=== PATIENT | female | born 1940 | race Caucasian/White ===

== ENCOUNTER 2019-12-08 08:00 | Outpatient (RCR) | payer MEDICARE, SELFPAY ==
--- NOTE | 2019-11-16 11:27 | PTOPEVAL ---
PHYSICAL THERAPY EVALUATION AND PLAN OF CARE 11-16-2019 The PT evaluation was completed for the diagnosis of L UE lymphedema. Her plan of treatment is scheduled for 3x/week for 4 weeks. Thank you for referring Meenakshi to [facility]. Please review, sign, date and return this plan of care HARDEEP. I agree with and certify that the following plan of care is medically necessary. Referring Physician Date Attending Provider: Renata Melo PA-C *PT Outpatient Evaluation Start: 11/16/19 10:19 Document 11/16/19 10:19 CHERYLE (Rec: 11/16/19 11:27 CHERYLE [id number]) Outpatient Past Medical History Past Medical History Source of Past Medical History Patient Neurological History Hx Other Neurological Disorders Yes: alvaro holes with sub dural hematomas due fall Cardiovascular History Hx Hypercholesterolemia Yes: meds Hx Hypertension Yes: meds Respiratory History Hx Asthma Yes: inhaler/nebulizer; taking predisone for past 3 days taken Gastrointestinal History Hx Gastrointestinal Disorders No Significant History Genitourinary History Hx Genitourinary Disorders No Significant History Musculoskeletal History Hx Back Pain Yes: chronic Hx Other Musculoskeletal Disorders Yes: R shoulder and wrist fracture due fall-immobilized Reproductive History Hx Post Menopausal Yes Other History Hx Cancer Yes: breast L mastectomy Hx Other Surgeries Yes: skin cancer removed L forearm Evaluation Information Problem Diagnosis L UE lymphedema Onset Aug 2019 Prior Level of Function Activity Level (Last 3 Months) 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, 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 Hand Dominance Right Activity of Daily Living Ability Independent Indoor/Home Mobility Independent Community Mobility Independent Stairs Ability Independent Functional Cognition (Planning, Shopping Independent , Taking Medications) Cooking Yes Cleaning Yes Laundry Yes Shopping Yes Driving Yes Home Setting Home Type House Living Situation With Adult Child Mobility Assistive Devices (Used Last 3 None,Cane Months) Comments Additional Prior Level of Function no falls since May 2018; Comments adult daughter assist with home tasks, but pt is able to do all needed tasks at home Pain Assessment Timing of
--- NOTE | 2019-12-08 09:00 | PTOPEVAL ---
PHYSICAL THERAPY DISCHARGE 12-08-2019 Mrs. Chavez has received 9 PT sessions, from October 26 to today, for the diagnosis of L UE lymphedema. Her treatment included: manual lymph drainage, multi layer compression wraps, education for lymphedema care/management: skin care, compression sleeve and self lymph drainage. The circumferential measurement of her L arm is .3 cm larger than the initial evaluation, but her forearm tissue is no longer firm. And her skin color is normal, without any redness. She has a compression sleeve: lymphediva brand: small, 20-30 mmHg compression, short length. She is tolerating wearing it without any complaints; her daughter assisting her to apply it. She is to monitor her hand and fingers for edema, and if they begin to swell, she has the measurements for a gauntlet to order. Thank you for referring Meenakshi Chavez to [facility]. Please review, sign, date and return this discharge HARDEEP. I agree with and certify that the following plan of care is medically necessary. Referring Physician Date Attending Provider: Renata Melo PA-C Document 12/08/19 08:05 CHERYLE (Rec: 12/08/19 08:48 CHERYLE [id number]) Subjective Information Meenakshi and her daughter Andria Query Text:As Reported By Patient/ report: sleeve is comfortable Family , without any problems; Andria is assisting her with putting it on and with doing her lymph massage; she is using her arm with home tasks and agrees to discharge from therapy. Pain Assessment Timing of Pain Assessment Timing of Pain Assessment Assessment Self Report Self Report Pain Level 0 Pain Score Pain Score 0: Self Report Lymphedema Evaluation Skin Inspection Location Left Upper Extremity Lymphedema Stage I Skin Inspection Comment no firmness of tissue over L UE, forearm; good/normal skin color; compression sleeve fits appropriately; performed MLD to L UE with verbal reminders for how to do self massage; Andria and pt report good understanding and do not have any questions; they understand skin precautions, how to check arm size with measuring wrist, mid forearm and mid arm; UE Circumferential Measurement Left UE Lymphedema Side Left Mid-Proximal Third Finger (cm) 5.8 Palm (cm) 17.5 Wrist Crease (cm) 17 4 cm From Wrist (cm) 17 8 cm From Wrist (cm) 18.4 12 cm Fro
== END 2019-12-08 12:33 | disposition home or self-care (01) ==
LOC: ANHPT 08:00
PROVIDERS: PCP Family Medicine; Visit Provider Physician Assistant
DX: I97.2 Postmastectomy lymphedema syndrome (principal); Z90.12 Acquired absence of left breast and nipple; Z85.3 Personal history of malignant neoplasm of breast
CPT/HCPCS: 97140; 97161

== ENCOUNTER 2020-01-04 14:41 | Outpatient (CLI) | payer MEDICARE, SELFPAY ==
--- NOTE | ~2020-01-04 | CT_ITS ---
EXAMINATION: CT brain wo con DATE: 01/04/2020 15:30 INDICATION: Dizziness and giddiness. TECHNIQUE: Computed tomography (CT) of the head was performed without intravenous contrast. The dose- length product was 605.33 mGy-cm. The mA was adjusted according to patient size. Iterative reconstruc tion technique was employed. COMPARISON: CT dated 11/05/2018 FINDINGS: Generalized atrophy. There are scattered mild periventricular and subcortical white matter changes, most likely related to small vessel ischemic disease (microangiopathy). Basilar cisterns are patent. There is intracranial atherosclerosis. No midline shift. No ventriculomegaly. IMPRESSION: 1. No acute intracranial abnormality. 2: Chronic age-related findings. Reviewed, dictated and finalized at location A.
== END 2020-01-04 14:42 | disposition home or self-care (01) ==
LOC: ANHIMG 14:49
PROVIDERS: PCP Family Medicine; Visit Provider Physician Assistant
DX: R42 Dizziness and giddiness (principal); Z86.79 Personal history of other diseases of the circulatory system
CPT/HCPCS: 70450

== ENCOUNTER 2020-02-11 12:30 | Outpatient (RCR) | payer MEDICARE, SELFPAY ==
--- NOTE | 2020-01-19 09:20 | PTOPEVAL ---
PHYSICAL THERAPY EVALUATION AND PLAN OF CARE 01-19-2020 The PT evaluation was completed for the diagnosis of L UE lymphedema. Her plan of treatment is scheduled for 2-3x/week for 4 weeks. Thank you for referring Meenakshi Chavez to [facility]. Please review, sign, date and return this plan of care HARDEEP. I agree with and certify that the following plan of care is medically necessary. Referring Physician Date Attending Provider: Renata Melo PA-C *PT Outpatient Evaluation Start: 01/19/20 08:07 Document 01/19/20 08:00 CHERYLE (Rec: 01/19/20 09:20 CHERYLE [id number]) Outpatient Past Medical History Past Medical History Source of Past Medical History Patient,Family/Significant Other Neurological History Hx Other Neurological Disorders Yes: alvaro holes with sub dural hematomas due fall Cardiovascular History Hx Hypercholesterolemia Yes: meds Hx Hypertension Yes: meds Respiratory History Hx Asthma Yes: inhaler/nebulizer; taking predisone for past 3 days taken Hx Other Respiratory Disorders Yes: issues with sinus and allergies Gastrointestinal History Hx Gastrointestinal Disorders No Significant History Genitourinary History Hx Genitourinary Disorders No Significant History Musculoskeletal History Hx Back Pain Yes: chronic Hx Other Musculoskeletal Disorders Yes: R shoulder and wrist fracture due fall-immobilzed Endocrine History Hx Endocrine Disorders No Significant History HEENT History Hx Sinus Problems Yes Hx Other HEENT Disorders Yes: dizziness-going to another facility for vestibular tx Reproductive History Hx Reproductive Disorders No Significant History Other History Hx Cancer Yes: breast L mastectomy Hx Other Medical Conditions Yes: recent CT head due dizziness- negative Hx Other Surgeries Yes: skin cancer removed L forearm Evaluation Information Problem Diagnosis L UE lymphedema Onset August 2019 Prior Level of Function Activity Level (Last 3 Months) 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
--- NOTE | 2020-02-11 13:21 | PTOPEVAL ---
PHYSICAL THERAPY DISCHARGE 02-11-2020 Meenakshi has received a total of 6 PT sessions, from January 18 to today, for the diagnosis of L UE lymphedema. She has improved with the skin integrity of her L UE--no longer has any firmness or fibrosis of the forearm tissue and does not have any edema over the dorsum of her hand. The circumferential measurement of her arm has decreased by 4.7 cm, compared with the initial eval. Meenakshi now has a 30-40 mmHg compression gauntlet over her hand, which has managed the edema. And she continues to use a 20-30 mmHg compression sleeve. Her daughter is assisting her with the compression garments and doing her daily lymph massage. The goals were achieved, except the circumferential total of her arm. She will be discharged at this time. Thank you for referring Meenakshi Chavez to [facility]. Please review, sign, date and return this plan of care HARDEEP. I agree with and certify that the following plan of care is medically necessary. Referring Physician Date Attending Provider: Renata Melo PA-C Document 02/11/20 12:36 CHERYLE (Rec: 02/11/20 13:13 CHERYLE [id number]) Pain Assessment Timing of Pain Assessment Timing of Pain Assessment Assessment Self Report Self Report Pain Level 0 Pain Score Pain Score 0: Self Report Lymphedema Evaluation Skin Inspection Location Left Upper Extremity Tissue Texture Normal Lymphedema Stage I Skin Inspection Comment good skin color, without any fibrosis of tissue, no tenderness; no edema over dorsum of hand UE Circumferential Measurement Left UE Lymphedema Side Left Mid-Proximal Third Finger (cm) 6 Palm (cm) 17.6 Wrist Crease (cm) 17 4 cm From Wrist (cm) 16.8 8 cm From Wrist (cm) 19 12 cm From Wrist (cm) 22.5 16 cm From Wrist (cm) 24 20 cm From Wrist (cm) 24 24 cm From Wrist (cm) 25 28 cm From Wrist (cm) 27 32 cm From Wrist (cm) 29.6 36 cm From Wrist (cm) 33.2 40 cm From Wrist (cm) 31.5 44 cm From Wrist (cm) 32 Total Upper Extremity Circumferential Left UE: 325.2 cm Measurement (cm) Additional Upper Extremity Measurements decreased from initial eval by Comments 4.7 cm; with previous PT, ended measurement of 327.5 cm Edema Teaching Topic Management Topic Components Active Range of Motion,Anatomy and Physiology,Compression, Edema Massage,Exercise,Signs and Symptoms As Pertains to Lymphedema Recipient(s) Patient,Family,Primary
== END 2020-02-15 13:12 | disposition home or self-care (01) ==
LOC: ANHPT 12:30
PROVIDERS: PCP Family Medicine; Visit Provider Physician Assistant
DX: I89.0 Lymphedema, not elsewhere classified (principal)
CPT/HCPCS: 97140; 97161

== ENCOUNTER 2020-02-28 17:15 | Outpatient (CLI) | payer MEDICARE, SELFPAY ==
--- NOTE | ~2020-02-28 | XR_ITS ---
EXAMINATION: XR chest 2V 02/28/2020 17:46 INDICATION: Shortness of breath. History of asthma. PROCEDURE: 2 view chest COMPARISON: Comparison to multiple prior studies sequentially, with oldest reviewed study dated 05/04. FINDINGS: The lungs are clear. The cardiomediastinal silhouette is within normal limits. There are no pleural effusions. There is no pneumothorax suspected. There is dextroscoliosis of the lower tho racic spine. IMPRESSION: 1: NO ACUTE CARDIOPULMONARY DISEASE. Reviewed, dictated and finalized at location A.
== END 2020-02-28 17:16 | disposition home or self-care (01) ==
PROVIDERS: PCP Family Medicine; Visit Provider Physician Assistant
DX: R06.02 Shortness of breath (principal)
CPT/HCPCS: 71046

== ENCOUNTER → 2020-06-19 13:36 | Outpatient (CLI) | payer MEDICARE, SELFPAY ==
--- NOTE | ~2020-06-19 | MM_ITS ---
EXAMINATION: MM screening josei RT w aquilino HISTORY: Screening right mammogram, history of left mastectomy TECHNIQUE: Craniocaudal and mediolateral oblique 3-D tomosynthesis images were obtained and synthetic 2-D images were generated. CAD analysis was submitted and interpreted. COMPARISON: 04/07/2019, 05/05/2017, 04/02/2016, 01/18/2015 BREAST PARENCHYMAL COMPOSITION: The breasts are heterogeneously dense, which may obscure small masses . FINDINGS: Scattered benign-appearing calcifications are present. There is no evidence of suspicious m ass, calcification, or architectural distortion to suggest malignancy. There has been no suspicious i nterval change. IMPRESSION: 1. No mammographic evidence of malignancy. 2. Recommend routine screening mammography while the patient remains in good health. BI-RADS Category 2: Benign finding(s). Reviewed, dictated and finalized at location A. 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 No mammographic evidence of malignancy. 2. Recommend routine screening mammography while the patient remains in good he alth. BI-RADS Category 2: Benign finding(s).
== END ==
PROVIDERS: PCP Family Medicine; Visit Provider Family Medicine
DX: Z12.31 Encounter for screening mammogram for malignant neoplasm of breast (principal)
CPT/HCPCS: 77063; 77067

== ENCOUNTER 2020-06-20 13:21 | Emergency (ER) | payer MEDICARE, SELFPAY ==
--- NOTE | ~2020-06-20 | XR_ITS ---
EXAMINATION: XR shoulder LT min 2V DATE: 06/20/2020 15:02 INDICATION: Left shoulder pain. Fall. TECHNIQUE: 3 views of left shoulder were obtained. COMPARISON: None. FINDINGS: There is a comminuted fracture of proximal left humerus. At the surgical neck, the distal f racture fragment demonstrates impaction, 5 mm medial displacement, and 10 mm anterior displacement. G lenohumeral joint is normal. There is mild acromioclavicular joint osteoarthritis. IMPRESSION: 1. Comminuted two-part fracture of proximal left humerus. Reviewed, dictated and finalized at location A. 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
--- NOTE | ~2020-06-20 | CT_ITS ---
EXAMINATION: CT brain wo con DATE: 06/20/2020 14:57 INDICATION: Head injury. TECHNIQUE: Computed tomography (CT) of the head was performed without intravenous contrast. The mA wa s adjusted according to patient size. Iterative reconstruction technique was employed. The dose-lengt h product was 529.67 mGy-cm. COMPARISON: Head CT 01/04/2020 FINDINGS: There are scattered areas of low attenuation in the cerebral white matter. The ventricles a re normal in size. There is mild mucosal thickening in the paranasal sinuses. The mastoid air cells a re normal. IMPRESSION: 1. Stable moderate nonspecific cerebral white matter disease, which likely represents chronic small v essel ischemic disease. Reviewed, dictated and finalized at location A. CAGER IMPRESSION: 1. Stable moderate nonspecific cerebral white matter disease, which likely repr esents chronic small vessel ischemic disease.
[2020-06-20 13:31] VITALS: BP 149/103; PULSE 85; RESP 20; TEMP 37; O2SAT 96
--- NOTE | 2020-06-20 14:47 | PC.NURSE ---
pt states she got her feet caught up and fell against a wall. unsure if she hit her head. pt c/o left shoulder and upper arm pain. limited rom noted. pt denies loc. has had past history of multiple subdural hematomas with interventions. denies usage of blood thinners.
[2020-06-20] MEDS: HYDROcodone/acetaminophen (*CRX) 5-325 MG TABLET 1 TAB PO (16:14)
--- NOTE | 2020-06-20 16:51 | ED.GENADULT ---
HPI - General Adult General Chief complaint: Extremity Injury, Upper Stated complaint: fall, L arm pain Time Seen by Provider: 06/20/20 14:51 Source: patient Mode of arrival: ambulatory Limitations: no limitations History of Present Illness HPI narrative: Patient presents with chief complaint of pain to the left shoulder after losing her bleeding and falling against the wall sliding downward. Patient states she has been having issues with her balance for a long time which her primary care is aware of and has worked up and has started physical therapy for. Patient states she will try to do some cleaning today with her daughter and that is when she lost her footing and fell. She denies no loss of consciousness. She denies headache, changes in vision or hearing, nausea, vomiting, abdominal pain or any other complaints. Patient reports he still has sensation distal to the injury but she is unable to move her left shoulder due to pain. Related Data Home Medications Medication Instructions Recorded Confirmed hydrocodone 7.5 mg-acetaminophen 1 tablet PO Q6H PRN 07/14/19 04/06/20 325 mg tablet ipratropium 0.5 mg-albuterol 3 mg 3 ml INHALATION Q4H PRN 07/14/19 04/06/20 (2.5 mg base)/3 mL nebulization soln Allergies Allergy/AdvReac Type Severity Reaction Status Date / Time aspirin Allergy Unknown Difficulty Verified 06/20/20 14:42 Breathing ibuprofen Allergy Unknown Difficulty Verified 06/20/20 14:42 Breathing naproxen Allergy Unknown Difficulty Verified 06/20/20 14:42 Breathing NSAIDS (Non-Steroidal Allergy Unknown difficulty Verified 06/20/20 14:42 Anti-Inflamma br penicillin G Allergy Unknown rash and Verified 06/20/20 14:42 difficulty breathing Penicillins Allergy Unknown rash and Verified 04/06/20 14:31 difficulty breathing Review of Systems Review of Systems: Narrative: CONSTITUTIONAL: Denies fever, chills, or sweats. EYES: Denies visual changes, redness, or discharge. ENT: Denies rhinorrhea, congestion, sore throat, or otalgia. CARDIOVASCULAR: Denies chest pain, palpitations, or edema. RESPIRATORY: Denies cough or dyspnea. GASTROINTESTINAL: Denies abdominal pain, nausea, vomiting, or diarrhea. GENITOURINARY: Denies dysuria or hematuria. SKIN: Denies rash or itching. MUSCULOSKELETAL: Reports left shoulder pain denies back pain, joint pain, or myalgia. NEUROLOGIC: Denies headache, numbness, dizziness, or weakness. PSYCHIATRIC: Denies anxiety or depression. 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 Bilateral lower extremity edema Diarrhea Dizziness Essential hypertension Gait instability H/O subdural hemorrhage Indigestion Left arm swelling Leukocytosis Lymphedema Otalgia, left ear Sensation of fullness in left ear Skin lesion Skin lesion of face Wheezing Family History Family History Sibling Family history of malignant neoplasm of breast in first degree relative Patient's sister is Other Asthma Family history of cataracts Family history of malignant neoplasm of breast Family history of malignant neoplasm of male breast Hypertension Social History Social History Smoking status: Never smoker Alcohol intake: never Substance use: never Substance use type: does not use Gender identity (if verbalized by the patient): Female Exam Narrative: Exam Narrative: GENERAL: Well-appearing, well-nourished, and in no acute distress. HEAD: Normocephalic, atraumatic. EYES: PERRLA and EOMI. ENT: Nares clear, no rhinorrhea or epistaxis. Mucous membranes moist. Oropharynx without tonsillar hypertrophy exudate or other lesions. Bilateral TMs pearly moss nonbulging CHEST: Clear to auscultation. No respiratory distress. No wheezes rales or rhonchi
[2020-06-20 17:29] VITALS: BP 163/101; PULSE 103; RESP 16
== END 2020-06-20 17:30 | disposition home or self-care (01) ==
PROVIDERS: Emergency Provider Emergency Medicine; PCP Family Medicine
DX: S42.222A 2-part displaced fracture of surgical neck of left humerus, initial encounter for closed fracture (principal); I10 Essential (primary) hypertension; R26.89 Other abnormalities of gait and mobility; Z85.828 Personal history of other malignant neoplasm of skin; R90.82 White matter disease, unspecified
CPT/HCPCS: 70450; 73030; 99284; A4565; A9270

== ENCOUNTER 2020-07-05 10:27 | Outpatient (CLI) | payer MEDICARE, SELFPAY ==
[2020-07-05 23:27] LABS: SARS-CoV-2 RNA PCR Negative
== END 2020-07-05 10:28 | disposition home or self-care (01) ==
LOC: ANHCOVIDDT 10:27
PROVIDERS: PCP Family Medicine; Visit Provider Orthopaedic Surgery
DX: Z01.818 Encounter for other preprocedural examination (principal); Z20.828 Contact with and (suspected) exposure to other viral communicable diseases
CPT/HCPCS: 87635; C9803; U0003

== ENCOUNTER 2020-07-05 13:33 | Outpatient (CLI) | payer MEDICARE, SELFPAY ==
--- NOTE | 2020-07-05 13:36 | ECG_ITS ---
Measurements Intervals [place] Rate: 98 P: 58 CA: 135 QRS: -46 QRSD: 117 T: 89 QT: 326 QTc: 418 Interpretive Statements SINUS RHYTHM INCOMPLETE RIGHT BUNDLE BRANCH BLOCK LEFT ANTERIOR FASCICULAR BLOCK LEFT VENTRICULAR HYPERTROPHY AND ST-T CHANGE HIGH LATERAL INFARCT, AGE INDETERMINATE BASELINE ARTIFACT- I, II, III, AVR, AVL, AVF, V2, V4 ABNORMAL ECG Electronically Signed On 07-05-2020 13:56:14 FIELD REVIEWER by Pollo Monet D.O.
[2020-07-05 14:43] LABS: Anion Gap 5 mmol/L (8-16); Blood Urea Nitrogen 16 mg/dL (7-17); Carbon Dioxide 27 mmol/L (22-30); Chloride 101 mmol/L (98-107); Estimated Glomerular Filt Rate > 60; Glucose 103 mg/dL (65-105); Sodium 133 mmol/L (137-145)
== END 2020-07-05 13:34 | disposition home or self-care (01) ==
LOC: ANHSURGERY 13:36
PROVIDERS: Anesthesiology; PCP Family Medicine; Visit Provider Orthopaedic Surgery
DX: Z01.818 Encounter for other preprocedural examination (principal); I10 Essential (primary) hypertension; I45.10 Unspecified right bundle-branch block; I44.4 Left anterior fascicular block
CPT/HCPCS: 36415; 80048; 87635; 93005; C9803; U0003

== ENCOUNTER 2020-07-07 01:28 | Day surgery (SDC) | payer MEDICARE, SELFPAY ==
[2020-07-05 12:29] VITALS: BMI 26.4
[2020-07-07] VITALS (9 sets, daily range): BP systolic 120–159; BP diastolic 59–83; PULSE 91–101; RESP 12–20; TEMP 36.6–37; O2SAT 94–100
--- NOTE | ~2020-07-07 | XR_ITS ---
XR shoulder LT min 2V, XR surgery orthopedic 07/07/2020 14:23 (accession [id number]), 07/07/2020 13:58 (accession [id number]) Indication: Intraoperative fixation of left humeral neck fracture Procedure: 262 seconds of fluoroscopy time. 2 postoperative views of the left shoulder performed port ably. Comparison: 07/05/2020 Findings: Status post intraoperative fixation of proximal left humeral fracture with intramedullary r od as well as 2 proximal and one distal interlocking screw. Fracture fragments in near-anatomic align ment post reduction. Impression: 1: Near-anatomic alignment of proximal left humeral fracture status post intraoperative fixation with intramedullary stephon and interlocking screws. Reviewed, dictated and finalized at location B. ET [employer] Impression: 1: Near-anatomic alignment of proximal left humeral fracture status post intrao perative fixation with intramedullary stephon and interlocking screws. Impression: 1: Near-anatomic alignment of proximal left humeral fracture status post intrao perative fixation with intramedullary stephon and interlocking screws.
--- NOTE | 2020-07-07 08:56 | WPDANESEPPF ---
Anes - Initial Pre Proc Eval Procedure: Operation Date: 07/07/20 10:30 Proposed Procedures p Open Reduction Internal Fixation Left Proximal Humerus Fracture with Intramedullary Nail - Chaim Laurne MD Date/Time: 07/07/20 08:56 Surgeon: Chaim Lauren MD Pre Op Diagnosis: left proximal humerus fx Patient Data Age: 79 Gender: F Height: 5 ft Weight: 66.7 kg Last Vital Signs Temp 37.0 C 07/07/20 08:34 Pulse 91 07/07/20 08:34 Resp 20 07/07/20 08:34 BP 142/59 H 07/07/20 08:34 Pulse Ox 100 07/07/20 08:34 Allergies Allergy/AdvReac Type Severity Reaction Status Date / Time aspirin Allergy Unknown Difficulty Verified 07/05/20 12:07 Breathing NSAIDS (Non-Steroidal Allergy Unknown difficulty Verified 07/05/20 12:07 Anti-Inflamma br Penicillins Allergy Unknown rash and Verified 07/05/20 12:07 difficulty breathing Home Medications Medication Instructions Recorded Confirmed Type lisinopril 10 mg tablet 10 mg PO DAILY #90 tablet 10/04/19 07/05/20 Rx rosuvastatin 10 mg tablet 5 mg PO DAILY #45 tablet 01/04/20 07/05/20 Rx montelukast 10 mg tablet 10 mg PO DAILY #90 tablet 02/28/20 07/05/20 Rx levetiracetam 500 mg tablet 500 mg PO Q12H #180 tablet 04/17/20 07/05/20 Rx hydrochlorothiazide 12.5 mg tablet 12.5 mg PO DAILY #90 tablet 05/24/20 07/05/20 Rx lorazepam 0.5 mg tablet 0.5 mg PO BID PRN #60 tablet 06/21/20 07/05/20 Rx albuterol sulfate [ProAir HFA] 2 puff INHALATION Q4H PRN 07/05/20 07/05/20 History ascorbate calcium (vitamin C) 1,000 mg PO DAILY 07/05/20 07/05/20 History cholecalciferol (vitamin D3) 2,000 unit PO DAILY 07/05/20 07/05/20 History [Vitamin D3] multivitamin,[id number] 1 tablet PO DAILY 07/05/20 07/05/20 History [Complete Multivitamin] turmeric 400 mg PO DAILY 07/05/20 07/05/20 History hydrocodone 5 mg-acetaminophen 325 1 tablet PO Q4H PRN #30 tablet 07/06/20 Rx mg tablet Patient hx anesthesia problems: none Family hx anesthesia problems: none PMFSH Past Medical History Medical History 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 Bilateral lower extremity edema Diarrhea Dizziness Essential hypertension Fracture of proximal end of left humerus Gait instability H/O subdural hemorrhage Indigestion Left arm swelling Leukocytosis Lymphedema Otalgia, left ear Sensation of fullness in left ear Skin lesion Skin lesion of face Wheezing Family History Family History Sibling Family history of malignant neoplasm of breast in first degree relative Patient's sister is Other Asthma Family history of cataracts Family history of malignant neoplasm of breast Family history of malignant neoplasm of male breast Hypertension Social History Social History Smoking status: Never smoker Alcohol intake: never Substance use: never Substance use type: does not use Living arrangements: with family Gender identity (if verbalized by the patient): Female Spiritual care concerns: No Anes - Eval Final PreProcedure Day of Procedure 07/07/20 08:56 Patient weight: overweight Heart: regular rate and rhythm Lungs: decreased breath sounds Airway: Mallampati scale class II Neurological: other (alert) Last oral intake: >/= 8 hours ASA classification: III Emergent: no Anesthetic plan: proceed Anesthesia type and monitoring: general ETT and standard monitoring Informed Consent: The patient's anesthetic plan and its attendant risks and benefits were discussed with the patient/family/POA. Questions were solicited and answers provided to the satisfaction of the patient/family/POA.
[2020-07-07] MEDS: ACETAMINOPHEN 500 MG TABLET 1000 MG PO (09:18)
[2020-07-07] MEDS: LACTATED RINGERS 1,000 ML 30 ML IV CONT ×2 (09:18→14:13)
--- NOTE | 2020-07-07 11:34 | WPDHPUPDATE1 ---
History and Physical Update Update Date/Time: 07/07/20 11:34 History and Physical has been reviewed, including an updated exam of the patient. There are NO changes in the patient's condition. Risks, benefits, and alternatives have been discussed and questions answered. Patient agrees to proceed with procedure.
[2020-07-07] MEDS: CLINDAMYCIN 900 MG/D5W 50 ML 900 MG/50 ML PIGGYBACK 50 MG IVPB (11:40)
[2020-07-07] MEDS: fentaNYL CITRATE INJ (*CRX) 100 MCG/2 ML VIAL 25 MCG IV PUSH ×4 (14:29→14:38)
--- NOTE | 2020-07-07 15:02 | PM.PROC ---
Procedure Note - Detailed Date of procedure: 07/07/20 Pre-op diagnosis: left proximal humerus fx Post-op diagnosis: other (1. Displaced surgical neck proximal humerus fracture. 2. Rotator cuff tear) Procedure performed: 1. Open reduction and internal fixation of left proximal humerus fracture with intramedullary nail 2. Open rotator cuff repair with acromioplasty Description of procedure: The fracture was initially nondisplaced. She went on to displace with severe posterior translation of the humeral head. There was a vertical split through the tuberosity is posteriorly . This was repaired with 3 [id number] sutures. The rotator cuff itself had a small lateral tear at the posterior supraspinatus. This was repaired with 2 sutures woven through bone. There was subacromial impingement with a small size acromial spur. This was treated with a gentle acromioplasty. The fracture was very unstable and translated. Closed reduction was difficult. A large K-wire was used to joystick the proximal fragment. The nail itself was used to assist with the range reduction. There was a rotational displacement that was corrected after locking proximally, using the 20 degree alignment guide. Implants: Tornier/ Lopes Aequalis proximal humeral nail. 130 mm. Two locking screws proximally and 1 distal. Anesthesia: GLMA Surgeon: Chaim Lauren MD Estimated blood loss (mL): 150 Drains: No Complications: No immediate complications Condition: stable Disposition: PACU Findings: A general anesthetic was administered. Preoperative antibiotics were given. The patient was carefully placed in the beach chair position. Biplanar fluoroscopy was assessed and found to obtain appropriate orthogonal views. The shoulder was prepped and draped in usual sterile fashion. Head was carefully position on the Batista head automatic sawyer. A longitudinal incision was created over the anterolateral acromion. The deltoid was split in line with its fibers and extended along the anterior acromion. Manipulative closed reduction was attempted. It was necessary to manipulate the fracture site with a Crowley elevator and manually. A joystick was used also in the proximal fragment. The starting point was identified at the top of the humeral head. The awl was placed followed by the cannulated wire through the awl. The stephon was placed. It assisted with the reduction. The proximal locking screws were placed posteriorly. At this point rotation was accomplished using the alignment stephon as a guide for the 20 degree external rotation. The fracture alignment appeared more anatomic after rotation adjustment. Gentle internal and external rotation felt appropriate. The distal lock was placed. It was placed in the dynamic position to allow for additional compression at the fracture site. The rotator cuff had a significant 1 cm tear laterally. No significant retraction however. This was treated with several Ethibond suture. An acromioplasty was performed, as the subacromial space was quite tight with a significant downsloping of the anterolateral acromion. The split in the rotator cuff muscle for the nail was repaired similarly with Ethibond suture. This was a very minimal disruption of the longitudinal muscle fibers. The deltoid was carefully repaired with heavy 2. Ethibond suture as well as 1. Vicryl suture. The repair was quite luke. The subcutaneous tissues were closed with interrupted 1. Vicryl followed by 2 O Vicryl, 3 0 Monocryl, and running 4 Monocryl. Steri-Strips were placed on the skin. Sterile dressing was applied. The patient was extubated and brought to recovery room. Estimated blood loss 150 mL. Meticulous hemostasis maintained. Shoulder immobilizer applied.
[2020-07-07] MEDS: oxyCODONE HCL (*CRX) 5 MG TAB IR PO (15:25)
== END 2020-07-07 16:35 | disposition home or self-care (01) ==
PROVIDERS: PCP Family Medicine; Visit Provider Orthopaedic Surgery
PROC: (CPT 23420; principal; 2020-07-07 10:30)
DX: S42.292A Other displaced fracture of upper end of left humerus, initial encounter for closed fracture (principal); M75.102 Unspecified rotator cuff tear or rupture of left shoulder, not specified as traumatic; X58.XXXA Exposure to other specified factors, initial encounter; I10 Essential (primary) hypertension
CPT/HCPCS: 23420; 24516; 73030; A9270; C1713; J0330; J1100; J2704; J3010; J7120

== ENCOUNTER 2020-08-06 11:50 | Emergency (ER) | payer MEDICARE, SELFPAY ==
[2020-08-06 11:55] VITALS: BP 164/89; PULSE 115; RESP 16; TEMP 38.1; O2SAT 100
--- NOTE | 2020-08-06 12:03 | ED.GENADULT ---
HPI - General Adult General Chief complaint: Fever Stated complaint: body aches/fever Time Seen by Provider: 08/06/20 12:15 Source: patient and RN notes reviewed Mode of arrival: ambulatory Limitations: no limitations History of Present Illness HPI narrative: 79-year-old female presents with concern for low-grade fever, general body aches, poor appetite, nausea, occasional cough. She denies rhinorrhea, sore throat, nasal congestion, vomiting, diarrhea. Reports she has been taking Tylenol with codeine for her recent shoulder surgery. Reports she has been sleeping in a recliner because of her shoulder surgery, causing mild backaches. Reports urine frequency at baseline, denies other changes in urine pattern such as urgency, dysuria, hematuria. Denies flank pain or abdominal pain. MD complaint: Fever Related Data Home Medications Medication Instructions Recorded Confirmed hydrochlorothiazide 12.5 mg PO DAILY 08/06/20 08/06/20 hydrocodone-acetaminophen [[place]] 1 tablet PO Q4H 08/06/20 08/06/20 levetiracetam [Keppra] 500 mg PO BID 08/06/20 08/06/20 lisinopril [Zestril] 10 mg PO DAILY 08/06/20 08/06/20 montelukast [Singulair] 10 mg PO DAILY 08/06/20 08/06/20 rosuvastatin [Crestor] 5 mg PO DAILY 08/06/20 08/06/20 Allergies Allergy/AdvReac Type Severity Reaction Status Date / Time aspirin Allergy Severe Difficulty Verified 08/06/20 12:11 Breathing NSAIDS (Non-Steroidal Allergy Severe difficulty Verified 08/06/20 12:11 Anti-Inflamma br Penicillins Allergy Severe rash and Verified 08/06/20 12:11 difficulty breathing Review of Systems Review of Systems: Narrative: CONSTITUTIONAL: Denies malaise, chills, sweats. Reports low-grade fever. EYES: Denies visual changes, redness, or discharge. ENT: Denies rhinorrhea, congestion, sinus pain, otalgia or sore throat. CARDIOVASCULAR: Denies chest pain, palpitations, or edema. RESPIRATORY: Reports occasional cough, denies dyspnea. GASTROINTESTINAL: Denies abdominal pain, vomiting, diarrhea. Reports nausea, poor appetite GENITOURINARY: Reports urine frequency. Denies dysuria or hematuria. SKIN: Denies rash or itching. MUSCULOSKELETAL: Reports chronic back aches, denies joint pain. Reports myalgia. NEUROLOGIC: Denies numbness, weakness, or headache. All systems reviewed & are unremarkable except as noted in HPI and below PMFSH Past Medical History Medical History 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 Bilateral lower extremity edema Diarrhea Dizziness Essential hypertension Fracture of proximal end of left humerus Gait instability H/O subdural hemorrhage Indigestion Left arm swelling Leukocytosis Lymphedema Otalgia, left ear Sensation of fullness in left ear Skin lesion Skin lesion of face Wheezing Family History Family History Sibling Family history of malignant neoplasm of breast in first degree relative Patient's sister is Other Asthma Family history of cataracts Family history of malignant neoplasm of breast Family history of malignant neoplasm of male breast Hypertension Social History Social History Smoking status: Never smoker Alcohol intake: never Substance use: never Substance use type: does not use Gender identity (if verbalized by the patient): Female Spiritual care concerns: No Comments At time of signature, agree with nursing past medical, surgical, social and family history. There is no relevant family history pertinent to the presenting complaint Exam Narrative: Exam Narrative: GENERAL: Well-appearing, well-nourished, and in no acute distress. HEAD: Normocephalic, atraumatic. EYES: PERRLA, conjunctivae clear ENT: Nares clear, turbinates pink, no rhinorrhea or epistaxis. Mucous membranes moist. TM pearly moss with sharp light reflex bilatera
== END 2020-08-06 12:40 | disposition home or self-care (01) ==
PROVIDERS: Emergency Provider Nurse Practitioner; PCP Family Medicine
DX: R50.9 Fever, unspecified (principal); Z20.822 Contact with and (suspected) exposure to COVID-19; I10 Essential (primary) hypertension; Z85.828 Personal history of other malignant neoplasm of skin
CPT/HCPCS: 81003; 87081; 87804; 87880; 99213; G0463

== ENCOUNTER 2020-08-07 08:19 | Outpatient (NON) | payer MEDICARE, SELFPAY ==
[2020-08-07 18:51] LABS: SARS-CoV-2 RNA PCR Positive
== END 2020-08-07 08:20 ==
LOC: ANHCOVIDDT 08:20
PROVIDERS: PCP Family Medicine; Visit Provider Nurse Practitioner
DX: U07.1 COVID-19 (principal)
CPT/HCPCS: C9803; U0003

== ENCOUNTER → 2020-11-06 14:37 | Outpatient (CLI) | payer MEDICARE, SELFPAY ==
--- NOTE | ~2020-11-06 | XR_ITS ---
EXAMINATION: XR lumbar spine 2-3V EXAM DATE: 11/06/2020 14:57 INDICATION: M54.5 - Low back pain, no known recent injury. TECHNIQUE: Lumber spine frontal, lateral, lateral L5-S1 projections for interpretation. Comparison is made to prior examination from 02/25/2017. FINDINGS: There is moderate lumbar levoscoliosis. There is grade 2 anterolisthesis L5 on S1 with jerez spicion of bilateral chronic spondylolysis. There is severe disc disease L5 on S1 and L3 on L4, moder ate at the other lumbar levels. There is moderate to severe lumbar facet arthropathy. No acute fractu re line is identified, but is likely mild loss of the L1 and L2 vertebral body heights which is chron ic. There is moderate aortic arterial sclerosis. Sacrum, sacroiliac joints, sacral arcuate lines are intact. Compared to 2017, scoliosis appears to have progressed slightly. Otherwise difficult apprecia te any significant interval change. IMPRESSION: 1. Moderate lumbar levoscoliosis. 2. Probable mild compressions at L1 and L2. 3. Grade 2 anterolisthesis L5 on S1 with chronic bilateral L5 pars defects. 4. Moderate to severe lumbar facet arthropathy. Reviewed, dictated and finalized at location A.
== END ==
PROVIDERS: PCP Family Medicine; Visit Provider Family Medicine
DX: M54.5 Low back pain (principal); M41.86 Other forms of scoliosis, lumbar region; M43.17 Spondylolisthesis, lumbosacral region; M43.8X6 Other specified deforming dorsopathies, lumbar region
CPT/HCPCS: 72100

== ENCOUNTER → 2021-02-19 12:01 | Outpatient (CLI) | payer MEDICARE, SELFPAY ==
--- NOTE | ~2021-02-19 | XR_ITS ---
EXAMINATION: XR knee LT 3V DATE: 02/19/2021 12:54 INDICATION: Left knee pain and effusion TECHNIQUE: Three views of the left knee were obtained. COMPARISON: 07/19/2015 FINDINGS: No fracture is identified. There is severe osteoarthritis of the lateral compartment, worse edwin since the prior examination. The calcified lateral meniscus appears to be laterally extruded. The re is moderate osteoarthritis of the medial and patellofemoral compartments. A small joint effusion i s present. Calcified atherosclerosis is noted. IMPRESSION: 1. 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 Reviewed, dictated and finalized at location B.
== END ==
PROVIDERS: PCP Physician Assistant; Visit Provider Physician Assistant
DX: M17.12 Unilateral primary osteoarthritis, left knee (principal)
CPT/HCPCS: 73562

== ENCOUNTER 2021-02-23 16:07 | Emergency (ER) | payer MEDICARE, SELFPAY ==
[2021-02-23 16:20] VITALS: BP 129/71; PULSE 75; RESP 15; TEMP 37.1; O2SAT 97
--- NOTE | 2021-02-23 16:52 | ED.EXTPRO ---
HPI - Extremity Problem General Chief complaint: Extremity Problem,Nontraumatic Stated complaint: Lt foot pain Source: patient, family and RN notes reviewed Mode of arrival: ambulatory History of Present Illness HPI Narrative: This is a 80-year-old female that presented to urgent care with complaints of left foot pain. Patient notes that her pain increases when she bears weight to the affected foot. Apparently patient went to her solar systems designer who took x-ray of her foot and did not find any fracture or dislocation. She also has recently been treated for gout with colchicine and was instructed to use the allopurinol once her condition improved. According to her daughter her condition never improved so they never started using allopurinol. Today she has pain to the lateral side of her left foot. She also noted that she received a cortisone shot approximately 2 days ago and still no relief. The patient denies SOB, CP, palpitation, extremity numbness, lightheadedness, dizziness, constipation, diarrhea, chills, or fever. Pulses sensations present normal range of motion with toes and foot Related Data Home Medications Medication Instructions Recorded Confirmed hydrochlorothiazide 12.5 mg PO DAILY 08/06/20 02/23/21 lisinopril [Zestril] 10 mg PO DAILY 08/06/20 02/23/21 montelukast [Singulair] 10 mg PO DAILY 08/06/20 02/23/21 rosuvastatin [Crestor] 5 mg PO DAILY 08/06/20 02/23/21 Allergies Allergy/AdvReac Type Severity Reaction Status Date / Time aspirin Allergy Severe Difficulty Verified 02/23/21 16:33 Breathing NSAIDS (Non-Steroidal Allergy Severe difficulty Verified 02/23/21 16:33 Anti-Inflamma br Penicillins Allergy Severe rash and Verified 02/23/21 16:33 difficulty breathing Review of Systems Review of Systems: Narrative: A 14 organ system Review of Systems was performed and pertinent positives included in the HPI, otherwise remaining ROS is negative. All systems reviewed & are unremarkable except as noted in HPI and below PMFSH Past Medical History Medical History 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 Bilateral lower extremity edema Diarrhea Dizziness Essential hypertension Fracture of proximal end of left humerus Gait instability H/O subdural hemorrhage Indigestion Left arm swelling Leukocytosis Lymphedema Otalgia, left ear Sensation of fullness in left ear Skin lesion Skin lesion of face Wheezing Family History Family History Sibling Family history of malignant neoplasm of breast in first degree relative Patient's sister is Other Asthma Family history of cataracts Family history of malignant neoplasm of breast Family history of malignant neoplasm of male breast Hypertension Social History Social History Smoking status: Never smoker Second hand tobacco smoke exposure: No Alcohol intake: never Substance use: never Substance use type: does not use Gender identity (if verbalized by the patient): Female Spiritual care concerns: No Exam Narrative: Exam Narrative: GENERAL: This is a well-nourished, well-developed patient, in no apparent distress. HEAD: normocephalic, atraumatic. EYES: PERRL. Sclera clear/white. Vision is grossly intact. EARS: External ears normal, auditory canals clear and without drainage, TMs normal without perforation. Hearing grossly intact. NOSE: External nose normal with no obvious nasal discharge, nares without redness, no rhinorrhea. THROAT: Mucous membranes moist, posterior pharynx clear. NECK: Neck supple, non-tender without lymphadenopathy, masses or thyromegaly. CARDIOVASCULAR: Regular rate and rhythm without murmurs, gallops, or rubs. RESPIRATORY: Clear to auscultation. Breath sounds equal bilaterally. No wheezes, rales, or rhonchi. GASTROINTESTINAL: Abdomen soft, non-
== END 2021-02-23 17:05 | disposition home or self-care (01) ==
PROVIDERS: Emergency Provider Nurse Practitioner; PCP Family Medicine
DX: S93.602A Unspecified sprain of left foot, initial encounter (principal); S96.912A Strain of unspecified muscle and tendon at ankle and foot level, left foot, initial encounter; X58.XXXA Exposure to other specified factors, initial encounter; M10.9 Gout, unspecified; Z85.828 Personal history of other malignant neoplasm of skin; I10 Essential (primary) hypertension
CPT/HCPCS: 99213; G0463

== ENCOUNTER 2021-03-20 19:32 | Emergency (ER) | payer MEDICARE, SELFPAY ==
[2021-03-20 19:44] VITALS: BP 138/55; PULSE 83; RESP 16; TEMP 36.9; O2SAT 98
--- NOTE | 2021-03-20 20:05 | ED.GENADULT ---
HPI - General Adult General Chief complaint: Eye Problems Stated complaint: eye problems Source: patient and family Mode of arrival: ambulatory Limitations: no limitations History of Present Illness HPI narrative: Patient is an 80-year-old female who presents to the [facility] via POV for evaluation of a left eye problem that began at 7 PM this evening. She is accompanied by her adult daughter. She reports she feels as if she has a film over her left eye. She states the feeling is constant. No relief with rubbing her eye. Nothing improves or worsen symptoms. History significant for subdural hematomas x2. She is currently on Keppra for seizure prevention.. Related Data Home Medications Medication Instructions Recorded Confirmed hydrochlorothiazide 6.25 mg PO DAILY 08/06/20 03/20/21 lisinopril [Zestril] 10 mg PO DAILY 08/06/20 03/20/21 montelukast [Singulair] 10 mg PO DAILY 08/06/20 03/20/21 rosuvastatin [Crestor] 5 mg PO DAILY 08/06/20 03/20/21 Allergies Allergy/AdvReac Type Severity Reaction Status Date / Time aspirin Allergy Severe Difficulty Verified 03/20/21 19:51 Breathing NSAIDS (Non-Steroidal Allergy Severe difficulty Verified 03/20/21 19:51 Anti-Inflamma br Penicillins Allergy Severe rash and Verified 03/20/21 19:51 difficulty breathing Review of Systems Review of Systems: Denies fever, chills, sweats, change in appetite, poor p.o. intake, headache, dizziness, lymphadenopathy, swelling, erythema, weakness, syncope, vertigo, LOC, seizure activity, memory loss, difficulty with coordination/gait/equilibrium, paresthesias, difficulty with speech, confusion, abdominal pain, nausea, vomiting, diarrhea, constipation, shortness of breath, cough, chest pain, and heart palpitations/murmurs. [facility] Past Medical History Medical History 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 Bilateral lower extremity edema Diarrhea Dizziness Essential hypertension Fracture of proximal end of left humerus Gait instability H/O subdural hemorrhage Indigestion Left arm swelling Leukocytosis Lymphedema Otalgia, left ear Sensation of fullness in left ear Skin lesion Skin lesion of face Wheezing Family History Family History Sibling Family history of malignant neoplasm of breast in first degree relative Patient's sister is Other Asthma Family history of cataracts Family history of malignant neoplasm of breast Family history of malignant neoplasm of male breast Hypertension Social History Social History Smoking status: Never smoker Second hand tobacco smoke exposure: No Alcohol intake: never Substance use: never Substance use type: does not use Gender identity (if verbalized by the patient): Female Spiritual care concerns: No Comments I have reviewed and agree with the patient's past medical, surgical, social, and family hx as documented by the RN. There is no relevant family history pertinent to the presenting complaint. Exam Const: General: cooperative, comfortable, well developed, alert, awake and Physically active Orientation/consciousness: oriented to person, oriented to place and oriented to time Limitations: no limitations HENMT: Head: normal to inspection Ears: hearing grossly normal bilaterally and external ears normal General nose exam: Normal external nose present and Normal nares present Face and sinus: normal facial exam Mouth: Yes Normal oral and palatal mucosa present, Yes lip normal and Yes tongue normal Eyes: General: appearance normal, both eyes and all related structures Visual Cortes: normal visual cortes by confrontation Alignment and Position: alignment normal Periorbital: periorbital findings normal Eyelids: eyelids normal Conjunctivae: conjunctivae normal S
== END 2021-03-20 20:11 | disposition short-term general hospital (02) ==
PROVIDERS: Emergency Provider Nurse Practitioner Family; PCP Family Medicine
DX: H53.9 Unspecified visual disturbance (principal); I10 Essential (primary) hypertension; Z85.828 Personal history of other malignant neoplasm of skin
CPT/HCPCS: 99215; G0463

== ENCOUNTER 2021-03-20 20:25 | Emergency (ER) | payer MEDICARE, SELFPAY ==
[2021-03-20 20:38] VITALS: BP 145/73; PULSE 101; RESP 16; TEMP 37.4; O2SAT 100
--- NOTE | 2021-03-20 20:43 | ECG_ITS ---
Measurements Intervals [place] Rate: 94 P: 71 RI: 130 QRS: -40 QRSD: 118 T: 80 QT: 354 QTc: 443 Interpretive Statements SINUS RHYTHM VENTRICULAR TRIGEMINY LEFT AXIS DEVIATION INCOMPLETE RIGHT BUNDLE BRANCH BLOCK LEFT VENTRICULAR HYPERTROPHY AND ST-T CHANGE BORDERLINE R WAVE PROGRESSION, ANTERIOR LEADS HIGH LATERAL INFARCT, AGE INDETERMINATE BASELINE ARTIFACT- I, V2 ABNORMAL ECG Electronically Signed On 03-21-2021 6:28:37 CDT by Pollo Monet D.O.
[2021-03-20 21:19] LABS: Basophils Absolute Auto 0.1 K/mm3 (0.0-0.1); Basophils Percent Auto 0.6 % (0.2-1.2); Eosinophils Absolute Auto 0.4 K/mm3 (0-0.3); Eosinophils Percent Auto 4.4 % (0-4.4); Hematocrit 40.5 % (37.0-47.0); Hemoglobin 13.1 g/dL (12.0-15.0); Immature Granulocyte Absolute 0.04 K/mm3 (0.00-0.031); Immature Granulocyte Percent A 0.4 % (0-0.5); Lymphocytes Absolute Auto 4.17 K/mm3 (0.9-3.2); Lymphocytes Percent Auto 44.4 % (18.3-44.2); Mean Corpuscular HGB Conc 32.3 g/dl (32-36); Mean Corpuscular Hemoglobin 31.7 pg (26-34); Mean Corpuscular Volume 98.1 fl (80-100); Mean Platelet Volume 8.9 fl (7.4-10.4); Monocytes Absolute Auto 0.7 K/mm3 (0.1-0.6); Monocytes Percent Auto 7.8 % (2.6-8.5); Neutrophils Percent Auto 42.4 % (45.5-73.1); Platelet Count Result 310 k/mm3 (150-375); Red Blood Count 4.13 M/mm3 (4.2-5.4); Red Cell Distribution Width 12.4 % (11.5-14.5); White Blood Count 9.4 K/mm3 (4.5-10.0)
[2021-03-20 21:28] LABS: Alanine Aminotransferase 17 U/L (4-35); Albumin Level 4.2 g/dL (3.5-5.1); Alkaline Phosphatase 92 U/L (38-126); Anion Gap 7 mmol/L (8-16); Aspartate Amino Transferase 23 U/L (14-36); Bilirubin,Total 0.5 mg/dL (0.2-1.3); Blood Urea Nitrogen 17 mg/dL (7-17); Calcium 11.7 mg/dL (8.4-10.2); Carbon Dioxide 26 mmol/L (22-30); Chloride 105 mmol/L (98-107); Estimated CRCL calculation 36 ml/min; Estimated Glomerular Filt Rate 60; Glucose 105 mg/dL (65-110); Potassium 4.5 mmol/L (3.4-5.0); Sodium 138 mmol/L (137-145)
[2021-03-20 22:13] VITALS: BP 144/71; PULSE 95; RESP 20; O2SAT 100
[2021-03-20 22:44] LABS: Add Urine Microscopic? YES; Appearance Urine Clear (Clear); Bilirubin Urine Negative (Negative); Blood Urine Negative (Negative); Color Urine Yellow (Yellow); Glucose Urine UA Negative (Negative); Ketones Urine Negative (Negative); Leukocyte Esterase Ur 1+ LEU/UL (Negative); Mucus Urine Rare /lpf; Nitrate Urine Negative (Negative); Protein Urine Negative (Negative); RBC Urine 0-2 /hpf (0-2); Squamous Epithelial Cell Urine Rare /hpf (Few); Urobilinogen Urine Negative mg/dL (<2.0)
--- NOTE | 2021-03-20 23:07 | ED.GENADULT ---
HPI - General Adult General Chief complaint: Weakness Stated complaint: left eye film over eye rt side weakness Time Seen by Provider: 03/20/21 21:50 History of Present Illness HPI narrative: Patient is an 80-year-old female who presents ER with sensation of having a film over her left eye. Lasted for about 20 to 30 minutes. She went to an urgent care who recommended she come here. They are concerned she is having a stroke. She reports she had no actual change in her vision just that she felt like there was something on her eye. She is unsure if she had an eyelash in there. She has no flashers or floaters. No blurred vision or diplopia. She had no slurred speech or facial droop. No extremity weakness. Related Data Home Medications Medication Instructions Recorded Confirmed hydrochlorothiazide 6.25 mg PO DAILY 08/06/20 03/20/21 lisinopril [Zestril] 10 mg PO DAILY 08/06/20 03/20/21 montelukast [Singulair] 10 mg PO DAILY 08/06/20 03/20/21 rosuvastatin [Crestor] 5 mg PO DAILY 08/06/20 03/20/21 Allergies Allergy/AdvReac Type Severity Reaction Status Date / Time aspirin Allergy Severe Difficulty Verified 03/20/21 19:51 Breathing NSAIDS (Non-Steroidal Allergy Severe difficulty Verified 03/20/21 19:51 Anti-Inflamma br Penicillins Allergy Severe rash and Verified 03/20/21 19:51 difficulty breathing Review of Systems Review of Systems: All systems reviewed & are unremarkable except as noted in HPI and below Constitutional: Constitutional: Denies chills, Denies fever(s) and Denies weakness Eyes: Eyes: Denies change in vision and Denies photophobia Comments: Discomfort left eye Gastrointestinal: Gastrointestinal: Denies nausea and Denies vomiting Neurologic: Denies headache(s), Denies focal weakness and Denies numbness [facility] Past Medical History Medical History 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 Bilateral lower extremity edema Diarrhea Dizziness Essential hypertension Fracture of proximal end of left humerus Gait instability H/O subdural hemorrhage Indigestion Left arm swelling Leukocytosis Lymphedema Otalgia, left ear Sensation of fullness in left ear Skin lesion Skin lesion of face Wheezing Family History Family History Sibling Family history of malignant neoplasm of breast in first degree relative Patient's sister is Other Asthma Family history of cataracts Family history of malignant neoplasm of breast Family history of malignant neoplasm of male breast Hypertension Social History Social History Smoking status: Never smoker Second hand tobacco smoke exposure: No Alcohol intake: never Substance use: never Substance use type: does not use Gender identity (if verbalized by the patient): Female Spiritual care concerns: No Exam Narrative: GENERAL: Well-appearing, well-nourished, and in no acute distress. HEAD: Normocephalic, atraumatic. EYES: PERRLA and EOMI. eye pressure of 16 bilaterally. ENT: Mucous membranes moist. CHEST: Clear to auscultation. No respiratory distress. HEART: Regular rate and rhythm. Normal peripheral pulses. EXTREMITIES: Normal range of motion. No edema. NEURO: Alert and oriented x3. PSYCH: Normal mood and affect. Course Course Emergency Course: Patient informed of results. Unremarkable exam. Discharge home. Vital Signs Vital signs: Vital Signs Temperature 99.3 F 03/20/21 20:38 Pulse Rate 101 H 03/20/21 20:38 Respiratory Rate 16 03/20/21 20:38 Blood Pressure 145/73 H 03/20/21 20:38 Pulse Oximetry 100 03/20/21 20:38 Temperature 99.3 F 03/20/21 20:38 Pulse Rate 95 03/20/21 22:13 Respiratory Rate 20 03/20/21 22:13 Blood Pressure 144/71 H 03/20/21 22:13 Pulse Oximetry 100 03/20/21 22:13 Medica
[2021-03-20 23:15] VITALS: BP 150/84; PULSE 92; RESP 18; O2SAT 98
== END 2021-03-20 23:36 | disposition home or self-care (01) ==
PROVIDERS: Emergency Provider Emergency Medicine; PCP Family Medicine
DX: H57.12 Ocular pain, left eye (principal); I10 Essential (primary) hypertension
CPT/HCPCS: 36415; 80053; 81001; 85025; 87086; 93005; 99283

== ENCOUNTER 2021-04-06 15:20 | Emergency (ER) | payer MEDICARE, SELFPAY ==
[2021-04-06 15:33] VITALS: BP 154/72; PULSE 123; RESP 20; TEMP 38.2; O2SAT 98
--- NOTE | 2021-04-06 16:02 | ED.NECK ---
HPI - Neck Pain/Injury General Chief Complaint: Neck Pain/Injury Stated Complaint: shoulder pain Source: patient and RN notes reviewed Mode of arrival: ambulatory History of Present Illness HPI Narrative: This is a 80-year-old female that presented to urgent care with complaints left shoulder neck pain. According to patient she woke up this morning with pain to her left shoulder/ neck. Patient denies any injury or trauma to the area. She recently had left shoulder surgery in June. According to her daughter she placed heating pad to site with no relief. Patient did have full range of motion with that extremity. Her trapezius muscle did seem to tighten. Patient temperature on arrival 100.7 discussed this finding with her daughter. According to daughter her temperature has been fluctuating her last temperature was 99.0 a do take their temperature daily. Her rate was also increased to 123 which could be secondary to pain. Her daughter also noted that she seemed a little off and lethargic the last couple of days suggest that we take a UA sample. The patient denies SOB, CP, palpitation, extremity numbness, lightheadedness, dizziness, constipation, or diarrhea, MD complaint: neck pain Related Data Home Medications Medication Instructions Recorded Confirmed hydrochlorothiazide 6.25 mg PO DAILY 08/06/20 04/06/21 lisinopril [Zestril] 10 mg PO DAILY 08/06/20 04/06/21 rosuvastatin [Crestor] 5 mg PO DAILY 08/06/20 04/06/21 Allergies Allergy/AdvReac Type Severity Reaction Status Date / Time aspirin Allergy Severe Difficulty Verified 04/06/21 15:47 Breathing NSAIDS (Non-Steroidal Allergy Severe difficulty Verified 04/06/21 15:47 Anti-Inflamma br Penicillins Allergy Severe rash and Verified 04/06/21 15:47 difficulty breathing Review of Systems Review of Systems: A 14 organ system Review of Systems was performed and pertinent positives included in the HPI, otherwise remaining ROS is negative. [facility] Past Medical History Medical History 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 Bilateral lower extremity edema Diarrhea Dizziness Essential hypertension Fracture of proximal end of left humerus Gait instability H/O subdural hemorrhage Indigestion Left arm swelling Leukocytosis Lymphedema Otalgia, left ear Sensation of fullness in left ear Skin lesion Skin lesion of face Wheezing Family History Family History Sibling Family history of malignant neoplasm of breast in first degree relative Patient's sister is Other Asthma Family history of cataracts Family history of malignant neoplasm of breast Family history of malignant neoplasm of male breast Hypertension Social History Social History Smoking status: Never smoker Second hand tobacco smoke exposure: No Alcohol intake: never Substance use: never Substance use type: does not use Gender identity (if verbalized by the patient): Female Sexual Orientation (if Verbalized by the Patient): Straight or Heterosexual Spiritual care concerns: No Exam Narrative: GENERAL: This is a well-nourished, well-developed patient, in no apparent distress. HEAD: normocephalic, atraumatic. EYES: PERRL. Sclera clear/white. Vision is grossly intact. EARS: External ears normal, auditory canals clear and without drainage, TMs normal without perforation. Hearing grossly intact. NOSE: External nose normal with no obvious nasal discharge, nares without redness, no rhinorrhea. THROAT: Mucous membranes moist, posterior pharynx clear. NECK: Neck supple, non-tender without lymphadenopathy, masses or thyromegaly. CARDIOVASCULAR: Regular rate and rhythm without murmurs, gallops, or rubs. RESPIRATORY: Clear to auscultation. Breath sounds equal bilaterally. No wheezes, rales, or rhonch
== END 2021-04-06 16:20 | disposition home or self-care (01) ==
PROVIDERS: Emergency Provider Nurse Practitioner; PCP Family Medicine
DX: S16.1XXA Strain of muscle, fascia and tendon at neck level, initial encounter (principal); N30.00 Acute cystitis without hematuria; I10 Essential (primary) hypertension; X58.XXXA Exposure to other specified factors, initial encounter; Z98.890 Other specified postprocedural states
CPT/HCPCS: 81003; 87086; 99213; G0463

== ENCOUNTER → 2021-06-21 14:46 | Outpatient (CLI) | payer MEDICARE, SELFPAY ==
--- NOTE | ~2021-06-21 | MM_ITS ---
EXAMINATION: MM screening josie RT w aquilino HISTORY: Screening right mammogram, history of left mastectomy TECHNIQUE: Craniocaudal and mediolateral oblique 3-D tomosynthesis images were obtained and synthetic 2-D images were generated. CAD analysis was submitted and interpreted. COMPARISON: 06/19/2020, 04/07/2019, 05/05/2017 BREAST PARENCHYMAL COMPOSITION: The breasts are heterogeneously dense, which may obscure small masses . FINDINGS: Scattered benign-appearing calcifications are present. There is no evidence of suspicious m ass, calcification, or architectural distortion to suggest malignancy. There has been no suspicious i nterval change. IMPRESSION: 1. No mammographic evidence of malignancy. 2. Recommend routine screening mammography while the patient remains in good health. BI-RADS Category 2: Benign finding(s). Reviewed, dictated and finalized at location A. N CLEANER IMPRESSION: 1. No mammographic evidence of malignancy. 2. Recommend routine screening mammography while the patient remains in good he alth. BI-RADS Category 2: Benign finding(s).
== END ==
PROVIDERS: PCP Family Medicine
DX: Z12.31 Encounter for screening mammogram for malignant neoplasm of breast (principal)
CPT/HCPCS: 77063; 77067

== ENCOUNTER → 2021-07-02 12:15 | Outpatient (CLI) | payer MEDICARE, SELFPAY ==
--- NOTE | ~2021-07-02 | DEXA_ITS ---
Bone Density Report Name: ROBERT LOVE Age: 80 Sex: Female Ethnicity: White Date of : 1940 Indication: postmenopausal osteoporosis; height loss; prior fracture; Referring Provider: NAVDEEP OLVERA Study: Bone densitometry was performed. Exam Date: July 02, 2021 Accession number: [id number] Bone Density: Region BMD T-score Z-score Classification AP Spine (L1-L4) 0.803 -2.2 0.6 Osteopenia Femoral Neck (Left) 0.573 -2.5 -0.1 Osteoporosis Total Hip (Left) 0.587 -2.9 -0.7 Osteoporosis Femoral Neck (Right) 0.796 -0.5 1.9 Normal Total Hip (Right) 0.672 -2.2 0.0 Osteopenia Total Hip Mean 0.630 -2.6 -0.4 Osteoporosis World Health Organization criteria for BMD impression classify patients as: Normal (T-score at or above -1.0), Osteopenia (T-score between -1.0 and -2.5), or Osteoporosis (T-score at or below -2.5). 10-year Fracture Risk: FRAX not reported because: Some T-score for Spine Total or Hip Total or Femoral Neck at or below -2.5 Previous Exams: Region Exam Age BMD T-score BMD Change BMD Change Date g/cm2 vs Baseline vs Previous AP Spine(L1-L4) 07/02/2021 80 0.803 -2.2 -0.103* -0.014 06/05/2015 74 0.817 -2.1 -0.088* -0.088* 11/17/2012 72 0.905 -1.3 Total Hip(Left) 07/02/2021 80 0.587 -2.9 -0.076* -0.033* 06/05/2015 74 0.620 -2.6 -0.043* -0.043* 11/17/2012 72 0.663 -2.3 Total Hip(Right) 07/02/2021 80 0.672 -2.2 -0.011 0.001 06/05/2015 74 0.671 -2.2 -0.012 -0.012 11/17/2012 72 0.683 -2.1 *Denotes significance at 95% confidence level, LSC for AP Spine = 0.022 g/cm2, LSC for Total Hip = 0.027 g/cm2 Clinical Information Provided by Patient: Has had a low trauma fracture Has used the following medications: Vitamin D Patient maximum height was 64 Menopause Age: 55 Onset of menses at age 11 Number of children 1 Impression: The patient has established osteoporosis, based on the Left Total Hip T-score and the existence of a prior fracture. The patient has risk factors, including: previous fracture. The BMD for the Total Hip(Left) decreased, changing by -0.033 since the last DXA exam. Discussion: HIGH RISK OF FRACTURE. BONE DENSITY IS UNDESIRABLY LOW AT ONE OR MORE SKELETAL SITES, CONSISTENT WITH POSTMENOPAUSAL OSTEOPOROSIS. This patient's lowest T-score, in a patient who has previously fractured, meets t
== END ==
PROVIDERS: PCP Family Medicine; Visit Provider Physician Assistant
DX: Z78.0 Asymptomatic menopausal state (principal); E21.3 Hyperparathyroidism, unspecified; M81.0 Age-related osteoporosis without current pathological fracture; M85.88 Other specified disorders of bone density and structure, other site; M85.851 Other specified disorders of bone density and structure, right thigh
CPT/HCPCS: 77080

== ENCOUNTER 2021-08-29 14:01 | Outpatient (CLI) | payer MEDICARE, SELFPAY ==
--- NOTE | ~2021-08-29 | US_ITS ---
EXAMINATION: US carotid duplex BI DATE: 08/29/2021 14:50 INDICATION: Dizziness. TECHNIQUE: Grayscale, color Doppler, and pulsed Doppler images of the cervical carotid arteries were obtained. The degree of vessel stenosis is placed in one of the following categories: normal, <50%, 5 0-69%, >=70% but less than near-occlusion, near-occlusion, or total occlusion. Note that percent sten osis relative to normal distal artery lumen diameter is indirectly measured from velocity measurement s as described by Germán, et al. Radiology 2003; 229:340-346. Notes: Normal: Peak systolic velocity <125 centimeters/sec and no plaque <50%. Peak systolic velocity <125 ( EDV <40; ICA/CCA PSV ratio <2.0; used these factors only a tandem lesions or low cardiac output or co ntralateral disease) 50-69 %: PSV 125-230 (EDV 40-100; ratio 2-4) >= 70% but less than near occlusion: PSV greater than 230 (EDV > 100; ratio> 4.0) Near Occlusion: PSV that is variable; markedly narrowed lumen Occlusion: Absent flow on color/spectral Doppler and no lumen on moss scale. COMPARISON: None. FINDINGS: RIGHT: The right common carotid artery (CCA) peak systolic velocity (PSV) is 131 cm/s. The right internal ca rotid artery (ICA) PSV is 94 cm/s. The right ICA end-diastolic velocity (EDV) is 24 cm/s. The right I CA/CCA PSV ratio is 0.7. The external carotid artery (ECA) PSV is 81 cm/s. There is antegrade flow in the right vertebral artery. LEFT: The left CCA PSV is 115 cm/s. The left ICA PSV is 103 cm/s. The left ICA EDV is 32 cm/s. The left ICA /CCA PSV ratio is 0.9. The ECA PSV is 120 cm/s. There is antegrade flow in the left vertebral artery . IMPRESSION: 1. Less than 50% stenosis in the right internal carotid artery by sonographic criteria. 2. Less than 50% stenosis in the left internal carotid artery by sonographic criteria. Reviewed, dictated and finalized at location B. TIONS EX[employer]UTIVE [employer]URITY IMPRESSION: 1. Less than 50% stenosis in the right internal carotid artery by sonographic mohinder baugh. 2. Less than 50% stenosis in the left internal carotid artery by sonographic gokul alvarado.
== END 2021-08-29 14:02 | disposition home or self-care (01) ==
LOC: ANHIMG 14:01
PROVIDERS: PCP Family Medicine; Visit Provider Nurse Practitioner Family
DX: R42 Dizziness and giddiness (principal); I65.23 Occlusion and stenosis of bilateral carotid arteries
CPT/HCPCS: 93880

== ENCOUNTER 2021-12-24 11:56 | Emergency (ER) | payer MEDICARE, SELFPAY ==
--- NOTE | ~2021-12-24 | XR_ITS ---
EXAMINATION: XR chest 2V DATE: 12/24/2021 12:36 INDICATION: Chest pain. TECHNIQUE: Frontal and lateral views of the chest were obtained. COMPARISON: Chest 2 views 02/28/2020 FINDINGS: There is mild scarring at the lung apices. No pleural effusion or pneumothorax. The heart s ize is normal. There is internal fixation of left humerus. There are surgical clips in left axilla. T here are changes of left mastectomy. IMPRESSION: 1. Stable mild scarring at the lung apices. Reviewed, dictated and finalized at location A.
--- NOTE | 2021-12-24 12:07 | ED.URI ---
HPI - URI/Sore Throat General Chief Complaint: Upper Respiratory Infection Stated Complaint: Congestion Time Seen by Provider: 12/24/21 12:08 Source: patient, family (daughter), RN notes reviewed and old records reviewed Mode of arrival: ambulatory Limitations: no limitations History of Present Illness HPI Narrative: 81-year-old female presents to the [facility] with complaints of cough and chest congestion for the last 2 to 3 months. Presented to the [facility] with daughter daughter reports that she has been wheezing every morning. Does have an inhaler that she uses. Patient denies any chest pain or shortness of breath. States she has had similar episodes in the past and is prescribed a Medrol Dosepak. Denies any nausea vomiting or diarrhea. Daughter is concerned for pneumonia. Patient states that she is fine, the only reason she is here is as she is pointing to her daughter she made me. MD elicited complaint: cough Related Data Home Medications Medication Instructions Recorded Confirmed hydrochlorothiazide 6.25 mg PO DAILY 08/06/20 12/24/21 Allergies Allergy/AdvReac Type Severity Reaction Status Date / Time aspirin Allergy Severe Difficulty Verified 12/24/21 11:58 Breathing NSAIDS (Non-Steroidal Allergy Severe difficulty Verified 12/24/21 11:58 Anti-Inflamma br Penicillins Allergy Severe rash and Verified 12/24/21 11:58 difficulty breathing Review of Systems Review of Systems: All systems reviewed & are unremarkable except as noted in HPI and below Constitutional: Constitutional: Reports no additional constitutional complaints, Denies chills, Denies fever(s) and Denies headache(s) Eyes: Eyes: Reports no additional eye complaints ENT: Reports as per HPI, Denies vertigo, Denies dizziness, Denies headache(s), Denies nasal congestion and Denies sore throat Cardiovascular: Cardiovascular: Reports no additional cardiovascular complaints, Denies chest pain, Denies syncope, Denies rapid heart rate and Denies dyspnea Respiratory: Respiratory: Reports as per HPI, Reports chest congestion, Reports cough, Denies dyspnea and Reports wheezing Gastrointestinal: Gastrointestinal: Reports no additional gastrointestinal complaints, Denies abdominal pain, Denies diarrhea, Denies nausea and Denies vomiting Musculoskeletal: Musculoskeletal: Reports no additional musculoskeletal complaints and Denies numbness Integumentary/Breasts: Skin/Breast: Reports system reviewed and no additional complaints, except as docu Neurologic: Reports system reviewed and no additional complaints, except as documented, Denies vertigo, Denies dizziness, Denies syncope, Denies headache(s), Denies focal weakness and Denies numbness Psychiatric: Psychiatric: Reports no additional psychiatric complaints Allergic/Immunologic: Allergic/Immunologic: Reports no additional allergic/immunologic complaints and Denies wheezing PMFSH Past Medical History Medical History 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 Bilateral lower extremity edema Diarrhea Dizziness Essential hypertension Fracture of proximal end of left humerus Gait instability H/O subdural hemorrhage Indigestion Left arm swelling Leukocytosis Lymphedema Otalgia, left ear Sensation of fullness in left ear Skin lesion Skin lesion of face Wheezing Family History Family History Sibling Family history of malignant neoplasm of breast in first degree relative Patient's sister is Other Asthma Family history of cataracts Family history of malignant neoplasm of breast Family history of malignant neoplasm of male breast Hypertension Social History Social History Second hand tobacco smoke exposure: No Alcohol intake: never Substance use: never Substance use type: does not use Gender identit
[2021-12-24 12:09] VITALS: BP 160/69; PULSE 94; RESP 18; TEMP 37.1; O2SAT 98
--- NOTE | 2021-12-24 12:17 | ECG_ITS ---
Measurements Intervals [place] Rate: 98 P: 81 MS: 135 QRS: -46 QRSD: 118 T: 95 QT: 349 QTc: 446 Interpretive Statements SINUS RHYTHM VENTRICULAR PREMATURE COMPLEX INCOMPLETE RIGHT BUNDLE BRANCH BLOCK LEFT ANTERIOR FASCICULAR BLOCK LEFT VENTRICULAR HYPERTROPHY AND ST-T CHANGE HIGH LATERAL INFARCT, AGE INDETERMINATE BORDERLINE T WAVE ABNORMALITY- ANTERIOR LEADS ABNORMAL ECG Electronically Signed On 12-24-2021 12:42:19 CDT by Pollo Monet D.O.
== END 2021-12-24 13:08 | disposition home or self-care (01) ==
PROVIDERS: Emergency Provider Nurse Practitioner; PCP Nurse Practitioner Family
DX: J06.9 Acute upper respiratory infection, unspecified (principal); I10 Essential (primary) hypertension; Z85.828 Personal history of other malignant neoplasm of skin
CPT/HCPCS: 71046; 93005; 99213; G0463

== ENCOUNTER 2022-04-11 16:25 | Outpatient (CLI) | payer MEDICARE, SELFPAY ==
--- NOTE | ~2022-04-11 | CT_ITS ---
EXAMINATION: CT brain wo con DATE: 04/11/2022 16:41 INDICATION: Head injury TECHNIQUE: Computed tomography (CT) of the head was performed without intravenous contrast. Sagittal and coronal reconstructions were performed. The mA was adjusted according to patient size. Iterative reconstruction technique was employed. The dose-length product was 605.33 mGy-cm. COMPARISON: head CT dated 06/20/2020 FINDINGS: No fracture. No acute intracranial hemorrhage, acute infarction or abnormal extra axial fluid collect ion.. There is moderate scattered white matter hypoattenuation consistent with chronic small vessel i schemic disease. Symmetric prominence of the sulci, ventricles and subarachnoid spaces overlying the convexities consistent with severe age-appropriate diffuse cerebral volume loss. No mass/mass effect. Mucosal thickening in the paranasal sinuses. Changes of bilateral intraocular lens replacement. Midd le ear cavities and bilateral mastoid air cells are clear. Intracranial calcified cerebral atheroscle rosis is noted. IMPRESSION: 1. No fracture or acute intracranial process. 2. Age-related changes including severe volume loss and moderate scattered white matter hypoattenuati on consistent with chronic small vessel ischemic disease. Reviewed, dictated and finalized at location A. IMPRESSION: 1. No fracture or acute intracranial process. 2. Age-related changes including severe volume loss and moderate scattered whit e matter hypoattenuation consistent with chronic small vessel ischemic disease.
== END 2022-04-11 16:26 | disposition home or self-care (01) ==
PROVIDERS: PCP Family Medicine; Visit Provider Physician Assistant
DX: S09.90XA Unspecified injury of head, initial encounter (principal); X58.XXXA Exposure to other specified factors, initial encounter; R93.0 Abnormal findings on diagnostic imaging of skull and head, not elsewhere classified
CPT/HCPCS: 70450

== ENCOUNTER → 2022-05-01 15:31 | Outpatient (CLI) | payer MEDICARE, SELFPAY ==
--- NOTE | ~2022-05-01 | XR_ITS ---
XR knee LT 3V 05/01/2022 15:58 Indication: Left knee pain Procedure: 3 views left knee Comparison: 02/19/2021 Findings: There is moderate-severe tricompartment osteoarthritis, most advanced in the lateral joint space. There is chondrocalcinosis. No acute fracture or traumatic malalignment. Small joint effusion. Osteopenia. 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 Reviewed, dictated and finalized at location B. 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
== END ==
PROVIDERS: PCP Family Medicine; Visit Provider Physician Assistant
DX: M17.12 Unilateral primary osteoarthritis, left knee (principal)
CPT/HCPCS: 73562

== ENCOUNTER 2022-06-06 12:33 | Outpatient (CLI) | payer MEDICARE, SELFPAY ==
--- NOTE | 2022-06-10 11:36 | WPDNEUROLOGY ---
Neurology EEG Report General Information Date of Study: 06/06/22 TEST Routine EEG DIAGNOSIS Unsteadiness CONDITION OF RECORDING Awake, drowsy, asleep EEG NUMBER [id number] CLINICAL HISTORY Patient reports she has been having trouble with walking and feeling wobbly for about the last 6-8 months. EEG DESCRIPTION During the awake state consists of 6-7 Hz posterior dominant rhythm. The recording is continuous. There is a well developed anterior-posterior gradient. No significant asymmetries of background activities are noted. With drowsiness there is more diffuse theta range activity. As the patient enters stage II sleep, symmetrical spindles are present. Arousal is unremarkable. There are no epileptiform discharges or seizures during this recording. Photic stimulation did not elicit any abnormal photoparoxysmal response. IMPRESSION This is an abnormal routine EEG recorded in awake, drowsy, and asleep state due to the presence of mild slowing of posterior dominant rhythm. This finding can be seen in the setting of mild encephalopathy. There are no electrographic seizures identified, nor are there any epileptiform discharges. Clinical correlation is recommended.
== END 2022-06-06 12:34 | disposition home or self-care (01) ==
LOC: ANHNEURO 12:35
PROVIDERS: PCP Nurse Practitioner Family; Visit Provider Psychiatry & Neurology Neurology
DX: R26.9 Unspecified abnormalities of gait and mobility (principal); R94.01 Abnormal electroencephalogram [EEG]
CPT/HCPCS: 95816

== ENCOUNTER 2022-06-17 09:46 | Outpatient (CLI) | payer MEDICARE, SELFPAY ==
--- NOTE | 2022-06-17 11:00 | NEURO_ITS ---
Impression: # Complains of legs not working. 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 # Needle/EMG abnormal with decreased motor unit potentials but no fibs or myotonia. # Clinical correlation recommended. Motor Nerve Conduction Lower Extremities Peroneal Nerve Conduction Velocity (m/sec) Terminal Latency (msec) Response Voltage(mV) Popliteal space-Ankle Ankle Extensor Dig Brevis Popliteal space Ankle Right 48 4.3 4 5 Left 43 4.1 1 1 Tibial Nerve Conduction Velocity (m/sec) Terminal Latency (msec) Response Voltage(mV) Popliteal space-Ankle Ankle-Extensor Dig Brevis Popliteal space Ankle Right 44 4.5 4 5 Left 37 4.5 1 2 F-waves Peroneal Nerve (ms) Tibial Nerve (ms) Right 47.9 47.8 Left 47.4 47.1 Sensory Nerve Conduction Lower Extremities Sural Nerve Stimulation Terminal Latency (msec) Ankle Response Voltage (uV) Ankle Response Velocity (m/sec) Right NR NR NR Left 4.9 10 33 Superficial Peroneal Nerve Stimulation Terminal Latency (msec) Ankle Response Voltage (uV) Ankle Response Velocity (m/sec) Right NR NR NR Left NR NR NR Left Right Muscles Examined Fibrillation Fasciculation Scarcity Voltage Duration Left Right Left Right Left Right Left Right Left Right X X Ant Tibialis Reduced Reduced X X Gastroc Reduced Reduced X X Fibularis Long Reduced Reduced X X Flex Dig Long Reduced Reduced X X Ext Dig Brev Reduced Reduced Abd Hallucis X X Quadriceps Reduced Reduced Paraspinals MTDD
== END 2022-06-17 09:47 | disposition home or self-care (01) ==
LOC: ANHNEURO 09:48
PROVIDERS: PCP Nurse Practitioner Family; Visit Provider Psychiatry & Neurology Neurology
DX: G62.9 Polyneuropathy, unspecified (principal)
CPT/HCPCS: 95886; 95910

== ENCOUNTER 2022-06-25 14:08 | Outpatient (CLI) | payer MEDICARE, SELFPAY ==
[2022-06-25 14:28] LABS: Basophils Absolute Auto 0.1 K/mm3 (0.0-0.1); Basophils Percent Auto 0.6 % (0.2-1.2); Eosinophils Absolute Auto 0.5 K/mm3 (0-0.3); Eosinophils Percent Auto 3.8 % (0-4.4); Hematocrit 37.8 % (37.0-47.0); Hemoglobin 12.8 g/dL (12.0-15.0); Immature Granulocyte Absolute 0.05 K/mm3 (0.00-0.031); Immature Granulocyte Percent A 0.4 % (0-0.5); Lymphocytes Absolute Auto 4.37 K/mm3 (0.9-3.2); Lymphocytes Percent Auto 36.3 % (18.3-44.2); Mean Corpuscular HGB Conc 33.9 g/dl (32-36); Mean Corpuscular Hemoglobin 31.8 pg (26-34); Mean Platelet Volume 8.8 fl (7.4-10.4); Monocytes Absolute Auto 0.9 K/mm3 (0.1-0.6); Monocytes Percent Auto 7.6 % (2.6-8.5); Neutrophils Absolute Auto 6.2 K/mm3 (1.3-6.7); Neutrophils Percent Auto 51.3 % (45.5-73.1); Platelet Count Result 336 k/mm3 (150-375); Red Blood Count 4.02 M/mm3 (4.2-5.4); Red Cell Distribution Width 12.8 % (11.5-14.5); White Blood Count 12.1 K/mm3 (4.5-10.0)
[2022-06-25 14:55] LABS: Free T4 Free Thyroxine 1.19 ng/mL (0.78-2.19)
[2022-06-25 16:01] LABS: Folic Acid 6.5 ng/mL (2.76->20)
== END 2022-06-25 14:09 | disposition home or self-care (01) ==
PROVIDERS: PCP Nurse Practitioner Family; Visit Provider Psychiatry & Neurology Neurology
DX: E55.9 Vitamin D deficiency, unspecified (principal); G47.00 Insomnia, unspecified; R26.81 Unsteadiness on feet
CPT/HCPCS: 36415; 82607; 82746; 84439; 85025

== ENCOUNTER 2022-08-10 12:55 | Emergency (ER) | payer MEDICARE, SELFPAY ==
--- NOTE | 2022-08-10 12:59 | ED.DIZZY ---
HPI - Dizziness General Chief Complaint: Upper Respiratory Infection Stated Complaint: DIZZY Time Seen by Provider: 08/10/22 13:50 Mode of arrival: ambulatory Limitations: no limitations History of Present Illness HPI Narrative: 81-year-old female presents with concern for ongoing dizziness. She reports dizziness has been going on for ?quite some time?. Reports she had a head injury last year and has been having dizziness since then. She has seen Neurology and primary care regarding this dizziness. She was told she has neuropathy and has been seeing physical therapy and has been doing exercises for her dizziness and neuropathy. She reports the dizziness seemed to worsen today. She denies any headache, weakness in any extremity, difficulty speaking, difficulty swallowing. She denies chest pain or shortness of breath. MD elicited complaint: dizziness Related Data Home Medications Medication Instructions Recorded Confirmed hydrochlorothiazide 12.5 mg tablet 6.25 mg PO DAILY 08/06/20 08/10/22 Allergies Allergy/AdvReac Type Severity Reaction Status Date / Time aspirin Allergy Severe Difficulty Verified 08/10/22 13:22 Breathing NSAIDS (Non-Steroidal Allergy Severe difficulty Verified 08/10/22 13:22 Anti-Inflamma br Penicillins Allergy Severe rash and Verified 08/10/22 13:22 difficulty breathing Review of Systems Review of Systems: CONSTITUTIONAL: Denies malaise, chills, sweats, or fever. EYES: Denies visual changes ENT: Denies rhinorrhea, congestion, sinus pain, otalgia or sore throat. CARDIOVASCULAR: Denies chest pain, palpitations, or edema. RESPIRATORY: Denies cough or dyspnea. GASTROINTESTINAL: Denies nausea, vomiting MUSCULOSKELETAL: Denies back pain, joint pain, or myalgia. NEUROLOGIC: Denies numbness, weakness, or headache. Reports dizziness All systems reviewed & are unremarkable except as noted in HPI and below PMFSH Past Medical History Medical History 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 Bilateral lower extremity edema Diarrhea Dizziness Essential hypertension Fracture of proximal end of left humerus Gait instability H/O subdural hemorrhage Indigestion Left arm swelling Leukocytosis Lymphedema Otalgia, left ear Sensation of fullness in left ear Skin lesion Skin lesion of face Wheezing Family History Family History Sibling Family history of malignant neoplasm of breast in first degree relative Patient's sister is Other Asthma Family history of cataracts Family history of malignant neoplasm of breast Family history of malignant neoplasm of male breast Hypertension Social History Social History Smoking status: Never smoker Second hand tobacco smoke exposure: No Alcohol intake: never Substance use: never Substance use type: does not use Lack of Transportation: No Lack of Food: Never True Current Housing: I Have Housing Concerned About Future Housing: No Difficulty Paying Gas/Electric Bills: No Difficulty Paying for Meds: No Currently Unemployed: No Education: High School Diploma/GED Difficulty w/ Childcare or Family Care: No Gender identity (if verbalized by the patient): Female Sexual Orientation (if Verbalized by the Patient): Straight or Heterosexual Spiritual care concerns: No Comments At time of signature, agree with nursing past medical, surgical, social and family history. There is no relevant family history pertinent to the presenting complaint Exam Narrative: GENERAL: Well-appearing, well-nourished, and in no acute distress. HEAD: Normocephalic, atraumatic. EYES: PERRLA, sclera clear, and EOMI. No nystagmus. ENT: Nares clear, turbinates pink, no rhinorrhea or epistaxis. Mucous membranes moist. TM pearly moss with sharp light reflex bilaterally; n
--- NOTE | 2022-08-10 13:45 | ECG_ITS ---
Measurements Intervals [place] Rate: 87 P: 63 [place]: 137 QRS: -38 QRSD: 113 T: 73 QT: 360 QTc: 435 Interpretive Statements SINUS RHYTHM LEFT AXIS DEVIATION INCOMPLETE RIGHT BUNDLE BRANCH BLOCK DELAYED PRECORDIAL R/S TRANSITION LEFT VENTRICULAR HYPERTROPHY AND ST-T CHANGE HIGH LATERAL INFARCT, AGE INDETERMINATE ABNORMAL ECG COMPARED TO ECG 12/24/2021 12:18:15 NO SIGNIFICANT CHANGES Electronically Signed On 08-11-2022 7:56:40 TELECOM ENGINEER by Pollo Monet D.O.
[2022-08-10 14:00] VITALS: BP 126/73; PULSE 85
[2022-08-10 14:07] VITALS: BP 130/67; BP 132/76; PULSE 87; PULSE 97
== END 2022-08-10 14:36 | disposition home or self-care (01) ==
PROVIDERS: Emergency Provider Nurse Practitioner; PCP Family Medicine
DX: R42 Dizziness and giddiness (principal); I10 Essential (primary) hypertension; Z85.828 Personal history of other malignant neoplasm of skin
CPT/HCPCS: 93005; 99213; G0463

== ENCOUNTER 2022-08-21 09:47 | Emergency (ER) | payer MEDICARE, SELFPAY ==
[2022-08-21] VITALS (17 sets, daily range): BP systolic 122–162; BP diastolic 64–87; PULSE 72–85; RESP 16–18; TEMP 37.1; O2SAT 98–100
--- NOTE | ~2022-08-21 | CT_ITS ---
EXAMINATION: CT brain wo con DATE: 08/21/2022 15:33 INDICATION: Dizziness. TECHNIQUE: Computed tomography (CT) of the head was performed without intravenous contrast. The mA wa s adjusted according to patient size. Iterative reconstruction technique was employed. The dose-lengt h product was 605.33 mGy-cm. COMPARISON: Head CT 04/11/2022 FINDINGS: There are scattered areas of low attenuation in the cerebral white matter. There is no intr acranial hemorrhage, acute infarction, or abnormal intracranial mass lesion. The ventricles are criss l in size. There are likely changes of ocular lens replacement surgeries. There is mucosal thickening in the paranasal sinuses. The mastoid air cells are normal. IMPRESSION: 1. Stable moderate nonspecific cerebral white matter disease, which likely represents chronic small v essel ischemic disease. Reviewed, dictated and finalized at location A. 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 Stable moderate nonspecific cerebral white matter disease, which likely repr esents chronic small vessel ischemic disease.
--- NOTE | 2022-08-21 09:48 | ECG_ITS ---
Measurements Intervals [place] Rate: 86 P: 84 [place]: 131 QRS: -40 QRSD: 115 T: 92 QT: 361 QTc: 433 Interpretive Statements SINUS RHYTHM LEFT AXIS DEVIATION INCOMPLETE RIGHT BUNDLE BRANCH BLOCK LEFT VENTRICULAR HYPERTROPHY AND ST-T CHANGE HIGH LATERAL INFARCT, AGE INDETERMINATE BORDERLINE T WAVE ABNORMALITY- ANTERIOR LEADS BASELINE ARTIFACT- I, AVR, AVL, V6 ABNORMAL ECG COMPARED TO ECG 08/10/2022 14:05:15 NO SIGNIFICANT CHANGES Electronically Signed On 08-21-2022 10:24:23 RUBBER ENGRAVER by Pollo Monet D.O.
[2022-08-21 10:13] LABS: Basophils Absolute Auto 0.1 K/mm3 (0.0-0.1); Eosinophils Absolute Auto 0.5 K/mm3 (0-0.3); Eosinophils Percent Auto 5.3 % (0-4.4); Hematocrit 43.9 % (37.0-47.0); Hemoglobin 14.6 g/dL (12.0-15.0); Immature Granulocyte Absolute 0.04 K/mm3 (0.00-0.031); Immature Granulocyte Percent A 0.4 % (0-0.5); Lymphocytes Absolute Auto 4.15 K/mm3 (0.9-3.2); Mean Corpuscular HGB Conc 33.3 g/dl (32-36); Mean Corpuscular Hemoglobin 32.1 pg (26-34); Mean Corpuscular Volume 96.5 fl (80-100); Mean Platelet Volume 9.2 fl (7.4-10.4); Monocytes Absolute Auto 0.8 K/mm3 (0.1-0.6); Monocytes Percent Auto 7.4 % (2.6-8.5); Neutrophils Absolute Auto 4.5 K/mm3 (1.3-6.7); Neutrophils Percent Auto 44.9 % (45.5-73.1); Platelet Count Result 375 k/mm3 (150-375); Red Blood Count 4.55 M/mm3 (4.2-5.4); Red Cell Distribution Width 12.6 % (11.5-14.5); White Blood Count 10.1 K/mm3 (4.5-10.0)
[2022-08-21 11:07] LABS: Alanine Aminotransferase 25 U/L (6-35); Albumin Level 4.3 g/dL (3.5-5.1); Alkaline Phosphatase 76 U/L (38-126); Anion Gap 6 mmol/L (8-16); Aspartate Amino Transferase 35 U/L (14-36); Bilirubin,Total 0.6 mg/dL (0.2-1.3); Blood Urea Nitrogen 15 mg/dL (7-17); Calcium 11.1 mg/dL (8.4-10.2); Carbon Dioxide 26 mmol/L (22-30); Chloride 104 mmol/L (98-107); Estimated Glomerular Filt Rate > 60; Glucose 102 mg/dL (65-110); Sodium 136 mmol/L (137-145)
--- NOTE | 2022-08-21 12:28 | ED.DIZZY ---
HPI - Dizziness General Chief Complaint: Dizziness Stated Complaint: dizziness Time Seen by Provider: 08/21/22 12:26 Source: patient and family Limitations: no limitations History of Present Illness HPI Narrative: Patient is 81 years old white female came to the emergency room with her daughter complaining of dizziness for over 1 week. Worse with standing and moving, better laying down or sitting down. She denies any fever, chills, nausea, vomiting, diarrhea, constipation, chest pain, shortness of breath, headache, focal neurodeficit. Patient was seen by a neurologist July 2022 and her Keppra reduced from twice daily to once a day. Patient also on meclizine and lorazepam. Patient was seen by urgent care and by her family physician over the last 7 days without a specific diagnosis. Patient reports when she gets to work she feels like drunk. Related Data Home Medications Medication Instructions Recorded Confirmed hydrochlorothiazide 12.5 mg tablet 6.25 mg PO DAILY 08/06/20 08/15/22 Allergies Allergy/AdvReac Type Severity Reaction Status Date / Time aspirin Allergy Severe Difficulty Verified 08/21/22 12:40 Breathing NSAIDS (Non-Steroidal Allergy Severe difficulty Verified 08/21/22 12:40 Anti-Inflamma br Penicillins Allergy Severe rash and Verified 08/21/22 12:40 difficulty breathing Review of Systems Review of Systems: All systems reviewed & are unremarkable except as noted in HPI and below PMFSH Past Medical History Medical History 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 Bilateral lower extremity edema Diarrhea Dizziness Essential hypertension Fracture of proximal end of left humerus Gait instability H/O subdural hemorrhage Indigestion Left arm swelling Leukocytosis Lymphedema Otalgia, left ear Sensation of fullness in left ear Skin lesion Skin lesion of face Wheezing Family History Family History Sibling Family history of malignant neoplasm of breast in first degree relative Patient's sister is Other Asthma Family history of cataracts Family history of malignant neoplasm of breast Family history of malignant neoplasm of male breast Hypertension Social History Social History Smoking status: Never smoker Second hand tobacco smoke exposure: No Alcohol intake: never Substance use: never Substance use type: does not use Lack of Transportation: No Lack of Food: Never True Current Housing: I Have Housing Concerned About Future Housing: No Difficulty Paying Gas/Electric Bills: No Difficulty Paying for Meds: No Currently Unemployed: No Education: High School Diploma/GED Difficulty w/ Childcare or Family Care: No Gender identity (if verbalized by the patient): Female Sexual Orientation (if Verbalized by the Patient): Straight or Heterosexual Spiritual care concerns: No Exam Narrative: General appearance: Well-developed, well-nourished Skin: Normal color Head: Normocephalic, nontraumatic Eyes: Clear conjunctiva ENT: Oropharynx normal, ears normal, nose normal Neck: Supple, nontender Chest and respiratory: Airway patent, no respiratory distress, no accessory muscle use Heart: Regular rate/rhythm Abdomen: Soft, nontender, no organomegaly, quiet bowel sounds Vascular: Normal peripheral pulses, normal capillary refill. Musculoskeletal: Normal range of motion, nontender back Neurologic: Alert and oriented ?3, [employer] OFFICER is normal as tested, no gross motor deficit Course Vital Signs Vital signs:
[2022-08-21 14:40] LABS: Appearance Urine Slightly Cloudy (Clear); Bilirubin Urine Negative (Negative); Blood Urine Negative (Negative); Color Urine Yellow (Yellow); Glucose Urine UA Negative (Negative); Ketones Urine Negative (Negative); Leukocyte Esterase Ur 2+ LEU/UL (Negative); Nitrate Urine Negative (Negative); Protein Urine Negative (Negative); Specific Grav Ur 1.015 (1.001-1.035); Urobilinogen Urine 0.2 mg/dL (<2.0)
[2022-08-21 14:46] LABS: Bacteria Urine Trace /hpf; Mucus Urine Rare /lpf; Squamous Epithelial Cell Urine Rare /hpf (Few)
[2022-08-21 14:48] LABS: Add Urine Microscopic? YES
--- NOTE | 2022-08-21 15:31 | PC.NURSE ---
Patient off unit to CT.
[2022-08-21] MEDS: NITROFURANTOIN MONOHYD MACROCR 100 MG CAP PO (15:49)
== END 2022-08-21 16:20 | disposition home or self-care (01) ==
PROVIDERS: Family Medicine; Emergency Provider Emergency Medicine; PCP Family Medicine
DX: R42 Dizziness and giddiness (principal); N39.0 Urinary tract infection, site not specified; I10 Essential (primary) hypertension; Z85.828 Personal history of other malignant neoplasm of skin
CPT/HCPCS: 36415; 70450; 80053; 81001; 85025; 87086; 93005; 99284; A9270

== ENCOUNTER 2022-09-17 11:04 | Outpatient (CLI) | payer MEDICARE, SELFPAY ==
[2022-09-17 11:55] LABS: Basophils Absolute Auto 0.1 K/mm3 (0.0-0.1); Basophils Percent Auto 0.9 % (0.2-1.2); Eosinophils Absolute Auto 0.6 K/mm3 (0-0.3); Eosinophils Percent Auto 4.8 % (0-4.4); Hematocrit 43.2 % (37.0-47.0); Hemoglobin 14.2 g/dL (12.0-15.0); Immature Granulocyte Absolute 0.05 K/mm3 (0.00-0.031); Immature Granulocyte Percent A 0.4 % (0-0.5); Lymphocytes Absolute Auto 3.69 K/mm3 (0.9-3.2); Lymphocytes Percent Auto 29.6 % (18.3-44.2); Mean Corpuscular HGB Conc 32.9 g/dl (32-36); Mean Corpuscular Hemoglobin 31.8 pg (26-34); Mean Corpuscular Volume 96.9 fl (80-100); Monocytes Percent Auto 7.7 % (2.6-8.5); Neutrophils Absolute Auto 7.1 K/mm3 (1.3-6.7); Neutrophils Percent Auto 56.6 % (45.5-73.1); Platelet Count Result 348 k/mm3 (150-375); Red Blood Count 4.46 M/mm3 (4.2-5.4); Red Cell Distribution Width 12.8 % (11.5-14.5); White Blood Count 12.5 K/mm3 (4.5-10.0)
[2022-09-17 12:28] LABS: Vitamin D 25 Hydroxy 27.1 ng/mL
[2022-09-17 13:23] LABS: Anion Gap 8 mmol/L (8-16); Blood Urea Nitrogen 13 mg/dL (7-17); Calcium 11.4 mg/dL (8.4-10.2); Carbon Dioxide 26 mmol/L (22-30); Chloride 102 mmol/L (98-107); Estimated Glomerular Filt Rate > 60; Glucose 114 mg/dL (65-110); Potassium 4.1 mmol/L (3.4-5.0); Sodium 136 mmol/L (137-145)
[2022-09-24 21:38] LABS: Parathyroid Hormone Related Pr 8 pg/mL (11-20)
== END 2022-09-17 11:05 | disposition home or self-care (01) ==
LOC: ANHLAB 11:06
PROVIDERS: PCP Family Medicine; Visit Provider Physician Assistant
DX: D72.829 Elevated white blood cell count, unspecified (principal); I10 Essential (primary) hypertension; E21.3 Hyperparathyroidism, unspecified; E55.9 Vitamin D deficiency, unspecified
CPT/HCPCS: 36415; 80048; 82306; 83519; 85025

== ENCOUNTER 2022-09-21 03:07 | Emergency (ER) | payer MEDICARE, SELFPAY ==
--- NOTE | ~2022-09-21 | XR_ITS ---
EXAMINATION: XR chest 1V portable 09/21/2022 05:24 INDICATION: Epigastric pain PROCEDURE: AP portable chest COMPARISON: Comparison to multiple prior studies sequentially, with oldest reviewed study dated 03/29. FINDINGS: The lungs are clear. The cardiomediastinal silhouette is within normal limits. There are no pleural effusions. There is no pneumothorax suspected. There is scoliosis. There is an intramedu llary stephon screws in the left humerus proximally. There is atherosclerosis. IMPRESSION: 1: NO ACUTE CARDIOPULMONARY DISEASE. Reviewed, dictated and finalized at location A. SURE SUPERVISOR
[2022-09-21 03:13] VITALS: BP 175/81; PULSE 97; RESP 18; TEMP 36.6; O2SAT 98
--- NOTE | 2022-09-21 03:34 | ECG_ITS ---
Measurements Intervals [place] Rate: 83 P: 83 IN: 139 QRS: -38 QRSD: 121 T: 85 QT: 377 QTc: 444 Interpretive Statements SINUS RHYTHM LEFT AXIS DEVIATION RIGHT BUNDLE-BRANCH BLOCK LEFT VENTRICULAR HYPERTROPHY AND ST-T CHANGE LATERAL MYOCARDIAL INFARCTION, OF INDETERMINATE AGE ABNORMAL ECG COMPARED TO ECG 08/21/2022 09:59:48 NO SIGNIFICANT CHANGES Electronically Signed On 09-21-2022 16:42:11 [facility] by Severo Zuñiga M.D.
--- NOTE | 2022-09-21 04:13 | ED.GENADULT ---
HPI - General Adult General Chief complaint: Chest Pain Stated complaint: indigestion, chest tightness/pressure Time Seen by Provider: 09/21/22 03:20 History of Present Illness HPI narrative: this is an 81-year-old female presenting ED with a chief complaint of epigastric discomfort. Patient describes it as indigestion. It started at 4:30 p.m. after she had a salad for dinner. It was a 2/10, nonradiating pain that was on and off for several hours. She took some baking soda which improved her symptoms. Usually she takes Pepcid and that resolved but she is out of that medication. She has experienced pain like this many times in the past. It is not associated with diaphoresis vomiting radiation or exertion. The patient's daughter had her come into the hospital because she was alerted to the possibility of ACS presenting as heartburn. Related Data Allergies Allergy/AdvReac Type Severity Reaction Status Date / Time aspirin Allergy Severe Difficulty Verified 08/21/22 12:40 Breathing NSAIDS (Non-Steroidal Allergy Severe difficulty Verified 08/21/22 12:40 Anti-Inflamma br Penicillins Allergy Severe rash and Verified 08/21/22 12:40 difficulty breathing PMFSH Past Medical History Medical History 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 Bilateral lower extremity edema Diarrhea Dizziness Essential hypertension Fracture of proximal end of left humerus Gait instability H/O subdural hemorrhage Indigestion Left arm swelling Leukocytosis Lymphedema Otalgia, left ear Sensation of fullness in left ear Skin lesion Skin lesion of face Wheezing Family History Family History Sibling Family history of malignant neoplasm of breast in first degree relative Patient's sister is Other Asthma Family history of cataracts Family history of malignant neoplasm of breast Family history of malignant neoplasm of male breast Hypertension Social History Social History Smoking status: Never smoker Second hand tobacco smoke exposure: No Alcohol intake: never Substance use: never Substance use type: does not use Lack of Transportation: No Lack of Food: Never True Current Housing: I Have Housing Concerned About Future Housing: No Difficulty Paying Gas/Electric Bills: No Difficulty Paying for Meds: No Currently Unemployed: No Education: High School Diploma/GED Difficulty w/ Childcare or Family Care: No Living arrangements: with family Occupation/Education: retired Gender identity (if verbalized by the patient): Female Sexual Orientation (if Verbalized by the Patient): Straight or Heterosexual Spiritual care concerns: No Exam Narrative: APPEARANCE: No apparent distress. Head: atraumatic. EYES: EOMI, NOSE: Atraumatic NECK: Trachea midline RESPIRATORY: No increased rate of breathing , clear to auscultation bilaterally CARDIOVASCULAR: RRR, no peripheral edema ABDOMINAL: Non-distended, soft nontender no guarding or rebound MUSCULOSKELETAl: No obvious deformities NEURO: Alert. Moving 4/4 extremities SKIN:: Warm, dry. Normal color PSYCHIATRIC: Normal affect Course Vital Signs Vital signs: Vital Signs Temperature 97.8 F 09/21/22 03:13 Pulse Rate 97 09/21/22 03:13 Respiratory Rate 18 09/21/22 03:13 Blood Pressure 175/81 H 09/21/22 03:13 Pulse Oximetry 98 09/21/22 03:13 Oxygen Delivery Room Air 09/21/22 03:13 Temperature 97.8 F 09/21/22 03:13 Pulse Rate 97 09/21/22 03:13 Respiratory Rate 18 09/21/22 03:13 Blood Pressure 175/81 H 09/21/22 03:13 Pulse Oximetry 98 09/21/22 03:13 Oxygen Delivery Room Air 09/21/22 03:13 Procedures EJ/Peripheral Line Arm R: EJ/Peripheral Line Date: 09/21/22 Time Out Performed: Yes Skin Cleansed in Sterile
[2022-09-21 04:19] VITALS: BP 150/73; PULSE 80; RESP 16; O2SAT 99
[2022-09-21 04:20] LABS: Basophils Absolute Auto 0.1 K/mm3 (0.0-0.1); Basophils Percent Auto 0.9 % (0.2-1.2); Eosinophils Absolute Auto 0.7 K/mm3 (0-0.3); Eosinophils Percent Auto 6.3 % (0-4.4); Hematocrit 44.6 % (37.0-47.0); Hemoglobin 14.6 g/dL (12.0-15.0); Immature Granulocyte Absolute 0.04 K/mm3 (0.00-0.031); Immature Granulocyte Percent A 0.3 % (0-0.5); Lymphocytes Absolute Auto 4.55 K/mm3 (0.9-3.2); Lymphocytes Percent Auto 38.8 % (18.3-44.2); Mean Corpuscular HGB Conc 32.7 g/dl (32-36); Mean Corpuscular Hemoglobin 31.7 pg (26-34); Mean Platelet Volume 9.2 fl (7.4-10.4); Monocytes Percent Auto 8.7 % (2.6-8.5); Neutrophils Absolute Auto 5.3 K/mm3 (1.3-6.7); Platelet Count Result 378 k/mm3 (150-375); Red Cell Distribution Width 12.6 % (11.5-14.5); White Blood Count 11.7 K/mm3 (4.5-10.0)
[2022-09-21] MEDS: FAMOTIDINE 20 MG/2 ML VIAL IV PUSH (04:23)
[2022-09-21 04:44] LABS: Alanine Aminotransferase 25 U/L (6-35); Albumin Level 4.8 g/dL (3.5-5.1); Alkaline Phosphatase 94 U/L (38-126); Anion Gap 6 mmol/L (8-16); Aspartate Amino Transferase 37 U/L (14-36); Bilirubin,Total 0.7 mg/dL (0.2-1.3); Blood Urea Nitrogen 20 mg/dL (7-17); Calcium 11.6 mg/dL (8.4-10.2); Carbon Dioxide 31 mmol/L (22-30); Chloride 101 mmol/L (98-107); Estimated Glomerular Filt Rate > 60; Glucose 110 mg/dL (65-110); Lipase 121 U/L (23-300); Magnesium 1.8 mg/dL (1.6-2.3); Potassium 3.9 mmol/L (3.4-5.0); Sodium 138 mmol/L (137-145)
[2022-09-21 04:55] LABS: Troponin I < 0.012 ng/mL (0.000-0.034)
[2022-09-21 05:26] VITALS: BP 146/72; PULSE 72; RESP 16; O2SAT 100
== END 2022-09-21 05:27 | disposition home or self-care (01) ==
PROVIDERS: Emergency Provider Emergency Medicine; PCP Family Medicine
DX: K30 Functional dyspepsia (principal); I10 Essential (primary) hypertension; Z85.828 Personal history of other malignant neoplasm of skin; I45.10 Unspecified right bundle-branch block; I51.7 Cardiomegaly; R94.31 Abnormal electrocardiogram [ECG] [EKG]
CPT/HCPCS: 36415; 71045; 80053; 83690; 83735; 84484; 85025; 93005; 96374; 99284

== ENCOUNTER → 2022-10-21 15:10 | Outpatient (CLI) | payer MEDICARE, SELFPAY ==
--- NOTE | ~2022-10-21 | MR_ITS ---
EXAMINATION: MR brain/brain stem wo con DATE: 10/21/2022 15:53 INDICATION: Gait disorder TECHNIQUE: Magnetic resonance imaging (MRI) of the brain and brainstem was performed without intraven ous contrast. Sequences included sagittal and axial T1-weighted SE, axial diffusion-weighted FS SE, a xial T2*-weighted GRE, axial 3D SWAN, axial T2-weighted FLAIR, and axial T2-weighted FSE. Apparent di ffusion coefficient (ADC) maps were created. COMPARISON: Head CT dated 08/21/2022 FINDINGS: There are no areas of restricted diffusion to suggest acute infarction. No intracranial hemorrhage or abnormal intracranial mass lesion. There are scattered areas of nonspecific increased T2-weighted si gnal intensity in the cerebral white matter, predominantly involving the deep and periventricular whi te matter. There are no intraparenchymal signal abnormalities seen on the other pulse sequences. Symm etric prominence of the sulci and ventricles consistent with moderate age-appropriate diffuse cerebra l volume loss. There are no abnormal extra-axial fluid collections. Flow voids are seen in the cerebr al arteries on the T2-weighted sequences consistent with their expected patency. Left vertebral arter y is dominant. Changes of bilateral intraocular lens replacement. Mucosal thickening in the ethmoid sinuses with small amount of dependently layering fluid/mucus in the bilateral maxillary sinuses. Sev ere upper cervical spondylosis with 1-2 mm anterolisthesis of C3 on C4 and 2-3 mm anterolisthesis C4 on C5. IMPRESSION: 1. No acute intracranial process. 2. Age-related changes including moderate diffuse volume loss and moderate scattered periventricular predominant nonspecific white matter T2 hyperintensity consistent with chronic small vessel ischemic disease. 3. Dependently layering fluid in the bilateral maxillary sinuses which can be seen with acute sinusit is. Reviewed, dictated and finalized at location A. IMPRESSION: 1. No acute intracranial process. 2. Age-related changes including moderate diffuse volume loss and moderate scat tered periventricular predominant nonspecific white matter T2 hyperintensity co nsistent with chronic small vessel ischemic disease. 3. Dependently layering fluid in the bilateral maxillary sinuses which can be s een with acute sinusitis.
== END ==
PROVIDERS: PCP Physician Assistant
DX: R26.9 Unspecified abnormalities of gait and mobility (principal); R93.0 Abnormal findings on diagnostic imaging of skull and head, not elsewhere classified
CPT/HCPCS: 70551

== ENCOUNTER 2023-01-30 08:37 | Outpatient (CLI) | payer MEDICARE, SELFPAY ==
--- NOTE | ~2023-01-30 | NM_ITS ---
EXAMINATION: NM parathyroid w imaging DATE: 01/30/2023 12:48 INDICATION: Hypercalcemia TECHNIQUE: 21.1 mCi Tc99m sestamibi (Cardiolite) was administered by intravenous route. Anterior imag es of the neck were obtained at 10 minutes and 3 hours. Delayed SPECT imaging was. Also obtained with reconstructed images in the axial, coronal and sagittal planes. COMPARISON: None. FINDINGS/IMPRESSION: There is no focus of persistent activity in the area of the thyroid or mediastinum to suggest parathy roid adenoma. Reviewed, dictated and finalized at location A.
== END 2023-01-30 08:38 | disposition home or self-care (01) ==
PROVIDERS: PCP Family Medicine; Visit Provider Physician Assistant
DX: E83.52 Hypercalcemia (principal)
CPT/HCPCS: 78070; A9500

== ENCOUNTER → 2023-01-31 12:35 | Outpatient (CLI) | payer MEDICARE, SELFPAY ==
--- NOTE | ~2023-01-31 | MM_ITS ---
EXAMINATION: MM screening josie RT w aquilino HISTORY: Screening; status post left mastectomy for breast cancer TECHNIQUE: Craniocaudal and mediolateral oblique 3-D tomosynthesis images were obtained and synthetic 2-D images were generated. CAD analysis was submitted and interpreted. COMPARISON: 06/21/2021, 06/19/2020, 04/07/2019 right screening mammogram examinations BREAST PARENCHYMAL COMPOSITION: The breasts are heterogeneously dense, which may obscure small masses . FINDINGS: Right breast biopsy marker is again present; history of prior benign right breast biopsy. There are numerous benign-appearing calcifications scattered in the right breast. There is no evidence of suspicious mass, calcification, or architectural distortion to suggest malig denia in either breast. There has been no suspicious interval change. IMPRESSION: 1. Status post left mastectomy for breast cancer. No mammographic evidence of malignancy. 2. Recommend routine screening mammography in one year. BI-RADS Category 2: Benign finding(s). Reviewed, dictated and finalized at location A. IMPRESSION: 1. Status post left mastectomy for breast cancer. No mammographic evidence of m alignancy. 2. Recommend routine screening mammography in one year. BI-RADS Category 2: Benign finding(s).
== END ==
PROVIDERS: PCP Family Medicine; Visit Provider Physician Assistant
DX: Z12.31 Encounter for screening mammogram for malignant neoplasm of breast (principal); Z85.3 Personal history of malignant neoplasm of breast; Z90.13 Acquired absence of bilateral breasts and nipples
CPT/HCPCS: 77063; 77067

== ENCOUNTER 2023-02-17 13:39 | Outpatient (CLI) | payer MEDICARE, SELFPAY ==
--- NOTE | 2023-02-18 07:29 | P.PCNPFT_ITS ---
PFT Procedure Performed PFT Procedure Performed Spirometry with Pre/Post Bronchodilator Plethysmography (Lung Vol) Diffusing Cap (DLCO) Flow Vol Loop PFT Interpretation This is a pulmonary function test with pre and post-bronchodilator spirometry, plethysmography and diffusing capacity. The test was performed and results interpreted in accordance with the 2019 and 2005 ATS/ERS Task Force guidelines respectively using the Global Lung Function Initiative-2012 reference equations. Patient demonstrated good effort and cooperation. Reproducibility criteria were met. The quality of the pre bronchodilator spirometry maneuver was Grade A and post bronchodilator spirometry maneuver was Grade A. Despite good coaching the patient has struggled with the requirements of the testing. Findings: Spirometry: The contour the expiratory flow tracing is variable with only 2 normal pre bronchodilator maneuvers. The contour of the inspiratory flow trace is ranges from non-existent, truncated and normal. The pre bronchodilator FVC is 1.42 L, 73% predicted. The pre bronchodilator FEV1 is 0.99 L, 67% predicted. The pre bronchodilator FEV1: FVC ratio 70%. The post bronchodilator FVC is 1.78 L, representing a 25% increase. The post bronchodilator FEV1 is 1.24 L, representing a 25% increase. The post br onchodilator FEV1: FVC ratio 70%. Plethysmography: The total lung capacity is 4.48 L, 108% predicted. The functional residual capacity is 3.03 L, 128% predicted. The residual volume is 2.91 L, 135% predicted. Diffusing capacity: The diffusing capacity unadjusted for hemoglobin and carboxyhemoglobin is 23.0, 140% predicted. The diffusing capacity adjusted for alveolar volume is 6.07, 140% predicted. Impression: The interpretation is limited by the variable contour of the inspiratory and expiratory flow limbs. Using the best available data, there is a mild obstructive abnormality with significant improvement after inhaling a single dose of albuterol. The increase in residual volume is consistent with air trapping from an obstructive abnormality. The diffusing capacity unadjusted for hemoglobin and carboxyhemoglobin is normal and is increased when adjusted for alveolar volume. There are no prior studies for comparison
== END 2023-02-17 13:40 | disposition home or self-care (01) ==
LOC: ANHPFT 13:41
PROVIDERS: PCP Family Medicine; Visit Provider Physician Assistant
DX: J45.909 Unspecified asthma, uncomplicated (principal); R94.2 Abnormal results of pulmonary function studies
CPT/HCPCS: 94060; 94726; 94729

== ENCOUNTER 2023-04-16 18:26 | Emergency (ER) | payer MEDICARE, SELFPAY ==
--- NOTE | ~2023-04-16 | XR_ITS ---
EXAMINATION: XR foot LT min 3V DATE: 04/16/2023 19:14 INDICATION: Left foot pain TECHNIQUE: Dorsoplantar, lateral, and 2 oblique views of the left foot were obtained. COMPARISON: None. FINDINGS: No fracture is identified. There is moderate to severe polyarticular osteoarthritis through out the foot. The soft tissues are unremarkable. IMPRESSION: 1. Polyarticular osteoarthritis without acute osseous abnormality. Reviewed, dictated and finalized at location F.
--- NOTE | ~2023-04-16 | XR_ITS ---
EXAMINATION: XR tibia fibula LT 2V INDICATION: Left leg pain TECHNIQUE: Two views of the left tibia and fibula are obtained. COMPARISON: None available FINDINGS: Bone alignment is normal. There is no fracture. There is moderate osteoarthritis of the kne e. The soft tissues are unremarkable. IMPRESSION: 1. No acute osseous abnormality. Reviewed, dictated and finalized at location F.
[2023-04-16 18:44] VITALS: BP 150/73; PULSE 80; RESP 16; TEMP 37.4; O2SAT 99
[2023-04-16 18:45] VITALS: BP 150/73; PULSE 80; RESP 16; TEMP 37.4; O2SAT 99
--- NOTE | 2023-04-16 18:54 | ED.FALL ---
HPI - Fall General Chief Complaint: Fall Stated Complaint: Fall Time Seen by Provider: 04/16/23 18:55 Source: patient Mode of arrival: ambulatory Limitations: no limitations History of Present Illness HPI Narrative: 82-year-old female presents with pain to left knee radiating down to left foot. Patient reports that 5 days ago she fell while cleaning at a dentist's office. States she fell forward on to both legs. Ambulatory with steady gait. 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 Gets steroid injections. Last steroid injection to left knee was 1 week ago. All systems reviewed and negative except as noted above. Related Data Home Medications Medication Instructions Recorded Confirmed cetirizine 10 mg capsule (Zyrtec) 10 mg PO DAILY 01/17/23 04/16/23 Allergies Allergy/AdvReac Type Severity Reaction Status Date / Time aspirin Allergy Severe Difficulty Verified 04/16/23 18:44 Breathing NSAIDS (Non-Steroidal Allergy Severe difficulty Verified 04/16/23 18:44 Anti-Inflamma br Penicillins Allergy Severe rash and Verified 04/16/23 18:44 difficulty breathing Review of Systems Review of Systems: CONSTITUTIONAL: Denies fever, chills, or sweats. EYES: Denies visual changes, redness, or discharge. ENT: Denies rhinorrhea, congestion, sore throat, or otalgia. CARDIOVASCULAR: Denies chest pain, palpitations, or edema. RESPIRATORY: Denies cough or dyspnea. GASTROINTESTINAL: Denies abdominal pain, nausea, vomiting, or diarrhea. GENITOURINARY: Denies dysuria or hematuria. SKIN: Denies rash or itching. MUSCULOSKELETAL: Reports pain to left lower extremity from knee down to left foot. NEUROLOGIC: Denies headache, numbness, or weakness. PSYCHIATRIC: Denies anxiety or depression. All other systems reviewed are negative, except as documented in HPI. [facility] Past Medical History Medical History 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 Bilateral lower extremity edema Diarrhea Dizziness Essential hypertension Fracture of proximal end of left humerus Gait instability H/O subdural hemorrhage Indigestion Left arm swelling Leukocytosis Lymphedema Otalgia, left ear Sensation of fullness in left ear Skin lesion Skin lesion of face Wheezing Family History Family History Sibling Family history of malignant neoplasm of breast in first degree relative Patient's sister is Other Asthma Family history of cataracts Family history of malignant neoplasm of breast Family history of malignant neoplasm of male breast Hypertension Social History Social History (Updated 03/21/23 @ 13:03 by ANGELA Arredondo) Smoking status: Never smoker Second hand tobacco smoke exposure: No Alcohol intake: never Substance use: never Substance use type: does not use Lack of Transportation: No Lack of Food: Never True Current Housing: I Have Housing Concerned About Future Housing: No Difficulty Paying Gas/Electric Bills: No Difficulty Paying for Meds: No Currently Unemployed: No Education: High School Diploma/GED Difficulty w/ Childcare or Family Care: No Living arrangements: with family Additional living arrangements comments: with daughter Occupation/Education: retired Gender identity (if verbalized by the patient): Female Sexual Orientation (if Verbalized by the Patient): Straight or Heterosexual Spiritual care concerns: No Comments At time of signature, agree with nursing past medical, surgical, social and family history. There is no relevant family history pertinent to the presenting complaint. Exam Narrative: GENERAL: This is a well-nourished, well-developed patient, in no apparent distress. HEAD: normocephalic, atraumatic. EYES: PERRL. Sclera clear/white. Vision is grossly intact. EARS: External ears normal, NOSE: External
== END 2023-04-16 19:40 | disposition home or self-care (01) ==
PROVIDERS: Emergency Provider Nurse Practitioner Family; PCP Family Medicine
DX: S83.92XA Sprain of unspecified site of left knee, initial encounter (principal); W19.XXXA Unspecified fall, initial encounter; I10 Essential (primary) hypertension; Z85.828 Personal history of other malignant neoplasm of skin
CPT/HCPCS: 73590; 73630; 99214; G0463

== ENCOUNTER 2023-07-24 16:48 | Outpatient (CLI) | payer MEDICARE, SELFPAY ==
--- NOTE | ~2023-07-24 | XR_ITS ---
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 Comparison: 07/21/2023, 12/24/2021. RESULT: Lines, tubes, and devices: Incompletely visualized left humeral hardware. Left axillary clips. Lungs and pleura: Senescent change. No focal consolidation, pleural effusion, or pneumothorax. Cardiomediastinal silhouette: Stable. Other: No acute osseous or upper abdominal finding. IMPRESSION: No acute cardiopulmonary process. Reviewed, dictated and finalized at location K. 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
[2023-07-24 17:47] LABS: Appearance Urine Cloudy (Clear); Bacteria Urine Rare /hpf; Bilirubin Urine Negative (Negative); Blood Urine Negative (Negative); Color Urine Yellow (Yellow); Glucose Urine UA Negative (Negative); Ketones Urine Negative (Negative); Leukocyte Esterase Ur 3+ LEU/UL (Negative); Nitrate Urine Negative (Negative); Protein Urine Negative (Negative); RBC Urine 0-2 /hpf (0-2); Specific Grav Ur 1.011 (1.001-1.035); Squamous Epithelial Cell Urine Few /hpf (Few); Urobilinogen Urine 0.2 mg/dL (<2.0); WBC Urine 51-100 /hpf
[2023-07-24 17:54] LABS: Add Urine Microscopic? YES
== END 2023-07-24 16:49 | disposition home or self-care (01) ==
PROVIDERS: PCP Family Medicine; Visit Provider Physician Assistant Medical
DX: R35.0 Frequency of micturition (principal); Z87.440 Personal history of urinary (tract) infections; R05.9 Cough, unspecified; R09.89 Other specified symptoms and signs involving the circulatory and respiratory systems
CPT/HCPCS: 71046; 81001; 87077; 87086; 87186

== ENCOUNTER 2023-08-05 12:39 | Outpatient (CLI) | payer MEDICARE, SELFPAY ==
[2023-08-05 13:48] LABS: Influenza A QL RT-PCR Negative (Negative); Influenza B QL RT-PCR Negative (Negative); RSV RNA, RT-PCR Negative (Negative); SARS-CoV-2 RNA PCR Negative (Negative)
== END 2023-08-05 12:40 | disposition home or self-care (01) ==
LOC: ANHLAB 12:41
PROVIDERS: PCP Family Medicine; Visit Provider Physician Assistant
DX: R05.9 Cough, unspecified (principal); Z20.822 Contact with and (suspected) exposure to COVID-19
CPT/HCPCS: 87637

== ENCOUNTER 2023-09-13 10:13 | Emergency (ER) | payer MEDICARE, SELFPAY ==
--- NOTE | 2023-09-13 10:17 | ED.URI ---
HPI - URI/Sore Throat General Chief Complaint: Dizziness Stated Complaint: dizzy,off balance,head congestion Time Seen by Provider: 09/13/23 10:15 Source: patient Mode of arrival: ambulatory Limitations: no limitations History of Present Illness HPI Narrative: Meenakshi is an 82-year-old female patient presenting to the clinic today with complaints feeling dizzy and having head congestion. She reports she has had head congestion for a couple weeks. Reports that she has clear nasal drainage. Nasal drainage is worse at nighttime. Denies any headache, shortness of breath, or chest pain. Does feel stopped up and feels lightheaded. Is having a dry nonproductive cough as well. Related Data Allergies Allergy/AdvReac Type Severity Reaction Status Date / Time aspirin Allergy Severe Difficulty Verified 09/13/23 10:21 Breathing NSAIDS (Non-Steroidal Allergy Severe difficulty Verified 09/13/23 10:21 Anti-Inflamma br Penicillins Allergy Severe rash and Verified 09/13/23 10:21 difficulty breathing Review of Systems Review of Systems: Pertinent positives per HPI. Patient denies any fever, chills, rash, headache, visual changes, cough, runny nose, sore throat, shortness of breath, chest pain, palpitations, nausea, vomiting, diarrhea, constipation, abdominal pain, or any urinary issues. [facility] Past Medical History Medical History 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 Bilateral lower extremity edema Diarrhea Dizziness Essential hypertension Fracture of proximal end of left humerus Gait instability H/O subdural hemorrhage Indigestion Left arm swelling Leukocytosis Lymphedema Otalgia, left ear Sensation of fullness in left ear Skin lesion Skin lesion of face Wheezing Family History Family History Sibling Family history of malignant neoplasm of breast in first degree relative Patient's sister is Other Asthma Family history of cataracts Family history of malignant neoplasm of breast Family history of malignant neoplasm of male breast Hypertension Social History Social History Smoking status: Never smoker Second hand tobacco smoke exposure: No Alcohol intake: never Substance use: never Substance use type: does not use Lack of Transportation: No Lack of Food: Never True Current Housing: I Have Housing Concerned About Future Housing: No Difficulty Paying Gas/Electric Bills: No Difficulty Paying for Meds: No Currently Unemployed: No Education: High School Diploma/GED Difficulty w/ Childcare or Family Care: No Living arrangements: with family Additional living arrangements comments: with daughter Occupation/Education: retired Gender identity (if verbalized by the patient): Female Sexual Orientation (if Verbalized by the Patient): Straight or Heterosexual Spiritual care concerns: No Comments At the time of my signature, I reviewed and agree with the nursing past medical, surgical, social, and family history. There is no relevant family history pertinent to the patient complaint. Exam Narrative: General: Well-developed, well nourished, in no apparent distress Head: Normocephalic, atraumatic Eyes: Pupils equally round and reactive to light bilaterally, EOM intact, sclera and conjunctive clear, no discharge, lids normal Ears: TMs intact, congested, mild bulging with fluid noted behind the TM, ear canals clear, no drainage, grossly hearing normal. Nose: Nares patent, clear nasal discharge,moderate inflammation, maxillary sinus tenderness. Mouth: Oropharynx without lesions or masses, good dentition, MMM. Neck: Supple, trachea midline, no enlargement of anterior or posterior cervical nodes, no thyroid masses or goiter palpable. Cardio: Regular rate and rhythm, s1 and s2 normal,
[2023-09-13 10:27] VITALS: BP 154/65; PULSE 70; RESP 16; TEMP 37.2; O2SAT 98
== END 2023-09-13 10:58 | disposition home or self-care (01) ==
PROVIDERS: Emergency Provider Nurse Practitioner Family; PCP Family Medicine
DX: J30.2 Other seasonal allergic rhinitis (principal); H65.03 Acute serous otitis media, bilateral; R82.90 Unspecified abnormal findings in urine; I10 Essential (primary) hypertension; Z85.828 Personal history of other malignant neoplasm of skin
CPT/HCPCS: 81003; 87086; 99213; G0463

== ENCOUNTER 2023-10-10 16:23 | Inpatient (IN) | payer MEDICARE, SELFPAY ==
[2023-10-10] VITALS (8 sets, daily range): BP systolic 113–143; BP diastolic 52–73; PULSE 95–111; RESP 16–25; TEMP 37–37.3; O2SAT 94–98
--- NOTE | ~2023-10-10 | XR_ITS ---
EXAMINATION: XR foot RT min 3V DATE: 10/10/2023 21:46 INDICATION: Right foot pain. Fall. TECHNIQUE: 3 views of right foot were obtained. COMPARISON: None. FINDINGS: Bone alignment is normal. No fracture. There is severe osteoarthritis of second and third t arsometatarsal joints. There is mild to moderate osteoarthritis of many of the midfoot and forefoot j oints. There are enthesophytes at the posterior and plantar aspects of calcaneal tuberosity. IMPRESSION: 1. No acute fracture. 2. Polyarticular osteoarthritis. Reviewed, dictated and finalized at location E. TENDER
--- NOTE | ~2023-10-10 | CT_ITS ---
EXAMINATION: CT abdomen pelvis wo con DATE: 10/13/2023 12:33 INDICATION: Nausea. TECHNIQUE: Computed tomography (CT) of the abdomen and pelvis was performed without intravenous contr ast. Automated exposure control and iterative reconstruction technique were employed. The dose-length product was 331.16 mGy-cm. COMPARISON: CT abdomen and pelvis 05/11/2014 FINDINGS: The visualized portions of the lung bases demonstrate mild atelectasis. There is a trace le ft pleural effusion. The heart size is normal. There are coronary artery calcifications. No pericardi al effusion. The liver, gallbladder, spleen, pancreas, and adrenal glands are normal. There are cleo s in the kidneys measuring soft tissue attenuation measuring up to 1.7 cm on the left. There is a 3.1 cm cyst in left kidney. There is no urolithiasis. There is calcified atherosclerosis of the aorta an d many of the other arteries. There is a left inguinal hernia containing fat. There is diverticulosis of the colon without evidence of diverticulitis. There are no dilated loops of bowel. The appendix i s normal. There are no pathologically enlarged lymph nodes. There is no free intraperitoneal fluid. T here is severe osteoarthritis of the hips. There is lumbar levoscoliosis and severe spondylosis. Ther e is severe thoracic spondylosis. There are chronic bilateral L5 pars defects with 7 mm anterolisthes is of L5 on S1. IMPRESSION: 1. Kidney masses measuring up to 1.7 cm on the left, probably hemorrhagic cysts. Neoplasm cannot be e xcluded. Consider abdomen CT or MRI without and with contrast. 2. Left inguinal hernia containing fat. Reviewed, dictated and finalized at location A. IMPRESSION: 1. Kidney masses measuring up to 1.7 cm on the left, probably hemorrhagic cysts . Neoplasm cannot be excluded. Consider abdomen CT or MRI without and with cont rast. 2. Left inguinal hernia containing fat.
--- NOTE | ~2023-10-10 | XR_ITS ---
EXAMINATION: XR chest 2V DATE: 10/10/2023 17:53 INDICATION: Weakness. TECHNIQUE: Frontal and lateral views of the chest were obtained. COMPARISON: Chest 2 views 07/24/2023 FINDINGS: There is mild atelectasis at left lung base. No pleural effusion or pneumothorax. The heart size is normal. There is an old healed fracture of proximal left humerus with internal fixation. The re is an old healed fracture of proximal right humerus. IMPRESSION: 1. Mild atelectasis at left lung base. Reviewed, dictated and finalized at location E. ER OPERATOR
--- NOTE | ~2023-10-10 | CT_ITS ---
EXAMINATION: CT brain wo con DATE: 10/10/2023 17:35 INDICATION: Weakness. Dizziness. TECHNIQUE: Computed tomography (CT) of the head was performed without intravenous contrast. The mA wa s adjusted according to patient size. Iterative reconstruction technique was employed. The dose-lengt h product was 605.33 mGy-cm. COMPARISON: Head CT 08/21/2022 FINDINGS: There are scattered areas of low attenuation in the cerebral white matter. There is no intr acranial hemorrhage, acute infarction, or abnormal intracranial mass lesion. The ventricles are criss l in size. There are likely changes of ocular lens replacement surgeries. There is mucosal thickening in the paranasal sinuses. The mastoid air cells are normal. IMPRESSION: 1. Stable moderate nonspecific cerebral white matter disease, which likely represents chronic small v essel ischemic disease. Reviewed, dictated and finalized at location E. COVERER IMPRESSION: 1. Stable moderate nonspecific cerebral white matter disease, which likely repr esents chronic small vessel ischemic disease.
--- NOTE | ~2023-10-10 | XR_ITS ---
EXAMINATION: XR pelvis 1-2V DATE: 10/10/2023 17:53 INDICATION: Fall. TECHNIQUE: An anteroposterior view of the pelvis was obtained. COMPARISON: Pelvis radiograph 05/16/2018 FINDINGS: There is lumbar levoscoliosis and severe spondylosis. No fracture. There is severe right hi p osteoarthritis and moderate left hip osteoarthritis. Osteitis pubis is noted. IMPRESSION: 1. Severe right hip osteoarthritis and moderate left hip osteoarthritis. Reviewed, dictated and finalized at location E. INE FARMWORKER
--- NOTE | ~2023-10-10 | MR_ITS ---
EXAMINATION: MR abdomen wo/w con DATE: 10/14/2023 09:47 INDICATION: Left kidney mass TECHNIQUE: Magnetic resonance imaging (MRI) of the abdomen was performed without intravenous contrast . Sequences included coronal T2-weighted SS-FSE, coronal and axial FS 2D-FIESTA, axial STIR FSE, axi al T2-weighted SS-FSE, axial T2-weighted FS SS-FSE, axial diffusion-weighted SE, axial dual-echo T1-w eighted FSPGR, and axial and coronal T1-weighted LAVA. Postcontrast axial T1-weighted LAVA images wer e obtained in a time course. Postcontrast coronal T1-weighted LAVA images were obtained. COMPARISON: CT dated 10/13/2023 FINDINGS: Increased signal in the dependent aspect of the lower lobes, left greater than right which appears to correspond to atelectasis on the prior CT. Persistent trace left pleural effusion. Heart size is nor mal. No pericardial effusion. Liver, gallbladder, pancreas, spleen and bilateral adrenal glands are n ormal. There are several bilateral nonenhancing renal cysts the largest a 2.9 cm exophytic cyst arisi ng from the upper pole of the left kidney. This includes a couple T1 hyperintense, T2 hypointense pro teinaceous/hemorrhagic cysts measuring 1.9 cm at the mid left kidney and 9 mm the lower pole of the r ight kidney. Bowels are unremarkable with no obstruction. No pathologically enlarged abdominal or upp er pelvic lymphadenopathy. S-shaped thoracolumbar scoliosis with moderate to severe spondylosis. Ther e are few scattered nerve root sheath cysts in the visualized lower thoracic spine. IMPRESSION: 1. Multiple bilateral renal cysts which includes a 1.9 cm nonenhancing proteinaceous/hemorrhagic left renal cyst which corresponds to the lesion of concern from prior CT. Reviewed, dictated and finalized at location L. IMPRESSION: 1. Multiple bilateral renal cysts which includes a 1.9 cm nonenhancing proteina ceous/hemorrhagic left renal cyst which corresponds to the lesion of concern fr om prior CT.
--- NOTE | ~2023-10-10 | US_ITS ---
EXAMINATION: US venous doppler UE LT DATE: 10/10/2023 19:40 INDICATION: Left upper limb TECHNIQUE: Grayscale ultrasound images without and with compression and Doppler ultrasound images of the left upper extremity veins were obtained. COMPARISON: Ultrasound 08/29/2019 FINDINGS: The visualized portions of the left internal jugular vein, subclavian vein, axillary vein, brachial v eins, basilic vein, and cephalic vein are patent. The radial and ulnar veins are not evaluated. IMPRESSION: 1. No deep venous thrombosis. Reviewed, dictated and finalized at location E. RETE GRINDER OPERATOR
[2023-10-10 17:00] LABS: Appearance Urine Clear (Clear); Bilirubin Urine Negative (Negative); Blood Urine Negative (Negative); Color Urine Yellow (Yellow); Glucose Urine UA Negative (Negative); Ketones Urine Negative (Negative); Leukocyte Esterase Ur Negative LEU/UL (Negative); Nitrate Urine Negative (Negative); Protein Urine Negative (Negative); Specific Grav Ur 1.015 (1.001-1.035); Urobilinogen Urine 0.2 mg/dL (<2.0)
[2023-10-10 17:06] LABS: Add Urine Microscopic? NO
--- NOTE | 2023-10-10 17:07 | ECG_ITS ---
Measurements Intervals [place] Rate: 106 P: 82 AR: 148 QRS: -49 QRSD: 120 T: 95 QT: 353 QTc: 470 Interpretive Statements SINUS TACHYCARDIA ATRIAL PREMATURE COMPLEXES RIGHT BUNDLE BRANCH BLOCK LEFT ANTERIOR FASCICULAR BLOCK HIGH LATERAL INFARCT, AGE INDETERMINATE ABNORMAL ECG COMPARED TO ECG 09/21/2022 03:34:12 SINUS TACHYCARDIA NOW PRESENT LEFT ANTERIOR FASCICULAR BLOCK NOW PRESENT Electronically Signed On 10-10-2023 18:30:21 CAR EXAMINER by Pollo Monet D.O.
[2023-10-10 17:23] LABS: Basophils Absolute Auto 0.1 K/mm3 (0.0-0.1); Basophils Percent Auto 0.5 % (0.2-1.2); Eosinophils Percent Auto 0.1 % (0-4.4); Hematocrit 41.4 % (37.0-47.0); Hemoglobin 13.2 g/dL (12.0-15.0); Immature Granulocyte Absolute 0.14 K/mm3 (0.00-0.031); Immature Granulocyte Percent A 0.8 % (0-0.5); Lymphocytes Absolute Auto 1.11 K/mm3 (0.9-3.2); Lymphocytes Percent Auto 6.2 % (18.3-44.2); Mean Corpuscular HGB Conc 31.9 g/dl (32-36); Mean Corpuscular Hemoglobin 30.5 pg (26-34); Mean Corpuscular Volume 95.6 fl (80-100); Mean Platelet Volume 9.9 fl (7.4-10.4); Monocytes Percent Auto 5.3 % (2.6-8.5); Neutrophils Absolute Auto 15.7 K/mm3 (1.3-6.7); Neutrophils Percent Auto 87.1 % (45.5-73.1); Platelet Count Result 379 k/mm3 (150-375); Red Blood Count 4.33 M/mm3 (4.2-5.4); Red Cell Distribution Width 13.4 % (11.5-14.5)
--- NOTE | 2023-10-10 17:24 | ED.WEAKNESS ---
HPI - Weakness General Chief complaint: Urogenital-Female Stated complaint: uti Time Seen by Provider: 10/10/23 17:07 Source: patient and family Mode of arrival: EMS Limitations: no limitations History of Present Illness HPI Narrative: This is a 82-year-old female that presents to the emergency department for generalized weakness. Reports today she had just use the restroom. She was unable to get up off of the toilet. She slid onto the floor. She does not believe she hit her head. She did not lose consciousness. Does report she has had a cough and fever. Denies chest pain, shortness of breath, palpitations, abdominal pain, vomiting or dysuria. Related Data Allergies Allergy/AdvReac Type Severity Reaction Status Date / Time aspirin Allergy Severe Difficulty Verified 10/10/23 16:35 Breathing NSAIDS (Non-Steroidal Allergy Severe difficulty Verified 10/10/23 16:35 Anti-Inflamma br Penicillins Allergy Severe rash and Verified 10/10/23 16:35 difficulty breathing Review of Systems Review of Systems: CONSTITUTIONAL: Reports fever ENT: Denies rhinorrhea, congestion, sore throat CARDIOVASCULAR: Denies chest pain, palpitations RESPIRATORY: Reports cough. Denies dyspnea. GASTROINTESTINAL: Denies abdominal pain, nausea, vomiting GENITOURINARY: Denies dysuria or hematuria. NEUROLOGIC: Reports generalized weakness. All systems reviewed & are unremarkable except as noted in HPI and below PMFSH Past Medical History Medical History 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 Bilateral lower extremity edema Diarrhea Dizziness Essential hypertension Fracture of proximal end of left humerus Gait instability H/O subdural hemorrhage Indigestion Left arm swelling Leukocytosis Lymphedema Otalgia, left ear Sensation of fullness in left ear Skin lesion Skin lesion of face Wheezing Family History Family History Sibling Family history of malignant neoplasm of breast in first degree relative Patient's sister is Other Asthma Family history of cataracts Family history of malignant neoplasm of breast Family history of malignant neoplasm of male breast Hypertension Social History Social History Smoking status: Never smoker Second hand tobacco smoke exposure: No Alcohol intake: never Substance use: never Substance use type: does not use Lack of Transportation: No Lack of Food: Never True Current Housing: I Have Housing Concerned About Future Housing: No Difficulty Paying Gas/Electric Bills: No Difficulty Paying for Meds: No Currently Unemployed: No Education: High School Diploma/GED Difficulty w/ Childcare or Family Care: No Living arrangements: with family Additional living arrangements comments: with daughter Occupation/Education: retired Gender identity (if verbalized by the patient): Female Sexual Orientation (if Verbalized by the Patient): Straight or Heterosexual Spiritual care concerns: No Exam Narrative: GENERAL: Elderly, well-nourished, and in no acute distress. HEAD: Normocephalic, atraumatic. EYES: PERRLA and EOMI. ENT: Nares clear, no rhinorrhea or epistaxis. Mucous membranes moist. Oropharynx without tonsillar hypertrophy exudate or other lesions. Bilateral TMs pearly moss non-bulging NECK: Supple. No adenopathy or masses. CHEST: No respiratory distress. Rales in the bilateral lower lobes. No wheezes or rhonchi HEART: Regular rate and rhythm. No murmur heard. Normal peripheral pulses. ABDOMEN: Soft, nontender, nondistended, normal active bowel sounds. EXTREMITIES: Normal range of motion. No edema in the lower extremities. Lymphedema to the left lower arm with overlying redness and warmth SKIN: Warm, dry, no rash. NEURO: No focal deficits. Alert and oriented x3. PS
[2023-10-10 17:35] LABS: Alanine Aminotransferase 22 U/L (6-35); Albumin Level 4.7 g/dL (3.5-5.1); Alkaline Phosphatase 77 U/L (38-126); Anion Gap 11 mmol/L (8-16); Aspartate Amino Transferase 37 U/L (14-36); Bilirubin,Total 1.1 mg/dL (0.2-1.3); Blood Urea Nitrogen 22 mg/dL (7-17); Calcium 11.8 mg/dL (8.4-10.2); Carbon Dioxide 21 mmol/L (22-30); Chloride 102 mmol/L (98-107); Estimated Glomerular Filt Rate > 60; Glucose 150 mg/dL (65-110); Potassium 4.1 mmol/L (3.4-5.0); Sodium 134 mmol/L (137-145)
[2023-10-10 17:45] LABS: Troponin I 0.058 ng/mL (0.000-0.034)
[2023-10-10 17:49] LABS: CRP 0.6 mg/dL (<1.0)
[2023-10-10] MEDS: ACETAMINOPHEN 500 MG TABLET 1000 MG PO (17:49)
[2023-10-10] MEDS: SODIUM CHLORIDE 0.9% IV 500 ML 999 ML IV CONT (17:49)
[2023-10-10 17:52] LABS: NT Pro B Type Natriuretic Pept 500 pg/mL (19.9-100)
--- NOTE | 2023-10-10 18:14 | ECG_ITS ---
Measurements Intervals [place] Rate: 106 P: 78 NE: 157 QRS: -48 QRSD: 121 T: 90 QT: 351 QTc: 468 Interpretive Statements SINUS TACHYCARDIA RIGHT BUNDLE BRANCH BLOCK LEFT ANTERIOR FASCICULAR BLOCK LEFT VENTRICULAR HYPERTROPHY AND ST-T CHANGE HIGH LATERAL INFARCT, AGE INDETERMINATE ABNORMAL ECG COMPARED TO ECG 10/10/2023 18:08:55 NO SIGNIFICANT CHANGES Electronically Signed On 10-11-2023 7:24:32 ERECTOR OPERATOR by Pollo Monet D.O.
[2023-10-10 18:42] LABS: CRP 0.7 mg/dL (<1.0)
[2023-10-10 19:00] LABS: NT Pro B Type Natriuretic Pept 688 pg/mL (19.9-100)
[2023-10-10 19:02] LABS: Influenza A QL RT-PCR Negative (Negative); Influenza B QL RT-PCR Negative (Negative); RSV RNA, RT-PCR Negative (Negative); SARS-CoV-2 RNA PCR Negative (Negative)
[2023-10-10 19:34] LABS: Erythrocyte Sedimentation Rate 8 mm/hr (0-20)
--- NOTE | 2023-10-10 19:43 | PM.IMHP ---
H&P: HPI History of Present Illness Date/Time: 10/10/23 20:00 Chief Complaint: Weakness. Narrative: This is a very pleasant 82-year-old female with history of subdural hematoma, hypertension, hyperlipidemia, hyperparathyroidism, asthma, sleep apnea, breast cancer, left upper extremity lymphedema, and gastroesophageal reflux disease who presented to the emergency department for evaluation of weakness. The patient provides the following history. As a rule she tends to have poor balance but last night she felt a bit more ?wobbly? than usual. Upon waking this morning she was feeling weak, fatigued, and generally unwell. She noticed increasing difficulties getting up from a seated position due to overall weakness at about 15:00 fall trying to get up from the toilet she lost her balance and fell down onto her bottom. She caught her right foot up a little bit in the fall and complains of discomfort on the dorsum of the right foot. She denies head trauma and loss of consciousness and sustained no other injuries. Daughter came home shortly thereafter and called 911 to bring her in for evaluation. It is my understanding that the patient had a temperature of 101? on arrival however that has not been documented in her EMR. The patient denies chills, sweats, sinus congestion, sore throat, headache, neck ache, chest pain, pleuritic pain, palpitations, cough, abdominal pain, nausea, vomiting, diarrhea, dysuria. In the ER she was found to have increased swelling and redness of the left forearm consistent with cellulitis and she is being admitted in this setting. Of note, an initial troponin came back slightly elevated though she has not had any chest pain whatsoever. Review of Systems Review of Systems: Twelve systems were reviewed and are negative except for as per HPI. [facility] Past Medical History Medical History (Updated 10/10/23 @ 21:34 by Elena Carnes PA-C) Asthma 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 Essential hypertension Fracture of proximal end of left humerus Gait instability Gastroesophageal reflux disease Lymphedema of left arm Obstructive sleep apnea Osteoporosis Subdural hematoma (2019) Surgical History Surgical History (Updated 10/10/23 @ 21:17 by Elena Carnes PA-C) History of alvaro hole surgery History of section History of total mastectomy of left breast Family History Family History Sibling Family history of malignant neoplasm of breast in first degree relative Patient's sister is Other Asthma Family history of cataracts Family history of malignant neoplasm of breast Family history of malignant neoplasm of male breast Hypertension Social History Social History (Updated 10/10/23 @ 21:18 by Elena Carnes PA-C) Social History: Surrogate medical decision maker: Andria Chavez, daughter. Code status: Full code. Smoking status: Never smoker Second hand tobacco smoke exposure: No Alcohol intake: never Substance use: never Substance use type: does not use Lack of Transportation: No Lack of Food: Never True Current Housing: I Have Housing Concerned About Future Housing: No Difficulty Paying Gas/Electric Bills: No Difficulty Paying for Meds: No Currently Unemployed: No Education: High School Diploma/GED Difficulty w/ Childcare or Family Care: No Living arrangements: with family Additional living arrangements comments: Lives with daughter in:. Occupation/Education: retired Spiritual care concerns: No Meds Home Medications and Allergies Home Medications Medication Instructions Recorded Confirmed Type montelukast 10 mg tablet See Rx Instructions .Route 07/12/22 09/26/23 Rx .COMPLEX #90 tabs famotidine 20 mg tablet (Pepcid) 20 mg PO BID #30 tabs 09/21/22 09/26/23 Rx mecobalamin (vitamin B12) 1,000 1,
[2023-10-10] MEDS: ceFAZolin 1 GM/NS 50 ML 1 GM/50 ML BAG IVPB (19:47)
[2023-10-10] MEDS: SODIUM CHLORIDE 0.9% IV 1,000 ML 999 ML IV CONT (20:11)
--- NOTE | 2023-10-10 22:17 | ADMGEN ---
This patient, Meenakshi Chavez, was admitted to IMU Room 203-01 at 2144. Patient/family oriented to hospital policies and general routines including ID bracelet, bed and alarms, visiting hours, pain management, procedures, bathroom and other care routines, personal items, smoking policy, room service/diet, and visiting hours. Information on how to activate the Rapid Response Team has been discussed. Patient/Family are encouraged to report perceived risks to care and to ask questions if they do not understand what they are told or what they should do.
[2023-10-10] MEDS: ROSUVASTATIN 10 MG TABLET PO (23:58)
[2023-10-11] VITALS (13 sets, daily range): BP systolic 123–151; BP diastolic 52–79; PULSE 77–91; RESP 18–22; TEMP 36.3–36.7; O2SAT 95–99
[2023-10-11 04:32] LABS: Hematocrit 37.9 % (37.0-47.0); Mean Corpuscular HGB Conc 31.7 g/dl (32-36); Mean Corpuscular Hemoglobin 30.8 pg (26-34); Mean Corpuscular Volume 97.2 fl (80-100); Mean Platelet Volume 9.4 fl (7.4-10.4); Platelet Count Result 316 k/mm3 (150-375); Red Cell Distribution Width 13.4 % (11.5-14.5); White Blood Count 16.6 K/mm3 (4.5-10.0)
[2023-10-11 04:45] LABS: Anion Gap 6 mmol/L (8-16); Blood Urea Nitrogen 19 mg/dL (7-17); Calcium 10.9 mg/dL (8.4-10.2); Carbon Dioxide 24 mmol/L (22-30); Chloride 106 mmol/L (98-107); Estimated Glomerular Filt Rate > 60; Glucose 120 mg/dL (65-110); Potassium 3.3 mmol/L (3.4-5.0); Sodium 136 mmol/L (137-145)
[2023-10-11] MEDS: SERTRALINE HCL 25 MG TABLET PO (08:48)
[2023-10-11] MEDS: CYANOCOBALAMIN 1,000 MCG TABLET 1000 MCG PO (08:48)
[2023-10-11] MEDS: lisinopriL 10 MG TABLET PO (08:48)
[2023-10-11] MEDS: ceFAZolin 1 GM/NS 50 ML 1 GM/50 ML BAG IVPB ×2 (08:49→20:51)
[2023-10-11] MEDS: hydroCHLOROthiazide 6.25 MG TABLET PO (08:49)
[2023-10-11] MEDS: FLUTICASONE/SALMETEROL 115-21 MCG INHALER 1 PUFF 2 PUFF INHALATION ×2 (09:46→19:42)
--- NOTE | 2023-10-11 12:22 | PC.NURSE ---
This patient, Meenakshi Chavez, was transferred to [facility] on 10/11/23 at 1219. Personal belongings sent with patient. Report given to JUAQUIN Alfredo. Appropriate documentation sent with patient.
--- NOTE | 2023-10-11 12:30 | PC.NURSE ---
Meenakshi Chavez arrived to room 347 at approximately 1225 with daughter at bedside. Belongings brought with pt and stored in pt cabinet. pt oriented to room and safety procedures.
--- NOTE | 2023-10-11 13:11 | PM.IMPN ---
Progress Note: A&P Assessment and Plan (1) Left arm cellulitis: Code(s): L03.114 - Cellulitis of left upper limb Status: Acute (2) Elevated troponin: Code(s): R79.89 - Other specified abnormal findings of blood chemistry Status: Acute (3) Hyperparathyroidism: Code(s): E21.3 - Hyperparathyroidism, unspecified Status: Acute (4) Essential hypertension: Code(s): I10 - Essential (primary) hypertension Status: Acute (5) Asthma: Qualifiers: Asthma severity: unspecified severity Asthma persistence: unspecified Asthma complication type: unspecified Qualified Code(s): J45.909 - Unspecified asthma, uncomplicated Code(s): J45.909 - Unspecified asthma, uncomplicated Status: Acute Plan This is an 82-year-old history of subdural hematoma, hypertension hyperlipidemia hyperparathyroidism asthma sleep apnea breast cancer left upper extremity lymphedema and gastroesophageal reflux disease present to the ER for evaluation of weakness. She is normally has poor balance the last night she felt a bit more wobbly than usual. Upon waking this morning she was feeling weak fatigued and generally unwell. She noticed increased difficulties getting up from a seated position due to overall weakness at about 3:00 p.m. and fell trying to get up from the toilet see lost balance and fell down on her bottom. She got her right foot up a little bit in the fall and complains of discomfort on the right dorsum of the right foot. She denies any head trauma and loss of consciousness since then stented no other injuries. Daughter came home shortly thereafter and called 911 to bring her in for further evaluation. In the ED see had a temperature of 101? on arrival as reported but has not been documented in the EMR. She was noted to have increased swelling and redness of the left arm consistent with cellulitis. Initial troponin came back slightly elevated. No chest pain reported. Laboratory evaluation revealed elevated WBC count of 18.0 and she was noted to have cellulitis of the left upper extremity. She has chronic lymphedema and typically wears a sleeve on that arm and she has not noticed any redness before today. She has been started on cefazolin per antibiotic stewardship recommendations. Regarding the elevated troponin, this was drawn due to her reports of weakness and she has no complaints of chest pain. She has an aspirin allergy. Echocardiogram ordered. She has hyperparathyroidism and her calcium level is stable. Blood pressures were reviewed and they have been stable. No acute issues with regards to her asthma. Her home medications will be reviewed and resumed as appropriate. Will order PT OT. WBC count improving mild hypokalemia Subjective Date/time seen: 10/11/23 13:11 Interval history: Feels better wants to go home. Denies any new complaints. Review of Systems Review of Systems: All systems reviewed & are unremarkable except as noted in HPI and below Exam Narrative: General: Mildly ill-appearing female in the semi-Elias position in bed in no distress. HEENT: PERRL, EOMI. Sclera anicteric. Oral mucosa moist. Neck: Supple. No lymphadenopathy. Respiratory: Lungs are clear to auscultation bilaterally. Cardiovascular: Regular rate and rhythm with S1-S2. Gastrointestinal: Abdomen is soft, nontender, and nondistended with positive bowel sounds. Skin: Warm and dry. Left forearm is erythematous, edematous, and warm to touch. Musculoskeletal: Mild tenderness to palpation over the dorsum of the right foot. No deformity or bruising noted. Extremities: No cyanosis, clubbing, or edema aside from chronic. No gross focal deficits to casual conversation. Psychiatric: Pleasant and cooperative with normal mood and affect. Judgment and insight intact. Objective Data Vital Signs Vital Signs: Vital Signs - 24 hr 10/10/23 16:25 10/10/23 16:38 10/10/23 16:42 Temperature 99.1 F Puls
[2023-10-11] MEDS: POTASSIUM CHLORIDE 20 MEQ ER TABLET 40 MEQ PO (15:17)
[2023-10-11] MEDS: MONTELUKAST SODIUM 10 MG TABLET PO (17:29)
[2023-10-11] MEDS: ROSUVASTATIN 10 MG TABLET PO (17:29)
--- NOTE | 2023-10-11 21:49 | ECHO_ITS ---
Patient Info Name: Meenakshi Chavez Age: 82 years : 1940 Gender: Female Ht: 58 in Wt: 136 lbs BSA: 1.61 m2 HR: 78 bpm BP: 123 / 58 mmHg Heart Rhythm: Right Bundle Branch Block Technical Quality: Fair Exam Date: 10/11/2023 2:20 PM Exam Location: Echo Lab Exam Room: 347 Patient Status: Inpatient Admit Date: 10/11/2023 Staff Ordering Physician: Elena Carnes PA-C Assayer: Simran Koo RCS Attending Provider: Javy Lomeli MD Referring Physician: Trice KIRK; Exam Type: CA echo doppler color flow Study Info Indications - ELEVATED TROPONINS ABN EKG Complete two-dimensional, color flow and Doppler transthoracic echocardiogram is performed. Summary 1. Complete two-dimensional, color flow and Doppler transthoracic echocardiogram is performed. 2. Left ventricular chamber dimension is normal. 3. Left ventricular systolic function is normal, estimated at 60-65%. 4. There is mildly increased left ventricular wall thickness. 5. The left ventricular diastolic function is grade I diastolic dysfunction. 6. Right ventricular systolic function is normal. 7. There is mild mitral valve regurgitation. Left Ventricle Left ventricular chamber dimension is normal. Left ventricular systolic function is normal, estimated at 60-65%. There is mildly increased left ventricular wall thickness. Left ventricular septal wall motion is abnormal with septal motion related to bundle branch block. The left ventricular diastolic function is grade I diastolic dysfunction. Right Ventricle Right ventricular chamber dimension is normal. Right ventricular systolic function is normal. Left Atria Left atrial chamber dimension is normal. Right Atria Right atrial chamber dimension is normal. Atrial Septum Intact interatrial septum visualized by color flow imaging. Aortic Valve The aortic valve is probable trileaflet. There is no aortic valve stenosis. There is trace aortic valve regurgitation. There is mild aortic valve calcification. Pulmonic Valve The pulmonic valve is not well visualized. There is trace pulmonic regurgitation. Mitral Valve There is mild mitral valve regurgitation. The mitral valve annulus is mildly calcified. Tricuspid Valve There is trace tricuspid valve regurgitation. Pericardium/Pleural There is no pericardial effusion. Inferior Vena Cava Normal inferior vena cava with >50% collapse upon inspiration consistent with normal right atrial pressure, 3 mmHg. Aorta The aortic root size at the sinus of Valsalva is normal. Left Ventricular Outflow Tract Name Value Normal LVOT 2D LVOT Diameter 2.0 cm LVOT Doppler LVOT Peak Gradient 6 mmHg LVOT Mean Gradient 4 mmHg LVOT VTI 21 cm LVOT VTI/AV VTI Ratio 0.8 LVOT Stroke Volume 64 ml LVOT CO 16.3 l/min LVOT CI 10.1 l/min/m2 Pulmonic Valve Name Value Normal
[2023-10-12] VITALS (11 sets, daily range): BP systolic 105–156; BP diastolic 45–98; PULSE 83–108; RESP 16–18; TEMP 36.6–36.9; O2SAT 93–98
--- NOTE | 2023-10-12 03:26 | PC.NURSE ---
Daylight Savings Time For Daylight Savings Time Ending in the Fall - Clocks are moved back. For Daylight Savings Time Beginning in the Spring - Clocks are moved ahead. For [facility], the time of change occurs at 0200 hrs. Time is taken from the electrical prospecting observer. This entry on the patient's chart recognizes the change in time reflected during documentation. Example: 2 entries for vital signs may be charted for 0200 hrs.
[2023-10-12 05:38] LABS: Basophils Absolute Auto 0.1 K/mm3 (0.0-0.1); Basophils Percent Auto 0.5 % (0.2-1.2); Eosinophils Absolute Auto 0.4 K/mm3 (0-0.3); Eosinophils Percent Auto 2.8 % (0-4.4); Hematocrit 36.6 % (37.0-47.0); Immature Granulocyte Absolute 0.07 K/mm3 (0.00-0.031); Immature Granulocyte Percent A 0.5 % (0-0.5); Lymphocytes Absolute Auto 2.82 K/mm3 (0.9-3.2); Lymphocytes Percent Auto 18.9 % (18.3-44.2); Mean Corpuscular HGB Conc 32.8 g/dl (32-36); Mean Corpuscular Hemoglobin 30.8 pg (26-34); Mean Corpuscular Volume 93.8 fl (80-100); Mean Platelet Volume 9.4 fl (7.4-10.4); Monocytes Absolute Auto 1.5 K/mm3 (0.1-0.6); Neutrophils Percent Auto 67.3 % (45.5-73.1); Platelet Count Result 339 k/mm3 (150-375); Red Cell Distribution Width 13.2 % (11.5-14.5); White Blood Count 14.9 K/mm3 (4.5-10.0)
[2023-10-12 05:51] LABS: Alanine Aminotransferase 17 U/L (6-35); Albumin Level 3.7 g/dL (3.5-5.1); Alkaline Phosphatase 69 U/L (38-126); Anion Gap 6 mmol/L (8-16); Aspartate Amino Transferase 37 U/L (14-36); Bilirubin,Total 0.7 mg/dL (0.2-1.3); Blood Urea Nitrogen 16 mg/dL (7-17); Calcium 10.8 mg/dL (8.4-10.2); Carbon Dioxide 22 mmol/L (22-30); Chloride 107 mmol/L (98-107); Estimated Glomerular Filt Rate > 60; Glucose 142 mg/dL (65-110); Magnesium 1.6 mg/dL (1.6-2.3); Potassium 4.1 mmol/L (3.4-5.0); Sodium 135 mmol/L (137-145)
[2023-10-12] MEDS: FLUTICASONE/SALMETEROL 115-21 MCG INHALER 1 PUFF 2 PUFF INHALATION ×2 (07:59→20:46)
[2023-10-12] MEDS: ceFAZolin 1 GM/NS 50 ML 1 GM/50 ML BAG IVPB ×2 (08:01→20:53)
[2023-10-12] MEDS: lisinopriL 10 MG TABLET PO (08:01)
[2023-10-12] MEDS: SERTRALINE HCL 25 MG TABLET PO (08:01)
[2023-10-12] MEDS: CYANOCOBALAMIN 1,000 MCG TABLET 1000 MCG PO (08:01)
[2023-10-12] MEDS: hydroCHLOROthiazide 6.25 MG TABLET PO (08:01)
--- NOTE | 2023-10-12 12:19 | PM.IMPN ---
Progress Note: A&P Assessment and Plan (1) Left arm cellulitis: Code(s): L03.114 - Cellulitis of left upper limb Status: Acute (2) Elevated troponin: Code(s): R79.89 - Other specified abnormal findings of blood chemistry Status: Acute (3) Hyperparathyroidism: Code(s): E21.3 - Hyperparathyroidism, unspecified Status: Acute (4) Essential hypertension: Code(s): I10 - Essential (primary) hypertension Status: Acute (5) Asthma: Qualifiers: Asthma severity: unspecified severity Asthma persistence: unspecified Asthma complication type: unspecified Qualified Code(s): J45.909 - Unspecified asthma, uncomplicated Code(s): J45.909 - Unspecified asthma, uncomplicated Status: Acute Plan This is an 82-year-old history of subdural hematoma, hypertension hyperlipidemia hyperparathyroidism asthma sleep apnea breast cancer left upper extremity lymphedema and gastroesophageal reflux disease present to the ER for evaluation of weakness. She is normally has poor balance the last night she felt a bit more wobbly than usual. Upon waking this morning she was feeling weak fatigued and generally unwell. She noticed increased difficulties getting up from a seated position due to overall weakness at about 3:00 p.m. and fell trying to get up from the toilet see lost balance and fell down on her bottom. She got her right foot up a little bit in the fall and complains of discomfort on the right dorsum of the right foot. She denies any head trauma and loss of consciousness since then stented no other injuries. Daughter came home shortly thereafter and called 911 to bring her in for further evaluation. In the ED see had a temperature of 101? on arrival as reported but has not been documented in the EMR. She was noted to have increased swelling and redness of the left arm consistent with cellulitis. Initial troponin came back slightly elevated. No chest pain reported. Laboratory evaluation revealed elevated WBC count of 18.0 and she was noted to have cellulitis of the left upper extremity. She has chronic lymphedema and typically wears a sleeve on that arm and she has not noticed any redness before today. She has been started on cefazolin per antibiotic stewardship recommendations. Regarding the elevated troponin, this was drawn due to her reports of weakness and she has no complaints of chest pain. She has an aspirin allergy. Echocardiogram with EF 60-65% mildly increased left ventricular wall thickness grade 1 diastolic dysfunction.. She has hyperparathyroidism and her calcium level is stable. Blood pressures were reviewed and they have been stable. No acute issues with regards to her asthma. Her home medications will be reviewed and resumed as appropriate. Continue PT OT. WBC count improving mild hypokalemia. Leukocytosis slowly improving cellulitis clinically improving on current antibiotics will continue same Subjective Date/time seen: 10/12/23 12:19 Interval history: No overnight event. Left arm feels better. Working with therapy Review of Systems Review of Systems: All systems reviewed & are unremarkable except as noted in HPI and below Exam Narrative: General: Mildly ill-appearing female in the semi-Elias position in bed in no distress. HEENT: PERRL, EOMI. Sclera anicteric. Oral mucosa moist. Neck: Supple. No lymphadenopathy. Respiratory: Lungs are clear to auscultation bilaterally. Cardiovascular: Regular rate and rhythm with S1-S2. Gastrointestinal: Abdomen is soft, nontender, and nondistended with positive bowel sounds. Skin: Warm and dry. Left forearm is less erythematous swollen and tender Musculoskeletal: Mild tenderness to palpation over the dorsum of the right foot. No deformity or bruising noted. Extremities: No cyanosis, clubbing, or edema aside from chronic. No gross focal deficits to casual conversation. Psychiatric: Pleasant and cooperative with normal moo
[2023-10-12] MEDS: ONDANSETRON HCL ODT 4 MG TABLET PO (13:25)
[2023-10-12] MEDS: ROSUVASTATIN 10 MG TABLET PO (17:49)
[2023-10-12] MEDS: MONTELUKAST SODIUM 10 MG TABLET PO (17:49)
[2023-10-12] MEDS: LIDOCAINE 5% PATCH 1 PATCH TRANSDERM (20:51)
[2023-10-13] VITALS (7 sets, daily range): BP systolic 122–165; BP diastolic 47–78; PULSE 81–96; RESP 16–18; TEMP 36.9; O2SAT 93–96
[2023-10-13 05:31] LABS: Basophils Absolute Auto 0.1 K/mm3 (0.0-0.1); Basophils Percent Auto 0.6 % (0.2-1.2); Eosinophils Absolute Auto 0.4 K/mm3 (0-0.3); Eosinophils Percent Auto 2.4 % (0-4.4); Hematocrit 37.7 % (37.0-47.0); Hemoglobin 11.9 g/dL (12.0-15.0); Immature Granulocyte Absolute 0.13 K/mm3 (0.00-0.031); Immature Granulocyte Percent A 0.9 % (0-0.5); Lymphocytes Absolute Auto 3.09 K/mm3 (0.9-3.2); Lymphocytes Percent Auto 21.4 % (18.3-44.2); Mean Corpuscular HGB Conc 31.6 g/dl (32-36); Mean Corpuscular Hemoglobin 30.6 pg (26-34); Mean Corpuscular Volume 96.9 fl (80-100); Mean Platelet Volume 9.5 fl (7.4-10.4); Monocytes Absolute Auto 1.7 K/mm3 (0.1-0.6); Monocytes Percent Auto 11.9 % (2.6-8.5); Neutrophils Absolute Auto 9.1 K/mm3 (1.3-6.7); Neutrophils Percent Auto 62.8 % (45.5-73.1); Platelet Count Result 341 k/mm3 (150-375); Red Blood Count 3.89 M/mm3 (4.2-5.4); Red Cell Distribution Width 13.5 % (11.5-14.5); White Blood Count 14.4 K/mm3 (4.5-10.0)
[2023-10-13 05:59] LABS: Alanine Aminotransferase 16 U/L (6-35); Albumin Level 3.6 g/dL (3.5-5.1); Alkaline Phosphatase 70 U/L (38-126); Anion Gap 4 mmol/L (8-16); Aspartate Amino Transferase 28 U/L (14-36); Bilirubin,Total 0.8 mg/dL (0.2-1.3); Blood Urea Nitrogen 14 mg/dL (7-17); Calcium 10.9 mg/dL (8.4-10.2); Carbon Dioxide 25 mmol/L (22-30); Chloride 104 mmol/L (98-107); Estimated Glomerular Filt Rate > 60; Glucose 151 mg/dL (65-110); Magnesium 1.6 mg/dL (1.6-2.3); Sodium 133 mmol/L (137-145)
[2023-10-13] MEDS: FLUTICASONE/SALMETEROL 115-21 MCG INHALER 1 PUFF 2 PUFF INHALATION ×2 (08:05→21:13)
[2023-10-13] MEDS: ONDANSETRON HCL ODT 4 MG TABLET PO (08:18)
[2023-10-13] MEDS: ceFAZolin 1 GM/NS 50 ML 1 GM/50 ML BAG IVPB (09:27)
[2023-10-13] MEDS: METOCLOPRAMIDE HCL 5 MG TABLET PO (12:53)
--- NOTE | 2023-10-13 12:53 | PC.NURSE ---
pt returned from CT, reglan administered, will continue to monitor nausea
--- NOTE | 2023-10-13 14:54 | PM.IMPN ---
Progress Note: A&P Assessment and Plan (1) Left arm cellulitis: Code(s): L03.114 - Cellulitis of left upper limb Status: Acute (2) Elevated troponin: Code(s): R79.89 - Other specified abnormal findings of blood chemistry Status: Acute (3) Hyperparathyroidism: Code(s): E21.3 - Hyperparathyroidism, unspecified Status: Acute (4) Essential hypertension: Code(s): I10 - Essential (primary) hypertension Status: Acute (5) Asthma: Qualifiers: Asthma severity: unspecified severity Asthma persistence: unspecified Asthma complication type: unspecified Qualified Code(s): J45.909 - Unspecified asthma, uncomplicated Code(s): J45.909 - Unspecified asthma, uncomplicated Status: Acute Plan This is an 82-year-old history of subdural hematoma, hypertension hyperlipidemia hyperparathyroidism asthma sleep apnea breast cancer left upper extremity lymphedema and gastroesophageal reflux disease present to the ER for evaluation of weakness. She is normally has poor balance the last night she felt a bit more wobbly than usual. Upon waking this morning she was feeling weak fatigued and generally unwell. She noticed increased difficulties getting up from a seated position due to overall weakness at about 3:00 p.m. and fell trying to get up from the toilet see lost balance and fell down on her bottom. She got her right foot up a little bit in the fall and complains of discomfort on the right dorsum of the right foot. She denies any head trauma and loss of consciousness since then stented no other injuries. Daughter came home shortly thereafter and called 911 to bring her in for further evaluation. In the ED see had a temperature of 101? on arrival as reported but has not been documented in the EMR. She was noted to have increased swelling and redness of the left arm consistent with cellulitis. Initial troponin came back slightly elevated. No chest pain reported. Laboratory evaluation revealed elevated WBC count of 18.0 and she was noted to have cellulitis of the left upper extremity. She has chronic lymphedema and typically wears a sleeve on that arm and she has not noticed any redness before today. She has been started on cefazolin per antibiotic stewardship recommendations. Regarding the elevated troponin, this was drawn due to her reports of weakness and she has no complaints of chest pain. She has an aspirin allergy. Echocardiogram with EF 60-65% mildly increased left ventricular wall thickness grade 1 diastolic dysfunction.. She has hyperparathyroidism and her calcium level is stable. Blood pressures were reviewed and they have been stable. No acute issues with regards to her asthma. Her home medications will be reviewed and resumed as appropriate. Continue PT OT. WBC count improving mild hypokalemia. Leukocytosis slowly improving cellulitis clinically improving on current antibiotics reports some nausea and vomiting. CT Abdomen ordered could be related to IV antibiotics was switched to oral Bactrim. Subjective Date/time seen: 10/13/23 14:54 Interval history: Continues to report some nausea add an episode of vomiting this a.m.. Left arm swelling and redness is resolving Review of Systems Review of Systems: All systems reviewed & are unremarkable except as noted in HPI and below Exam Narrative: General: Mildly ill-appearing female in the semi-Elias position in bed in mild distress with nausea HEENT: PERRL, EOMI. Sclera anicteric. Oral mucosa moist. Neck: Supple. No lymphadenopathy. Respiratory: Lungs are clear to auscultation bilaterally. Cardiovascular: Regular rate and rhythm with S1-S2. Gastrointestinal: Abdomen is soft, nontender, and nondistended with positive bowel sounds. Skin: Warm and dry. Left forearm is less erythematous swollen and tender Musculoskeletal: Mild tenderness to palpation over the dorsum of the right foot. No deformity or bruising noted. Extremi
[2023-10-14] VITALS (10 sets, daily range): BP systolic 123–171; BP diastolic 49–89; PULSE 77–99; RESP 16–18; TEMP 36.3–37.2; O2SAT 90–98
[2023-10-14] MEDS: SULFAMETHOXAZOLE/TRIMETHOPRIM 800/160 MG DS TABLET 1 TAB PO ×2 (05:43→17:16)
[2023-10-14 05:54] LABS: Basophils Absolute Auto 0.1 K/mm3 (0.0-0.1); Basophils Percent Auto 0.6 % (0.2-1.2); Eosinophils Absolute Auto 0.2 K/mm3 (0-0.3); Eosinophils Percent Auto 1.8 % (0-4.4); Hematocrit 37.4 % (37.0-47.0); Hemoglobin 11.8 g/dL (12.0-15.0); Immature Granulocyte Absolute 0.13 K/mm3 (0.00-0.031); Lymphocytes Absolute Auto 3.94 K/mm3 (0.9-3.2); Mean Corpuscular HGB Conc 31.6 g/dl (32-36); Mean Corpuscular Hemoglobin 30.5 pg (26-34); Mean Corpuscular Volume 96.6 fl (80-100); Mean Platelet Volume 9.5 fl (7.4-10.4); Monocytes Absolute Auto 1.7 K/mm3 (0.1-0.6); Monocytes Percent Auto 12.5 % (2.6-8.5); Neutrophils Absolute Auto 7.5 K/mm3 (1.3-6.7); Neutrophils Percent Auto 55.1 % (45.5-73.1); Platelet Count Result 363 k/mm3 (150-375); Red Blood Count 3.87 M/mm3 (4.2-5.4); Red Cell Distribution Width 13.4 % (11.5-14.5); White Blood Count 13.6 K/mm3 (4.5-10.0)
[2023-10-14 06:03] LABS: Alanine Aminotransferase 13 U/L (6-35); Albumin Level 3.6 g/dL (3.5-5.1); Alkaline Phosphatase 66 U/L (38-126); Anion Gap 4 mmol/L (8-16); Aspartate Amino Transferase 23 U/L (14-36); Blood Urea Nitrogen 18 mg/dL (7-17); Carbon Dioxide 26 mmol/L (22-30); Chloride 103 mmol/L (98-107); Estimated Glomerular Filt Rate 60; Glucose 127 mg/dL (65-110); Magnesium 1.9 mg/dL (1.6-2.3); Potassium 3.8 mmol/L (3.4-5.0); Sodium 133 mmol/L (137-145)
[2023-10-14] MEDS: lisinopriL 10 MG TABLET PO (08:29)
[2023-10-14] MEDS: SERTRALINE HCL 25 MG TABLET PO (08:29)
[2023-10-14] MEDS: hydroCHLOROthiazide 6.25 MG TABLET PO (08:29)
[2023-10-14] MEDS: CYANOCOBALAMIN 1,000 MCG TABLET 1000 MCG PO (08:29)
[2023-10-14] MEDS: ceFAZolin 1 GM/NS 50 ML 1 GM/50 ML BAG IVPB (08:31)
[2023-10-14] MEDS: FLUTICASONE/SALMETEROL 115-21 MCG INHALER 1 PUFF 2 PUFF INHALATION ×2 (09:00→20:09)
[2023-10-14] MEDS: ONDANSETRON HCL ODT 4 MG TABLET PO (12:45)
--- NOTE | 2023-10-14 13:31 | PM.IMPN ---
Progress Note: A&P Assessment and Plan (1) Left arm cellulitis: Code(s): L03.114 - Cellulitis of left upper limb Status: Acute (2) Elevated troponin: Code(s): R79.89 - Other specified abnormal findings of blood chemistry Status: Acute (3) Hyperparathyroidism: Code(s): E21.3 - Hyperparathyroidism, unspecified Status: Acute (4) Essential hypertension: Code(s): I10 - Essential (primary) hypertension Status: Acute (5) Asthma: Qualifiers: Asthma severity: unspecified severity Asthma persistence: unspecified Asthma complication type: unspecified Qualified Code(s): J45.909 - Unspecified asthma, uncomplicated Code(s): J45.909 - Unspecified asthma, uncomplicated Status: Acute Plan This is an 82-year-old history of subdural hematoma, hypertension hyperlipidemia hyperparathyroidism asthma sleep apnea breast cancer left upper extremity lymphedema and gastroesophageal reflux disease present to the ER for evaluation of weakness. She is normally has poor balance the last night she felt a bit more wobbly than usual. Upon waking this morning she was feeling weak fatigued and generally unwell. She noticed increased difficulties getting up from a seated position due to overall weakness at about 3:00 p.m. and fell trying to get up from the toilet see lost balance and fell down on her bottom. She got her right foot up a little bit in the fall and complains of discomfort on the right dorsum of the right foot. She denies any head trauma and loss of consciousness since then stented no other injuries. Daughter came home shortly thereafter and called 911 to bring her in for further evaluation. In the ED see had a temperature of 101? on arrival as reported but has not been documented in the EMR. She was noted to have increased swelling and redness of the left arm consistent with cellulitis. Initial troponin came back slightly elevated. No chest pain reported. Laboratory evaluation revealed elevated WBC count of 18.0 and she was noted to have cellulitis of the left upper extremity. She has chronic lymphedema and typically wears a sleeve on that arm and she has not noticed any redness before today. She has been started on cefazolin per antibiotic stewardship recommendations. Regarding the elevated troponin, this was drawn due to her reports of weakness and she has no complaints of chest pain. She has an aspirin allergy. Echocardiogram with EF 60-65% mildly increased left ventricular wall thickness grade 1 diastolic dysfunction.. She has hyperparathyroidism and her calcium level is stable. Blood pressures were reviewed and they have been stable. No acute issues with regards to her asthma. Her home medications will be reviewed and resumed as appropriate. Continue PT OT. WBC count improving mild hypokalemia. Leukocytosis slowly improving cellulitis clinically improving on current antibiotics reports some nausea and vomiting. CT Abdomen ordered could be related to IV antibiotics was switched to oral Bactrim. CT abdomen with kidney masses measuring up to 1.7 cm on the left probably hemorrhagic cyst. Neoplasm could not be excluded. Left inguinal hernia containing fat. Follow-up MRI suggest multiple bilateral renal cysts which is inclusive 1.9 cm nonenhancing proteinaceous/hemorrhagic left renal cyst. Nausea still persists. Will start gentle IV fluid today recheck UA supportive treatment with anti nausea medication Subjective Date/time seen: 10/14/23 13:31 Interval history: Patient continues to feel some nausea. No vomiting. Left arm swelling and redness is improving. Remains afebrile CT findings reviewed with the patient. Review of Systems Review of Systems: All systems reviewed & are unremarkable except as noted in HPI and below Exam Narrative: General: Mildly ill-appearing female in the semi-Elias position in bed in mild distress with nausea HEENT: PERRL, EOMI. Sclera anicteric.
[2023-10-14 16:46] LABS: Appearance Urine Clear (Clear); Bacteria Urine None Seen /hpf; Bilirubin Urine Negative (Negative); Blood Urine Trace (Negative); Color Urine Yellow (Yellow); Glucose Urine UA Negative (Negative); Ketones Urine Negative (Negative); Leukocyte Esterase Ur Negative LEU/UL (Negative); Nitrate Urine Negative (Negative); Non Pathogenic Casts 0-2; Protein Urine Trace mg/dL (Negative); Specific Grav Ur 1.018 (1.001-1.035); Squamous Epithelial Cell Urine None Seen /hpf (Few); Urobilinogen Urine 0.2 mg/dL (<2.0); WBC Urine 0-5 /hpf (0-3); pH Urine 5.5 (5.0-9.0)
[2023-10-14 16:47] LABS: Add Urine Microscopic? YES
[2023-10-14] MEDS: MONTELUKAST SODIUM 10 MG TABLET PO (17:16)
[2023-10-14] MEDS: ROSUVASTATIN 10 MG TABLET PO (17:16)
[2023-10-14] MEDS: SODIUM CHLORIDE 0.9% IV 1,000 ML 75 ML IV CONT (17:17)
[2023-10-14] MEDS: LIDOCAINE 5% PATCH 1 PATCH TRANSDERM (20:33)
[2023-10-15] VITALS (8 sets, daily range): BP systolic 122–154; BP diastolic 50–67; PULSE 88–101; RESP 16–18; TEMP 36.9–37.3; O2SAT 92–95
[2023-10-15] MEDS: SULFAMETHOXAZOLE/TRIMETHOPRIM 800/160 MG DS TABLET 1 TAB PO ×2 (05:37→17:42)
[2023-10-15 06:05] LABS: Basophils Absolute Auto 0.1 K/mm3 (0.0-0.1); Basophils Percent Auto 0.6 % (0.2-1.2); Eosinophils Percent Auto 0.2 % (0-4.4); Hematocrit 37.1 % (37.0-47.0); Hemoglobin 12.2 g/dL (12.0-15.0); Immature Granulocyte Absolute 0.16 K/mm3 (0.00-0.031); Lymphocytes Absolute Auto 3.13 K/mm3 (0.9-3.2); Lymphocytes Percent Auto 18.6 % (18.3-44.2); Mean Corpuscular HGB Conc 32.9 g/dl (32-36); Mean Corpuscular Hemoglobin 30.7 pg (26-34); Mean Corpuscular Volume 93.2 fl (80-100); Mean Platelet Volume 9.4 fl (7.4-10.4); Monocytes Absolute Auto 2.1 K/mm3 (0.1-0.6); Monocytes Percent Auto 12.3 % (2.6-8.5); Neutrophils Absolute Auto 11.3 K/mm3 (1.3-6.7); Neutrophils Percent Auto 67.3 % (45.5-73.1); Platelet Count Result 427 k/mm3 (150-375); Red Blood Count 3.98 M/mm3 (4.2-5.4); Red Cell Distribution Width 13.1 % (11.5-14.5); White Blood Count 16.8 K/mm3 (4.5-10.0)
[2023-10-15 06:14] LABS: Alanine Aminotransferase 13 U/L (6-35); Albumin Level 3.6 g/dL (3.5-5.1); Alkaline Phosphatase 71 U/L (38-126); Anion Gap 5 mmol/L (8-16); Aspartate Amino Transferase 24 U/L (14-36); Bilirubin,Total 0.7 mg/dL (0.2-1.3); Blood Urea Nitrogen 18 mg/dL (7-17); Carbon Dioxide 26 mmol/L (22-30); Chloride 100 mmol/L (98-107); Estimated Glomerular Filt Rate 60; Glucose 147 mg/dL (65-110); Magnesium 1.8 mg/dL (1.6-2.3); Potassium 3.7 mmol/L (3.4-5.0); Sodium 131 mmol/L (137-145)
[2023-10-15] MEDS: FLUTICASONE/SALMETEROL 115-21 MCG INHALER 1 PUFF 2 PUFF INHALATION ×2 (08:40→20:09)
[2023-10-15] MEDS: lisinopriL 10 MG TABLET PO (08:56)
[2023-10-15] MEDS: hydroCHLOROthiazide 6.25 MG TABLET PO (08:56)
[2023-10-15] MEDS: CYANOCOBALAMIN 1,000 MCG TABLET 1000 MCG PO (08:56)
--- NOTE | 2023-10-15 15:17 | PM.IMPN ---
Progress Note: A&P Assessment and Plan (1) Left arm cellulitis: Code(s): L03.114 - Cellulitis of left upper limb Status: Acute Assessment and Plan: Patient was feeling weak, fatigued and generally unwell. She did fall prior to admission but no head trauma or loss of consciousness and no other injuries. Patient with fever on arrival to ED and noted to have increased swelling and redness of the left arm consistent with cellulitis. WBC was 18. She has chronic lymphedema and typically wears a sleeve on that arm Cefazolin started (10/09) per antibiotic stewardship recommendations She has since been switched to bactrim No erythema noted at this time. Treat through tomorrow (7 days) (2) Weakness: Code(s): R53.1 - Weakness Status: Acute Assessment and Plan: Patient with weakness and fall. CT brain showing stable moderate nonspecific cerebral white matter disease but no acute findings. Chest x-ray showed mild atelectasis at the left lung base otherwise clear. Pelvic x-ray shows severe right hip osteoarthritis and moderate left hip osteoarthritis but no fracture. Right foot xray showing no fracture PT/OT started SNF being planned (3) Elevated troponin: Code(s): R79.89 - Other specified abnormal findings of blood chemistry Status: Acute Assessment and Plan: Troponin was drawn due to her reports of weakness but no complaints of chest pain. Initial troponin came back slightly elevated at 0.058. She has an aspirin allergy. EKG showing sinus tachycardia (106), PAC, Rt BBB, LAFB and high lateral lead infarct. 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 Troponin not repeated but suspect not clinically significant. (4) Hyperparathyroidism: Code(s): E21.3 - Hyperparathyroidism, unspecified Status: Acute Assessment and Plan: Patient has hyperparathyroidism and her calcium level is mildly elevated but stable. Follow (5) Essential hypertension: Code(s): I10 - Essential (primary) hypertension Status: Acute Assessment and Plan: Patient's blood pressure was reviewed on 10/14 Blood pressure remains reasonably well controlled. Will continue to monitor. (6) Asthma: Qualifiers: Asthma severity: unspecified severity Asthma persistence: unspecified Asthma complication type: unspecified Qualified Code(s): J45.909 - Unspecified asthma, uncomplicated Code(s): J45.909 - Unspecified asthma, uncomplicated Status: Acute Assessment and Plan: Stable. No wheezing Continue Advair (7) Nausea: Code(s): R11.0 - Nausea Status: Acute Assessment and Plan: She reported some nausea and vomiting. CT Abd/Pelvis ordered showing kidney masses measuring up to 1.7 cm on the left probably hemorrhagic cyst. Neoplasm could not be excluded. Left inguinal hernia containing fat. Follow-up MRI showing multiple bilateral renal cysts which is inclusive 1.9 cm nonenhancing proteinaceous/hemorrhagic left renal cyst. Still with nausea and not eating much. Nausea still persists. Repeat UA negative. Follow Plan DVT prophylaxis - SCDs Code status - full Subjective Date/time seen: 10/15/23 15:17 Interval history: 82yo female with history of subdural hematoma, HTN, HLD, hyperparathyroidism, asthma, MARIS, breast cancer, left upper extremity lymphedema, and gastroesophageal reflux disease who presented to the emergency department for evaluation of weakness.? Assuming care. Chart reviewed. Patient feeling well. Walking to the bathroom. No arm pain. No CP or SOB. No fevers. No dysuria or hematuria. Slight cough mostly at night. Exam Narrative: AF 99.0 154/59 100 18 92% ra Gen - NARD Chest - CTA bilaterally, nml RR CV - RRR S1/S2 Abd - Soft, NT/ND, Positive BS Ext - No pedal edema.
[2023-10-15] MEDS: MONTELUKAST SODIUM 10 MG TABLET PO (17:37)
[2023-10-15] MEDS: ROSUVASTATIN 10 MG TABLET PO (17:38)
[2023-10-16 06:28] LABS: Basophils Absolute Auto 0.1 K/mm3 (0.0-0.1); Basophils Percent Auto 0.6 % (0.2-1.2); Eosinophils Absolute Auto 0.1 K/mm3 (0-0.3); Eosinophils Percent Auto 0.4 % (0-4.4); Hematocrit 35.3 % (37.0-47.0); Hemoglobin 11.6 g/dL (12.0-15.0); Immature Granulocyte Percent A 1.2 % (0-0.5); Lymphocytes Absolute Auto 3.08 K/mm3 (0.9-3.2); Lymphocytes Percent Auto 19.2 % (18.3-44.2); Mean Corpuscular HGB Conc 32.9 g/dl (32-36); Mean Corpuscular Hemoglobin 30.6 pg (26-34); Mean Corpuscular Volume 93.1 fl (80-100); Mean Platelet Volume 9.5 fl (7.4-10.4); Monocytes Absolute Auto 1.8 K/mm3 (0.1-0.6); Monocytes Percent Auto 11.1 % (2.6-8.5); Neutrophils Absolute Auto 10.9 K/mm3 (1.3-6.7); Neutrophils Percent Auto 67.5 % (45.5-73.1); Platelet Count Result 441 k/mm3 (150-375); Red Blood Count 3.79 M/mm3 (4.2-5.4); Red Cell Distribution Width 13.2 % (11.5-14.5); White Blood Count 16.1 K/mm3 (4.5-10.0)
[2023-10-16 06:35] LABS: Albumin Level 3.4 g/dL (3.5-5.1); Anion Gap 6 mmol/L (8-16); Blood Urea Nitrogen 24 mg/dL (7-17); Calcium 10.8 mg/dL (8.4-10.2); Carbon Dioxide 26 mmol/L (22-30); Chloride 99 mmol/L (98-107); Estimated Glomerular Filt Rate 53; Glucose 139 mg/dL (65-110); Magnesium 1.8 mg/dL (1.6-2.3); Phosphorus 2.6 mg/dL (2.5-4.5); Potassium 3.7 mmol/L (3.4-5.0); Sodium 131 mmol/L (137-145)
[2023-10-16] MEDS: SULFAMETHOXAZOLE/TRIMETHOPRIM 800/160 MG DS TABLET 1 TAB PO (06:40)
[2023-10-16 07:13] LABS: Thyroid Stimulating Hormone Reflex 0.911 uIU/mL (0.465-4.68)
[2023-10-16] MEDS: FLUTICASONE/SALMETEROL 115-21 MCG INHALER 1 PUFF 2 PUFF INHALATION (07:17)
[2023-10-16 07:19] VITALS: O2SAT 93
[2023-10-16 07:46] LABS: Folic Acid 7.6 ng/mL (2.76->20); Vitamin B12 > 1000.0 pg/mL (239-931)
[2023-10-16] MEDS: lisinopriL 10 MG TABLET PO (08:36)
[2023-10-16] MEDS: CYANOCOBALAMIN 1,000 MCG TABLET 1000 MCG PO (08:36)
[2023-10-16] MEDS: ONDANSETRON HCL ODT 4 MG TABLET PO (08:38)
--- NOTE | 2023-10-16 11:58 | PM.DS ---
DS: Admitting Diagnosis Discharge Date 10/16/23 Admitting Diagnosis Weakness DS: Discharge Diagnosis Discharge Diagnosis (1) Left arm cellulitis: Code(s): L03.114 - Cellulitis of left upper limb Status: Acute (2) Weakness: Code(s): R53.1 - Weakness Status: Acute (3) Elevated troponin: Code(s): R79.89 - Other specified abnormal findings of blood chemistry Status: Acute (4) Hyperparathyroidism: Code(s): E21.3 - Hyperparathyroidism, unspecified Status: Acute (5) Essential hypertension: Code(s): I10 - Essential (primary) hypertension Status: Acute (6) Asthma: Qualifiers: Asthma complication type: unspecified Asthma persistence: unspecified Asthma severity: unspecified severity Qualified Code(s): J45.909 - Unspecified asthma, uncomplicated Code(s): J45.909 - Unspecified asthma, uncomplicated Status: Acute (7) Nausea: Code(s): R11.0 - Nausea Status: Acute DS: Summary Hospital Course Reason for hospitalization: 82yo female with history of subdural hematoma, HTN, HLD, hyperparathyroidism, asthma, MARIS, breast cancer, left upper extremity lymphedema, and gastroesophageal reflux disease who presented to the emergency department for evaluation of weakness.?Please see H&P for details. Hospital Course: Patient was feeling weak, fatigued and generally unwell. She did fall prior to admission but no head trauma or loss of consciousness and no other injuries. Patient with fever on arrival to ED and noted to have increased swelling and redness of the left arm consistent with cellulitis. WBC was 18. She has chronic lymphedema and typically wears a sleeve on that arm. Cefazolin started (10/09) per antibiotic stewardship recommendations. She has since been switched to Bactrim. No erythema noted at this time. CT brain showing stable moderate nonspecific cerebral white matter disease but no acute findings.? Chest x-ray showed mild atelectasis at the left lung base otherwise clear. Pelvic x-ray shows severe right hip osteoarthritis and moderate left hip osteoarthritis but no fracture. Right foot xray showing no fracture. PT/OT started abd Home Health recommended and arranged. Troponin was drawn due to her reports of weakness but no complaints of chest pain.?Initial troponin came back slightly elevated at 0.058. She has an aspirin allergy. EKG showing sinus tachycardia (106), PAC, Rt BBB, LAFB and high lateral lead infarct. 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 Repeat EKG showing no change. Echo with EF 60-65%, mildly increased LV wall thickness and grade 1 diastolic dysfunction. Repeat Troponin normal and felt elevated Troponin not clinically significant. Patient has hyperparathyroidism and her calcium level is mildly elevated but stable. We stopped her HCTZ. She reported some nausea and vomiting.? CT Abd/Pelvis ordered showing kidney masses measuring up to 1.7 cm on the left probably hemorrhagic cyst.? Neoplasm could not be excluded.? Left inguinal hernia containing fat.?Follow-up MRI showing multiple bilateral renal cysts which is inclusive 1.9 cm nonenhancing proteinaceous/hemorrhagic left renal cyst.? Still with nausea and not eating much but better. Repeat UA negative. She overall did well and was able to be discharged on 10/16/23. Status at Discharge Cognitive/behavioral status at discharge: stable Time Spent with Patient Time attestation: Total time spent providing and/or coordinating discharge services: 35 minutes Time spent: Greater than 30 minutes Exam Narrative: AF 99.1 122/67 101 18 93% ra Gen - NARD Chest - CTA bilaterally, nml RR CV - RRR S1/S2 Abd - Soft, NT/ND, Positive BS Ext - No pedal edema. No redness or edema to the LUE. Psych - Nml mood and affect Skin - Warm and dry DS: Data Data Completed and Pending Labs on day of discharge: Labs from last 24 hours 10/16/23 05:59 WBC 16.1 H RBC
== END 2023-10-16 17:33 | disposition home health service (06) | DRG 603 ==
LOC: ANHED 20:35 → ANHIMU 21:38 → ANH3MED 10-13 09:49 → ANHIMU 10-17 15:29
PROVIDERS: Internal Medicine; Physician Assistant; Student in an Organized Health Care Education/Training Program; Admitting Provider Internal Medicine; Emergency Provider Physician Assistant; PCP Family Medicine; Visit Provider Internal Medicine
DX: L03.114 Cellulitis of left upper limb (principal); I89.0 Lymphedema, not elsewhere classified; I10 Essential (primary) hypertension; I44.4 Left anterior fascicular block; J45.909 Unspecified asthma, uncomplicated; E78.5 Hyperlipidemia, unspecified; E21.3 Hyperparathyroidism, unspecified; K21.9 Gastro-esophageal reflux disease without esophagitis; M16.0 Bilateral primary osteoarthritis of hip; R26.89 Other abnormalities of gait and mobility; R79.89 Other specified abnormal findings of blood chemistry; Z20.822 Contact with and (suspected) exposure to COVID-19; E87.6 Hypokalemia; R11.2 Nausea with vomiting, unspecified; N28.1 Cyst of kidney, acquired
CPT/HCPCS: 36415; 70450; 71046; 72170; 73630; 74176; 74183; 80048; 80053; 80069; 81003; 82607; 82746; 83605; 83735; 83880; 84443; 84484; 85025; 85027; 85652; 86140; 87040; 87637; 93005; 93306; 93971; 94640; 96361; 96365; 97110; 97161; 97165; 97530; 99285; A9270; A9577; G0378; J0690; J7030; J7040

== ENCOUNTER 2023-10-16 22:12 | Inpatient (IN) | payer MEDICARE, SELFPAY ==
--- NOTE | ~2023-10-16 | XR_ITS ---
EXAMINATION: XR humerus LT DATE: 10/17/2023 00:32 INDICATION: Left upper arm injury. Fall. TECHNIQUE: 2 views of left humerus were obtained. COMPARISON: None. FINDINGS: There is an old healed fracture of proximal left humerus with internal fixation with antegr diamond intramedullary stephon and multiple screws. No acute fracture. There is mild osteoarthritis of acromi oclavicular joint and glenohumeral joint. No elbow joint effusion. There is mild calcific tendinitis of the rotator cuff. IMPRESSION: 1. Mild polyarticular osteoarthritis. 2. Mild calcific tendinitis of the rotator cuff. Reviewed, dictated and finalized at location A.
--- NOTE | ~2023-10-16 | XR_ITS ---
EXAMINATION: XR forearm LT 2V DATE: 10/17/2023 00:31 INDICATION: Left forearm pain. Fall. TECHNIQUE: 2 views of left forearm were obtained. COMPARISON: None. FINDINGS: Scapholunate dissociation is noted. No fracture. There is severe osteoarthritis of radiosca phoid joint and lunate-capitate joint and mild osteoarthritis of first carpometacarpal joint. There i s severe osteoarthritis of triscaphe joint. There are dystrophic calcifications in the wrist. No elbo w joint effusion. IMPRESSION: 1. 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 Reviewed, dictated and finalized at location A.
--- NOTE | ~2023-10-16 | CT_ITS ---
CT Scan of the Chest without Contrast: Clinical Indication: Left lower rib pain Technique: Contiguous sections were acquired throughout the chest without intravenous contrast. Dose reduction technique was used on this scan by utilizing automated exposure control and iterative recon struction technique. The dose-length product (DLP) was 240.66 mGy-cm. Findings: There is no evidence of any significant mediastinal, hilar or axillary lymphadenopathy. The mediastin al soft tissues appear normal. There is no evidence of pleural or pericardial effusion. The lungs are clear, aside from bandlike left lower lobe atelectasis or scarring. Images through the upper abdomen reveal left upper pole renal cyst. No acute fracture seen. Impression: No significant abnormalities seen. Reviewed, dictated and finalized at location . Impression: No significant abnormalities seen.
[2023-10-16 22:16] VITALS: BP 133/56; PULSE 79; RESP 15; TEMP 36.7; O2SAT 98
[2023-10-17] VITALS (10 sets, daily range): BP systolic 106–142; BP diastolic 49–58; PULSE 73–102; RESP 15–20; TEMP 36.2–36.9; O2SAT 96–100; BMI 28.8
--- NOTE | 2023-10-17 00:10 | ED.FALL ---
HPI - Fall General Chief Complaint: Fall <MIKY Lombardo Last Filed: 10/17/23 00:53> Stated Complaint: left arm pain after fall <MIKY Lombardo Last Filed: 10/17/23 00:53> Time Seen by Provider: 10/16/23 23:43 <MIKY Lombardo Last Filed: 10/17/23 00:53> Source: patient <MIKY Lombardo Last Filed: 10/17/23 00:53> Mode of arrival: ambulatory <MIKY Lombardo Last Filed: 10/17/23 00:53> Limitations: no limitations <MIKY Lombardo Last Filed: 10/17/23 00:53> History of Present Illness HPI Narrative: This is a an 82-year-old female who presents to the ED with chief complaint of a fall this evening. Patient reports that she was standing up from the couch and trying to get up to her walker. Reports that she was almost to full standing position she started to lose her balance and fell backwards. Reports that she went down to the couch and fell on the floor as well. Reports hitting the left arm and left side ribs on the floor. She has pain in these areas. Denies head injury or LOC. denies any focal weakness. Patient was admitted to the hospital recently for cellulitis and discharged this evening. She reports that she feels too weak from being in the hospital and does not feel comfortable going back home. <MIKY Lombardo Last Filed: 10/17/23 00:53> Related Data Home Medications: Home Medications Medication Instructions Recorded Confirmed famotidine 20 mg tablet (Pepcid) 20 mg PO BID PRN Abdominal 10/10/23 10/10/23 Discomfort montelukast 10 mg tablet 10 mg PO QPM 10/10/23 10/10/23 rosuvastatin 10 mg tablet (Crestor) 10 mg PO QPM 10/10/23 10/10/23 <MIKY Lombardo Last Filed: 10/17/23 00:53> Allergies/Adverse Reactions: Allergies Allergy/AdvReac Type Severity Reaction Status Date / Time aspirin Allergy Unknown Not Verified 10/15/23 17:39 Entered,Difficulty Breathing NSAIDS (Non-Steroidal Allergy Unknown Not Verified 10/15/23 17:39 Anti-Inflamma Entered,difficulty [NSAIDS (Non-Steroidal br Anti-Inflammatory Drug)] Penicillins Allergy Unknown Not Verified 10/15/23 17:39 Entered,rash and difficulty breathing <Heber Stroud PA-C - Last Filed: 10/17/23 00:53> Review of Systems Review of Systems: All systems as dictated in HPI <Heber Stroud PA-C - Last Filed: 10/17/23 00:53> [facility] Past Medical History Medical History: Medical History (Updated 10/17/23 @ 05:46 by Lisandro Calle MD) Asthma 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 Essential hypertension Fracture of proximal end of left humerus Gait instability Gastroesophageal reflux disease Lymphedema of left arm Obstructive sleep apnea Osteoporosis Subdural hematoma (2019) <Heber Stroud PA-C - Last Filed: 10/17/23 00:53> Surgical History Surgical History: Surgical History (Updated 10/10/23 @ 21:17 by Elena Carnes PA-C) History of alvaro hole surgery History of section History of total mastectomy of left breast <Heber Stroud PA-C - Last Filed: 10/17/23 00:53> Family History Family History: Family History Sibling Family history of malignant neoplasm of breast in first degree relative Patient's sister is Other Asthma Family history of cataracts Family history of malignant neoplasm of breast Family history of malignant neoplasm of male breast Hypertension <Heber Stroud PA-C - Last Filed: 10/17/23 00:53> Social History Social History: Social History (Updated 10/10/23 @ 21:18 by Elena Carnes PA-C) Social History: Surrogate medical decision maker: Andria Chavez, daughter. Code status: Full code. Smoking status: Never smoker Second hand tobacco smoke exposure: No Alcohol intake: never Subst
--- NOTE | 2023-10-17 03:54 | PC.NURSE ---
see downtime charting.
[2023-10-17 04:26] LABS: Alanine Aminotransferase 29 U/L (6-35); Albumin Level 3.4 g/dL (3.5-5.1); Anion Gap 4 mmol/L (8-16); Aspartate Amino Transferase 46 U/L (14-36); Bilirubin,Total 0.6 mg/dL (0.2-1.3); Blood Urea Nitrogen 36 mg/dL (7-17); Calcium 11.2 mg/dL (8.4-10.2); Carbon Dioxide 25 mmol/L (22-30); Chloride 98 mmol/L (98-107); Estimated Glomerular Filt Rate 47; Glucose 138 mg/dL (65-110); Potassium 4.1 mmol/L (3.4-5.0); Sodium 127 mmol/L (137-145); Total Protein 6.7 g/dL (6.3-8.2)
[2023-10-17 04:27] LABS: Alkaline Phosphatase 73 U/L (38-126)
[2023-10-17 04:32] LABS: Basophils Absolute Auto 0.1 K/mm3 (0.0-0.1); Basophils Percent Auto 0.5 % (0.2-1.2); Eosinophils Absolute Auto 0.1 K/mm3 (0-0.3); Eosinophils Percent Auto 0.7 % (0-4.4); Hemoglobin 11.4 g/dL (12.0-15.0); Immature Granulocyte Absolute 0.38 K/mm3 (0.00-0.031); Immature Granulocyte Percent A 2.1 % (0-0.5); Lymphocytes Absolute Auto 3.77 K/mm3 (0.9-3.2); Lymphocytes Percent Auto 20.6 % (18.3-44.2); Mean Corpuscular HGB Conc 33.5 g/dl (32-36); Mean Corpuscular Hemoglobin 31.3 pg (26-34); Mean Corpuscular Volume 93.4 fl (80-100); Mean Platelet Volume 9.2 fl (7.4-10.4); Monocytes Percent Auto 10.8 % (2.6-8.5); Neutrophils Percent Auto 65.3 % (45.5-73.1); Platelet Count Result 454 k/mm3 (150-375); Red Blood Count 3.64 M/mm3 (4.2-5.4); Red Cell Distribution Width 13.2 % (11.5-14.5); White Blood Count 18.3 K/mm3 (4.5-10.0)
[2023-10-17 04:34] LABS: Appearance Urine Clear (Clear); Color Urine Yellow (Yellow)
[2023-10-17 04:35] LABS: Bilirubin Urine Negative (Negative); Blood Urine Trace-Lysed (Negative); Glucose Urine UA Negative (Negative); Ketones Urine Negative (Negative); Leukocyte Esterase Ur 1+ LEU/UL (Negative); Nitrate Urine Negative (Negative); Protein Urine Negative (Negative); Urobilinogen Urine 0.2 mg/dL (<2.0); WBC Urine 21-50 /hpf (0-3)
[2023-10-17 04:36] LABS: Bacteria Urine None seen /hpf; Squamous Epithelial Cell Urine Moderate /hpf (Few)
[2023-10-17 04:37] LABS: Budding Yeast Urine Present /hpf; Uric Acid Crystals Urine Present /hpf
[2023-10-17 04:44] LABS: Add Urine Microscopic? YES
[2023-10-17] MEDS: SODIUM CHLORIDE 0.9% IV 2,000 ML 999 ML IV CONT (05:05)
[2023-10-17 05:12] LABS: Lactic Acid Reflex 1.1 mmol/L (0.7-2.0)
[2023-10-17 05:16] LABS: CRP 6.1 mg/dL (<1.0)
[2023-10-17 05:24] LABS: INR 1.1; Partial Thromboplastin Time 23.4 Seconds (22.3-36.8); Prothrombin Time 14.5 Seconds (11.1-14.7)
[2023-10-17 05:25] LABS: Troponin I 0.025 ng/mL (0.000-0.034)
--- NOTE | 2023-10-17 06:43 | ADMGEN ---
This patient, Meenakshi Chavez, was admitted to Medical Room 243-01. Patient/family oriented to hospital policies and general routines including ID bracelet, bed and alarms, visiting hours, pain management, procedures, bathroom and other care routines, personal items, smoking policy, room service/diet, and visiting hours. Information on how to activate the Rapid Response Team has been discussed. Patient/Family are encouraged to report perceived risks to care and to ask questions if they do not understand what they are told or what they should do.
[2023-10-17] MEDS: LACTATED RINGERS 1,000 ML 125 ML IV CONT ×3 (06:50→23:01)
--- NOTE | 2023-10-17 07:48 | PM.IMHP ---
H&P: HPI History of Present Illness Date/Time: 10/17/23 07:48 Chief Complaint: Fall; Left arm and leg pain Dizziness Narrative: 82yo female with history of subdural hematoma, HTN, HLD, hyperparathyroidism, asthma, MARIS, breast cancer, left upper extremity lymphedema, and gastroesophageal reflux disease who presented to the emergency department for evaluation of weakness and fall. She was discharged home after being managed for cellulitis and fatigue (10/10-); on returning home, she developed a dizzy spell while trying to stand from a sitting position and sustained a fall. She denies LOC, bleeding, chest pain or seizure activity. Work-up findings: UA: +Le; WBC 21-50; no bacteria Na 127; K 4 BUN 36 Cr 1.1 GFR 47 WBC 18 Hb [address]: No significant abnormalities seen. XR left humerus: 1. Mild polyarticular osteoarthritis. 2. Mild calcific tendinitis of the rotator cuff. XR Left forearm: 1. 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 ECHO: 10/11/23 Summary ? 1. Complete two-dimensional, color flow and Doppler transthoracic echocardiogram is performed. ? 2. Left ventricular chamber dimension is normal. ? 3. Left ventricular systolic function is normal, estimated at 60-65%. ? 4. There is mildly increased left ventricular wall thickness. ? 5. The left ventricular diastolic function is grade I diastolic dysfunction. ? 6. Right ventricular systolic function is normal. ? 7. There is mild mitral valve regurgitation. she does not smoke/chew tobacco, drink alcohol or consume recreational drugs; her family Hx is not contributory to the PC At the bedside, she is alert and oriented; not in painful/respiratory distress. Review of Systems Constitutional: Constitutional: Reports fatigue and Reports lethargy Eyes: Eyes: Reports no additional eye complaints ENT: Reports Normal hearing present, Denies dysphagia and Denies epistaxis Cardiovascular: Cardiovascular: Reports no additional cardiovascular complaints, Denies pedal edema and Denies leg edema Respiratory: Respiratory: Reports no additional respiratory complaints Gastrointestinal: Gastrointestinal: Reports no additional gastrointestinal complaints and Denies vomiting Musculoskeletal: Musculoskeletal: Reports no additional musculoskeletal complaints Integumentary/Breasts: Skin/Breast: Reports system reviewed and no additional complaints, except as docu Neurologic: Denies Abnormal speech present, Denies abnormal gait and Denies confusion Psychiatric: Psychiatric: Reports no additional psychiatric complaints PMFSH Past Medical History Medical History (Updated 10/17/23 @ 16:32 by Michael Dahl MD) Asthma 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 Essential hypertension Fracture of proximal end of left humerus Gait instability Gastroesophageal reflux disease Lymphedema of left arm Obstructive sleep apnea Osteoporosis Subdural hematoma (2019) Surgical History Surgical History (Updated 10/10/23 @ 21:17 by Elena Carnes PA-C) History of alvaro hole surgery History of section History of total mastectomy of left breast Family History Family History Sibling Family history of malignant neoplasm of breast in first degree relative Patient's sister is Other Asthma Family history of cataracts Family history of malignant neoplasm of breast Family history of malignant neoplasm of male breast Hypertension Social History Social History (Updated 10/10/23 @ 21:18 by Elena Carnes PA-C) Social History: Surrogate medical decision maker: Andria Chavez, daughter. Code status: Full code. Smoking status: Never smoker Second hand tobacco smoke exposure: No Alcohol intake: never Substance use: never Substance use type: does not use Do You Feel Safe in your Home
[2023-10-17] MEDS: CYANOCOBALAMIN 1,000 MCG TABLET 1000 MCG PO (08:32)
[2023-10-17] MEDS: lisinopriL 10 MG TABLET PO (08:32)
[2023-10-17] MEDS: ENOXAPARIN 40 MG/0.4 ML SYRINGE SUB-Q (10:26)
--- NOTE | 2023-10-17 14:25 | PC.NURSE ---
On 10/17/23, the student, [Dee Blanca], provided care and completed [facility] documentation on this patient. I have reviewed the student's documentation and agree with the findings.
[2023-10-17] MEDS: ROSUVASTATIN 10 MG TABLET PO (17:07)
[2023-10-17] MEDS: MONTELUKAST SODIUM 10 MG TABLET PO (20:15)
[2023-10-17] MEDS: FLUTICASONE/SALMETEROL 115-21 MCG INHALER 1 PUFF 2 PUFF INHALATION (20:52)
[2023-10-18] VITALS (11 sets, daily range): BP systolic 118–145; BP diastolic 46–66; PULSE 76–95; RESP 18–20; TEMP 36.8–36.9; O2SAT 93–98
[2023-10-18 05:45] LABS: Basophils Absolute Auto 0.1 K/mm3 (0.0-0.1); Basophils Percent Auto 0.8 % (0.2-1.2); Eosinophils Absolute Auto 0.4 K/mm3 (0-0.3); Hematocrit 29.6 % (37.0-47.0); Hemoglobin 9.5 g/dL (12.0-15.0); Immature Granulocyte Absolute 0.22 K/mm3 (0.00-0.031); Immature Granulocyte Percent A 1.8 % (0-0.5); Lymphocytes Absolute Auto 3.63 K/mm3 (0.9-3.2); Mean Corpuscular HGB Conc 32.1 g/dl (32-36); Mean Corpuscular Hemoglobin 30.6 pg (26-34); Mean Corpuscular Volume 95.5 fl (80-100); Mean Platelet Volume 9.4 fl (7.4-10.4); Monocytes Absolute Auto 1.1 K/mm3 (0.1-0.6); Monocytes Percent Auto 9.3 % (2.6-8.5); Neutrophils Absolute Auto 6.7 K/mm3 (1.3-6.7); Neutrophils Percent Auto 55.1 % (45.5-73.1); Platelet Count Result 411 k/mm3 (150-375); Red Cell Distribution Width 13.5 % (11.5-14.5); White Blood Count 12.1 K/mm3 (4.5-10.0)
[2023-10-18 05:59] LABS: Alanine Aminotransferase 23 U/L (6-35); Albumin Level 2.7 g/dL (3.5-5.1); Alkaline Phosphatase 61 U/L (38-126); Anion Gap 1 mmol/L (8-16); Aspartate Amino Transferase 31 U/L (14-36); Bilirubin,Total 0.5 mg/dL (0.2-1.3); Blood Urea Nitrogen 21 mg/dL (7-17); Calcium 10.6 mg/dL (8.4-10.2); Carbon Dioxide 24 mmol/L (22-30); Chloride 107 mmol/L (98-107); Estimated Glomerular Filt Rate 60; Glucose 107 mg/dL (65-110); Potassium 4.1 mmol/L (3.4-5.0); Sodium 132 mmol/L (137-145)
[2023-10-18] MEDS: FLUTICASONE/SALMETEROL 115-21 MCG INHALER 1 PUFF 2 PUFF INHALATION ×2 (07:52→19:48)
[2023-10-18] MEDS: lisinopriL 10 MG TABLET PO (08:37)
[2023-10-18] MEDS: CYANOCOBALAMIN 1,000 MCG TABLET 1000 MCG PO (08:37)
[2023-10-18] MEDS: ENOXAPARIN 40 MG/0.4 ML SYRINGE SUB-Q (08:38)
[2023-10-18] MEDS: LACTATED RINGERS 1,000 ML 125 ML IV CONT ×2 (08:39→16:44)
--- NOTE | 2023-10-18 13:17 | PM.IMPN ---
Progress Note: A&P Assessment and Plan (1) Acute UTI: Code(s): N39.0 - Urinary tract infection, site not specified Status: Acute Assessment and Plan: Acute, Moderate. on Ceftriaxone; awaiting urine and blood cultures (2) Debility: Code(s): R53.81 - Other malaise Status: Acute Assessment and Plan: Acute, Severe May benefit from SNF (3) Gastroesophageal reflux disease: Code(s): K21.9 - Gastro-esophageal reflux disease without esophagitis Status: Acute Assessment and Plan: Chronic, stable On Pepcid (4) MARIS (obstructive sleep apnea): Code(s): G47.33 - Obstructive sleep apnea (adult) (pediatric) Status: Acute Assessment and Plan: Chronic, stable. Refused to wear nightly CPAP (5) Unspecified asthma, uncomplicated: Code(s): J45.909 - Unspecified asthma, uncomplicated Status: Acute Assessment and Plan: Chronic, stable On Montelukast, (6) Fall at home: Code(s): W19.XXXA - Unspecified fall, initial encounter; Y92.009 - Unspecified place in unspecified non-institutional (private) residence as the place of occurrence of the external cause Status: Acute Assessment and Plan: PT/OT eval and Rx Fall and safety precautions. (7) Essential hypertension: Code(s): I10 - Essential (primary) hypertension Status: Acute Assessment and Plan: Chronic, stable On Lisinopril Plan VTE prophylaxis. Lovenox Nutrition: Regular Time Spent With Patient Time with patient: 25 - 35 minutes Subjective Date/time seen: 10/18/23 13:17 Interval history: Seen and examined; I'm not ready to go home, I feel better She is not in painful or respiratory distress. She is being managed for UTI and physical deconditioning, post-fall Review of Systems Constitutional: Constitutional: Reports fatigue and Reports lethargy Eyes: Eyes: Reports no additional eye complaints ENT: Reports Normal hearing present, Denies dysphagia and Denies epistaxis Cardiovascular: Cardiovascular: Reports no additional cardiovascular complaints, Denies pedal edema and Denies leg edema Respiratory: Respiratory: Reports no additional respiratory complaints Gastrointestinal: Gastrointestinal: Reports no additional gastrointestinal complaints, Denies dysphagia and Denies vomiting Musculoskeletal: Musculoskeletal: Reports no additional musculoskeletal complaints and Denies abnormal gait Integumentary/Breasts: Skin/Breast: Reports system reviewed and no additional complaints, except as docu Neurologic: Reports Normal hearing present, Denies Abnormal speech present, Denies abnormal gait and Denies confusion Psychiatric: Psychiatric: Reports no additional psychiatric complaints and Denies confusion Endocrine: Endocrine: Reports fatigue Exam Const: General: no acute distress; No confusion Orientation/consciousness: No confusion HENMT: Mouth: Yes moist mucous membranes Eyes: General: appearance normal, both eyes and all related structures Pupils: Equal, round and reactive pupils present Neck: Neck: supple Resp: Effort & Inspection: normal respiratory effort Auscultation: clear to auscultation bilaterally Cardio: Rate: regular rate Rhythm: regular rhythm Skin: General skin exam: normal color Neuro: General: gait normal and No confusion Cranial nerves: Yes Equal, round and reactive pupils present and Yes Normal hearing present Speech: No Abnormal speech present Motor exam (neuro): 5/5 motor strength present throughout Psych: Mental Status: mental status grossly normal Objective Data Vital Signs Vital Signs: Vital Signs - 24 hr 10/17/23 13:55 10/17/23 14:55 10/17/23 16:00 Temperature 98.1 F Pulse Rate 76 Respiratory Rate 20 Blood Pressure 130/49 L Pulse Oximetry 97 Oxygen Delivery Room Air Room Air Fraction of Inspired Oxygen 10/17/23 16:00 10/17/23 20:00 10/17/23 20:00 Temperature 98.5 F P
[2023-10-18] MEDS: ROSUVASTATIN 10 MG TABLET PO (17:09)
[2023-10-18] MEDS: MONTELUKAST SODIUM 10 MG TABLET PO (20:31)
[2023-10-19] VITALS: BP 157/65; PULSE 81; PULSE 88; RESP 18; TEMP 36.8; O2SAT 96
[2023-10-19] MEDS: LACTATED RINGERS 1,000 ML 125 ML IV CONT (00:45)
[2023-10-19 04:00] VITALS: BP 137/52; PULSE 84; PULSE 98; RESP 18; TEMP 36.8; O2SAT 93
[2023-10-19 05:44] LABS: Basophils Absolute Auto 0.1 K/mm3 (0.0-0.1); Basophils Percent Auto 0.6 % (0.2-1.2); Eosinophils Absolute Auto 0.5 K/mm3 (0-0.3); Eosinophils Percent Auto 3.7 % (0-4.4); Hematocrit 29.8 % (37.0-47.0); Hemoglobin 9.5 g/dL (12.0-15.0); Immature Granulocyte Absolute 0.17 K/mm3 (0.00-0.031); Immature Granulocyte Percent A 1.3 % (0-0.5); Lymphocytes Absolute Auto 3.62 K/mm3 (0.9-3.2); Lymphocytes Percent Auto 28.3 % (18.3-44.2); Mean Corpuscular HGB Conc 31.9 g/dl (32-36); Mean Corpuscular Hemoglobin 30.4 pg (26-34); Mean Corpuscular Volume 95.2 fl (80-100); Monocytes Absolute Auto 1.2 K/mm3 (0.1-0.6); Monocytes Percent Auto 9.1 % (2.6-8.5); Neutrophils Absolute Auto 7.3 K/mm3 (1.3-6.7); Platelet Count Result 441 k/mm3 (150-375); Red Blood Count 3.13 M/mm3 (4.2-5.4); Red Cell Distribution Width 13.2 % (11.5-14.5); White Blood Count 12.8 K/mm3 (4.5-10.0)
[2023-10-19 06:04] LABS: Alanine Aminotransferase 19 U/L (6-35); Albumin Level 2.7 g/dL (3.5-5.1); Alkaline Phosphatase 64 U/L (38-126); Anion Gap 3 mmol/L (8-16); Aspartate Amino Transferase 25 U/L (14-36); Bilirubin,Total 0.6 mg/dL (0.2-1.3); Blood Urea Nitrogen 12 mg/dL (7-17); Calcium 10.6 mg/dL (8.4-10.2); Carbon Dioxide 25 mmol/L (22-30); Chloride 106 mmol/L (98-107); Estimated Glomerular Filt Rate > 60; Glucose 106 mg/dL (65-110); Potassium 3.9 mmol/L (3.4-5.0); Sodium 134 mmol/L (137-145)
[2023-10-19 08:00] VITALS: PULSE 87
[2023-10-19] MEDS: CYANOCOBALAMIN 1,000 MCG TABLET 1000 MCG PO (08:16)
[2023-10-19] MEDS: lisinopriL 10 MG TABLET PO (08:17)
[2023-10-19] MEDS: ENOXAPARIN 40 MG/0.4 ML SYRINGE SUB-Q (08:17)
[2023-10-19] MEDS: FLUTICASONE/SALMETEROL 115-21 MCG INHALER 1 PUFF 2 PUFF INHALATION (08:59)
--- NOTE | 2023-10-19 11:48 | PM.DS ---
DS: Admitting Diagnosis Discharge Date 10/19/23 Admitting Diagnosis 1. UTI 2. Physical deconditioning 3. Fall DS: Discharge Diagnosis Discharge Diagnosis (1) Acute UTI: Code(s): N39.0 - Urinary tract infection, site not specified Status: Acute Assessment and Plan: Acute, Moderate. on Ceftriaxone; awaiting urine and blood cultures (2) Debility: Code(s): R53.81 - Other malaise Status: Acute Assessment and Plan: Acute, Severe May benefit from SNF (3) Gastroesophageal reflux disease: Code(s): K21.9 - Gastro-esophageal reflux disease without esophagitis Status: Acute Assessment and Plan: Chronic, stable On Pepcid (4) MARIS (obstructive sleep apnea): Code(s): G47.33 - Obstructive sleep apnea (adult) (pediatric) Status: Acute Assessment and Plan: Chronic, stable. Refused to wear nightly CPAP (5) Unspecified asthma, uncomplicated: Code(s): J45.909 - Unspecified asthma, uncomplicated Status: Acute Assessment and Plan: Chronic, stable On Montelukast, (6) Fall at home: Code(s): W19.XXXA - Unspecified fall, initial encounter; Y92.009 - Unspecified place in unspecified non-institutional (private) residence as the place of occurrence of the external cause Status: Acute Assessment and Plan: PT/OT eval and Rx Fall and safety precautions. (7) Essential hypertension: Code(s): I10 - Essential (primary) hypertension Status: Acute Assessment and Plan: Chronic, stable On Lisinopril Plan VTE prophylaxis. Lovenox Nutrition: Regular DS: Summary Hospital Course Reason for hospitalization: Fall; Left arm and leg pain Dizziness Hospital Course: Narrative: 82yo female with history of subdural hematoma, HTN, HLD, hyperparathyroidism, asthma, MARIS, breast cancer, left upper extremity lymphedema, and gastroesophageal reflux disease who presented to the emergency department for evaluation of weakness and fall. She was discharged home after being managed for cellulitis and fatigue (10/10-); on returning home, she developed a dizzy spell while trying to stand from a sitting position and sustained a fall. She denies LOC, bleeding, chest pain or seizure activity. Work-up findings: UA: +Le; WBC 21-50; no bacteria Na 127; K 4 BUN 36 Cr 1.1 GFR 47 WBC 18? Hb [address]: No significant abnormalities seen. XR left humerus:?1. Mild polyarticular osteoarthritis. 2. Mild calcific tendinitis of the rotator cuff. XR Left forearm:?1. 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 ECHO: 10/11/23 Summary ? 1. Complete two-dimensional, color flow and Doppler transthoracic echocardiogram is performed. ? 2. Left ventricular chamber dimension is normal. ? 3. Left ventricular systolic function is normal, estimated at 60-65%. ? 4. There is mildly increased left ventricular wall thickness. ? 5. The left ventricular diastolic function is grade I diastolic dysfunction. ? 6. Right ventricular systolic function is normal. ? 7. There is mild mitral valve regurgitation. she does not smoke/chew tobacco, drink alcohol or consume recreational drugs; her family Hx is not contributory to the PC At the bedside, she is alert and oriented; not in painful/respiratory distress. Significant Findings UA: +Le; WBC 21-50; no bacteria Na 127; K 4 BUN 36 Cr 1.1 GFR 47 WBC 18? Hb [address]: No significant abnormalities seen. XR left humerus:?1. Mild polyarticular osteoarthritis. 2. Mild calcific tendinitis of the rotator cuff. XR Left forearm:?1. 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 Procedures Performed: None Treatment Rendered: Antibiotics Time spent discussing smoking cessation with patient: more than 10 minutes Status at Discharge Functional status at discharge: uses cane/walker Time Spent with Patient Time attestation: Total time spent provi
[2023-10-19 13:05] LABS: SARS-CoV-2 RNA PCR Negative (Negative)
== END 2023-10-19 13:38 | DRG 690 ==
LOC: ANHED 10-17 05:46 → ANH2MED 10-17 06:40
PROVIDERS: Admitting Provider Internal Medicine Infectious Disease; Emergency Provider Physician Assistant; PCP Family Medicine; Visit Provider Internal Medicine
DX: N39.0 Urinary tract infection, site not specified (principal); R53.81 Other malaise; K21.9 Gastro-esophageal reflux disease without esophagitis; G47.33 Obstructive sleep apnea (adult) (pediatric); J45.909 Unspecified asthma, uncomplicated; W19.XXXA Unspecified fall, initial encounter; I10 Essential (primary) hypertension; E78.5 Hyperlipidemia, unspecified; I89.0 Lymphedema, not elsewhere classified; F41.9 Anxiety disorder, unspecified; E21.3 Hyperparathyroidism, unspecified; M81.0 Age-related osteoporosis without current pathological fracture; Z11.52 Encounter for screening for COVID-19; Z85.3 Personal history of malignant neoplasm of breast; Z85.828 Personal history of other malignant neoplasm of skin
CPT/HCPCS: 36415; 71250; 73060; 73090; 80053; 83605; 84484; 85025; 85610; 85730; 86140; 87040; 87086; 87088; 87635; 94640; 96365; 97110; 97116; 97161; 97166; 99285; A9270; J0696; J1650; J7030; J7120

== ENCOUNTER 2024-01-02 08:19 | Emergency (ER) | payer MEDICARE, SELFPAY ==
--- NOTE | 2024-01-02 08:21 | ED.UPPEXIN ---
HPI - Extremity Injury (Upper) General Chief Complaint: Extremity Problem,Nontraumatic Stated Complaint: right shoulder pain Time Seen by Provider: 01/02/24 08:20 Source: patient Mode of arrival: ambulatory Limitations: no limitations History of Present Illness HPI narrative: Patient is a 83-year-old female who presents with right shoulder pain fill last 3 weeks. Patient has PCP appointment next . Patient has taken Tylenol with no relief. Denies any fall or obvious injury. Denies any numbness, tingling or weakness to distal parts of the arm. States it hurts to move arm around but does not have any pain at rest. Related Data Home Medications Medication Instructions Recorded Confirmed famotidine 20 mg tablet (Pepcid) 20 mg PO BID PRN Abdominal 10/10/23 11/07/23 Discomfort rosuvastatin 10 mg tablet (Crestor) 10 mg PO QPM 10/10/23 11/07/23 Allergies Allergy/AdvReac Type Severity Reaction Status Date / Time aspirin Allergy Unknown Not Verified 10/15/23 17:39 Entered,Difficulty Breathing Rakel Aspirin Allergy Unknown Unverified 11/10/23 06:48 NSAIDS (Non-Steroidal Allergy Unknown Unverified 11/10/23 06:48 Anti-Inflamma [NSAIDS (Non-Steroidal Anti-Inflammatory Drug)] Penicillins Allergy Unknown Unverified 11/10/23 06:48 Review of Systems Review of Systems: All systems reviewed & are unremarkable except as noted in HPI and below Constitutional: Constitutional: Denies body ache(s), Denies chills, Denies fatigue, Denies fever(s), Denies headache(s), Denies malaise and Denies weakness Eyes: Eyes: Denies blurry vision, Denies irritation and Denies loss of vision ENT: Denies otalgia, Denies headache(s), Denies nasal discharge, Denies sinus pain and Denies sore throat Cardiovascular: Cardiovascular: Denies chest pain, Denies irregular heart rhythm and Denies dyspnea Respiratory: Respiratory: Denies dyspnea Gastrointestinal: Gastrointestinal: Denies abdominal pain, Denies melena, Denies hematochezia, Denies diarrhea, Denies nausea and Denies vomiting Musculoskeletal: Musculoskeletal: Denies back pain, Denies myalgias, Reports arthralgias and Reports muscle cramps Integumentary/Breasts: Skin/Breast: Denies pruritus and Denies rash Neurologic: Denies headache(s), Denies loss of vision and Denies weakness Psychiatric: Psychiatric: Reports no additional psychiatric complaints Endocrine: Endocrine: Denies fatigue PMFSH Past Medical History Medical History Asthma 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 Essential hypertension Fracture of proximal end of left humerus Gait instability Gastroesophageal reflux disease Lymphedema of left arm Obstructive sleep apnea Osteoporosis Subdural hematoma (2019) Surgical History Surgical History History of alvaro hole surgery History of section History of total mastectomy of left breast Family History Family History Sibling Family history of malignant neoplasm of breast in first degree relative Patient's sister is Other Asthma Family history of cataracts Family history of malignant neoplasm of breast Family history of malignant neoplasm of male breast Hypertension Social History Social History Social History: Surrogate medical decision maker: Andria Chavez, daughter. Code status: Full code. Smoking status: Never smoker Second hand tobacco smoke exposure: No Alcohol intake: never Substance use: never Substance use type: does not use Do You Feel Safe in your Home?: Yes Lack of Transportation: No Lack of Food: Never True Current Housing: I Have Housing Concerned About Future Housing: No Difficulty
[2024-01-02 08:30] VITALS: BP 164/59; PULSE 88; RESP 16; O2SAT 98
[2024-01-02 08:40] VITALS: TEMP 36.9
== END 2024-01-02 09:07 | disposition home or self-care (01) ==
PROVIDERS: Emergency Provider Nurse Practitioner Family; PCP Family Medicine
DX: S46.911A Strain of unspecified muscle, fascia and tendon at shoulder and upper arm level, right arm, initial encounter (principal); X58.XXXA Exposure to other specified factors, initial encounter; J45.909 Unspecified asthma, uncomplicated; I10 Essential (primary) hypertension; K21.9 Gastro-esophageal reflux disease without esophagitis; M81.0 Age-related osteoporosis without current pathological fracture; Z85.3 Personal history of malignant neoplasm of breast; Z85.828 Personal history of other malignant neoplasm of skin; Z90.12 Acquired absence of left breast and nipple
CPT/HCPCS: 99213; A4565; G0463

== ENCOUNTER 2024-03-20 06:35 | Observation (INO) | payer MEDICARE, SELFPAY ==
[2024-03-20] VITALS (18 sets, daily range): BP systolic 143–181; BP diastolic 53–93; PULSE 53–91; RESP 14–20; TEMP 36.7–36.9; O2SAT 94–100
--- NOTE | ~2024-03-20 | CT_ITS ---
EXAMINATION: CT brain wo con DATE: 03/20/2024 09:08 INDICATION: Dizziness TECHNIQUE: Computed tomography (CT) of the head was performed without intravenous contrast. Sagittal and coronal reconstructions were performed. The mA was adjusted according to patient size. Iterative reconstruction technique was employed. The dose-length product was 605.33 mGy-cm. COMPARISON: head CT dated 10/10/2023 FINDINGS: No acute intracranial hemorrhage, acute infarction or abnormal extra axial fluid collection. There is mild to moderate scattered white matter hypoattenuation consistent with chronic small vessel ischemi c disease. Symmetric prominence of the sulci, ventricles and subarachnoid spaces overlying the convex ities consistent with moderate age-appropriate diffuse cerebral volume loss. No mass/mass effect. The re is an empty sella . Changes of bilateral intraocular lens replacement. The orbits and mastoid ai r cells are normal. Moderate mucosal thickening in the bilateral ethmoid and right maxillary sinuses. Intracranial calcified cerebral atherosclerosis is noted. IMPRESSION: 1. No acute intracranial process. 2. Age-related changes including moderate diffuse volume loss and mild to moderate scattered white ma tter hypoattenuation consistent with chronic small vessel ischemic disease. Reviewed, dictated and finalized at location A. IMPRESSION: 1. No acute intracranial process. 2. Age-related changes including moderate diffuse volume loss and mild to moder ate scattered white matter hypoattenuation consistent with chronic small vessel ischemic disease.
--- NOTE | ~2024-03-20 | MR_ITS ---
EXAMINATION: MR brain/brain stem wo/w con DATE: 03/22/2024 12:42 INDICATION: Vertigo. Gait instability. TECHNIQUE: Magnetic resonance imaging (MRI) of the brain and brainstem was performed without and with 12 mL MultiHance intravenous contrast. COMPARISON: Brain MRI 10/21/2022, head CT 03/20/2024 FINDINGS: There is no intracranial hemorrhage, acute infarction, or abnormal intracranial mass lesion . There are scattered areas of nonspecific increased T2-weighted signal intensity in the cerebral whi te matter. The ventricles are normal in size. There is mucosal thickening in the paranasal sinuses. T here is dependent fluid in the maxillary sinuses. There are likely changes of ocular lens replacement surgeries. The mastoid air cells are normal. IMPRESSION: 1. Moderate nonspecific cerebral white matter disease, which likely represents chronic small vessel i schemic disease, stable from 10/21/2022. Reviewed, dictated and finalized at location A. IMPRESSION: 1. Moderate nonspecific cerebral white matter disease, which likely represents chronic small vessel ischemic disease, stable from 10/21/2022.
--- NOTE | 2024-03-20 08:03 | ED.DIZZY ---
HPI - Dizziness General Chief Complaint: Dizziness Stated Complaint: dizziness, doesnt feel right Time Seen by Provider: 03/20/24 07:50 History of Present Illness HPI Narrative: 83-year-old female presenting to the emergency department for evaluation of recurrent dizziness. Patient states symptoms do happen intermittently and patient states she has possibly been on meclizine previously. Patient states symptoms worsened over the last few days. Patient denies any falls or injuries. Patient states when she is sitting and resting she does not have much dizziness but when she gets up and moves she feels unstable with her gait. Patient denies any other associated numbness or weakness. Related Data Home Medications Medication Instructions Recorded Confirmed rosuvastatin 10 mg tablet (Crestor) 10 mg PO QPM 10/10/23 03/20/24 Allergies Allergy/AdvReac Type Severity Reaction Status Date / Time aspirin Allergy Severe Difficulty Verified 03/20/24 12:50 Breathing NSAIDS (Non-Steroidal Allergy Severe Difficulty Verified 03/20/24 12:50 Anti-Inflamma Breathing [NSAIDS (Non-Steroidal Anti-Inflammatory Drug)] Penicillins Allergy Intermediate Hives Verified 03/20/24 12:50 Review of Systems Review of Systems: All systems reviewed & are unremarkable except as noted in HPI and below PMFSH Past Medical History Medical History Asthma 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 Essential hypertension Fracture of proximal end of left humerus Gait instability Gastroesophageal reflux disease Gout Hyperparathyroidism Lymphedema of left arm Obstructive sleep apnea Osteoporosis Prediabetes Subdural hematoma (2019) Vitamin B 12 deficiency Vitamin D deficiency, unspecified Surgical History Surgical History History of alvaro hole surgery History of section History of total mastectomy of left breast Family History Family History Sibling Family history of malignant neoplasm of breast in first degree relative Patient's sister is Other Asthma Family history of cataracts Family history of malignant neoplasm of breast Family history of malignant neoplasm of male breast Hypertension Social History Social History Social History: Surrogate medical decision maker: Andria Chavez, daughter. Code status: Full code. Smoking status: Never smoker Second hand tobacco smoke exposure: No Alcohol intake: never Substance use: never Substance use type: does not use Do You Feel Safe in your Home?: Yes Lack of Transportation: No Lack of Food: Never True Current Housing: I Have Housing Concerned About Future Housing: No Difficulty Paying Gas/Electric Bills: No Difficulty Paying for Meds: No Currently Unemployed: No Education: High School Diploma/GED Difficulty w/ Childcare or Family Care: No Living arrangements: with family Additional living arrangements comments: Lives with daughter in:. Occupation/Education: retired Spiritual care concerns: No Exam Narrative: APPEARANCE: Well appearing, no pain, no distress, well-nourished. HEAD: normocephalic, atraumatic. EYES: PERRLA/EOMI, conjunctivae clear. NOSE: Normal no drainage EARS:TMS clear with good light reflex. THROAT: Pharynx clear, no exudate. NECK: Supple. No adenopathy, no masses. RESPIRATORY: Airway patent, respirations nonlabored. Clear to auscultation bilaterally, no rales, rhonchi, wheezing. CARDIOVASCULAR: Regular rate and rhythm without murmurs rubs or gallops. ABDOMINAL: Soft, nontender, nondistended, normal bowel sounds MUSCULOSKELETAL: Moves all extremities. Strength/ROM intact, No edema, No calf tenderness. NEURO
[2024-03-20] MEDS: MECLIZINE HCL 25 MG TABLET PO (08:10)
[2024-03-20 08:51] LABS: Basophils Absolute Auto 0.1 K/mm3 (0.0-0.1); Basophils Percent Auto 0.9 % (0.2-1.2); Eosinophils Absolute Auto 0.7 K/mm3 (0-0.3); Eosinophils Percent Auto 5.7 % (0-4.4); Hematocrit 40.1 % (37.0-47.0); Hemoglobin 13.3 g/dL (12.0-15.0); Immature Granulocyte Absolute 0.03 K/mm3 (0.00-0.031); Immature Granulocyte Percent A 0.3 % (0-0.5); Lymphocytes Absolute Auto 4.34 K/mm3 (0.9-3.2); Lymphocytes Percent Auto 37.8 % (18.3-44.2); Mean Corpuscular HGB Conc 33.2 g/dl (32-36); Mean Corpuscular Hemoglobin 31.6 pg (26-34); Mean Corpuscular Volume 95.2 fl (80-100); Mean Platelet Volume 9.2 fl (7.4-10.4); Monocytes Absolute Auto 0.8 K/mm3 (0.1-0.6); Monocytes Percent Auto 7.1 % (2.6-8.5); Neutrophils Absolute Auto 5.5 K/mm3 (1.3-6.7); Neutrophils Percent Auto 48.2 % (45.5-73.1); Platelet Count Result 350 k/mm3 (150-375); Red Blood Count 4.21 M/mm3 (4.2-5.4); Red Cell Distribution Width 13.2 % (11.5-14.5); White Blood Count 11.5 K/mm3 (4.5-10.0)
[2024-03-20 09:01] LABS: Alanine Aminotransferase 17 U/L (6-35); Albumin Level 4.4 g/dL (3.5-5.1); Alkaline Phosphatase 93 U/L (38-126); Anion Gap 9 mmol/L (4-12); Aspartate Amino Transferase 25 U/L (14-36); Bilirubin,Total 0.6 mg/dL (0.2-1.3); Blood Urea Nitrogen 22 mg/dL (7-17); Calcium 11.2 mg/dL (8.4-10.2); Carbon Dioxide 28 mmol/L (22-30); Chloride 102 mmol/L (98-107); Estimated Glomerular Filt Rate > 60; Glucose 120 mg/dL (65-110); Sodium 139 mmol/L (137-145)
[2024-03-20 10:35] LABS: Add Urine Microscopic? YES; Appearance Urine Clear (Clear); Bacteria Urine None Seen /hpf; Bilirubin Urine Negative (Negative); Blood Urine Negative (Negative); Color Urine Yellow (Yellow); Glucose Urine UA Negative (Negative); Ketones Urine Negative (Negative); Leukocyte Esterase Ur Trace LEU/UL (Negative); Nitrate Urine Negative (Negative); Non Pathogenic Casts 0-2; Protein Urine Negative (Negative); RBC Urine 0-2 /hpf (0-2); Specific Grav Ur 1.014 (1.001-1.035); Squamous Epithelial Cell Urine None Seen /hpf (Few); Urobilinogen Urine 0.2 mg/dL (<2.0); WBC Urine 0-5 /hpf (0-3)
[2024-03-20] MEDS: diazePAM INJ (*CRX) 10 MG/2 ML SYRINGE 2 MG IV PUSH (10:48)
--- NOTE | 2024-03-20 12:39 | PM.IMHP ---
H&P: HPI History of Present Illness Date/Time: 03/20/24 12:39 Chief Complaint: Dizziness Narrative: 83 y/o F presents here with dizziness with PMH of asthma, BCC of the left forearm (s/p excision), L breast cancer (s/p mastectomy and chemoradiation), hypertension, GERD, MARIS, and subdural hematoma x2 in Aug and November 2018 due to falls. The patient presents here from home for further evaluation of dizziness. She reports onset 3-4 days ago. She describes the dizziness as the floor is tilting and not that she feels like she is spinning, almost like standing on a boat. Currently denies accompanying nausea, vomiting, diarrhea, headache, focal weakness, focal numbness, dysarthria, vision changes, rhinorrhea, ear pain/fullness. Endorses intermittent congestion. She denies previous episodes of this degree before. Denies associated hearing loss. She reports previous episodes of instability/being off balance before and has been trialed on Meclizine without much effect. Daughter states she may have undergone an Gege Maneuver before, but unsure what she had done prior. Initial VS at presentation: 98.1? F, HR 53, RR 20, 174/93, and 98% on RA. ED workup showed: WBC 11.5, hemoglobin 13.3, creatinine 0.8 and no GFR, UA showed trace leuks. CT of the head showed no acute intracranial process and age-related changes including moderate diffuse volume loss and mild to moderate scattered white matter hypoattenuation. 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 Essential hypertension Fracture of proximal end of left humerus Gait instability Gastroesophageal reflux disease Gout Hyperparathyroidism Lymphedema of left arm Obstructive sleep apnea Osteoporosis Prediabetes Subdural hematoma (2019) Vitamin B 12 deficiency Vitamin D deficiency, unspecified Surgical History Surgical History History of alvaro hole surgery History of section History of total mastectomy of left breast Family History Family History Sibling Family history of malignant neoplasm of breast in first degree relative Patient's sister is Other Asthma Family history of cataracts Family history of malignant neoplasm of breast Family history of malignant neoplasm of male breast Hypertension Social History Social History Social History: Surrogate medical decision maker: Andria Chavez, daughter. Code status: Full code. Smoking status: Never smoker Second hand tobacco smoke exposure: No Alcohol intake: never Substance use: never Substance use type: does not use Do You Feel Safe in your Home?: Yes Lack of Transportation: No Lack of Food: Never True Current Housing: I Have Housing Concerned About Future Housing: No Difficulty Paying Gas/Electric Bills: No Difficulty Paying for Meds: No Currently Unemployed: No Education: High School Diploma/GED Difficulty w/ Childcare or Family Care: No Living arrangements: with family Additional living arrangements comments: Lives with daughter in:. Occupation/Education: retired Spiritual care concerns: No Meds Home Medications and Allergies Home Medications Medication Instructions Recorded Confirmed Type lisinopril 10 mg tablet (Zestril) 10 mg PO DAILY #90 tabs 07/04/23 03/20/24 Rx rosuvastatin 10 mg tablet (Crestor) 10 mg PO QPM 10/10/23 03/20/24 History montelukast 10 mg tablet 10 mg PO QPM #90 tabs 11/04/23 03/20/24 Rx hydrochlorothiazide 12.5 mg tablet 6.25 mg PO DAILY #45 tabs 02/09/24 03/20/24 Rx Allergi
--- NOTE | 2024-03-20 12:49 | ADMGEN ---
This patient, Meenakshi Chavez, was admitted to Medical Room 342-01. Patient/family oriented to hospital policies and general routines including ID bracelet, bed and alarms, visiting hours, pain management, procedures, bathroom and other care routines, personal items, smoking policy, room service/diet, and visiting hours. Information on how to activate the Rapid Response Team has been discussed. Patient/Family are encouraged to report perceived risks to care and to ask questions if they do not understand what they are told or what they should do.
[2024-03-20] MEDS: SODIUM CHLORIDE 0.9% IV 1,000 ML 100 ML IV CONT (14:41)
--- NOTE | 2024-03-20 15:15 | PCRCNOTE ---
RECEIVED A NOTIFICATION OF HOME CPAP/BIPAP; PT. STATES SHE REALLY DOESN'T WEAR IT AT HOME AND DOES NOT WANT TO BORROW ONE OF OUR UNITS. ASKED PT. TO LET US KNOW IF SHE CHANGES HER MIND; R.N. AT BEDSIDE AND AWARE.
[2024-03-20] MEDS: MONTELUKAST SODIUM 10 MG TABLET PO (21:17)
[2024-03-20] MEDS: ROSUVASTATIN 10 MG TABLET PO (21:18)
[2024-03-21] VITALS (7 sets, daily range): BP systolic 130–162; BP diastolic 53–81; PULSE 67–86; RESP 16–18; TEMP 36.8–36.9; O2SAT 96–99
[2024-03-21 05:51] LABS: Basophils Absolute Auto 0.1 K/mm3 (0.0-0.1); Basophils Percent Auto 0.9 % (0.2-1.2); Eosinophils Absolute Auto 0.8 K/mm3 (0-0.3); Eosinophils Percent Auto 7.7 % (0-4.4); Hemoglobin 12.5 g/dL (12.0-15.0); Immature Granulocyte Absolute 0.03 K/mm3 (0.00-0.031); Immature Granulocyte Percent A 0.3 % (0-0.5); Lymphocytes Absolute Auto 4.28 K/mm3 (0.9-3.2); Lymphocytes Percent Auto 42.9 % (18.3-44.2); Mean Corpuscular HGB Conc 32.9 g/dl (32-36); Mean Corpuscular Hemoglobin 31.3 pg (26-34); Mean Platelet Volume 9.3 fl (7.4-10.4); Monocytes Absolute Auto 0.9 K/mm3 (0.1-0.6); Monocytes Percent Auto 9.1 % (2.6-8.5); Neutrophils Absolute Auto 3.9 K/mm3 (1.3-6.7); Neutrophils Percent Auto 39.1 % (45.5-73.1); Platelet Count Result 306 k/mm3 (150-375); Red Cell Distribution Width 13.3 % (11.5-14.5)
[2024-03-21 06:04] LABS: Anion Gap 7 mmol/L (4-12); Blood Urea Nitrogen 17 mg/dL (7-17); Calcium 10.8 mg/dL (8.4-10.2); Carbon Dioxide 25 mmol/L (22-30); Chloride 107 mmol/L (98-107); Estimated Glomerular Filt Rate > 60; Glucose 112 mg/dL (65-110); Potassium 3.8 mmol/L (3.4-5.0); Sodium 139 mmol/L (137-145)
[2024-03-21] MEDS: hydroCHLOROthiazide 6.25 MG TABLET PO (08:47)
[2024-03-21] MEDS: lisinopriL 20 MG TABLET PO (08:47)
[2024-03-21] MEDS: SCOPOLAMINE 1 MG PATCH 1 PATCH TRANSDERM (12:08)
--- NOTE | 2024-03-21 18:18 | PM.IMPN ---
Progress Note: A&P Assessment and Plan (1) Dizziness: Code(s): R42 - Dizziness and giddiness Status: Acute Assessment and Plan: - Head CT 1. No acute intracranial process. 2. Age-related changes including moderate diffuse volume loss and mild to moderate scattered white matter hypoattenuation consistent with chronic small vessel ischemic disease. - will trial Gege maneuver/PT eval and treat - tentatively scheduled for brain MRI with/without contrast on Friday - neurological checks q.4 - orthostatic vital signs Q shift, start IV fluids - monitor BP - Ddx: With BPV, pain ears disease, stroke, orthostatic hypertension 03/21/2024 MRI friday Vestibular therapy trial scopalomine patch orthostatic negative patient is hypertensive Chronic has scheduled vestibular therapy scheduled O/P TSH pending (2) Essential hypertension: Code(s): I10 - Essential (primary) hypertension Status: Acute Assessment and Plan: - chronic, currently 143/62 - continue home medications: Hydrochlorothiazide and lisinopril - monitor 03/21/2024 still hypertensive increased lisinopril to 20mg (3) Vertigo: Code(s): R42 - Dizziness and giddiness Status: Acute Assessment and Plan: Same as above added scopolamine Plan / Patient here with intermittent dizziness, worse over the last 2-3 days. Describes it as if she is standing on the deck of a boat. Meclizine with no affect. Unsure if Valium given in the ED had affect. No nystagmus or focal deficits on exam. Trial scopalomine, Gege maneuver. MRI of brain ordered. GI Prophylaxis: Not currently indicated DVT Prophylaxis: SCDs Code Status: Full code Disposition: Patient continues admission to the medical unit will have vestibular therapy and MRI on 03/22/2024 and trial scopolamine. Patient ambulatory on own and plan on discharge back to home when medically stable. Time Spent With Patient Time with patient: 15 - 25 minutes Subjective Date/time seen: 03/21/24 18:18 Interval history: Admission: 83 y/o F presents here with dizziness with PMH of asthma, BCC of the left forearm (s/p excision), L breast cancer (s/p mastectomy and chemoradiation), hypertension, GERD, MARIS, and subdural hematoma x2 in Aug and November 2018 due to falls. The patient presents here from home for further evaluation of dizziness. She reports onset 3-4 days ago. She describes the dizziness as the floor is tilting and not that she feels like she is spinning, almost like standing on a boat. Currently denies accompanying nausea, vomiting, diarrhea, headache, focal weakness, focal numbness, dysarthria, vision changes, rhinorrhea, ear pain/fullness. Endorses intermittent congestion. She denies previous episodes of this degree before. Denies associated hearing loss. She reports previous episodes of instability/being off balance before and has been trialed on Meclizine without much effect. Daughter states she may have undergone an Gege Maneuver before, but unsure what she had done prior. 03/21/2024: Assumed Care: Patient up in chair dizziness still present but tolerable, Vestibular therapy ordered and MRI planned for 03/22. Patient was scheduled for outpatient vestibular therapy but had not yet followed up. Patient denied CP, SOB, visual changes, headache, fever or chills, or any syncopal episodes. TSH ordered and trialed scopolamine patch. Vitals stable and labs unremarkable. Review of Systems Review of Systems: All systems reviewed & are unremarkable except as noted in HPI and below Exam Narrative: HINTS (head-impulse, nystagmus, test of skew) examination Const: General: comfortable and no acute distress Other: , female, nontoxic appearance HENMT: Face/Nose/Sinus: Normal nares present Mouth: Yes moist mucous membranes Eyes: General: appearance normal, both eyes and all related structures Sclera: sclerae normal Pu
[2024-03-21] MEDS: MONTELUKAST SODIUM 10 MG TABLET PO (20:07)
[2024-03-21] MEDS: ROSUVASTATIN 10 MG TABLET PO (20:07)
[2024-03-22 06:00] VITALS: BP 139/61; PULSE 70; RESP 20; TEMP 36.2; O2SAT 98
[2024-03-22 06:05] VITALS: BP 135/64; PULSE 68; RESP 20; TEMP 37.1; O2SAT 100
[2024-03-22 06:10] VITALS: BP 137/72; PULSE 79; RESP 20; TEMP 37.1; O2SAT 99
[2024-03-22 06:28] LABS: Basophils Absolute Auto 0.1 K/mm3 (0.0-0.1); Eosinophils Absolute Auto 0.8 K/mm3 (0-0.3); Eosinophils Percent Auto 8.2 % (0-4.4); Hematocrit 37.8 % (37.0-47.0); Hemoglobin 12.4 g/dL (12.0-15.0); Immature Granulocyte Absolute 0.03 K/mm3 (0.00-0.031); Immature Granulocyte Percent A 0.3 % (0-0.5); Lymphocytes Absolute Auto 4.27 K/mm3 (0.9-3.2); Lymphocytes Percent Auto 45.3 % (18.3-44.2); Mean Corpuscular HGB Conc 32.8 g/dl (32-36); Mean Corpuscular Hemoglobin 31.3 pg (26-34); Mean Corpuscular Volume 95.5 fl (80-100); Mean Platelet Volume 9.7 fl (7.4-10.4); Monocytes Absolute Auto 0.9 K/mm3 (0.1-0.6); Monocytes Percent Auto 9.3 % (2.6-8.5); Neutrophils Absolute Auto 3.4 K/mm3 (1.3-6.7); Neutrophils Percent Auto 35.9 % (45.5-73.1); Platelet Count Result 328 k/mm3 (150-375); Red Blood Count 3.96 M/mm3 (4.2-5.4); Red Cell Distribution Width 13.3 % (11.5-14.5); White Blood Count 9.4 K/mm3 (4.5-10.0)
[2024-03-22 06:57] LABS: Anion Gap 5 mmol/L (4-12); Blood Urea Nitrogen 20 mg/dL (7-17); Calcium 11.2 mg/dL (8.4-10.2); Carbon Dioxide 28 mmol/L (22-30); Chloride 105 mmol/L (98-107); Estimated Glomerular Filt Rate > 60; Glucose 108 mg/dL (65-110); Potassium 4.5 mmol/L (3.4-5.0); Sodium 138 mmol/L (137-145)
[2024-03-22] MEDS: lisinopriL 20 MG TABLET PO (09:10)
[2024-03-22] MEDS: hydroCHLOROthiazide 6.25 MG TABLET PO (09:10)
[2024-03-22 10:52] VITALS: BP 151/62
[2024-03-22 10:53] VITALS: BP 151/71; BP 176/76
--- NOTE | 2024-03-22 11:45 | PC.NURSE ---
Patient off of unit to MRI
--- NOTE | 2024-03-22 13:16 | PM.DS ---
DS: Admitting Diagnosis Discharge Date 03/22/2024 Admitting Diagnosis Vertigo DS: Discharge Diagnosis Discharge Diagnosis (1) Dizziness: Code(s): R42 - Dizziness and giddiness Status: Acute Assessment and Plan: - Head CT 1. No acute intracranial process. 2. Age-related changes including moderate diffuse volume loss and mild to moderate scattered white matter hypoattenuation consistent with chronic small vessel ischemic disease. - will trial Gege maneuver/PT eval and treat - tentatively scheduled for brain MRI with/without contrast on Friday - neurological checks q.4 - orthostatic vital signs Q shift, start IV fluids - monitor BP - Ddx: With BPV, pain ears disease, stroke, orthostatic hypertension 03/21/2024 MRI friday Vestibular therapy trial scopalomine patch orthostatic negative patient is hypertensive Chronic has scheduled vestibular therapy scheduled O/P TSH pending (2) Essential hypertension: Code(s): I10 - Essential (primary) hypertension Status: Acute Assessment and Plan: - chronic, currently 143/62 - continue home medications: Hydrochlorothiazide and lisinopril - monitor 03/21/2024 still hypertensive increased lisinopril to 20mg (3) Vertigo: Code(s): R42 - Dizziness and giddiness Status: Acute Assessment and Plan: Same as above added scopolamine Plan / Patient here with intermittent dizziness, worse over the last 2-3 days. Describes it as if she is standing on the deck of a boat. Meclizine with no affect. Unsure if Valium given in the ED had affect. No nystagmus or focal deficits on exam. Trial scopalomine, Gege maneuver. MRI of brain ordered. Disposition: Discharged to home follow-up with PCP and recommended a referral to ENT/Neurology DS: Summary Hospital Course Reason for hospitalization: Vertigo Hospital Course: Admission: 83 y/o F presents here with dizziness with PMH of asthma, BCC of the left forearm (s/p excision), L breast cancer (s/p mastectomy and chemoradiation), hypertension, GERD, MARIS, and subdural hematoma x2 in Aug and November 2018 due to falls. The patient presents here from home for further evaluation of dizziness. She reports onset 3-4 days ago. She describes the dizziness as the floor is tilting and not that she feels like she is spinning, almost like standing on a boat. Currently denies accompanying nausea, vomiting, diarrhea, headache, focal weakness, focal numbness, dysarthria, vision changes, rhinorrhea, ear pain/fullness. Endorses intermittent congestion. She denies previous episodes of this degree before. Denies associated hearing loss. She reports previous episodes of instability/being off balance before and has been trialed on Meclizine without much effect. Daughter states she may have undergone an Gege Maneuver before, but unsure what she had done prior. 03/21/2024: Assumed Care: Patient up in chair dizziness still present but tolerable, Vestibular therapy ordered and MRI planned for 03/22. Patient was scheduled for outpatient vestibular therapy but had not yet followed up. Patient denied CP, SOB, visual changes, headache, fever or chills, or any syncopal episodes. TSH ordered and trialed scopolamine patch. Vitals stable and labs unremarkable. 03/22/2024: DISCHARGED MRI with no acute findings, patient reported back to baseline and that this is chronic condition she has had for years but it had worsened that couple of days which had her concerned. Prescribed scopolamine patches since meclizine was no longer working. Patient already has scheduled vestibular therapy outpatient. Labs were unremarkable, orhtostatic negative actually mild hypertension which I increased her Lisinopril to 20mg daily. Patient will follow-up with primary out patient provided order for 30-day cardiac event monitor and recommended a request for referral to ENT/Neurology. Patient was eager to discharge h
== END 2024-03-22 14:18 | disposition home or self-care (01) ==
LOC: ANHED 07:56 → ANH3MED 12:44
PROVIDERS: Student in an Organized Health Care Education/Training Program; Admitting Provider General Practice; Emergency Provider Emergency Medicine; PCP Family Medicine; Visit Provider Nurse Practitioner Family
DX: R42 Dizziness and giddiness (principal); J45.909 Unspecified asthma, uncomplicated; I10 Essential (primary) hypertension; M81.0 Age-related osteoporosis without current pathological fracture; E55.9 Vitamin D deficiency, unspecified; E53.8 Deficiency of other specified B group vitamins; Z85.3 Personal history of malignant neoplasm of breast; M10.9 Gout, unspecified; G47.33 Obstructive sleep apnea (adult) (pediatric); Z85.828 Personal history of other malignant neoplasm of skin; Z90.12 Acquired absence of left breast and nipple; K21.9 Gastro-esophageal reflux disease without esophagitis
CPT/HCPCS: 36415; 70450; 70553; 72125; 80048; 80053; 81001; 84443; 85025; 87086; 96374; 97110; 97161; 97530; 99284; 99285; A9270; A9577; G0378; J3360; J7030

== ENCOUNTER 2024-03-22 17:53 | Emergency (ER) | payer MEDICARE, SELFPAY ==
--- NOTE | ~2024-03-22 | CT_ITS ---
EXAMINATION: CT cervical spine wo con DATE: 03/22/2024 19:31 INDICATION: Fall TECHNIQUE: Computed tomography (CT) of the cervical spine was performed without intravenous contrast. Automated exposure control and iterative reconstruction technique were employed. The dose-length pro duct was 605.33 mGy-cm. COMPARISON: X-ray C-spine 08/01/2014. FINDINGS: Vertebral Body Alignment: Intact. Multilevel mild listheses, likely on a degenerative basis. Craniocervical and atlantoaxial alignment: Severe degenerative change with pannus. Alignment intact. Osseous structures/fracture: No evidence of a lytic or blastic process in the visualized spine. No e vidence of acute fracture. Cervical soft tissues: The paraspinal soft tissues planes are maintained. Degenerative changes: Degenerative changes, without severe neural foraminal or central canal narrowin g. IMPRESSION: No acute fracture or traumatic malalignment in the cervical spine. Reviewed, dictated and finalized at location K.
--- NOTE | ~2024-03-22 | CT_ITS ---
EXAMINATION: CT brain wo con DATE: 03/22/2024 19:31 INDICATION: Fall . TECHNIQUE: Computed tomography (CT) of the head was performed with intravenous contrast. The mA was a djusted according to patient size. Iterative reconstruction technique was employed. The dose-length p roduct was 605.33 mGy-cm. COMPARISON: 03/20/2024. FINDINGS: No acute intracranial hemorrhage or extra-axial fluid collection. No hydrocephalus, mass, or herniation. No acute ischemic infarct. Unremarkable dural venous sinus attenuation. No acute osseous abnormality. Ethmoid and sphenoid mucosal thickening, air-fluid levels in the bilateral maxillary sinuses, the rem aining aerated spaces are clear. Moderate atrophy and chronic white matter change. Atherosclerotic intracranial calcification. Bilater al lens replacements. Empty sella. IMPRESSION: No acute intracranial process. Maxillary sinus findings may represent acute sinusitis in the proper clinical context. Reviewed, dictated and finalized at location K. IMPRESSION: No acute intracranial process. Maxillary sinus findings may represent acute sinusitis in the proper clinical c ontext.
[2024-03-22 18:14] VITALS: BP 135/69; PULSE 98; RESP 16; TEMP 37.1; O2SAT 97
[2024-03-22 18:36] VITALS: BP 156/75; PULSE 91; RESP 20; O2SAT 97
--- NOTE | 2024-03-22 18:47 | ED.GENADULT ---
HPI - General Adult General Chief complaint: Fall Stated complaint: fall Time Seen by Provider: 03/22/24 18:41 History of Present Illness HPI narrative: An 83-year-old female presenting ED after a fall. Patient was going down the stairs when she missed the bottom step. She fell backwards struck her neck/back of her head on the stairs. No loss of consciousness. No use of blood thinners. Complications, chest pain shortness of breath before the fall. Appears to be purely mechanical. Patient was recently discharged from our hospital for vertigo/disequilibrium. At time CT head MRIs were negative for central pathology. She has spoken with her primary care physician is working on getting his tubular physical therapy. Patient feels well otherwise. She has no pain. No fevers chills chest pain difficulty breathing abdominal pain or urinary symptoms. Patient lives with her daughter use a walker to ambulate. She has poor balance. Related Data Home Medications Medication Instructions Recorded Confirmed rosuvastatin 10 mg tablet (Crestor) 10 mg PO QPM 10/10/23 03/20/24 Allergies Allergy/AdvReac Type Severity Reaction Status Date / Time aspirin Allergy Severe Difficulty Verified 03/22/24 18:23 Breathing NSAIDS (Non-Steroidal Allergy Severe Difficulty Verified 03/22/24 18:23 Anti-Inflamma Breathing [NSAIDS (Non-Steroidal Anti-Inflammatory Drug)] Penicillins Allergy Intermediate Hives Verified 03/22/24 18:23 [facility] Past Medical History Medical History Asthma 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 Essential hypertension Fracture of proximal end of left humerus Gait instability Gastroesophageal reflux disease Gout Hyperparathyroidism Lymphedema of left arm Obstructive sleep apnea Osteoporosis Prediabetes Subdural hematoma (2019) Vitamin B 12 deficiency Vitamin D deficiency, unspecified Surgical History Surgical History History of alvaro hole surgery History of section History of total mastectomy of left breast Family History Family History Sibling Family history of malignant neoplasm of breast in first degree relative Patient's sister is Other Asthma Family history of cataracts Family history of malignant neoplasm of breast Family history of malignant neoplasm of male breast Hypertension Social History Social History Social History: Surrogate medical decision maker: Andria Chavez, daughter. Code status: Full code. Smoking status: Never smoker Second hand tobacco smoke exposure: No Alcohol intake: never Substance use: never Substance use type: does not use Do You Feel Safe in your Home?: Yes Lack of Transportation: No Lack of Food: Never True Current Housing: I Have Housing Concerned About Future Housing: No Difficulty Paying Gas/Electric Bills: No Difficulty Paying for Meds: No Currently Unemployed: No Education: High School Diploma/GED Difficulty w/ Childcare or Family Care: No Living arrangements: with family Additional living arrangements comments: Lives with daughter in:. Occupation/Education: retired Spiritual care concerns: No Exam Narrative: APPEARANCE: No apparent distress. Head: atraumatic. EYES: EOMI, NOSE: Atraumatic NECK: Trachea midline RESPIRATORY: No increased rate of breathing clear to auscultation CARDIOVASCULAR: RRR, ABDOMINAL: Non-distended nontender MUSCULOSKELETAl: No obvious deformities head to toe trauma exam revealed no areas of tenderness NEURO: Alert. Cranial nerves 2-12 grossly intact. Sensation light touch, motor function cerebellar function intact for 4 extremities. Patient was able to ambulate with a w
--- NOTE | 2024-03-22 19:17 | PC.NURSE ---
Assumed care of pt from Mylene REZA at this time.
[2024-03-22 20:31] VITALS: BP 152/76; PULSE 91; RESP 18; TEMP 36.8; O2SAT 99
== END 2024-03-22 20:33 | disposition home or self-care (01) ==
PROVIDERS: Emergency Provider Emergency Medicine; PCP Family Medicine
DX: R26.81 Unsteadiness on feet (principal); J45.909 Unspecified asthma, uncomplicated; Z85.3 Personal history of malignant neoplasm of breast; I10 Essential (primary) hypertension; K21.9 Gastro-esophageal reflux disease without esophagitis; G47.30 Sleep apnea, unspecified; W10.9XXA Fall (on) (from) unspecified stairs and steps, initial encounter
CPT/HCPCS: 70450; 72125; 99284

== ENCOUNTER 2024-03-29 17:52 | Emergency (ER) | payer MEDICARE, SELFPAY ==
--- NOTE | ~2024-03-29 | XR_ITS ---
EXAMINATION: XR pelvis 1-2V DATE: 03/29/2024 19:38 INDICATION: Fall. TECHNIQUE: An anteroposterior view of the pelvis was obtained on 2 radiographs. COMPARISON: Pelvis radiograph 10/10/2023 FINDINGS: There is lumbar levoscoliosis and severe spondylosis. No fracture. There is severe osteoart hritis of right hip and moderate osteoarthritis of left hip. Osteitis pubis is noted. IMPRESSION: 1. Severe osteoarthritis of right hip and moderate osteoarthritis of left hip. Reviewed, dictated and finalized at location A.
--- NOTE | ~2024-03-29 | CT_ITS ---
EXAMINATION: CT cervical spine wo con DATE: 03/29/2024 19:29 INDICATION: Head injury. TECHNIQUE: Computed tomography (CT) of the cervical spine was performed without intravenous contrast. Automated exposure control and iterative reconstruction technique were employed. The dose-length pro duct was 605.33 mGy-cm. COMPARISON: CT cervical spine 03/22/2024 FINDINGS: There is 8 degrees dextrocurvature of cervical spine. There is 2 mm anterolisthesis of C3 a nd C4 and 3 mm anterolisthesis of C4 on C5. Vertebral body heights are normal. There is severely decr eased disc height at C3-C4, moderately decreased disc height at C4-C5, and severely decreased disc he ight at C5-C6 and C6-C7. The following disc levels are specifically discussed: C2-C3: There is no uncovertebral joint osteoarthritis. There is severe left facet joint osteoarthriti s. There is no neural foraminal stenosis. There is no central canal stenosis. C3-C4: There is ankylosis of the uncovertebral joint joints with mild hypertrophy. There is ankylosis of the facet joints with moderate hypertrophy. There is mild bilateral neural foraminal stenosis. Th ere is no central canal stenosis. C4-C5: There is moderate bilateral uncovertebral joint osteoarthritis. There is severe bilateral face t joint osteoarthritis. There is no neural foraminal stenosis. There is no central canal stenosis. C5-C6: There is severe bilateral uncovertebral joint osteoarthritis. There is moderate bilateral face t joint osteoarthritis. There is mild bilateral neural foraminal stenosis. There is mild central sue l stenosis. C6-C7: There is severe bilateral uncovertebral joint osteoarthritis. There is severe bilateral facet joint osteoarthritis. There is mild bilateral neural foraminal stenosis. There is mild central canal stenosis. C7-T1: There is no uncovertebral joint osteoarthritis. There is severe bilateral facet joint osteoart hritis. There is mild bilateral neural foraminal stenosis. There is no central canal stenosis. IMPRESSION: 1. No fracture. 2. Severe cervical spondylosis. Reviewed, dictated and finalized at location A.
--- NOTE | ~2024-03-29 | CT_ITS ---
EXAMINATION: CT brain wo con DATE: 03/29/2024 19:29 INDICATION: Head injury. Fall. TECHNIQUE: Computed tomography (CT) of the head was performed without intravenous contrast. The mA wa s adjusted according to patient size. Iterative reconstruction technique was employed. The dose-lengt h product was 605.33 mGy-cm. COMPARISON: Head CT 03/22/2024 FINDINGS: There are scattered areas of low attenuation in the cerebral white matter. There is no intr acranial hemorrhage, acute infarction, or abnormal intracranial mass lesion. The ventricles are criss l in size. There is mucosal thickening in the paranasal sinuses. There are likely changes of ocular l ens replacement surgeries. The mastoid air cells are normal. There is cerumen in the left external au ditory canal. There is left-sided scalp soft tissue swelling. IMPRESSION: 1. Stable moderate nonspecific cerebral white matter disease, which likely represents chronic small v essel ischemic disease. Reviewed, dictated and finalized at location A. IMPRESSION: 1. Stable moderate nonspecific cerebral white matter disease, which likely repr esents chronic small vessel ischemic disease.
--- NOTE | ~2024-03-29 | XR_ITS ---
EXAMINATION: XR chest 2V DATE: 03/29/2024 19:38 INDICATION: Fall. TECHNIQUE: Frontal and lateral views of the chest were obtained. COMPARISON: Chest 2 view 10/10/2023 FINDINGS: There is no pneumonia, pleural effusion, or pneumothorax. The heart size is normal. There i s internal fixation of left humerus. There are surgical clips in left chest wall. IMPRESSION: 1. No acute cardiopulmonary disease. Reviewed, dictated and finalized at location A.
[2024-03-29 18:32] VITALS: BP 142/59; PULSE 89; RESP 16; TEMP 37.1; O2SAT 99
--- NOTE | 2024-03-29 18:40 | ED.FALL ---
HPI - Fall General Chief Complaint: Fall <Tana Beckett PA-C - Last Filed: 03/30/24 09:14> Stated Complaint: FALL FROM TOILET, HX FREQ GLF'S <Tana Beckett PA-C - Last Filed: 03/30/24 09:14> Time Seen by Provider: 03/29/24 18:40 <Tana Beckett PA-C - Last Filed: 03/30/24 09:14> Focused HPI: This is a 83 year old female that presents to the ER after a fall today with head injury. Reports she fell getting up off the toilet. She did not lose consciousness. Reports a headache. Denies blood thinners. No other injuries or focal areas of pain. GENERAL: Well-appearing, well-nourished, and in no acute distress. HEAD: Normocephalic, atraumatic. CHEST: Clear to auscultation. ?No respiratory distress. HEART: Regular rate and rhythm.? NEURO: ?Alert and oriented x3. Patient screened in triage and initial orders placed.? ?Additional care and disposition to be based upon?diagnostic testing and treatment. <Tana Beckett PA-C - Last Filed: 03/30/24 09:14> Focused HPI: This is a 83 year old female that presents to the ER after a fall today with head injury. Reports she fell getting up off the toilet. She did not lose consciousness. Denies blood thinners. No other injuries or focal areas of pain. GENERAL: Well-appearing, well-nourished, and in no acute distress. HEAD: Normocephalic, atraumatic. CHEST: Clear to auscultation. ?No respiratory distress. HEART: Regular rate and rhythm.? NEURO: ?Alert and oriented x3. Patient screened in triage and initial orders placed.? ?Additional care and disposition to be based upon?diagnostic testing and treatment. Agree with triage assessment, patient is currently denying any symptoms including headaches, joint pain, or any concerns. <Kendrick Braxton MD - Last Filed: 03/30/24 01:09> Related Data Home Medications: Home Medications Medication Instructions Recorded Confirmed rosuvastatin 10 mg tablet (Crestor) 10 mg PO QPM 10/10/23 03/20/24 <Tana Beckett PA-C - Last Filed: 03/30/24 09:14> Allergies/Adverse Reactions: Allergies Allergy/AdvReac Type Severity Reaction Status Date / Time aspirin Allergy Severe Difficulty Verified 03/22/24 18:23 Breathing NSAIDS (Non-Steroidal Allergy Severe Difficulty Verified 03/22/24 18:23 Anti-Inflamma Breathing [NSAIDS (Non-Steroidal Anti-Inflammatory Drug)] Penicillins Allergy Intermediate Hives Verified 03/22/24 18:23 <Tana Beckett PA-C - Last Filed: 03/30/24 09:14> Review of Systems Review of Systems: All systems are reviewed and are negative unless stated otherwise in the HPI. <Kendrick Braxton MD - Last Filed: 03/30/24 01:09> All systems reviewed & are unremarkable except as noted in HPI and below <Tana Beckett PA-C - Last Filed: 03/30/24 09:14> PMFSH Past Medical History Medical History: Medical History Asthma 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 Essential hypertension Fracture of proximal end of left humerus Gait instability Gastroesophageal reflux disease Gout Hyperparathyroidism Lymphedema of left arm Obstructive sleep apnea Osteoporosis Prediabetes Subdural hematoma (2019) Vitamin B 12 deficiency Vitamin D deficiency, unspecified <Tana Beckett PA-C - Last Filed: 03/30/24 09:14> Surgical History Surgical History: Surgical History History of alvaro hole surgery History of section History of total mastectomy of left breast <Tana Beckett PA-C - Last Filed: 03/30/24 09:14> Family History Family History: Family History Sibling Family history of malignant neoplasm of breast in first degree relative Patient's sister is Other Asthma Family history of cataracts Family history
[2024-03-30 00:57] VITALS: BP 134/88; PULSE 90; RESP 15; O2SAT 99
[2024-03-30 01:36] VITALS: BP 130/74; PULSE 92; RESP 16; O2SAT 97
== END 2024-03-30 01:36 | disposition home or self-care (01) ==
LOC: ANHED 03-30 01:08
PROVIDERS: Emergency Provider Emergency Medicine; PCP Family Medicine
DX: S09.90XA Unspecified injury of head, initial encounter (principal); M47.812 Spondylosis without myelopathy or radiculopathy, cervical region; M16.11 Unilateral primary osteoarthritis, right hip; J45.909 Unspecified asthma, uncomplicated; I10 Essential (primary) hypertension; K21.9 Gastro-esophageal reflux disease without esophagitis; G47.30 Sleep apnea, unspecified; W18.30XA Fall on same level, unspecified, initial encounter
CPT/HCPCS: 70450; 71046; 72125; 72170; 99284

== ENCOUNTER 2024-04-01 11:47 | Outpatient (CLI) | payer MEDICARE, SELFPAY ==
--- NOTE | ~2024-04-01 | XR_ITS ---
Right Knee Technique: AP, lateral, and sunrise views were obtained. Clinical History: Status post fall Findings: No fracture or dislocation is seen. Osseous alignment is anatomic. There is mild to moderat e degenerative changes at the knee. Chondrocalcinosis of the menisci noted. No joint effusion is seen . Impression: No acute abnormality. Mild to moderate degenerative change. Chondrocalcinosis of the menisci. Reviewed, dictated and finalized at location M. Impression: No acute abnormality. Mild to moderate degenerative change. Chondrocalcinosis of the menisci.
== END 2024-04-01 11:48 ==
PROVIDERS: PCP Family Medicine; Visit Provider Family Medicine
DX: S89.91XA Unspecified injury of right lower leg, initial encounter (principal); M11.261 Other chondrocalcinosis, right knee; W19.XXXA Unspecified fall, initial encounter
CPT/HCPCS: 73564

== ENCOUNTER 2024-04-06 08:31 | Outpatient (RCR) | payer MEDICARE, SELFPAY ==
--- NOTE | 2024-04-06 09:53 | OPREHPOC ---
Outpatient Therapy Plan of Care This is a Multidisciplinary Plan of Care that may contain components documented by all disciplines (PT, OT, and ST.) PT Problem 1 PT Problem #1 Knowledge Deficit PT Goal 1 Goal / Goal Update *indep with HEP Target Visit 10 PT Problem 2 PT Problem #2 Impaired Strength PT Goal 1 Goal / Goal Update increase strength of LE's to improve mobility: 1* R and L LE mat and sitting exercises x 20 reps 2* sit/stand transfer without use of UE's from 18 seat Target Visit 10 PT Problem 3 PT Problem #3 Impaired Functional Mobility PT Goal 1 Goal / Goal Update 1* 5 reps sit/stand time of 22 seconds 2* 2 minute walking test distance with wheeled walker 325' 3* Tinetti balance/gait score of 26/28 4* pt report NO falls 5* pt report she and her daughter are walking for fitness 15 minutes Target Visit 10
--- NOTE | 2024-04-06 09:53 | PTOPEVAL1 ---
Assessment and note entered by Petrona Gao, PT Evaluation Information Assessment Status Evaluation ICD-10 Condition Codes (PT) Difficulty Walking R26.2,R26.9,Weakness R53.1 Onset January 2024 Subjective Information gradual increase with problems walking and unsteady on her feet; legs weak and knees give out; in the past 6 months have had 2 falls--going down the stairs, foot slipped when getting off the toliet--to ER 03-29-24: R knee xray negative for fractures, mild to moderate degenerative changes & chondrocalcinosis of menisci also been hospitalized- October, with UTI, cellulitis of UE and to in pt rehab Activity: use wheeled walker in home, but in community- too awkward and hold onto her daughter or whoever is with her. daughter Andria lives with her; daughter helps with laundry due to in basement, pt does not go into basement; pt is able to do showering- does when daughter is home for safety and cooking; about one year ago, was walking daily about 30 minutes with daughter GOAL: walk better, get legs stronger, walk in the park with her daughter again Reported Pain Level Pain Score 0: Self Report Assessment PT Clinical Summary Meenakshi has the diagnosis of vestibular rehab and decrease gait and mobility. She reported does not have dizziness, but unsteady with walking and having falls and leg weakness. Then, with supine to sit tranfser reported dizziness. She has had gradual increase in weakness and falls, with recent hospitalization. Daughter lives with her and assists her at home PRN. With the evaluation: she has decreased strength of R and L LE, requires use of both UE for sit/stand transfer; 2 minute walking test distance of 265' with wheeled walker, 5 reps sit/stand time of 30 seconds; Tinetti balance/gait score of 16/28= high risk for falls. Skilled PT services are indicated for LE strengthening, gait and balance retraining, to decrease risk for futu
--- NOTE | 2024-04-27 08:04 | PCPTNOTE ---
No call no show, reason unknown. AKRaine
--- NOTE | 2024-04-29 07:50 | PCPTNOTE ---
No call No show, left 2nd [facility] for pt. This is her (4) CX/NS and we can assume she no longer needs our services. AKS
--- NOTE | 2024-05-07 11:53 | PTOPDC ---
Assessment and note entered by Petrona Gao, PT Discharge Report Assessment Status Discharge - Pt Not Present ICD-10 Condition Codes (PT) Difficulty Walking R26.2,R26.9,Weakness R53.1 Onset January 2024 Subjective Information pt was not seen this date. Assessment PT Clinical Summary Meenakshi received the PT evaluation on Apr 06. She did not show for treatment since then. Discharge PT, the goals were not addressed. Plan of Care PT Services Indicated No
== END 2024-05-07 12:32 | disposition home or self-care (01) ==
LOC: ANHPT 08:31
PROVIDERS: PCP Family Medicine; Visit Provider Physician Assistant
DX: R26.81 Unsteadiness on feet (principal); R26.9 Unspecified abnormalities of gait and mobility
CPT/HCPCS: 97110; 97161; 97530

== ENCOUNTER 2024-04-18 13:35 | Emergency (ER) | payer MEDICARE, SELFPAY ==
[2024-04-18 13:38] VITALS: BP 140/61; PULSE 90; RESP 19; TEMP 37.3; O2SAT 97
[2024-04-18 14:03] LABS: EDUAAPPEAR Cloudy; EDUABILI Negative (Negative); EDUABLOOD Negative (Negative); EDUACOLOR1 Yellow; EDUAGLUCOSE Negative (Negative); EDUAKETONE Negative (Negative); EDUALEUKO Negative (Negative); EDUANITRATE Negative (Negative); EDUAPH 5.5; EDUAPROTEIN Negative (Negative); EDUAUROBILI 0.2
--- NOTE | 2024-04-18 14:15 | ED.ABDPAIN ---
HPI - Abdominal Pain General Chief Complaint: Urogenital-Female Stated Complaint: UTI Source: patient, RN notes reviewed and old records reviewed Mode of arrival: ambulatory Limitations: no limitations History of Present Illness HPI narrative: Patient presents accompanied by her daughter. Patient reports that she has not had any urinary burning, but has had some frequency over the past 24 hours. Reports sensation of incomplete emptying of the bladder. She also reports a temperature of 99.5?. Reports that her normal temperature is between 96 and 97. She is concerned about having a fever. She denies any back pain or abdominal pain. She denies any nausea or vomiting. She has no other concerns or complaints at this time. Related Data Home Medications Medication Instructions Recorded Confirmed rosuvastatin 10 mg tablet (Crestor) 10 mg PO QPM 10/10/23 04/08/24 Allergies Allergy/AdvReac Type Severity Reaction Status Date / Time aspirin Allergy Severe Difficulty Verified 04/18/24 13:41 Breathing NSAIDS (Non-Steroidal Allergy Severe Difficulty Verified 04/18/24 13:41 Anti-Inflamma Breathing [NSAIDS (Non-Steroidal Anti-Inflammatory Drug)] Penicillins Allergy Intermediate Hives Verified 04/18/24 13:41 Review of Systems Review of Systems: All systems reviewed & are unremarkable except as noted in HPI and below Constitutional: Constitutional: Reports no additional constitutional complaints ENT: Reports system reviewed and no additional complaints, except as documented Cardiovascular: Cardiovascular: Reports no additional cardiovascular complaints Respiratory: Respiratory: Reports no additional respiratory complaints Gastrointestinal: Gastrointestinal: Reports as per HPI and Reports no additional gastrointestinal complaints Genitourinary: Genitourinary: Reports no additional female genitourinary complaints, Reports as per HPI, Reports urinary hesitancy, Reports urinary urgency and Reports other (Urinary frequency, incomplete emptying) [facility] Past Medical History Medical History Asthma 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 Essential hypertension Fracture of proximal end of left humerus Gait instability Gastroesophageal reflux disease Gout Hyperparathyroidism Lymphedema of left arm Obstructive sleep apnea Osteoporosis Prediabetes Subdural hematoma (2019) Vitamin B 12 deficiency Vitamin D deficiency, unspecified Surgical History Surgical History History of alvaro hole surgery History of section History of total mastectomy of left breast Family History Family History Sibling Family history of malignant neoplasm of breast in first degree relative Patient's sister is Other Asthma Family history of cataracts Family history of malignant neoplasm of breast Family history of malignant neoplasm of male breast Hypertension Social History Social History Social History: Surrogate medical decision maker: Andria Chavez, daughter. Code status: Full code. Smoking status: Never smoker Second hand tobacco smoke exposure: No Alcohol intake: never Substance use: never Substance use type: does not use Do You Feel Safe in your Home?: Yes Lack of Transportation: No Lack of Food: Never True Current Housing: I Have Housing Concerned About Future Housing: No Difficulty Paying Gas/Electric Bills: No Difficulty Paying for Meds: No Currently Unemployed: No Education: High School Diploma/GED Difficulty w/ Childcare or Family Care: No Living arrangements: with family Additional living arrangements comments: Lives with daughter in:. 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
== END 2024-04-18 14:35 | disposition home or self-care (01) ==
PROVIDERS: Emergency Provider Nurse Practitioner Family; PCP Family Medicine
DX: R35.0 Frequency of micturition (principal); J45.909 Unspecified asthma, uncomplicated; I10 Essential (primary) hypertension; K21.9 Gastro-esophageal reflux disease without esophagitis; M10.9 Gout, unspecified; E21.3 Hyperparathyroidism, unspecified; M81.0 Age-related osteoporosis without current pathological fracture; R73.03 Prediabetes; Z85.828 Personal history of other malignant neoplasm of skin; Z85.3 Personal history of malignant neoplasm of breast; Z90.12 Acquired absence of left breast and nipple
CPT/HCPCS: 81003; 87086; 87088; 99213; G0463

== ENCOUNTER 2024-05-20 16:27 | Outpatient (CLI) | payer MEDICARE, SELFPAY ==
--- NOTE | ~2024-05-20 | XR_ITS ---
EXAMINATION: XR shoulder RT min 2V DATE: 05/20/2024 16:43 INDICATION: Unspecified rotator cuff tear or rupture. Right shoulder pain. TECHNIQUE: 4 views of right shoulder were obtained. COMPARISON: Right shoulder radiographs 05/22/2022 FINDINGS: Alignment is normal. There is an old healed fracture of proximal right humerus. There is se [place] osteoarthritis of glenohumeral joint and acromioclavicular joint. There is calcific tendinitis o f the rotator cuff. IMPRESSION: 1. Severe polyarticular osteoarthritis. 2. Calcific tendinitis of right rotator cuff. Reviewed, dictated and finalized at location A.
== END 2024-05-20 16:28 | disposition home or self-care (01) ==
PROVIDERS: PCP Orthopaedic Surgery; Visit Provider Orthopaedic Surgery
DX: M75.101 Unspecified rotator cuff tear or rupture of right shoulder, not specified as traumatic (principal); M19.011 Primary osteoarthritis, right shoulder; M75.31 Calcific tendinitis of right shoulder
CPT/HCPCS: 73030

== ENCOUNTER 2024-10-09 11:01 | Inpatient (IN) | payer MEDICARE, SELFPAY ==
--- NOTE | ~2024-10-09 | US_ITS ---
EXAMINATION: US abdomen limited DATE: 10/11/2024 10:55 INDICATION: Pancreatitis. TECHNIQUE: Multiple grayscale and Doppler ultrasound images of the abdomen were obtained. COMPARISON: CT abdomen and pelvis 10/09/2024 FINDINGS: The visualized portions of the head, body, and tail of the pancreas are normal. The liver i s normal without focal lesion. There is normal flow in main portal vein. The gallbladder is normal in size. No gallstones or gallbladder wall thickening. There is no sonographic Dodge's sign. The commo n duct is normal and measures 5 mm. IMPRESSION: 1. Normal right upper quadrant ultrasound. Note that ultrasound is less sensitive than CT for evaluat ing the pancreas. Reviewed, dictated and finalized at location B. IMPRESSION: 1. Normal right upper quadrant ultrasound. Note that ultrasound is less sensiti ve than CT for evaluating the pancreas.
--- NOTE | ~2024-10-09 | CT_ITS ---
CT abdomen pelvis wo con Ordering provider: Cinthia Porras MD History: 83 years Female with . upper abdominal pain . Comparison: October 13, 2023 Technique: CT abdomen and pelvis without IV and without oral contrast. Automated exposure control and iterative reconstruction technique were employed. The dose-length product was 182.46 mGy-cm. Findings: VISUALIZED LOWER CHEST: Subsegmental atelectasis in the left lung base. Otherwise, Normal. UPPER ABDOMINAL ORGANS: Liver: Normal. Gallbladder: Normal. Spleen: Normal. Small splenules are seen around the spleen. Stomach/duodenum: Small sliding hiatus hernia. Pancreas: Atrophic. Minimal fat stranding around the head is noted which may indicate pancreatitis. C linical correlation advised. Adrenals: Normal. Kidneys: 2 cm Soft tissue density is seen adjacent to the left kidney upper pole which may be a mass or hemorrhagic cyst. Unchanged from previous examination. Follow-up advised.A smaller one is also see n medially measuring 7 mm. Simple Cyst is seen in the left kidney upper pole measuring 2 cm. 3 mm stone is seen in the right kidney lower pole. Hyperdense lesions are also seen in the right kidn ey lower pole most likely hemorrhagic cysts. PELVIC ORGANS: The bladder is normal. BOWEL AND MESENTERY: Colon: No evidence of diverticulitis.. Normal appendix. Small Bowel: Normal. No obstruction. Peritoneum/mesentery: No free air or free fluid. No mesenteric lymphadenopathy. RETROPERITONEUM: Mild atheromatous disease of the abdominal aorta. No retroperitoneal lymphadenopat hy. MUSCULOSKELETAL: Superficial soft tissues: The superficial soft tissues are normal. Bones: Age appropriate degenerative changes of the spine. 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 Moderate osteoarthritic changes of the left hip. Pubic symphysitis. Levoscoliosis. Anterolisthes is at the level of L5-S1. IMPRESSION: 1. Minimal fat stranding around the head of the pancreas. The pancreatitis cannot be excluded. Clini sofi correlation advised. 2. No evidence of appendicitis, diverticulitis or intestinal obstruction. 3. Hyperdense lesion in the left kidney upper pole unchanged from previous examination. Differential include mass versus hemorrhagic cyst 4. Stone in the right kidney lower pole. 5. Multiple hypodense lesions in the right kidney most likely hemorrhagic cysts. 6. Small splenule is seen adjacent to the spleen. Reviewed, dictated and finalized at location A. 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 Minimal fat stranding around the head of the pancreas. The pancreatitis can not be excluded. Clinical correlation advised. 2. No evidence of appendicitis, diverticulitis or intestinal obstruction. 3. Hyperdense lesion in the left kidney upper pole unchanged from previous exa mination. Differential include mass versus hemorrhagic cyst 4. Stone in the right kidney lower pole. 5. Multiple hypodense lesions in the right kidney most likely hemorrhagic cyst s. 6. Small splenule is seen adjacent to the spleen.
--- OUTSIDE RECORDS SUMMARY | 2024-10-09 11:03 | XMS_ITS | Clinical Summary ---
Author Organization [facility] Address [facility] [place] [address] Care Team Providers Care Fire Eater Name Role Phone Renu Pate Primary Care Provider [phone] Active Problems Problem Noted Date Diagnosed Date Lymphedema of both lower extremities 10/05/2020 Immunizations Name Administration Dates Next Due PFIZER COVID-19 (ORIGINAL FO RMULATION, PURPLE CAP) mRNA, LNP-S, PF, 30 MCG/0.3 ML DOSE 10/25/2020,10/04/2020 Social History Tobacco Use Types Packs/Day Years Used Date Smoking Tobacco: Never Assessed Comments Unknown Sex and Gender Information Value Date Recorded Sex Assigned at Not on file Legal Sex Female 7:51 PM CDT Gender Identity Not on file Sexual Orientation Not on file Plan of Treatment Health Maintenance Due Date Last Done Comments DTaP, Tdap and Td Vaccines (1 - Tdap) 1959 Annual Medicare Wellness Visit 10/25/2003 RSV Immunization or 60+ Years (1 - 1-dose 75+ series) 2013 Pneumococcal Vaccine: 65+ Years (2 of 2 - PPSV23 or PCV20) 02/23/2017 02/24/2016 Zoster Vaccines (2 of 3) 05/08/2017 03/13/2017, 01/2009 COVID-19 Vaccine (3 - season) 2024 10/25/2020, 10/04/2020 Influenza Adult (#1) 2024 05/18/2019, 06/01/2018, 05/31/2018, Additional history exists Meningococcal B Vaccine Aged Out No l onger eligible based on patient's age to complete this topic Meningococcal Vaccine Aged Out No obi carmen eligible based on patient's age to complete this topic RSV Immunizations Under 20 Months Aged Out No longer eligible based on patient's age to complete this topic Insurance MEDICARE AET Care Teams Fire Eater Relationship Specialty Start Date End Date Renu Pate FNP PCP - General Nurse Practitioner Family 09/14/20
--- OUTSIDE RECORDS SUMMARY | 2024-10-09 11:03 | XMS_ITS | Clinical Summary ---
Author Organization [facility] Address [address] [place] [address] Phone Care Team Providers Care Consumer Loan Underwriter Name Role Phone Kate Kuo NP Unavailable [phone] Santiago Mauricio MD Primary Care Provider Allergies Active Allergy Reactions Criticality Noted Date Comments Aspirin Shortness of breath,Rash High 11/10/2013 Ibuprofen Shortness of breath,Rash High 11/10/2013 Nsaids (Non-Steroidal Anti-Inflammatory Drug) Shortness of breath High 08/18/2018 Penicillins Shortness of breath,Rash,Anaphylaxis High 11/10/2013 Tolmetin Shortness of breath High 08/18/2018 Medications multivitamin capsule 03/13/2017Multivitamin, po solid TabletPOdailyCurrent Medication 017 Active montelukast (SINGULAIR) 10 mg tablet 03/13/2017Singulair, po solid 10 mg TabletPOdailyCurrent Medication 017 Active rosuvastatin (CRESTOR) 10 mg tablet Take 1 tablet (10 mg total) by mouth daily 30 tablet 3 021 Active hydroCHLOROthi azide (HYDRODIURIL) 12.5 mg tablet Take 1 tablet (12.5 mg total) by mouth daily 90 tablet 1 022 Active albuterol HFA (ProAir HFA) 90 mcg/actuation inhalerIndicat ions:Asthma, unspecified asthma severity, unspecified whether complicated, unspecified whether persistent Inhale 2 puffs every 4 (four) hours as needed for wheezing or shortness of breath 8.5 g 022 Active LORazepam (ATIVAN) 0.5 mg tablet Take 1 tablet (0.5 mg total) by mouth 2 (two) times a day 60 tablet Active levETIRAcetam (KEPPRA) 500 mg tablet Take 1 tablet by mouth twice daily 60 tablet Active lisinopriL (PRINIVIL,ZEST RIL) 10 mg tabletIndicati ons:Hypertensi on, essential Take 1 tablet by mouth once daily 30 tablet Active cyanocobalamin , vitamin B-12, 5,000 mcg/mL drops Place under the tongue Active Active Problems Problem Noted Date Diagnosed Date Bilateral impacted cerumen 09/03/2021 Assessment & Plan (09/03/2021 6:07 PM OPERATOR COMMAND SU[employer] SYSTEM[employer]): Bilateral ear irrigations done using water and hydrogen peroxide Large amount of wax removed from left ear, mod from right. Patient tolerate procedure without difficulty Encouraged her to use Debrox ear wax softener 6-10 gtt.on cotton pledge once a month. Also to cover ears from hair spray when styling hair. Hypertension, essential 08/27/2021 Assessment & Plan (10/08/2021 4:29 PM OPERATOR [employer]): Hypertension stable at this time. Note continue to watch diet for high salt foods, no adding salt to foods. And avoiding salty drinks. Weigh weekly looking for a increase of weight 3-5 pounds. Look for neck vein distension or edema in lower legs. Continue with medications as ordered. Assessment & Plan (09/03/2021 6:08 PM OPERATOR [employer]): Continue with meds as directed Watch salt in diet, avoid salty foods. Exercise as tolerated. Check blood pressure at home. Assessment & Plan (08/27/2021 1:28 PM OPERATOR [employer]): Continue with Lisinopril 10 mg for HTN and HCTZ 12.5 for HTN Check blood pressure at home. At least 3 times a week. Watch salt in diet, and excessive salty foods. Mixed hyperlipidemia 08/27/2021 Assessment & Plan (08/27/2021 1:29 PM OPERATOR [employer]): Continue with Crestor 10mg one daily. Watch diet for excessive fatty foods, Exercise as tolerated. Note to watch carbs in diet. Anxiety 08/27/2021 Assessment & Plan (10/08/2021 4:31 PM OPERATOR [employer]): Continue with medication as directed. Keep busy. Get adequate sleep. Exercise on a daily basis. Assessment & Plan (09/03/2021 6:09 PM OPERATOR [employer]): Continue with meds as ordered. Work on reducing stress and anxiety. Continue with exercise, relaxation exercises. Assessment & Plan (08/27/2021 1:25 PM OPER[employer]): Continue with Ativan 0.5mg po for anxiety. Keep busy, Monitor what causes anxiety to increase Check on quality of slleep. Episode of dizziness 08/27/2021 Assessment & Plan (10/08/2021 4:33 PM OPERATOR [employer]): Continue to work on balance. Watch for safety measures with walking and ambulating around the house. Use cane or walker if you are feeling out of balance for prevention of falling. Assessment & Plan (09/03/2021 6:12 PM OPERATOR [employer]): Continue to monitor dizziness, time, place, activity, how long it lasted, possible cause. Antivert 12.5mg one in evening for 7 days. Continue with balance and strength exercises. If dizziness gets worse, or falling, or can't move extremities, seek medical help. Call in 7 days with up date. Assessment & Plan (08/27/2021 1:24 PM OPERATOR [employer]): Keep diary of when dizziness occurs, and any associations with or without activity. Make sure she is drinking adequate fluid. See if associated with no food. Monitor BP at home and check pulsel Lymphedema of left arm 08/04/2019 Assessment & Plan (10/08/2021 4:26 PM OPERATOR [employer]): Note continues to wear the compression sleeve on the left arm which has helped a lot. Arm size is almost equal to the right. Has good pulses in arm' Good sensation and strength. Continue with arm exercises and working on grasp strength. Assessment & Plan (08/27/2021 1:33 PM OPERATOR [employer]): No problems with left arm. Continues to wear arm compression sleeve. Also has pump at home for this problem. Note no problems at this time. Arm has no swelling at this time. Pulses in arm are good at this time. Personal history of breast cancer 04/14/2018 Cancer Staging:Clinical stage from 10/11/1996:Stage IIB(cT2, cN0, cM0, G3, ER: Negative, MA: Negative, HER2: Negative) - Signed by Emmanuel Salvador MD on 04/15/2018 Resolved Problems Problem Noted Date Diagnosed Date Resolved Date Inflammation of sacroiliac joint 05/16/2020 05/15/2021 Spinal stenosis of lumbar region 05/16/2020 05/15/2021 SOB (shortness of breath) 08/21/2018 Subdural hematoma (CMS/HCC) 08/17/2018 05/15/2021 Closed fracture of right distal radius 05/19/2018 05/15/2021 Immunizations Immunization Administration Dates Next Due Influenza, Trivalent, Adjuva nted, Intramuscular 05/18/2019 Influenza, Trivalent, High D ose, Split, Preservative Free, Intramuscular 06/01/2018 Influenza, Unspecified 10/02/2020(Deferr ed: Patient Refused),03/13/2017,03/13/2017 Pfizer SARS-CoV-2 Monovalent Vaccination (12+ Yrs) PURPLE 06/08/2021 Pneumococcal Conjugate, Unspecified 04/15/2016 ZOSTER LIVE 03/13/2017,03/13/2017 Surgical History Surgery Date Site/Laterality Comments MASTECTOMY 08/04/1999 - 08/03/2000 Left BREAST LUMPECTOMY 08/04/1996 - 08/03/1997 BREAST BIOPSY 1999 COLONOSCOPY ARM SURGERY 07/04/2020 - 08/03/2020 broke arm - rods placed SECTION 08/04/1974 - 08/03/1975 WILMA HOLE FOR SUBDURAL HEMATOMA 08/2018, 11/2018 Medical History Medical History Date Comments Breast cancer (HCC) Hypertension Hypercholesteremia Subdural hematoma (HCC) 08/17/2018 Broken arm, left, closed, initial encounter 07/05 020 Family History Medical History Relation Name Comments No Known Problems Daughter Breast cancer Sister Relation Name Status Comments Daughter Sister (Age 46) 44 when di agnosed Social History Tobacco Use Types Packs/Day Years Used Date Smoking Tobacco: Never Smokeless Tobacco: Never Tobacco Cessation:Counseling Given: No Alcohol Use Standard Drinks/Week Comments No 0 (1 standard drink = 0.6 oz pur e alcohol) PHQ-2 Answer Date Recorded PHQ-2 Total Score (If total score is 3 or more points, staff should administer the PHQ-9) 0 10/02/2021 Personal Safety Answer Date Recorded Getting School Help Needed Not on file 10/03 Comments Unknown Sex and Gender Information Value Date Recorded Sex Assigned at Not on file Legal Sex Female 8:18 AM CDT Gender Identity Female 04/15/2018 10:52 AM CDT Sexual Orientation Not on file Obstetrics History Last Filed Vital Signs Vital Sign Reading Time Taken Comments Blood Pressure 110/80 04/04/2023 8:14 AM CDT Pulse 96 09/27/2022 10:58 AM OPERATOR [employer] Temperature 34.5 C (94.1 F) 09/27/2022 10:58 AM OPERATOR [employer] Respiratory Rate 18 09/27/2022 10:58 AM OPERATOR [employer] Oxygen Saturation 97% 09/27/2022 10:58 AM OPERATOR [employer] Inhaled Oxygen Concentration - - Weight 61.7 kg (136 lb) 04/04/2023 8:14 AM CDT Height 147.3 cm (4' 9.99 ) 04/04/2023 8:14 AM CD T Body Mass Index 28.43 04/04/2023 8:14 AM CDT Plan of Treatment Health Maintenance Due Date Last Done Comments Osteoporosis Screening-Bone Density Scan 1940 DTaP/Tdap/Td Vaccine (1 - Tdap) 1949 Hepatitis B Screening 1956 Pneumococcal vaccine 65+ (2 of 2 - PPSV23) 04/15/2017 04/15/2016 Zoster Vaccine (2 of 3) 05/08/2017 03/13/2017, 03/13 Well Visit 65+ 04/02/2022 04/02/2021 Depression Screening 10/02/2022 10/02/2021, 08/27/2021, 04/02/2021, Additional history exists Fall Risk Assessment 10/02/2022 10/02/2021, 08/27/2021, 04/02/2021, Additional history exists Covid-19 Vaccine (2023-2 5 season) 2024 06/08/2021, 10/25/2020, 10/04/2020 Influenza Vaccine (#1) 2024 , 05/18/2019, 06/01/2018, Additional history exists [facility] AETNA SENIOR SUPPLEMENT MEDICARE AETNA COVENTRY PPO Care Teams Consumer Loan Underwriter Relationship Specialty Start Date End Date Santiago Mauricio MD [address] [place] [address] PCP - General Family Medicine 05/14/22 Kate Kuo NP [address] [place] [address] Nurse Practitioner Medical Oncology 05/15/21
--- OUTSIDE RECORDS SUMMARY | 2024-10-09 11:03 | XMS_ITS | Encounter Summary ---
Author Organization [facility] Address [address] [address] Care Team Providers Care Lead Miner Blasting Name Role Phone Santiago Mauricio MD Primary Care Provider [phone] Encounter Details Date Type Department Care Team (Late st Contact Info) Description 12/31/2023 Lab Requisition [facility] - Derm[facility] Lab [address] [facility] [address] [place] [address] Vickie Oden MD [address] [facility] [address] [place] [address] Social History Tobacco Use Types Packs/Day Years Used Date Smoking Tobacco: Never Smokeless Tobacco: Never Alcohol Use Standard Drinks/Week Comments No 0 (1 standard drink = 0.6 oz pur e alcohol) Sex and Gender Information Value Date Recorded Sex Assigned at Not on file Gender Identity Not on file Sexual Orientation Not on file documented as of this encounter Functional Status Functional Status Response Date of Assess ment Is person deaf or have serious hearing difficult y? No 11/11/2018 Is person blind or have serious difficulty seein g? No 11/11/2018 Does person have serious dif ficulty walking/climbing stairs? No 11/11/2018 Does person have difficulty dressing/bathing? No 11/11/2018 Does person have difficulty doing errands alone? No 11/11/2018 Cognitive Status Response Date of Assessm ent Does person have difficulty concentrating/remembering/making decisions? No 11/11/2018 documented as of this encounter Plan of Treatment Not on file documented as of this encounter Procedures Procedure Name Priority Date/Time Associated Diagnosis Comments DERMATOPATHOLOGY Routine 12/31/2023 3:50 PM CDT documented in this encounter Results * DERMATOPATHOLOGY (12/31/2023 3:50 PM CDT) Case Report Dermatopathology Report Case: [id number] Authorizing Provider: Vickie Oden MD Collected: 12/31/2023 03:50 PM Ordering Location: [facility] - Received: 01/01/2024 12:51 PM DermPath Lab Pathologist: Aidan Faye MD Specimen: Skin, right gnosticist 1:40 PM CDT DERMATOPATHOLOGY LABORATORY Final Diagnosis Specimen A. 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 SCC vs. ISK 1:40 PM CDT DERMATOPATHOLOGY LABORATORY Gross Description Specimen A: Received is one formalin filled container labeled with the patient's name and designated right gnosticist. The specimen consists of a shave biopsy measuring 6x6x2 mm. Jar 0. 1:40 PM CDT DERMATOPATHOLOGY LABORATORY Microscopic Description Specimen A. SKIN, right gnosticist: The epidermis is acanthotic and shows full thickness disorderly maturation of keratinocytes, mitoses at different levels, and dyskeratotic cells. There is overlying parakeratosis and hyperkeratosis. 1:40 PM CDT DERMATOPATHOLOGY LABORATORY Disclaimer An external and internal positive and negative controls are appropriate for the histochemical, immunohistochemical and immunofluorescence stain(s) in this case (if any), except where stated explicitly. The performance characteristics of the stain(s) cited in this report were developed and its performance characteristic determined by the Dermatopathology Laboratory at [facility], directed by Dr. Robyn Faye. These tests need not be, and therefore are not, approved by the [place] Food and Drug Administration. The tests are used for clinical purposes. Billing Codes Specimen Charges Stain Charges 47687 1 4 1:40 PM CDT DERMATOPATHOLOGY LABORATORY Embedded Images 4 1:40 PM CDT DERMATOPATHOLOGY LABORATORY Pathology/Cytolo gy TISSUE SPECIMEN FROM SKIN / Unknown 12/31/2023 3:50 PM CDT 01/01/2024 12:51 PM CDT Vickie Oden MD LAB - PATHOLOGY/CYT OLOGY ORDERABLES DERMATOPATHOLOGY LABORATORY [facility] - Department of Dermatology [address], [address] [phone] documented in this encounter Visit Diagnoses Not on filedocumented in this encounter Care Teams Lead Miner Blasting Relationship Specialty Start Date End Date Santiago Mauricio MD [address] [place] [address] PCP - General Family Medicine 11/05/18 documented as of this encounter
--- OUTSIDE RECORDS SUMMARY | 2024-10-09 11:03 | XMS_ITS | Clinical Summary ---
Author Organization [facility] Address [address] [facility] [place] [address] Care Team Providers Care Respite Worker Name Role Phone Santiago Mauricio MD Primary Care Provider [phone] Source Comments [facility],non-owned Affiliates and Associated Physician Practices is amultiple site organization consisting of ambulatory clinics and hospital sitesin [place], [place] and [place]. This disclosure is being madepursuant to the Care Everywhere program and may not contain all information available regarding this patient. Last updated 18.[facility] [employer] Allergies Active Allergy Reactions Criticality Noted Date Comments Aspirin Shortness of Breath High 08/18/2018 Nsaids Shortness of Breath High 08/18/2018 Penicillins Anaphylaxis High 08/18/2018 Medications * Be aware that medications may not be up to date on this document. Alwaysverify current medications with the patient. Medication Sig Dispensed Refills Start Date End Date Status LORazepam (ATIVAN) 0.5 MG tablet Take 0.5 mg by mouth 2 times daily as needed for Anxiety Active montelukast (SINGULAIR) 10 MG tablet Take 10 mg by mouth at bedtime Active rosuvastatin (CRESTOR) 5 MG tablet Take 5 mg by mouth once daily Active levETIRAcetam (KEPPRA) 500 MG tablet Take 1 tablet by mouth 2 times daily 60 tablet 08/25/2018 Active lisinopril (PRINIVIL; ZESTRIL) 10 MG tablet Take 1 tablet by mouth once daily 30 tablet 08/26/2018 Active Additional Information Patient taking differently: 20 mgOral DAILY, Reported on 11/05/2018 allopurinol (ZYLOPRIM) 100 MG tablet Take 100 mg by mouth once daily Active acetaminophen (TYLENOL) 325 MG tablet Take 2 tablets by mouth every 4 hours as needed Maximum allowable Acetaminophen amount = 4 Grams (4000 mg) / 24 hours. 11/11/2018 Active hydroCHLOROthiazid e (HYDRODIURIL) 12.5 MG TABS Take by mouth once daily Active albuterol HFA (PROVENTIL;VENTOLI N;PROAIR) 108 (90 Base) MCG/ACT inhaler INHALE 2 PUFFS BY MOUTH EVERY 4 TO 6 HOURS NEEDED 5 02/25/2019 Active vitamin D, ergocalciferol, (DRISDOL) 1.25 MG (90218 UT) capsule Take 50,000 Units by mouth every 7 days 2 04/01/2019 Active HYDROcodone-acetam inophen (NORCO) 5-325 MG tablet hydrocodone 5 mg-acetaminophen 325 mg tablet TK 1 T PO Q 6 H PRF PAIN Active Active Problems Problem Noted Date Diagnosed Date SDH (subdural hematoma) 11/05/2018 SOB (shortness of breath) 08/21/2018 Subdural hematoma 08/17/2018 Immunizations Name Administration Dates Next Due INFLUENZA VACCINE 05/28/2019 Social History Tobacco Use Types Packs/Day Years Used Date Smoking Tobacco: Never Smokeless Tobacco: Never Tobacco Cessation:Counseling Given: No Alcohol Use Standard Drinks/Week Comments No 0 (1 standard drink = 0.6 oz pur e alcohol) Sex and Gender Information Value Date Recorded Sex Assigned at Not on file Gender Identity Not on file Sexual Orientation Not on file Last Filed Vital Signs Vital Sign Reading Time Taken Comments Blood Pressure 145/85 06/11/2019 10:43 AM CALIBRATOR BAROMETERS Pulse 109 06/11/2019 10:43 AM CALIBRATOR [employer]ET[employer] Temperature 36.8 C (98.3 F) 06/11/2019 10:43 AM CALIBRATOR [employer]ET[employer] Respiratory Rate 20 06/11/2019 10:43 AM CALIBRATOR BAROMETERS Oxygen Saturation 97% 06/11/2019 10:43 AM CALIBRATOR [employer]ET[employer] Inhaled Oxygen Concentration - - Weight 63 kg (139 lb) 06/11/2019 10:43 AM CAL[employer]RATOR [employer]ET[employer] Height 152.4 cm (5') 06/11/2019 10:43 AM CALIBRATOR [employer]OMETERS Body Mass Index 27.15 06/11/2019 10:43 AM CALIBRATOR BAROMETERS Plan of Treatment Health Maintenance Due Date Last Done Comments BONE DENSITY TESTING 1940 MEDICARE AWV 12 MONTHS 1940 DTAP/TDAP/TD VACCINES (1 - Tdap) 1957 PNEUMOCOCCAL VACCINE 50+ (1 of 1 - PCV) 1988 ZOSTER VACCINE (1 of 2) 1988 Respiratory Syncytial Virus (RSV) Vaccine Pt: or over 60 yrs (1 - 1-dose 75+ series) 2013 COVID-19 VACCINE (1 - 2023-2 5 season) 2024 INFLUENZA VACCINE (#1) 2024 05/28/2019 DEPRESSION SCREENING 08/04/2024 HEPATITIS B VACCINE Aged Out No longe r eligible based on patient's age to complete this topic HIB VACCINE Aged Out No longer eligi ble based on patient's age to complete this topic HPV VACCINE Aged Out No longer eligi ble based on patient's age to complete this topic MENINGOCOCCAL (Group B) VACCINE Aged Out No longer eligible based on patient's age to complete this topic MENINGOCOCCAL VACCINE Aged Out No obi carmen eligible based on patient's age to complete this topic Advance Directives * Full Code (Latest Code Status on File) Date Activated Date Inactivated Comments 11/05/2018 10:54 PM 11/11/2018 2:51 PM * Full Code Date Activated Date Inactivated Comments 08/18/2018 10:21 AM 08/25/2018 5:15 PM Care Teams Respite Worker Relationship Specialty Start Date End Date Santiago Mauricio MD [address] [place] [address] PCP - General Family Medicine 11/05/18
--- OUTSIDE RECORDS SUMMARY | 2024-10-09 11:03 | XMS_ITS | Referral Summary ---
Author Organization [facility] Address [address] [place] [address] Phone Care Team Providers Care Combustion Analyst Name Role Phone Kate Kuo NP Unavailable [phone] Santiago Mauricio MD Primary Care Provider Allergies [...] 09/03/2021 Assessment & Plan (09/03/2021 6:07 PM REGIONAL TRAINING MANAGER): Bilateral ear irrigations done using water and hydrogen peroxide Large amount of wax removed from left ear, mod from right. Patient tolerate procedure without difficulty Encouraged her to use Debrox ear wax softener 6-10 gtt.on cotton pledge once a month. Also to cover ears from hair spray when styling hair. Hypertension, essential 08/27/2021 Assessment & Plan (10/08/2021 4:29 PM REGIONAL TRAINING MANAGER): Hypertension stable at this time. Note continue to watch diet for high salt foods, no adding salt to foods. And avoiding salty drinks. Weigh weekly looking for a increase of weight 3-5 pounds. Look for neck vein distension or edema in lower legs. Continue with medications as ordered. Assessment & Plan (09/03/2021 6:08 PM REGIONAL TRAINING MANAGER): Continue with meds as directed Watch salt in diet, avoid salty foods. Exercise as tolerated. Check blood pressure at home. Assessment & Plan (08/27/2021 1:28 PM REGIONAL TRAINING MANAGER): Continue with Lisinopril 10 mg for HTN and HCTZ 12.5 for HTN Check blood pressure at home. At least 3 times a week. Watch salt in diet, and excessive salty foods. Mixed hyperlipidemia 08/27/2021 Assessment & Plan (08/27/2021 1:29 PM REGIONAL TRAINING MANAGER): Continue with Crestor 10mg one daily. Watch diet for excessive fatty foods, Exercise as tolerated. Note to watch carbs in diet. Anxiety 08/27/2021 Assessment & Plan (10/08/2021 4:31 PM REGIONAL TRAINING MANAGER): Continue with medication as directed. Keep busy. Get adequate sleep. Exercise on a daily basis. Assessment & Plan (09/03/2021 6:09 PM REGIONAL TRAINING MANAGER): Continue with meds as ordered. Work on reducing stress and anxiety. Continue with exercise, relaxation exercises. Assessment & Plan (08/27/2021 1:25 PM REGIONAL TRAINING MANAGER): Continue with Ativan 0.5mg po for anxiety. Keep busy, Monitor what causes anxiety to increase Check on quality of slleep. Episode of dizziness 08/27/2021 Assessment & Plan (10/08/2021 4:33 PM REGIONAL TRAINING MANAGER): Continue to work on balance. Watch for safety measures with walking and ambulating around the house. Use cane or walker if you are feeling out of balance for prevention of falling. Assessment & Plan (09/03/2021 6:12 PM REGIONAL TRAINING MANAGER): Continue to monitor dizziness, time, place, activity, how long it lasted, possible cause. Antivert 12.5mg one in evening for 7 days. Continue with balance and strength exercises. If dizziness gets worse, or falling, or can't move extremities, seek medical help. Call in 7 days with up date. Assessment & Plan (08/27/2021 1:24 PM REGIONAL TRAINING MANAGER): Keep diary of when dizziness occurs, and any associations with or without activity. Make sure she is drinking adequate fluid. See if associated with no food. Monitor BP at home and check pulsel Lymphedema of left arm 08/04/2019 Assessment & Plan (10/08/2021 4:26 PM REGIONAL TRAINING MANAGER): Note continues to wear the compression sleeve on the left arm which has helped a lot. Arm size is almost equal to the right. Has good pulses in arm' Good sensation and strength. Continue with arm exercises and working on grasp strength. Assessment & Plan (08/27/2021 1:33 PM REGIONAL TRAINING MANAGER): No problems with left arm. Continues to wear arm compression sleeve. Also has pump at home for this problem. Note no problems at this time. Arm has no swelling at this time. Pulses in arm are good at this time. Personal history of breast cancer 04/14/2018 Cancer Staging:Clinical stage from 10/11/1996:Stage IIB(cT2, cN0, cM0, G3, ER: Negative, HI: Negative, HER2: Negative) - Signed by Emmanuel [...] Pneumococcal Conjugate, Unspecified 04/15/2016 [facility] 03/13/2017,03/13/2017 Social History Tobacco Use Types Packs/Day Years [...] AM CDT Sexual Orientation Not on file Last Filed Vital Signs Vital Sign Reading Time Taken Comments Blood Pressure 110/80 04/04/2023 8:14 AM CDT Pulse 96 09/27/2022 10:58 AM REGIONAL TRAINING MANAGER Temperature 34.5 C (94.1 F) 09/27/2022 10:58 AM REGIONAL TRAINING MANAGER Respiratory Rate 18 09/27/2022 10:58 AM REGIONAL TRAINING MANAGER Oxygen Saturation 97% 09/27/2022 10:58 AM REGIONAL TRAINING MANAGER Inhaled Oxygen Concentration - - Weight 61.7 kg (136 lb) 04/04/2023 8:14 AM CDT Height 147.3 cm (4' 9.99 ) 04/04/2023 8:14 AM CD T Body Mass Index 28.43 04/04/2023 8:14 AM CDT Plan of Treatment Not on file Insurance [facility]IC[facility] MEDICARE [facility] PPO Care Teams Combustion Analyst Relationship Specialty Start Date End Date Santiago Mauricio MD [address] [facility] [address] [place] [address] PCP - General Family Medicine 05/14/22 Kate Kuo NP [address] [place] [address] Nurse Practitioner Medical Oncology 05/15/21
--- OUTSIDE RECORDS SUMMARY | 2024-10-09 11:03 | XMS_ITS | Encounter Summary ---
Author Organization [facility] Address [address] [place] [address] Care Team Providers Care Nail Kegger Name Role Phone Santiago Mauricio MD Primary Care Provider [phone] Encounter Details Date Type Department Care Team (Late st Contact Info) Description 03/16/2020 Lab Requisition [facility] [address] [facility] [place] [id number] Tracey Monsalve, [address] [facility] [address] [place] [address] Social History Tobacco Use Types Packs/Day Years [...] Priority Date/Time Associated Diagnosis Comments DERMATOPATHOLOGY Routine 03/15/2020 12:0 0 AM CDT documented in this encounter Results * DERMATOPATHOLOGY (03/15/2020 12:00 AM CDT) Case Report Dermatopathology Report Case: [id number] Authorizing Provider: Tracey Monsalve DO Collected: 03/15/2020 12:00 AM Ordering Location: [facility] Received: 03/16/2020 09:13 AM Pathologist: Erin Ly MD Specimen: Skin, left medial cheek 0 3:42 PM CDT DERMATOPATHOLOGY LABORATORY Final Diagnosis Specimen A. 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 The specimen consists of a shave biopsy measuring 3x3x1 mm. Jar 0. 0 3:42 PM CDT DERMATOPATHOLOGY LABORATORY Microscopic Description Specimen A. SKIN, left medial cheek: There are prominent sebaceous gland lobules surrounding a dilated hair follicle. The epidermis is focally necrotic and covered with a scale-crust. There is fibrin at the base. 0 3:42 PM CDT DERMATOPATHOLOGY LABORATORY Disclaimer An external and internal positive and negative controls are appropriate for the histochemical, immunohistochemical and immunofluorescence stain(s) in this case (if any), except where stated explicitly. The performance characteristics of the stain(s) cited in this report were developed and its performance characteristic determined by the Dermatopathology Laboratory at [facility], directed by Dr. Robyn Faye. These tests need not be, and therefore are not, approved by the [place] Food and Drug Administration. The tests are used for clinical purposes. Billing Codes Specimen Charges Stain Charges 32695 1 0 3:42 PM CDT DERMATOPATHOLOGY LABORATORY Embedded Images 0 3:42 PM CDT DERMATOPATHOLOGY LABORATORY Pathology/Cytolog y TISSUE SPECIMEN FROM SKIN / Unknown 03/15/2020 03/16/2020 9:13 AM CDT Tracey Monsalve DO LAB - PATHOLOGY/C YTOLOGY ORDERABLES DERMATOPATHOLOGY LABORATORY [facility] - Department of Dermatology [facility]/[address] [phone] documented in this encounter Visit Diagnoses Not on filedocumented in this encounter Care Teams Nail Kegger Relationship Specialty Start Date End Date Santiago Mauricio MD [address] [place] [address] PCP - General Family Medicine 11/05/18 documented as of this encounter
--- OUTSIDE RECORDS SUMMARY | 2024-10-09 11:03 | XMS_ITS | Patient Health Summary ---
Author Organization [facility] Address [address] [place] [address] Care Team Providers Care Coverstitch Elastic Attacher Name Role Phone Santiago Mauricio MD Primary Care Provider [phone] Note from [facility],non-owned Affiliates and Associated Physician Practices is amultiple site organization consisting of ambulatory clinics and hospital sitesin [place], [place], [place] and [place]. This disclosure is being madepursuant to the Care Everywhere program and may not contain all information available regarding this patient. Last updated 18.[facility] Allergies * Aspirin(Shortness of Breath) -High Criticality * Nsaids(Shortness of Breath) -High Criticality * Penicillins(Anaphylaxis) -High Criticality Medications * Be aware that medications may not be up to date on this document. Alwaysverify current medications with the patient. * LORazepam (ATIVAN) 0.5 MG tablet Take 0.5 mg by mouth 2 times daily as needed for Anxiety * montelukast (SINGULAIR) 10 MG tablet Take 10 mg by mouth at bedtime * rosuvastatin (CRESTOR) 5 MG tablet Take 5 mg by mouth once daily * levETIRAcetam (KEPPRA) 500 MG tablet(Started 08/25/2018) Take 1 tablet by mouth 2 times daily * lisinopril (PRINIVIL; ZESTRIL) 10 MG tablet(Started 08/26/2018) Take 1 tablet by mouth once daily * allopurinol (ZYLOPRIM) 100 MG tablet Take 100 mg by mouth once daily * acetaminophen (TYLENOL) 325 MG tablet(Started 11/11/2018) Take 2 tablets by mouth every 4 hours as needed Maximum allowable Acetaminophen amount = 4 Grams (4000 mg) / 24 hours. * hydroCHLOROthiazide (HYDRODIURIL) 12.5 MG TABS Take by mouth once daily * albuterol HFA (PROVENTIL;VENTOLIN;PROAIR) 108 (90 Base) MCG/ACT inhaler (Started 02/25/2019) INHALE 2 PUFFS BY MOUTH EVERY 4 TO 6 HOURS NEEDED 5 refills left * vitamin D, ergocalciferol, (DRISDOL) 1.25 MG (23917 UT) capsule(Started 04/01/2019) Take 50,000 Units by mouth every 7 days 2 refills left * HYDROcodone-acetaminophen (NORCO) 5-325 MG tablet hydrocodone 5 mg-acetaminophen 325 mg tablet TK 1 T PO Q 6 H PRF PAIN Active Problems Problem Noted Date Diagnosed Date SDH (subdural hematoma) 11/05/2018 SOB (shortness of breath) 08/21/2018 Subdural hematoma 08/17/2018 Immunizations * INFLUENZA VACCINE(Given 05/28/2019) Social History Tobacco Use Types Packs/Day Years [...] Comments Blood Pressure 145/85 06/11/2019 10:43 AM [facility] Pulse 109 06/11/2019 10:43 AM [facility] Temperature 36.8 C (98.3 F) 06/11/2019 10:43 AM [facility] Respiratory Rate 20 06/11/2019 10:43 AM [facility] Oxygen Saturation 97% 06/11/2019 10:43 AM [facility] Inhaled Oxygen Concentration - - Weight 63 kg (139 lb) 06/11/2019 10:43 AM [facility] Height 152.4 cm (5') 06/11/2019 10:43 AM [facility] Body Mass Index 27.15 06/11/2019 10:43 AM [facility] Procedures * DERMATOPATHOLOGY(Performed 12/31/2023) * DERMATOPATHOLOGY(Performed 04/18/2022) * DERMATOPATHOLOGY(Performed 03/15/2020) * DERMATOPATHOLOGY(Performed 07/19/2019) * CT HEAD WO CONTRAST(Performed 06/11/2019) Performed for Subdural hematoma (HCC) * CT HEAD WO CONTRAST(Performed 12/10/2018) Performed for SDH (subdural hematoma) (HCC) * DIFFERENTIAL MANUAL(Performed 11/11/2018) * BASIC METABOLIC PANEL (CALCIUM TOTAL)(Performed 11/11/2018) * CBC W AUTO DIFFERENTIAL(Performed 11/11/2018) * URINALYSIS REFLEX TO MICROSCOPIC NO CULTURE(Performed 11/10/2018) * CULTURE URINE(Performed 11/10/2018) * DIFFERENTIAL MANUAL(Performed 11/09/2018) * BASIC METABOLIC PANEL (CALCIUM TOTAL)(Performed 11/09/2018) * CBC W AUTO DIFFERENTIAL(Performed 11/09/2018) * XR CHEST 1VW(Performed 11/09/2018) Performed for SDH (subdural hematoma) (HCC), SOB (shortness of breath) * CULTURE BLOOD(Performed 11/09/2018) * CULTURE BLOOD(Performed 11/09/2018) * PTH RELATED PEPTIDE(Performed 11/09/2018) * DIFFERENTIAL MANUAL(Performed 11/09/2018) * CBC W AUTO DIFFERENTIAL(Performed 11/09/2018) * BASIC METABOLIC PANEL (CALCIUM TOTAL)(Performed 11/09/2018) * CT HEAD WO CONTRAST(Performed 11/08/2018) Performed for Subdural hematoma (HCC) * BASIC METABOLIC PANEL (CALCIUM TOTAL)(Performed 11/07/2018) * CBC W AUTO DIFFERENTIAL(Performed 11/07/2018) * BASIC METABOLIC PANEL (CALCIUM TOTAL)(Performed 11/06/2018) * CBC W AUTO DIFFERENTIAL(Performed 11/06/2018) * CT HEAD WO CONTRAST(Performed 11/06/2018) Performed for Subdural hematoma (HCC) * BASIC METABOLIC PANEL (CALCIUM TOTAL)(Performed 11/05/2018) * DIFFERENTIAL MANUAL(Performed 11/05/2018) * PTT [facility](Performed 11/05/2018) * PT-INR [facility](Performed 11/05/2018) * CBC W AUTO DIFFERENTIAL(Performed 11/05/2018) * TYPE + SCREEN PANEL(Performed 11/05/2018) * CT HEAD WO CONTRAST(Performed 08/24/2018) Performed for Subdural hematoma (HCC) * XR CHEST 1VW(Performed 08/24/2018) Performed for Subdural hematoma (HCC) * XR CHEST 2VW(Performed 08/21/2018) Performed for SOB (shortness of breath) * D-DIMER(Performed 08/21/2018) * VANCOMYCIN LEVEL TROUGH(Performed 08/21/2018) * CBC W AUTO DIFFERENTIAL(Performed 08/21/2018) * BASIC METABOLIC PANEL (CALCIUM TOTAL)(Performed 08/21/2018) * URINALYSIS REFLEX TO MICROSCOPIC NO CULTURE(Performed 08/20/2018) * CULTURE URINE(Performed 08/20/2018) * CULTURE BLOOD(Performed 08/19/2018) * BASIC METABOLIC PANEL (CALCIUM TOTAL)(Performed 08/19/2018) * CULTURE BLOOD(Performed 08/19/2018) * DIFFERENTIAL MANUAL(Performed 08/19/2018) * CBC W AUTO DIFFERENTIAL(Performed 08/19/2018) * XR CHEST 1VW(Performed 08/19/2018) Performed for Subdural hematoma (HCC) * BASIC METABOLIC PANEL (CALCIUM TOTAL)(Performed 08/19/2018) * CBC W AUTO DIFFERENTIAL(Performed 08/19/2018) * CT HEAD WO CONTRAST(Performed 08/19/2018) Performed for Subdural hematoma (HCC) * BASIC METABOLIC PANEL (CALCIUM TOTAL)(Performed 08/18/2018) * PT-INR [facility](Performed 08/18/2018) * CBC W AUTO DIFFERENTIAL(Performed 08/18/2018) * CULTURE URINE(Performed 05/11/2014) Results * DERMATOPATHOLOGY (12/31/2023 3:50 PM CDT) Only the most recent of4 resultswithin the time period is included. Case Report Dermatopathology Report Case: [id number] Authorizing Provider: Vickie Oden MD Collected: 12/31/2023 03:50 PM Ordering Location: [facility] - Received: 01/01/2024 12:51 PM DermPath Lab Pathologist: Aidan Faye MD Specimen: Skin, right mosque 4 1:40 PM CDT DERMATOPATHOLOGY LABORATORY Final Diagnosis Specimen A. 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 SCC vs. ISK 1:40 PM CDT DERMATOPATHOLOGY LABORATORY Gross Description Specimen A: Received is one formalin filled container labeled with the patient's name and designated right mosque. The specimen consists of a shave biopsy measuring 6x6x2 mm. Jar 0. 1:40 PM CDT DERMATOPATHOLOGY LABORATORY Microscopic Description Specimen A. SKIN, right mosque: The epidermis is acanthotic and shows full [...] characteristic determined by the Dermatopathology Laboratory at [facility], directed by Dr. Robyn Faye. These tests need not be, and therefore are not, approved by the [place] Food and Drug Administration. The tests are used for clinical purposes. Billing Codes Specimen Charges Stain Charges 60807 1 4 1:40 PM CDT DERMATOPATHOLOGY LABORATORY Embedded Images 1:40 PM CDT DERMATOPATHOLOGY LABORATORY Pathology/Cytolo gy TISSUE SPECIMEN FROM SKIN / Unknown 12/31/2023 3:50 PM CDT 01/01/2024 12:51 PM CDT Vickie Oden MD LAB - PATHOLOGY/CYT OLOGY ORDERABLES DERMATOPATHOLOGY LABORATORY [facility] - Department of Dermatology [address], [address] [phone] * CT HEAD WO CONTRAST (06/11/2019 10:21 AM [facility]) Only the most recent of6 resultswithin the time period is included. Anatomical Region Laterality Modality Head Computed Tomogra phy 06/11/2019 10:5 2 AM [facility] Impressions 06/11/2019 4:58 PM [facility] IMPRESSION: 1.Interval resolution of the old right cerebral convexity subdural hemorrhage with reexpansion of regional cerebral sulci and the right lateral ventricle. 2.No significant change in the size of the left frontal and left parietal convexity subdural collections. Dictated by Corrie Walker MD (operations vice president). This report was approved by Corrie Walker on 06/11/2019 3:27 PM . I, Dr. MONICA POWELL have personally reviewed and interpreted this examination/study. This report was electronically signed by MONICA POWELL on 06/11/2019 4:58 PM . Narrative 06/11/2019 4:[address] HEAD WO CONTRAST EXAMINATION: Computed tomography (CT) of the head without contrast DATE: 06/11/2019 10:21 AM HISTORY: SDH s/p evacuation; 4 week follow up TECHNIQUE: CT of the head was performed without contrast according to standard protocol. COMPARISON: CT head without contrast dated 12/10/2018 FINDINGS: The old subdural drainage along the right cerebral convexity is no longer seen on today's exam. There has been reexpansion of the left frontal parietal cerebral sulci. There has also been subtle expansion of the right lateral ventricle. The left frontal and left parietal convexity subdural collections have minimally decreased (by approximately 1 mm, which may be due to patient positioning). No acute intra- or extra-axial fluid collections are seen. There is mild cerebral and cerebellar volume loss with associated ex vacuo ventricular dilatation. The basilar cisterns are patent. No mass effect or midline shift is seen. The moss-white matter differentiation is normal. Periventricular white matter hypoattenuation is indicative of chronic small vessel ischemic disease. There is vascular calcification of the carotid siphons. The orbits appear normal. New layering air-fluid levels are seen in the bilateral maxillary sinuses. A mucous retention cyst is reidentified in the left maxillary sinus. Moderate ethmoid air cell opacification is unchanged. The mastoid air cells are clear. No soft tissue abnormality is identified. Procedure Note Monica Powell MD - 06/11/2019 CT HEAD WO CONTRAST EXAMINATION: Computed tomography (CT) of the head without contrast DATE: 06/11/2019 10:21 AM HISTORY: SDH s/p evacuation; 4 week follow up TECHNIQUE: CT of the head was performed without contrast according to standard protocol. COMPARISON: CT head without contrast dated 12/10/2018 FINDINGS: The old subdural drainage along the right cerebral convexity is nolonger seen on today's exam. There has been reexpansion of the left frontal parietal cerebral sulci. There has also been subtle expansion of theright lateral ventricle. The left frontal and left parietal convexity subdural collections have minimally decreased (by approximately 1 mm, which maybe due to patient positioning). No acute intra- or extra-axial fluid collections are seen. There is mild cerebral and cerebellar volume loss with associated ex vacuo ventricular dilatation. The basilar cisterns are patent. No mass effect or midline shift is seen. The moss-white matter differentiationis normal. Periventricular white matter hypoattenuation is indicative of chronic small vessel ischemic disease. There is vascular calcificationof the carotid siphons. The orbits appear normal. New layering air-fluid levels are seen in the bilateral maxillary sinuses. A mucous retention cyst is reidentified in the left maxillary sinus. Moderate ethmoid air cell opacification is unchanged. The mastoid air cells are clear. No soft tissue abnormalityis identified. IMPRESSION: 1.Interval resolution of the old right cerebral convexity subdural hemorrhage with reexpansion of regional cerebral sulci and the right lateral ventricle. 2.No significant change in the size of the left frontal and leftparietal convexity subdural collections. Dictated by Corrie Walker MD (operations vice president). This report was approved by Corrie Walker on 06/11/2019 3:27 PM . I, Dr. MONICA POWELL have personally reviewed and interpreted this examination/study. This report was electronically signed by MONICA POWELL on06/11/2019 4:58 PM . Alex Barnard MD CT ORDERABLES * (ABNORMAL) DIFFERENTIAL MANUAL (11/11/2018 12:41 AM CDT) Only the most recent of5 resultswithin the time period is included. WBC (corrected for NRBC) 13.1 10 3/uL 11/11/2018 4:05 AM CDT [facility] Total Cell Count 100 11/11/2018 4:05 AM [facility] Neutrophils Absolute Manual 7.60(H) 1.60 - 7.00 10 3/uL 11/11/2018 4:05 AM [facility] Comment:(BANDS+SEGS) x WBC = NEUT # (ANC) Lymphocyte Absolute Manual 3.80(H) 0.80 - 2.90 10 3/uL 11/11/2018 4:05 AM [facility] Monocytes Absolute Manual 1.44(H) 0.14 - 0.66 10 3/uL 11/11/2018 4:05 AM [facility] Eosinophils Absolute Manual 0.13 0.00 - 0.22 10 3/uL 11/11/2018 4:05 AM [facility] Basophil Absolute Manual 0.13(H) 0.00 - 0.06 10 /uL 11/11/2018 4:05 AM [facility] Band % Manual 1 0 - 10 % 11/11/2018 4:05 AM [facility] Neutrophil % Manual 57 30 - 60 % 11/11/2018 4:05 AM [facility] Lymphocyte % Manual 29 20 - 45 % 11/11/2018 4:05 AM [facility] Monocytes % Manual 11(H) 2 - 10 % 11/11/2018 4:05 AM [facility] Eosinophils % Manual 1 1 - 6 % 11/11/2018 4:05 AM [facility] Basophils % Manual 1 0 - 3 % 11/11/2018 4:05 AM [facility] Platelet Estimate Adequate Adequate 11/11/2018 4:05 AM [facility] RBC Morphology Normal 11/11/2018 4:05 AM [facility] Blood BLOOD SPECIMEN / Unknown Lab Venipuncture / Unknown 11/11/2018 12:41 AM CDT 11/11/2018 12:48 AM [facility] Alex Barnard MD LAB - HEMATOLOGY ORDERABLES [facility] [address] [place] [address] * (ABNORMAL) CBC W AUTO DIFFERENTIAL (11/11/2018 12:41 AM CDT) Only the most recent of10 resultswithin the time period is included. WBC 13.1(H) 3.5 - 10.5 10 3/uL 11/11/2018 12:54 AM [facility] RBC 3.14(L) 3.90 - 5.00 10 6/uL 11/11/2018 12:54 AM [facility] Hemoglobin 9.8(L) 12.0 - 15.5 g/dL 11/11/2018 12:54 AM [facility] Hematocrit 30.1(L) 35.0 - 45.0 % 11/11/2018 12:54 AM [facility] MCV 95.9 81.0 - 97.0 fL 11/11/2018 12:54 AM [facility] MCH 31.2 28.0 - 34.0 pg 11/11/2018 12:54 AM [facility] MCHC 32.6 32.0 - 36.0 g/dL 11/11/2018 12:54 AM [facility] Platelet Count 288 150 - 400 10 3/uL 11/11/2018 12:54 AM [facility] RDW-SD 50.3(H) 36.0 - 50.0 fL 11/11/2018 12:54 AM [facility] RDW-CV 14.4 11.2 - 14.8 % 11/11/2018 12:54 AM [facility] MPV 9.2(L) 9.3 - 12.8 fL 11/11/2018 12:54 AM [facility] nRBC Absolute 0.00 0 10 3/uL 11/11/2018 12:54 AM [facility] nRBC Auto 0.0 0 /100 WBC 11/11/2018 12:54 AM [facility] Blood BLOOD SPECIMEN / Unknown Lab Venipuncture / Unknown 11/11/2018 12:41 AM CDT 11/11/2018 12:48 AM T Alex Barnard MD LAB - HEMATOLOGY ORDERABLES Performing Organization Address City/State/[facility] Co de Phone Number [address] [phone] * (ABNORMAL) BASIC METABOLIC PANEL (CALCIUM TOTAL) (11/11/2018 12:41 AM CDT) Only the most recent of10 resultswithin the time period is included. BUN 18 7 - 26 mg/dL 11/11/2018 1:07 AM [facility] Creatinine 1.1 0.6 - 1.2 mg/dL 11/11/2018 1:07 AM [facility] Sodium 138 136 - 145 mmol/L 11/11/2018 1:07 AM [facility] Potassium 3.9 3.5 - 4.5 mmol/L 11/11/2018 1:07 AM [facility] Chloride 107 98 - 107 mmol/L 11/11/2018 1:07 AM [facility] CO2 23 22 - 29 mmol/L 11/11/2018 1:07 AM [facility] Glucose 129(H) 70 - 115 mg/dL 11/11/2018 1:07 AM [facility] Calcium 10.3(H) 8.4 - 10.2 mg/dL 11/11/2018 1:07 AM [facility] Anion Gap 12 8 - 18 11/11/2018 1:07 AM [facility] BUN/Creatinine Ratio 16 7 - 23 11/11/2018 1:07 AM [facility] Osmolality Calculated 290 270 - 300 mOsm/kg 11/11/2018 1:07 AM [facility] eGFR 48(L) >60 mL/min/1.7 3 m2 11/11/2018 1:07 AM [facility] Blood BLOOD SPECIMEN / Unknown Lab Venipuncture / Unknown 11/11/2018 12:41 AM CDT 11/11/2018 12:48 AM CDT Alex Barnard MD LAB - [place] [address], [facility] [phone] * (ABNORMAL) URINALYSIS REFLEX TO MICROSCOPIC NO CULTURE (11/10/2018 5:55 AM CDT) Only the most recent of2 resultswithin the time period is included. Color UA Yellow Straw, Yellow, Colorless 11/10/2018 6:27 AM [facility] Clarity UA t Cloudy Clear, t Cloudy 11/10/2018 6:27 AM [facility] Specific Sandy UA 1.012 1.005 - 1.030 11/10/2018 6:27 AM [facility] pH UA 6.0 5.0 - 8.0 pH 11/10/2018 6:27 AM [facility] Protein UA Negative Negative mg/dL 11/10/2018 6:27 AM [facility] Glucose UA Negative Negative mg/dL 11/10/2018 6:27 AM [facility] Ketone UA Negative Negative mg/dL 11/10/2018 6:27 AM [facility] Bilirubin UA Negative Negative mg/dL 11/10/2018 6:27 AM [facility] Blood UA Negative Negative 11/10/2018 6:27 AM [facility] Nitrite UA Negative Negative 11/10/2018 6:27 AM [facility] Leukocyte Esterase 1+(A) Negative 11/10/2018 6:27 AM [facility] Urobilinogen UA Negative Negative mg/dL 11/10/2018 6:27 AM [facility] RBC UA 0-2 None Seen, 0-2, 3-5 /HPF 11/10/2018 6:27 AM [facility] WBC UA 11-20(A) None Seen, 0-5 /HPF 11/10/2018 6:27 AM [facility] Bacteria UA 3+(A) None, Trace /HPF 11/10/2018 6:27 AM [facility] Squamous Epithelial Cells UA 0-2 None Seen, 0-2 /HPF 11/10/2018 6:27 AM [facility] Mucus UA 1+ None, 1+ /LPF 11/10/2018 6:27 AM [facility] Hyaline Casts UA 0-2 None Seen, 0-2 /LPF 11/10/2018 6:27 AM [facility] Urine URINE SPECIMEN OBTAINED BY CLEAN CATCH PROCEDURE / Unknown Collection / Unknown 11/10/2018 5:55 AM CDT 11/10/2018 6:01 AM CDT Zachary Velasco MD LAB - URINALYSIS ORD ERABLES Performing Organization Address City/[facility]/ZIP Co de Phone Number [facility] [address] [place] [address], [facility] [phone] * CULTURE URINE (11/10/2018 5:55 AM CDT) Only the most recent of3 resultswithin the time period is included. Culture Urine >100,000 CFU/mL urogenital ad LUCÍA 11/11/2018 12:01 PM CDT [facility] Urine URINE SPECIMEN OBTAINED BY CLEAN CATCH PROCEDURE / Unknown Collection / Unknown 11/10/2018 5:55 AM CDT 11/10/2018 6:01 AM CDT Zachary Velasco MD LAB - MICROBIOLOGY O RDERABLES Performing Organization Address City/[facility]/ZIP Co de Phone Number [facility] [address] [place] [address], [facility] [phone] * XR CHEST 1VW (11/09/2018 8:33 PM CDT) Only the most recent of3 resultswithin the time period is included. Anatomical Region Laterality Modality Chest Radiographic Myranda ging 11/10/2018 8:02 AM CDT Impressions 11/10/2018 8:06 AM CDT IMPRESSION: No acute pulmonary process. Dictated by Hunter [place] MD (resident). I, Dr. EFRAIN SIMMONS have personally reviewed and interpreted this examination/study. This report was electronically signed by EFRAIN SIMMONS on 11/10/2018 8:06 AM . Narrative 11/10/2018 8:06 AM CDT EXAMINATION: Chest radiograph, AP portable HISTORY: r/o atelectasis vs PNA COMPARISON: Comparison is made to chest radiograph from 08/24/2018. FINDINGS: There is no focal consolidation, pleural effusion, or pneumothorax. Other than mild left basilar atelectasis, the lungs are clear. Pulmonary vascularity is within normal limits. The cardiac silhouette is normal. The aorta is atherosclerotic. The visible bony thorax is intact. Procedure Note Efrain Simmons DO - 11/10/2018 EXAMINATION: Chest radiograph, AP portable HISTORY: r/o atelectasis vs PNA COMPARISON: Comparison is made to chest radiograph from 08/24/2018. FINDINGS: There is no focal consolidation, pleural effusion, or pneumothorax.Other than mild left basilar atelectasis, the lungs are clear. Pulmonary vascularity is within normal limits. The cardiac silhouette is normal.The aorta is atherosclerotic. The visible bony thorax is intact. IMPRESSION: No acute pulmonary process. Dictated by Hunter [place] MD (resident). I, Dr. EFRAIN SIMMONS have personally reviewed and interpreted this examination/study. This report was electronically signed by EFRAIN SIMMONS on 11/10/2018 8:06 AM . Zachary Velasco MD DIAGNOSTIC IMAGING O RDERABLES * CULTURE BLOOD (11/09/2018 8:13 PM CDT) Only the most recent of4 resultswithin the time period is included. Culture No growth day 5 LUCÍA 11/14/2018 11:30 PM CDT [facility] Blood PERIPHERAL BLOOD / Unknown Surgery / Unknown 11/09/2018 8:13 PM CDT 11/09/2018 8:46 PM CDT Zachary Velasco MD LAB - MICROBIOLOGY O RDERABLES [facility] [address] [place], [address] [phone] * PTH RELATED PEPTIDE (11/09/2018 5:12 PM CDT) PTH Related Peptide <2.0 0.0 - 3.4 pmol/L 11/13/2018 2:24 PM CDT Giving Assistant ([facility]) Comment: INTERPRETIVE INFORMATION: Parathyroid Hormone-Related Peptide Test developed and characteristics determined by [employer]. See Compliance Statement B: [employer] Performed by [employer], [address] [place] [address] [email or web address], Arnel Wheeler MD, Lab. Director Blood BLOOD SPECIMEN / Unknown Surgery / Unknown 11/09/2018 5:12 PM CDT 11/09/2018 5:21 PM CDT Alex Barnard MD LAB - CHEMISTRY ORDERABLES [facility] ([facility]) [address] * PTT [facility] (11/05/2018 7:25 PM CDT) APTT 23.5 23.0 - 38.4 Seconds 11/05/2018 7:40 PM CDT [facility] Comment: Suggested therapeutic range for full dose I.V. heparin therapy for venous thromboembolism is 66.0-91.0 seconds. Blood BLOOD SPECIMEN / Unknown Venipuncture / Unknown 11/05/2018 7:25 PM CDT 11/05/2018 7:25 PM CDT Yadira Ly MD LAB - COAGULATION OR DERABLES [address] [phone] * PT-INR [facility] (11/05/2018 7:25 PM CDT) Only the most recent of2 resultswithin the time period is included. PT 12.5 12.1 - 14.8 Seconds 11/05/2018 7:39 PM CDT [facility] INR 1.0 See Comment 11/05/2018 7:39 PM CDT [facility] Comment: The suggested therapeutic range for standard coumadin (warfarin) therapy is an INR of 2.0-3.0. For high-risk patients (Mechanical Mitral Valve Prosthesis, etc.), the suggested prophylactic therapeutic range is an INR of 2.5-3.5. Blood BLOOD SPECIMEN / Unknown Venipuncture / Unknown 11/05/2018 7:25 PM CDT 11/05/2018 7:25 PM CDT Yadira Ly MD LAB - COAGULATION OR DERABLES [facility] [address] [phone] * TYPE + SCREEN PANEL (11/05/2018 7:22 PM CDT) Antibody Screen NEG 9 8:39 PM CDT [facility] ABO Rh A POS 11/05/2018 8:39 PM CDT [facility] Blood Bank BLOOD SPECIMEN / Unknown 11/05/2018 7:22 PM CDT 11/05/2018 7:30 PM CDT Yadira Ly MD LAB - BLOOD BANK ORD ERABLES Performing Organization Address City/[facility] Co de Phone Number [facility] [address] * XR CHEST 2VW (08/21/2018 2:07 PM [facility]) Anatomical Region Laterality Modality Chest Radiographic Myranda ging 08/21/2018 2:12 PM [facility] Impressions 08/21/2018 4:23 PM [facility] Impression: 1. Left basilar opacity has decreased in size. Likely represent atelectasis/pneumonia. 2. Left pleural effusion. Dictated by Valeriano Luna MD (operations vice president) This report was approved by Valeriano Luna on 08/21/2018 3:24 PM . I, Dr. NADINE MATHIS M.D. have personally reviewed and interpreted this examination/study. This report was electronically signed by NADINE MATHIS M.D. on 08/21/2018 4:23 PM . Narrative 08/21/2018 4:23 PM JOURNALISM INTERN Exam: XR CHEST 2VW Date: 08/21/2018 2:08 PM History: sob Comparison: Chest radiograph from 08/19/2018. Findings: The patient is shifted towards the left. The left lower lobe opacity has decreased in size. There is a left pleural effusion. The right lung remains clear. There is no pneumothorax. The cardiomediastinal silhouette is normal. The visible bony thorax is intact. Redemonstrated thoracic scoliosis. Procedure Note Nadine Mathis MD - 08/21/2018 Exam: XR CHEST 2VW Date: 08/21/2018 2:08 PM History: sob Comparison: Chest radiograph from 08/19/2018. Findings: The patient is shifted towards the left. The left lower lobe opacity has decreased in size. There is a left pleural effusion. The right lung remains clear. There is no pneumothorax. The cardiomediastinalsilhouette is normal. The visible bony thorax is intact. Redemonstrated thoracic scoliosis. Impression: 1. Left basilar opacity has decreased in size. Likely represent atelectasis/pneumonia. 2. Left pleural effusion. Dictated by Valeriano Luna MD (operations vice president) This report was approved by Valeriano Luna on 08/21/2018 3:24 PM . I, Dr. NADINE MATHIS M.D. have personally reviewed and interpreted this examination/study. This report was electronically signed by NADINE MATHIS M.D. on 08/21/2018 4:23 PM . Gillian Lozoya COTTON WEIGHER OPERATOR-CLOTH COVERED HELMET PULLER DIAGNOSTIC IMAG ING ORDERABLES * (ABNORMAL) D-DIMER (08/21/2018 1:38 PM JOURNALISM INTERN) D-Dimer Quantitative 1.66(H) <=0.50 mcg/mL FEU 08/21/2018 2:38 PM JOURNALISM INTERN [facility] Comment: In the absence of clinical symptoms, a value less than or equal to 0.5 mcg/mL FEU significantly decreases the probability of PE/DVT (negative predictive value >95%). 1 mcg/mL FEU = 1 Fibrinogen Equivalent Unit (approximates 0.5 mcg/ml of D- Dimer). ISTH DIAGNOSTIC SCORING SYSTEM FOR DIC Score 0 1 2 3 Platelet Count(x10^3/uL) > 100 < 100 < 50 N/A PT Prolongation above upper limit of normal 0-3 3-6 > 6 N/A range (seconds) Fibrinogen (mg/dL) > 100 < 100 N/A N/A D-Dimer (mcg/mL FEU) < 0.50 N/A 0.50-5.0 > 5 Calculate Cumulative Score: > or = 5 :compatible with overt DIC < 5 :suggestive for non-overt DIC N/A = Non applicable Reference: Br. J. Haematol. 145:24-33,2009. Blood BLOOD SPECIMEN / Unknown Lab Venipuncture / Unknown 08/21/2018 1:38 PM JOURNALISM INTERN 08/21/2018 2:13 PM JOURNALISM INTERN Gillian Lozoya COTTON WEIGHER OPERATOR-CLOTH COVERED HELMET PULLER LAB - COAGULATI ON ORDERABLES [address] [phone] * VANCOMYCIN LEVEL TROUGH (08/21/2018 11:14 AM JOURNALISM INTERN) Vancomycin Trough 15.5 10.0 - 20.0 mcg/mL 08/21/2018 12:30 PM JOURNALISM INTERN [facility] Blood BLOOD SPECIMEN / Unknown 08/21/2018 11:14 AM JOURNALISM INTERN 08/21/2018 11:24 AM JOURNALISM INTERN Erika Gutierrez COTTON WEIGHER OPERATOR-CLOTH COVERED HELMET PULLER LAB - CHEMISTRY LOKESH TOMPKINS [address] [phone] Care Teams Coverstitch Elastic Attacher Relationship Specialty Start Date End Date Santiago Mauricio MD [address] [place] [address] PCP - General Family Medicine 11/05/18
--- OUTSIDE RECORDS SUMMARY | 2024-10-09 11:03 | XMS_ITS | Encounter Summary ---
Author Organization [facility] Address [address] [place] [address] Care Team Providers Care Dairy Chemist Name Role Phone Santiago Mauricio MD Primary Care Provider [phone] Encounter Details Date Type Department Care Team (Late st Contact Info) Description 07/20/2019 Lab Requisition [facility] [address] [facility], [place] [id number] Trcaey Monsalve, [address] [facility] [address] [place] [address] Social History Tobacco Use Types Packs/Day Years [...] Priority Date/Time Associated Diagnosis Comments DERMATOPATHOLOGY Routine 07/19/2019 12:0 0 AM SURGICAL CONSULTANT documented in this encounter Results * DERMATOPATHOLOGY (07/19/2019 12:00 AM SURGICAL CONSULTANT) Case Report Dermatopathology Report Case: [id number] Authorizing Provider: Tracey Monsalve DO Collected: 07/19/2019 12:00 AM Ordering Location: [facility] DermPath Lab Received: 07/20/2019 12:39 PM Pathologist: Gisela Hernandez MD Specimen: Skin, left FA 4:46 PM [facility] DERMATOPATHOLOGY LABORATORY Final Diagnosis Specimen A. SKIN, left FA: BASAL CELL CARCINOMA, SUPERFICIAL MULTIFOCAL (C44.619) 4:46 PM [facility] DERMATOPATHOLOGY LABORATORY Clinical History R/O BCC. 4:46 PM [facility] DERMATOPATHOLOGY LABORATORY Gross Description Specimen A: Received is one formalin filled container labeled with the patient's name and designated left FA. The specimen consists of a shave measuring [id number]. Jar 0. 4:46 PM [facility] DERMATOPATHOLOGY LABORATORY Microscopic Description Specimen A. SKIN, left FA: Attached to the undersurface of the epidermis, there are small aggregates of basaloid cells with a high nuclear to cytoplasmic ratio and peripheral palisading. 4:46 PM [facility] DERMATOPATHOLOGY LABORATORY Disclaimer An external and internal positive and negative controls are appropriate for the histochemical, immunohistochemical and immunofluorescence stain(s) in this case (if any), except where stated explicitly. The performance characteristics of the stain(s) cited in this report were developed and its performance characteristic determined by the Dermatopathology Laboratory at [facility], directed by Dr. Robyn Faye. These tests need not be, and therefore are not, approved by the [place] Food and Drug Administration. The tests are used for clinical purposes. Billing Codes Specimen Charges Stain Charges 88064 1 9 4:46 PM [facility] DERMATOPATHOLOGY LABORATORY Embedded Images 4:46 PM SURGICAL CONSULTANT DERMATOPATHOLOGY LABORATORY Pathology/Cytolog y TISSUE SPECIMEN FROM SKIN / Unknown 07/19/2019 07/20/2019 12:39 PM SURGICAL CONSULTANT Tracey Monsalve DO LAB - PATHOLOGY/C YTOLOGY ORDERABLES DERMATOPATHOLOGY LABORATORY [facility] - Department of Dermatology [address] [place] [address] 5th Floor Lab [address] [phone] documented in this encounter Visit Diagnoses Not on filedocumented in this encounter Care Teams Dairy Chemist Relationship Specialty Start Date End Date Santiago Mauricio MD [address] [place] [address] PCP - General Family Medicine 11/05/18 documented as of this encounter
--- OUTSIDE RECORDS SUMMARY | 2024-10-09 11:03 | XMS_ITS | Referral Summary ---
Author Organization [facility] Address [address] [facility] [place] [address] Care Team Providers Care Cleaning Maid Name Role Phone Santiago Muaricio MD Primary Care Provider [phone] [facility],non-owned Affiliates and Associated Physician Practices is amultiple site organization consisting of ambulatory clinics and hospital sitesin [place], [place], [place] and [place]. This disclosure is being madepursuant to the Care Everywhere program and may not contain all information available regarding this patient. Last updated 18.[facility] [employer] Allergies Active Allergy Reactions Criticality Noted Date [...] Active vitamin D, ergocalciferol, (DRISDOL) 1.25 MG (06058 UT) capsule Take 50,000 Units by mouth [...] Comments Blood Pressure 145/85 06/11/2019 10:43 AM CODING TEAM LEAD Pulse 109 06/11/2019 10:43 AM CODING TEAM LEAD Temperature 36.8 C (98.3 F) 06/11/2019 10:43 AM CODING TEAM LEAD Respiratory Rate 20 06/11/2019 10:43 AM CODING TEAM LEAD Oxygen Saturation 97% 06/11/2019 10:43 AM CODING TEAM LEAD Inhaled Oxygen Concentration - - Weight 63 kg (139 lb) 06/11/2019 10:43 AM CODING TEAM LEAD Height 152.4 cm (5') 06/11/2019 10:43 AM CODING TEAM LEAD Body Mass Index 27.15 06/11/2019 10:43 AM CODING TEAM LEAD Functional Status Functional Status Response Date of [...] person have difficulty concentrating/remembering/making decisions? No 11/11/2018 Plan of Treatment Not on file Advance Directives * Full Code (Latest Code Status on File) Date Activated Date Inactivated Comments 11/05/2018 10:54 PM 11/11/2018 2:51 PM * Full Code Date Activated Date Inactivated Comments 08/18/2018 10:21 AM 08/25/2018 5:15 PM Care Teams Cleaning Maid Relationship Specialty Start Date End Date Santiago Mauricio MD [address] [place] [address] PCP - General Family Medicine 11/05/18
--- OUTSIDE RECORDS SUMMARY | 2024-10-09 11:03 | XMS_ITS | Continuity of Care Document ---
Author Name Auto Generated, Auto Generated Organization [facility] Support Name Relationship Address Phone Andria Chavez Daughter Unknown Unavailabl e Meenakshi Chavez Financial Responsible [employer] Party [address] [place] [address] Scott Meenakshi Self [address] [place] [address] Summary Purpose Consult/Referral Allergies, Adverse Reactions, Alerts Type Description/Agent Code Date Allergy Active Date Allergy Inactivated Date of Last Reaction Adverse Reactions Severity Status Comments Source of Information FDB Speci fic Aller gen Group Penicillins Active Patie nt History FDB Medic ation Ingre dient aspirin Active Patient History [facility]DB Speci fic Aller gen Group NSAIDS (Non-Steroidal Anti-Inflammatory Drug) Active Patient History Medications No Known Medications Conditions/Problems Problem/Diagnosis Awareness of Diagnosis Code (ICD-10) Onset Date (Start Date) Resolution Date (End Date) Status Source Comments PERSONAL HISTORY OF MALIGNANT NEOPLASM OF BREAST Z85.3 10/19/19 Active MD Ellen Greg PERSONAL HISTORY OF OTHER MALIGNANT NEOPLASM OF SKIN Z85.828 10/19/19 Active MD Ellen Greg 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 10/19/19 Active MD Ellen Greg PERSONAL HISTORY OF ANTINEOPLASTIC CHEMOTHERAPY Z92.21 10/19/19 Active MD Ellen Greg GASTRO-ESOPHAGEAL REFLUX DISEASE WITHOUT ESOPHAGITIS K21.9 10/19/19 Active MD Ellen Greg OBSTRUCTIVE SLEEP APNEA (ADULT) (PEDIATRIC) G47.33 10/19/19 Active MD Ellen Greg AGE-RELATED OSTEOPOROSIS WITHOUT CURRENT PATHOLOGICAL FRACTURE M81.0 10/19/19 Active MD Ellen Greg HYPERPARATHYROIDISM , UNSPECIFIED E21.3 10/19/19 Active MD Ellen Greg ESSENTIAL (PRIMARY) HYPERTENSION I10 10/19/19 Active MD Ellen Greg UNSPECIFIED ASTHMA, UNCOMPLICATED J45.909 10/19/19 Active MD Ellen Greg HYPERLIPIDEMIA, UNSPECIFIED E78.5 10/19/19 Active MD Ellen Greg LYMPHEDEMA, NOT ELSEWHERE CLASSIFIED I89.0 10/19/19 Active MD Ellen Greg 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 10/19/19 Active MD Ellen Greg BILATERAL PRIMARY OSTEOARTHRITIS OF HIP M16.0 10/19/19 Active MD Ellen Greg UNSPECIFIED RIGHT BUNDLE-BRANCH BLOCK I45.10 10/19/19 Active MD Ellen Greg CYST OF KIDNEY, ACQUIRED N28.1 10/19/19 Active MD Ellen Greg UNILATERAL INGUINAL HERNIA, 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 GANGRENE, NOT SPECIFIED RECURRENT K40.90 10/19/19 Active MD Ellen Greg PERSONAL HISTORY OF (HEALED) TRAUMATIC FRACTURE Z87.81 10/19/19 Active MD Ellen Greg S42.201 PRESENCE OF OTHER BONE AND TENDON IMPLANTS Z96.7 10/19/19 Active MD Ellen Greg 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
--- OUTSIDE RECORDS SUMMARY | 2024-10-09 11:03 | XMS_ITS | Continuity of Care Document ---
Author Organization [facility] Address [address] [place] [address] [address]ive [address] [place] [address] Phone Care Team Providers Care Sales Operations Lead Name Role Phone Se Franco Unavailable Unavailable Procedures Procedure Date Eye Exam & Treatment No Script Refraction Vision Svcs Frames Purchases BF Plastic Sphcyl Reseda To +/-4d .12-2d Tax - Medical Eye Exam & Treatment Refraction Advance Directives Directive Yes / No Effective Date File Name No Information Encounters Encounter Description Practice Location Reason(s) For Visit Diagnoses Date Provider Providers Copied on Encounter [facility], [address] [place] [address] [address], [place], [place], [id number], tel:[phone] [facility] No Information [address] Joan Saez. [address] , [address], [place], [address], [place]. tel:[phone] [facility], [address] [place] [address] [address], [place], [place], [id number], [place] tel:[phone] [facility] No Information [address] [facility] . [address] [facility] [address], [address], [place], [place], [address], [place]. tel:[phone] Referring Provider: Teofilo Mondragon[address], [place], [place], [facility]. tel:[phone] hawley Provider: Sara Franks [address] [place], [place], [address]. tel:[phone] [facility], [address], [place], [place], [address], [place] tel:[phone] [facility] No Information [address] , [address], [place], [address], [place]. tel:[phone] Family History Family Member Type Diagnosis Age At Onset No Information Payers Payer name Insurance type Covered green party ID Authoriza tion(s) Medicare [place] CI [id number] Social History Type Description Quantity Date Captured Comments Sex Female Smoking Status No Information Chief Complaint And Reason For Visit No Information Reason For Referral Reason For Referral No Information History Of Present Illness Encounter Date Complaint History Of Prese nt Illness No Information Functional Status Date Functional Assessmen t No Information Instructions Date Instruction Additional Infor mation No Information Assessments Type Assessment Date No Information Patient Care Teams Name Effective Dates (start - stop) Status Members No Information
[2024-10-09 11:06] VITALS: BP 142/71; PULSE 84; RESP 18; TEMP 37.1; O2SAT 100
[2024-10-09 11:20] VITALS: BP 129/66; PULSE 86; RESP 16; O2SAT 99
--- NOTE | 2024-10-09 11:30 | ECG_ITS ---
Test Date: 2024-10-09 11:41:38 Measurements Intervals [place] Rate: 80 P: 77 CO: 142 QRS: -40 QRSD: 129 T: 96 QT: 380 QTc: 440 Interpretive Statements SINUS RHYTHM MARKED LEFT AXIS DEVIATION [QRS AXIS < -30] POSSIBLE RIGHT VENTRICULAR CONDUCTION DELAY [RSR (QR) IN V1/V2] LEFT VENTRICULAR HYPERTROPHY AND ST-T CHANGE [VOLTAGE CRITERIA PLUS ST/T ABNORMALITY] ABNORMAL ECG No previous ECG available for comparison Electronically Signed On 10-09-2024 16:01:10 TERRAZZO TILE SETTER by Geo Brandon M.D.
--- OUTSIDE RECORDS SUMMARY | 2024-10-09 11:38 | XMS_ITS | Encounter Summary ---
Author Organization [facility] Address [address] [place] [address] Care Team Providers Care Senior Asic Engineer Name Role Phone Santiago Mauricio MD Primary Care Provider [phone] Encounter Details Date Type Department Care Team (Late st Contact Info) Description 07/20/2019 Lab Requisition [facility] [address] [facility], [place] [phone] Tracey Monsalve, [address] [facility] [address] [place] [address] Social History Tobacco Use Types Packs/Day Years [...] Comments DERMATOPATHOLOGY Routine 07/19/2019 12:0 0 AM CHIEF I DISPATCHER documented in this encounter Results * DERMATOPATHOLOGY (07/19/2019 12:00 AM CHIEF I DISPATCHER) Case Report Dermatopathology Report Case: [id number] Authorizing Provider: Tracey Monsalve DO Collected: 07/19/2019 12:00 AM Ordering Location: [facility] Derm[facility] Lab Received: 07/20/2019 12:39 PM Pathologist: Gisela Hernandez MD Specimen: Skin, left FA 4:46 PM [facility] DERMATOPATHOLOGY LABORATORY Final Diagnosis Specimen A. SKIN, left FA: BASAL CELL CARCINOMA, SUPERFICIAL MULTIFOCAL (C44.619) 4:46 PM [facility] DERMATOPATHOLOGY LABORATORY Clinical History R/O BCC. 4:46 PM [facility] DERMATOPATHOLOGY LABORATORY Gross Description Specimen A: Received is one formalin filled container labeled with the patient's name and designated left FA. The specimen consists of a shave measuring [id number]. Jar 0. 4:46 PM [facility] DERMATOPATHOLOGY LABORATORY Microscopic Description Specimen A. SKIN, left FA: Attached to the undersurface of the epidermis, there are small aggregates of basaloid cells with a high nuclear to cytoplasmic ratio and peripheral palisading. 4:46 PM [facility] DERMATOPATHOLOGY LABORATORY Disclaimer An external and internal positive and negative controls are appropriate for the histochemical, immunohistochemical and immunofluorescence stain(s) in this case (if any), except where stated explicitly. The performance characteristics of the stain(s) cited in this report were developed and its performance characteristic determined by the Dermatopathology Laboratory at [facility], directed by Dr. Robyn Faye. These tests need not be, and therefore are not, approved by the [place] Food and Drug Administration. The tests are used for clinical purposes. Billing Codes Specimen Charges Stain Charges 57077 1 9 4:46 PM [facility] DERMATOPATHOLOGY LABORATORY Embedded Images 4:46 PM CHIEF I DISPATCHER DERMATOPATHOLOGY LABORATORY Pathology/Cytolog y TISSUE SPECIMEN FROM SKIN / Unknown 07/19/2019 07/20/2019 12:39 PM CHIEF I DISPATCHER Tracey Monsalve DO LAB - PATHOLOGY/C YTOLOGY ORDERABLES DERMATOPATHOLOGY LABORATORY [facility] - Department of Dermatology [address] [place] [address] 5th Floor Lab [address] [phone] documented in this encounter Visit Diagnoses Not on filedocumented in this encounter Care Teams Senior Asic Engineer Relationship Specialty Start Date End Date Santiago Mauricio MD [address] [place] [address] PCP - General Family Medicine 11/05/18 documented as of this encounter
--- OUTSIDE RECORDS SUMMARY | 2024-10-09 11:38 | XMS_ITS | Referral Summary ---
Author Organization [facility] Address [address] [place] [address] Care Team Providers Care Clinical Program Consultant Name Role Phone Santiago Mauricio MD Primary Care Provider [phone] Source Comments [facility],non-owned Affiliates and Associated Physician Practices is amultiple site organization consisting of ambulatory clinics and hospital sitesin [place], [place], [place] and [place]. This disclosure is being madepursuant to the Care Everywhere program and may not contain all information available regarding this patient. Last updated 18.[facility] [employer] Allergies Active Allergy Reactions Criticality Noted Date [...] Active vitamin D, ergocalciferol, (DRISDOL) 1.25 MG (65898 UT) capsule Take 50,000 Units by mouth [...] Comments Blood Pressure 145/85 06/11/2019 10:43 AM SUPERVISOR GARAGE Pulse 109 06/11/2019 10:43 AM SUPERVISOR GARAGE Temperature 36.8 C (98.3 F) 06/11/2019 10:43 AM SUPERVISOR GARAGE Respiratory Rate 20 06/11/2019 10:43 AM SUPERVISOR GARAGE Oxygen Saturation 97% 06/11/2019 10:43 AM SUPERVISOR GARAGE Inhaled Oxygen Concentration - - Weight 63 kg (139 lb) 06/11/2019 10:43 AM SUPERVISOR GARAGE Height 152.4 cm (5') 06/11/2019 10:43 AM SUPERVISOR GARAGE Body Mass Index 27.15 06/11/2019 10:43 AM SUPERVISOR GARAGE Functional Status Functional Status Response Date of [...] 10:21 AM 08/25/2018 5:15 PM Care Teams Clinical Program Consultant Relationship Specialty Start Date End Date Santiago Mauricio MD [address] [place] [address] PCP - General Family Medicine 11/05/18
--- OUTSIDE RECORDS SUMMARY | 2024-10-09 11:38 | XMS_ITS | Clinical Summary ---
Author Organization [facility] Address [address] [facility] [place] [address] Care Team Providers Care Slab Puller Name Role Phone Santiago Mauricio MD Primary Care Provider [phone] Source Comments [facility],non-owned Affiliates and Associated Physician Practices is amultiple site organization consisting of ambulatory clinics and hospital sitesin [place], [place], [place] and [place]. This disclosure is being madepursuant to the Care Everywhere program and may not contain all information available regarding this patient. Last updated 18.[facility] [email or web address] Allergies Active Allergy Reactions Criticality Noted Date [...] Active vitamin D, ergocalciferol, (DRISDOL) 1.25 MG (14720 UT) capsule Take 50,000 Units by mouth [...] Comments Blood Pressure 145/85 06/11/2019 10:43 AM MOLD SHAKER Pulse 109 06/11/2019 10:43 AM MOLD SHAKER Temperature 36.8 C (98.3 F) 06/11/2019 10:43 AM MOLD SHAKER Respiratory Rate 20 06/11/2019 10:43 AM MOLD SHAKER Oxygen Saturation 97% 06/11/2019 10:43 AM MOLD SHAKER Inhaled Oxygen Concentration - - Weight 63 kg (139 lb) 06/11/2019 10:43 AM MOLD SHAKER Height 152.4 cm (5') 06/11/2019 10:43 AM MOLD SHAKER Body Mass Index 27.15 06/11/2019 10:43 AM MOLD SHAKER Plan of Treatment Health Maintenance Due Date [...] 10:21 AM 08/25/2018 5:15 PM Care Teams Slab Puller Relationship Specialty Start Date End Date Santiago Mauricio MD [address] [place] [address] PCP - General Family Medicine 11/05/18
--- OUTSIDE RECORDS SUMMARY | 2024-10-09 11:38 | XMS_ITS | Encounter Summary ---
Author Organization [facility] Address [address] [place] [address] Care Team Providers Care Information Systems Coordinator Name Role Phone Santiago Mauricio MD Primary Care Provider [phone] Encounter Details Date Type Department Care Team (Late st Contact Info) Description 12/31/2023 Lab Requisition [facility] - DermPath Lab [address] [facility], [place] [address] Vickie Oden MD [address] [facility] [address] [place] [address] Social History Tobacco Use Types Packs/Day Years [...] PM CDT) Case Report Dermatopathology Report Case: [id number] Authorizing Provider: Vickie Oden MD Collected: 12/31/2023 03:50 PM Ordering Location: [facility] - Received: 01/01/2024 12:51 PM DermPath Lab Pathologist: Aidan Faye MD Specimen: Skin, right confucianist 1:40 PM CDT DERMATOPATHOLOGY LABORATORY Final Diagnosis Specimen A. 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 SCC vs. ISK 1:40 PM CDT DERMATOPATHOLOGY LABORATORY Gross Description Specimen A: Received is one formalin filled container labeled with the patient's name and designated right confucianist. The specimen consists of a shave biopsy measuring 6x6x2 mm. Jar 0. 1:40 PM CDT DERMATOPATHOLOGY LABORATORY Microscopic Description Specimen A. SKIN, right confucianist: The epidermis is acanthotic and shows full [...] characteristic determined by the Dermatopathology Laboratory at [facility], directed by Dr. Robyn Faye. These tests need not be, and therefore are not, approved by the [place] Food and Drug Administration. The tests are used for clinical purposes. Billing Codes Specimen Charges Stain Charges 36980 1 4 1:40 PM CDT DERMATOPATHOLOGY LABORATORY Embedded Images 4 1:40 PM CDT DERMATOPATHOLOGY LABORATORY Pathology/Cytolo gy TISSUE SPECIMEN FROM SKIN / Unknown 12/31/2023 3:50 PM CDT 01/01/2024 12:51 PM CDT Vickie Oden MD LAB - PATHOLOGY/CYT OLOGY ORDERABLES DERMATOPATHOLOGY LABORATORY [facility] - Department of Dermatology [address], [address] [phone] documented in this encounter Visit Diagnoses Not on filedocumented in this encounter Care Teams Information Systems Coordinator Relationship Specialty Start Date End Date Santiago Mauricio MD [address] [place] [address] PCP - General Family Medicine 11/05/18 documented as of this encounter
--- OUTSIDE RECORDS SUMMARY | 2024-10-09 11:38 | XMS_ITS | Referral Summary ---
Author Organization [facility] Address [address] [place] [address] Phone Care Team Providers Care Rn Neurosurgical Name Role Phone Kate Kuo NP Unavailable [phone] Santiago Mauricio MD Primary Care Provider Allergies [...] 09/03/2021 Assessment & Plan (09/03/2021 6:07 PM FITTER MECHANIC): Bilateral ear irrigations done using water and hydrogen peroxide Large amount of wax removed from left ear, mod from right. Patient tolerate procedure without difficulty Encouraged her to use Debrox ear wax softener 6-10 gtt.on cotton pledge once a month. Also to cover ears from hair spray when styling hair. Hypertension, essential 08/27/2021 Assessment & Plan (10/08/2021 4:29 PM FITTER MECHANIC): Hypertension stable at this time. Note continue to watch diet for high salt foods, no adding salt to foods. And avoiding salty drinks. Weigh weekly looking for a increase of weight 3-5 pounds. Look for neck vein distension or edema in lower legs. Continue with medications as ordered. Assessment & Plan (09/03/2021 6:08 PM FITTER MECHANIC): Continue with meds as directed Watch salt in diet, avoid salty foods. Exercise as tolerated. Check blood pressure at home. Assessment & Plan (08/27/2021 1:28 PM FITTER MECHANIC): Continue with Lisinopril 10 mg for HTN and HCTZ 12.5 for HTN Check blood pressure at home. At least 3 times a week. Watch salt in diet, and excessive salty foods. Mixed hyperlipidemia 08/27/2021 Assessment & Plan (08/27/2021 1:29 PM FITTER MECHANIC): Continue with Crestor 10mg one daily. Watch diet for excessive fatty foods, Exercise as tolerated. Note to watch carbs in diet. Anxiety 08/27/2021 Assessment & Plan (10/08/2021 4:31 PM FITTER MECHANIC): Continue with medication as directed. Keep busy. Get adequate sleep. Exercise on a daily basis. Assessment & Plan (09/03/2021 6:09 PM FITTER MECHANIC): Continue with meds as ordered. Work on reducing stress and anxiety. Continue with exercise, relaxation exercises. Assessment & Plan (08/27/2021 1:25 PM FITTER MECHANIC): Continue with Ativan 0.5mg po for anxiety. Keep busy, Monitor what causes anxiety to increase Check on quality of slleep. Episode of dizziness 08/27/2021 Assessment & Plan (10/08/2021 4:33 PM FITTER MECHANIC): Continue to work on balance. Watch for safety measures with walking and ambulating around the house. Use cane or walker if you are feeling out of balance for prevention of falling. Assessment & Plan (09/03/2021 6:12 PM FITTER MECHANIC): Continue to monitor dizziness, time, place, activity, how long it lasted, possible cause. Antivert 12.5mg one in evening for 7 days. Continue with balance and strength exercises. If dizziness gets worse, or falling, or can't move extremities, seek medical help. Call in 7 days with up date. Assessment & Plan (08/27/2021 1:24 PM FITTER MECHANIC): Keep diary of when dizziness occurs, and any associations with or without activity. Make sure she is drinking adequate fluid. See if associated with no food. Monitor BP at home and check pulsel Lymphedema of left arm 08/04/2019 Assessment & Plan (10/08/2021 4:26 PM FITTER MECHANIC): Note continues to wear the compression sleeve on the left arm which has helped a lot. Arm size is almost equal to the right. Has good pulses in arm' Good sensation and strength. Continue with arm exercises and working on grasp strength. Assessment & Plan (08/27/2021 1:33 PM FITTER MECHANIC): No problems with left arm. Continues to wear arm compression sleeve. Also has pump at home for this problem. Note no problems at this time. Arm has no swelling at this time. Pulses in arm are good at this time. Personal history of breast cancer 04/14/2018 Cancer Staging:Clinical stage from 10/11/1996:Stage IIB(cT2, cN0, cM0, G3, ER: Negative, GA: Negative, HER2: Negative) - Signed by Emmanuel [...] AM CDT Pulse 96 09/27/2022 10:58 AM FITTER MECHANIC Temperature 34.5 C (94.1 F) 09/27/2022 10:58 AM FITTER MECHANIC Respiratory Rate 18 09/27/2022 10:58 AM FITTER MECHANIC Oxygen Saturation 97% 09/27/2022 10:58 AM FITTER MECHANIC Inhaled Oxygen Concentration - - Weight 61.7 kg (136 lb) 04/04/2023 8:14 AM CDT Height 147.3 cm (4' 9.99 ) 04/04/2023 8:14 AM CD T Body Mass Index 28.43 04/04/2023 8:14 AM CDT Plan of Treatment Not on file Insurance [facility]IC[facility] MEDICARE [facility] PPO Care Teams Rn Neurosurgical Relationship Specialty Start Date End Date Santiago Mauricio MD [address] [facility] [address] [place] [address] PCP - General Family Medicine 05/14/22 Kate Kuo NP [address] [place] [address] Nurse Practitioner Medical Oncology 05/15/21
--- OUTSIDE RECORDS SUMMARY | 2024-10-09 11:38 | XMS_ITS | Clinical Summary ---
Author Organization [facility] Address [address] [place] [address] Phone Care Team Providers Care Leave Coordinator Name Role Phone Kate Kuo NP Unavailable [phone] Santiago Mauricio MD Primary Care Provider Allergies [...] 09/03/2021 Assessment & Plan (09/03/2021 6:07 PM MANGA ARTIST): Bilateral ear irrigations done using water and hydrogen peroxide Large amount of wax removed from left ear, mod from right. Patient tolerate procedure without difficulty Encouraged her to use Debrox ear wax softener 6-10 gtt.on cotton pledge once a month. Also to cover ears from hair spray when styling hair. Hypertension, essential 08/27/2021 Assessment & Plan (10/08/2021 4:29 PM MANGA ARTIST): Hypertension stable at this time. Note continue to watch diet for high salt foods, no adding salt to foods. And avoiding salty drinks. Weigh weekly looking for a increase of weight 3-5 pounds. Look for neck vein distension or edema in lower legs. Continue with medications as ordered. Assessment & Plan (09/03/2021 6:08 PM MANGA ARTIST): Continue with meds as directed Watch salt in diet, avoid salty foods. Exercise as tolerated. Check blood pressure at home. Assessment & Plan (08/27/2021 1:28 PM MANGA ARTIST): Continue with Lisinopril 10 mg for HTN and HCTZ 12.5 for HTN Check blood pressure at home. At least 3 times a week. Watch salt in diet, and excessive salty foods. Mixed hyperlipidemia 08/27/2021 Assessment & Plan (08/27/2021 1:29 PM MANGA ARTIST): Continue with Crestor 10mg one daily. Watch diet for excessive fatty foods, Exercise as tolerated. Note to watch carbs in diet. Anxiety 08/27/2021 Assessment & Plan (10/08/2021 4:31 PM MANGA ARTIST): Continue with medication as directed. Keep busy. Get adequate sleep. Exercise on a daily basis. Assessment & Plan (09/03/2021 6:09 PM MANGA ARTIST): Continue with meds as ordered. Work on reducing stress and anxiety. Continue with exercise, relaxation exercises. Assessment & Plan (08/27/2021 1:25 PM MANGA ARTIST): Continue with Ativan 0.5mg po for anxiety. Keep busy, Monitor what causes anxiety to increase Check on quality of slleep. Episode of dizziness 08/27/2021 Assessment & Plan (10/08/2021 4:33 PM MANGA ARTIST): Continue to work on balance. Watch for safety measures with walking and ambulating around the house. Use cane or walker if you are feeling out of balance for prevention of falling. Assessment & Plan (09/03/2021 6:12 PM MANGA ARTIST): Continue to monitor dizziness, time, place, activity, how long it lasted, possible cause. Antivert 12.5mg one in evening for 7 days. Continue with balance and strength exercises. If dizziness gets worse, or falling, or can't move extremities, seek medical help. Call in 7 days with up date. Assessment & Plan (08/27/2021 1:24 PM MANGA ARTIST): Keep diary of when dizziness occurs, and any associations with or without activity. Make sure she is drinking adequate fluid. See if associated with no food. Monitor BP at home and check pulsel Lymphedema of left arm 08/04/2019 Assessment & Plan (10/08/2021 4:26 PM MANGA ARTIST): Note continues to wear the compression sleeve on the left arm which has helped a lot. Arm size is almost equal to the right. Has good pulses in arm' Good sensation and strength. Continue with arm exercises and working on grasp strength. Assessment & Plan (08/27/2021 1:33 PM MANGA ARTIST): No problems with left arm. Continues to wear arm compression sleeve. Also has pump at home for this problem. Note no problems at this time. Arm has no swelling at this time. Pulses in arm are good at this time. Personal history of breast cancer 04/14/2018 Cancer Staging:Clinical stage from 10/11/1996:Stage IIB(cT2, cN0, cM0, G3, ER: Negative, NV: Negative, HER2: Negative) - Signed by Emmanuel [...] AM CDT Pulse 96 09/27/2022 10:58 AM MANGA ARTIST Temperature 34.5 C (94.1 F) 09/27/2022 10:58 AM MANGA ARTIST Respiratory Rate 18 09/27/2022 10:58 AM MANGA ARTIST Oxygen Saturation 97% 09/27/2022 10:58 AM MANGA ARTIST Inhaled Oxygen Concentration - - Weight 61.7 [...] 05/18/2019, 06/01/2018, Additional history exists [facility] [employer] S[employer]IOR SU[employer]MENT Member Subscriber Plan / Payer (Ef fective 2019-Present) Name:Meenakshi Chavez Relation to Subscriber:Self Name:Meenakshi Chavez Payer ID:[id number] Group ID:Not on file Type:[employer] Address: [place] [address] MEDICARE [employer] COVENTRY PPO Care Teams Leave Coordinator Relationship Specialty Start Date End Date Santiago Mauricio MD [address] [facility] [address] [place] [address] PCP - General Family Medicine 05/14/22 Kate Kuo NP [address] [place] [address] Nurse Practitioner Medical Oncology 05/15/21
--- OUTSIDE RECORDS SUMMARY | 2024-10-09 11:38 | XMS_ITS | Patient Health Summary ---
Author Organization [facility] Address [address] [place] [place] [address] Care Team Providers Care Food Sanitarian Name Role Phone Santiago Mauricio MD Primary Care Provider [phone] Note from [facility],non-owned Affiliates and Associated Physician Practices is amultiple site organization consisting of ambulatory clinics and hospital sitesin [place], [place], [place] and [place]. This disclosure is being madepursuant to the Care Everywhere program and may not contain all information available regarding this patient. Last updated 18.[facility] Allergies * Aspirin(Shortness of Breath) -High Criticality [...] * vitamin D, ergocalciferol, (DRISDOL) 1.25 MG (89215 UT) capsule(Started 04/01/2019) Take 50,000 Units by [...] Comments Blood Pressure 145/85 06/11/2019 10:43 AM STACKER OPERATOR Pulse 109 06/11/2019 10:43 AM STACKER OPERATOR Temperature 36.8 C (98.3 F) 06/11/2019 10:43 AM STACKER OPERATOR Respiratory Rate 20 06/11/2019 10:43 AM STACKER OPERATOR Oxygen Saturation 97% 06/11/2019 10:43 AM STACKER OPERATOR Inhaled Oxygen Concentration - - Weight 63 kg (139 lb) 06/11/2019 10:43 AM STACKER OPERATOR Height 152.4 cm (5') 06/11/2019 10:43 AM STACKER OPERATOR Body Mass Index 27.15 06/11/2019 10:43 AM STACKER OPERATOR Procedures * DERMATOPATHOLOGY(Performed 12/31/2023) * DERMATOPATHOLOGY(Performed 04/18/2022) [...] is included. Case Report Dermatopathology Report Case: [id number] Authorizing Provider: Vickie Oden MD Collected: 12/31/2023 03:50 PM Ordering Location: [facility] - Received: 01/01/2024 12:51 PM DermPath Lab Pathologist: Aidan Faye MD Specimen: Skin, right methodist 4 1:40 PM CDT DERMATOPATHOLOGY LABORATORY Final Diagnosis Specimen A. 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 SCC vs. ISK 1:40 PM CDT DERMATOPATHOLOGY LABORATORY Gross Description Specimen A: Received is one formalin filled container labeled with the patient's name and designated right methodist. The specimen consists of a shave biopsy measuring 6x6x2 mm. Jar 0. 1:40 PM CDT DERMATOPATHOLOGY LABORATORY Microscopic Description Specimen A. SKIN, right methodist: The epidermis is acanthotic and shows full [...] characteristic determined by the Dermatopathology Laboratory at [facility], directed by Dr. Robyn Faye. These tests need not be, and therefore are not, approved by the [place] Food and Drug Administration. The tests are used for clinical purposes. Billing Codes Specimen Charges Stain Charges 91354 1 4 1:40 PM CDT DERMATOPATHOLOGY LABORATORY Embedded Images 1:40 PM CDT DERMATOPATHOLOGY LABORATORY Pathology/Cytolo gy TISSUE SPECIMEN FROM SKIN / Unknown 12/31/2023 3:50 PM CDT 01/01/2024 12:51 PM CDT Vickie Oden MD LAB - PATHOLOGY/CYT OLOGY ORDERABLES DERMATOPATHOLOGY LABORATORY [facility] - Department of Dermatology [address], [address] [phone] * CT HEAD WO CONTRAST (06/11/2019 10:21 AM STACKER OPERATOR) Only the most recent of6 resultswithin the time period is included. Anatomical Region Laterality Modality Head Computed Tomogra phy 06/11/2019 10:5 2 AM STACKER OPERATOR Impressions 06/11/2019 4:58 PM STACKER OPERATOR IMPRESSION: 1.Interval resolution of the old right cerebral convexity subdural hemorrhage with reexpansion of regional cerebral sulci and the right lateral ventricle. 2.No significant change in the size of the left frontal and left parietal convexity subdural collections. Dictated by Corrie Walker MD (vice president of sales). This report was approved by Corrie Walker on 06/11/2019 3:27 PM . I, Dr. MONICA POWELL have personally reviewed and interpreted this examination/study. This report was electronically signed by MONICA POWELL on 06/11/2019 4:58 PM . Narrative 06/11/2019 4:[address] HEAD WO CONTRAST EXAMINATION: Computed tomography [...] subdural collections. Dictated by Corrie Walker MD (vice president of sales). This report was approved by Corrie Walker [...] Total Cell Count 100 11/11/2018 4:05 AM [facility] Neutrophils Absolute Manual 7.60(H) 1.60 - 7.00 10 3/uL 11/11/2018 4:05 AM [facility] Comment:(BANDS+SEGS) x WBC = NEUT # (ANC) Lymphocyte Absolute Manual 3.80(H) 0.80 - 2.90 10 3/uL 11/11/2018 4:05 AM [facility] Monocytes Absolute Manual 1.44(H) 0.14 - 0.66 10 3/uL 11/11/2018 4:05 AM [facility] Eosinophils Absolute Manual 0.13 0.00 - 0.22 10 3/uL 11/11/2018 4:05 AM [facility] Basophil Absolute Manual 0.13(H) 0.00 - 0.06 10 /uL 11/11/2018 4:05 AM [facility] Band % Manual 1 0 - 10 % 11/11/2018 4:05 AM [facility] Neutrophil % Manual 57 30 - 60 % 11/11/2018 4:05 AM [facility] Lymphocyte % Manual 29 20 - 45 % 11/11/2018 4:05 AM [facility] Monocytes % Manual 11(H) 2 - 10 % 11/11/2018 4:05 AM [facility] Eosinophils % Manual 1 1 - 6 % 11/11/2018 4:05 AM [facility] Basophils % Manual 1 0 - 3 % 11/11/2018 4:05 AM [facility] Platelet Estimate Adequate Adequate 11/11/2018 4:05 AM [facility] RBC Morphology Normal 11/11/2018 4:05 AM [facility] Blood BLOOD SPECIMEN / Unknown Lab Venipuncture / Unknown 11/11/2018 12:41 AM CDT 11/11/2018 12:48 AM [facility] Alex Barnard MD LAB - HEMATOLOGY ORDERABLES [facility] [address] [place] [address] * (ABNORMAL) CBC W AUTO DIFFERENTIAL (11/11/2018 12:41 AM CDT) Only the most recent of10 resultswithin the time period is included. WBC 13.1(H) 3.5 - 10.5 10 3/uL 11/11/2018 12:54 AM [facility] RBC 3.14(L) 3.90 - 5.00 10 6/uL 11/11/2018 12:54 AM [facility] Hemoglobin 9.8(L) 12.0 - 15.5 g/dL 11/11/2018 12:54 AM [facility] Hematocrit 30.1(L) 35.0 - 45.0 % 11/11/2018 12:54 AM [facility] MCV 95.9 81.0 - 97.0 fL 11/11/2018 12:54 AM [facility] MCH 31.2 28.0 - 34.0 pg 11/11/2018 12:54 AM [facility] MCHC 32.6 32.0 - 36.0 g/dL 11/11/2018 12:54 AM [facility] Platelet Count 288 150 - 400 10 3/uL 11/11/2018 12:54 AM [facility] RDW-SD 50.3(H) 36.0 - 50.0 fL 11/11/2018 12:54 AM [facility] RDW-CV 14.4 11.2 - 14.8 % 11/11/2018 12:54 AM [facility] MPV 9.2(L) 9.3 - 12.8 fL 11/11/2018 12:54 AM [facility] nRBC Absolute 0.00 0 10 3/uL 11/11/2018 12:54 AM [facility] nRBC Auto 0.0 0 /100 WBC 11/11/2018 12:54 AM [facility] Blood BLOOD SPECIMEN / Unknown Lab Venipuncture / Unknown 11/11/2018 12:41 AM CDT 11/11/2018 12:48 AM T Alex Barnard MD LAB - HEMATOLOGY ORDERABLES Performing Organization Address City/State/[facility] Co de Phone Number [address] [phone] * (ABNORMAL) BASIC METABOLIC PANEL (CALCIUM TOTAL) (11/11/2018 12:41 AM CDT) Only the most recent of10 resultswithin the time period is included. BUN 18 7 - 26 mg/dL 11/11/2018 1:07 AM [facility] Creatinine 1.1 0.6 - 1.2 mg/dL 11/11/2018 1:07 AM [facility] Sodium 138 136 - 145 mmol/L 11/11/2018 1:07 AM [facility] Potassium 3.9 3.5 - 4.5 mmol/L 11/11/2018 1:07 AM [facility] Chloride 107 98 - 107 mmol/L 11/11/2018 1:07 AM [facility] CO2 23 22 - 29 mmol/L 11/11/2018 1:07 AM [facility] Glucose 129(H) 70 - 115 mg/dL 11/11/2018 1:07 AM [facility] Calcium 10.3(H) 8.4 - 10.2 mg/dL 11/11/2018 1:07 AM [facility] Anion Gap 12 8 - 18 11/11/2018 1:07 AM [facility] BUN/Creatinine Ratio 16 7 - 23 11/11/2018 1:07 AM [facility] Osmolality Calculated 290 270 - 300 mOsm/kg 11/11/2018 1:07 AM [facility] eGFR 48(L) >60 mL/min/1.7 3 m2 11/11/2018 1:07 AM [facility] Blood BLOOD SPECIMEN / Unknown Lab Venipuncture / Unknown 11/11/2018 12:41 AM CDT 11/11/2018 12:48 AM CDT Alex Barnadr MD LAB - [place] [address], [facility] [phone] * (ABNORMAL) URINALYSIS REFLEX TO MICROSCOPIC NO CULTURE (11/10/2018 5:55 AM CDT) Only the most recent of2 resultswithin the time period is included. Color UA Yellow Straw, Yellow, Colorless 11/10/2018 6:27 AM [facility] Clarity UA t Cloudy Clear, t Cloudy 11/10/2018 6:27 AM [facility] Specific [place] UA 1.012 1.005 - 1.030 11/10/2018 6:27 AM [facility] pH UA 6.0 5.0 - 8.0 pH 11/10/2018 6:27 AM [facility] Protein UA Negative Negative mg/dL 11/10/2018 6:27 AM [facility] Glucose UA Negative Negative mg/dL 11/10/2018 6:27 AM [facility] Ketone UA Negative Negative mg/dL 11/10/2018 6:27 AM [facility] Bilirubin UA Negative Negative mg/dL 11/10/2018 6:27 AM [facility] Blood UA Negative Negative 11/10/2018 6:27 AM [facility] Nitrite UA Negative Negative 11/10/2018 6:27 AM [facility] Leukocyte Esterase 1+(A) Negative 11/10/2018 6:27 AM [facility] Urobilinogen UA Negative Negative mg/dL 11/10/2018 6:27 AM [facility] RBC UA 0-2 None Seen, 0-2, 3-5 /HPF 11/10/2018 6:27 AM [facility] WBC UA 11-20(A) None Seen, 0-5 /HPF 11/10/2018 6:27 AM [facility] Bacteria UA 3+(A) None, Trace /HPF 11/10/2018 6:27 AM [facility] Squamous Epithelial Cells UA 0-2 None Seen, 0-2 /HPF 11/10/2018 6:27 AM [facility] Mucus UA 1+ None, 1+ /LPF 11/10/2018 6:27 AM [facility] Hyaline Casts UA 0-2 None Seen, 0-2 /LPF 11/10/2018 6:27 AM [facility] Urine URINE SPECIMEN OBTAINED BY CLEAN CATCH PROCEDURE / Unknown Collection / Unknown 11/10/2018 5:55 AM CDT 11/10/2018 6:01 AM CDT Zachary Velasco MD LAB - URINALYSIS ORD ERABLES Performing Organization Address City/[facility]/ZIP Co de Phone Number [facility] [address] [place] [address], [facility] [phone] * CULTURE URINE (11/10/2018 5:55 AM CDT) Only the most recent of3 resultswithin the time period is included. Culture Urine >100,000 CFU/mL urogenital ad LUCÍA 11/11/2018 12:01 PM CDT [facility] Urine URINE SPECIMEN OBTAINED BY CLEAN CATCH PROCEDURE / Unknown Collection / Unknown 11/10/2018 5:55 AM CDT 11/10/2018 6:01 AM CDT Zachary Velasco MD LAB - MICROBIOLOGY O RDERABLES Performing Organization Address City/[facility]/ZIP Co de Phone Number [facility] [address] [place] [address], [facility] [phone] * XR CHEST 1VW (11/09/2018 8:33 PM [...] day 5 LUCÍA 11/14/2018 11:30 PM CDT [facility] Blood PERIPHERAL BLOOD / Unknown Surgery / Unknown 11/09/2018 8:13 PM CDT 11/09/2018 8:46 PM CDT Zachary Velasco MD LAB - MICROBIOLOGY O RDERABLES [facility] [address] [place], [address] [phone] * PTH RELATED PEPTIDE (11/09/2018 5:12 PM CDT) PTH Related Peptide <2.0 0.0 - 3.4 pmol/L 11/13/2018 2:24 PM CDT [facility] ([facility]) Comment: INTERPRETIVE INFORMATION: Parathyroid Hormone-Related Peptide Test developed and characteristics determined by [email or web address]. See Compliance Statement B: [employer] Performed by [email or web address], [address] [place] [address] [email or web address], Arnel Wheeler MD, Lab. Director Blood BLOOD SPECIMEN / Unknown Surgery / Unknown 11/09/2018 5:12 PM CDT 11/09/2018 5:21 PM CDT Alex Barnard MD LAB - CHEMISTRY ORDERABLES [facility] ([facility]) [address] * PTT [facility] (11/05/2018 7:25 PM CDT) APTT 23.5 23.0 - 38.4 Seconds 11/05/2018 7:40 PM CDT [facility] Comment: Suggested therapeutic range for full dose I.V. heparin therapy for venous thromboembolism is 66.0-91.0 seconds. Blood BLOOD SPECIMEN / Unknown Venipuncture / Unknown 11/05/2018 7:25 PM CDT 11/05/2018 7:25 PM CDT Yadira Ly MD LAB - COAGULATION OR DERABLES [address] [phone] * PT-INR [facility] (11/05/2018 7:25 PM CDT) Only the most recent of2 resultswithin the time period is included. PT 12.5 12.1 - 14.8 Seconds 11/05/2018 7:39 PM CDT [facility] INR 1.0 See Comment 11/05/2018 7:39 PM CDT [facility] Comment: The suggested therapeutic range for standard coumadin (warfarin) therapy is an INR of 2.0-3.0. For high-risk patients (Mechanical Mitral Valve Prosthesis, etc.), the suggested prophylactic therapeutic range is an INR of 2.5-3.5. Blood BLOOD SPECIMEN / Unknown Venipuncture / Unknown 11/05/2018 7:25 PM CDT 11/05/2018 7:25 PM CDT Yadira Ly MD LAB - COAGULATION OR DERABLES [facility] [address] [phone] * TYPE + SCREEN PANEL (11/05/2018 7:22 PM CDT) Antibody Screen NEG 9 8:39 PM CDT [facility] ABO Rh A POS 11/05/2018 8:39 PM CDT [facility] Blood Bank BLOOD SPECIMEN / Unknown 11/05/2018 7:22 PM CDT 11/05/2018 7:30 PM CDT Yadira Ly MD LAB - BLOOD BANK ORD ERABLES Performing Organization Address City/[facility] Co de Phone Number [facility] [address] * XR CHEST 2VW (08/21/2018 2:07 PM STACKER OPERATOR) Anatomical Region Laterality Modality Chest Radiographic Myranda ging 08/21/2018 2:12 PM STACKER OPERATOR Impressions 08/21/2018 4:23 PM STACKER OPERATOR Impression: 1. Left basilar opacity has decreased in size. Likely represent atelectasis/pneumonia. 2. Left pleural effusion. Dictated by Valeriano Luna MD (vice president of sales) This report was approved by Valeriano Luna on 08/21/2018 3:24 PM . I, Dr. NADINE MATHIS M.D. have personally reviewed and interpreted this examination/study. This report was electronically signed by NADINE MATHIS M.D. on 08/21/2018 4:23 PM . Narrative 08/21/2018 4:23 PM STACKER OPERATOR Exam: XR CHEST 2VW Date: 08/21/2018 2:08 [...] pleural effusion. Dictated by Valeriano Luna MD (vice president of sales) This report was approved by Valeriano Luna on 08/21/2018 3:24 PM . I, Dr. NADINE MATHIS M.D. have personally reviewed and interpreted this examination/study. This report was electronically signed by NADINE MATHIS M.D. on 08/21/2018 4:23 PM . Gillian Lozoya FURNACE FEEDER-CABIN FURNISHINGS INSTALLER DIAGNOSTIC IMAG ING ORDERABLES * (ABNORMAL) D-DIMER (08/21/2018 1:38 PM STACKER OPERATOR) D-Dimer Quantitative 1.66(H) <=0.50 mcg/mL FEU 08/21/2018 2:38 PM STACKER OPERATOR [facility] Comment: In the absence of [...] Lab Venipuncture / Unknown 08/21/2018 1:38 PM STACKER OPERATOR 08/21/2018 2:13 PM STACKER OPERATOR Gillian Lozoya F[employer]NACE FE[employer]URNISH[employer] INSTALLER LAB - COAGULATI ON ORDERABLES [address] [phone] * VANCOMYCIN LEVEL TROUGH (08/21/2018 11:14 AM STACKER OPERATOR) Vancomycin Trough 15.5 10.0 - 20.0 mcg/mL 08/21/2018 12:30 PM STACKER OPERATOR [facility] Blood BLOOD SPECIMEN / Unknown 08/21/2018 11:14 AM STACKER OPERATOR 08/21/2018 11:24 AM STACKER OPERATOR Erika Gutierrez [employer] INSTALLER LAB - CHEMISTRY [facility] TOMPKINS [address] [phone] Care Teams Food Sanitarian Relationship Specialty Start Date End Date Santiago Mauricio MD [address] [place] [id number] PCP - General Family Medicine 11/05/18
--- OUTSIDE RECORDS SUMMARY | 2024-10-09 11:38 | XMS_ITS | Encounter Summary ---
Author Organization [facility] Address [address] [facility] [place] [address] Care Team Providers Care Economic Forecaster Name Role Phone Santiago Mauricio MD Primary Care Provider [phone] Encounter Details Date Type Department Care Team (Late st Contact Info) Description 03/16/2020 Lab Requisition [facility] [address] [facility], [place] [id number] Tracey Monsalve, [address] [facility] [address] [place] [address] Social History Tobacco Use Types Packs/Day Years [...] AM CDT) Case Report Dermatopathology Report Case: [id number] Authorizing Provider: Tracey Monsalve DO Collected: 03/15/2020 12:00 AM Ordering Location: [facility] Lab Received: 03/16/2020 09:13 AM Pathologist: [...] characteristic determined by the Dermatopathology Laboratory at [facility], directed by Dr. Robyn Faye. These tests need not be, and therefore are not, approved by the [place] Food and Drug Administration. The tests are used for clinical purposes. Billing Codes Specimen Charges Stain Charges 00480 1 0 3:42 PM CDT DERMATOPATHOLOGY LABORATORY Embedded Images 0 3:42 PM CDT DERMATOPATHOLOGY LABORATORY Pathology/Cytolog y TISSUE SPECIMEN FROM SKIN / Unknown 03/15/2020 03/16/2020 9:13 AM CDT Tracey Monsalve DO LAB - PATHOLOGY/C YTOLOGY ORDERABLES DERMATOPATHOLOGY LABORATORY [facility] - Department of Dermatology [facility]/[address] [phone] documented in this encounter Visit Diagnoses Not on filedocumented in this encounter Care Teams Economic Forecaster Relationship Specialty Start Date End Date Santiago Mauricio MD [address] [place] [address] PCP - General Family Medicine 11/05/18 documented as of this encounter
--- OUTSIDE RECORDS SUMMARY | 2024-10-09 11:38 | XMS_ITS | Continuity of Care Document ---
Author Organization [facility] Address [address] [place] [address] [address] [place] [address] Phone Care Team Providers Care Yacht Master Name Role Phone Se Franco Unavailable Unavailable Procedures Procedure Date Eye Exam & Treatment No Script Refraction Vision Svcs Frames Purchases BF Plastic Sphcyl [place] To +/-4d .12-2d Tax - Medical Eye Exam & Treatment Refraction Advance Directives Directive Yes / No Effective Date File Name No Information Encounters Encounter Description Practice Location Reason(s) For Visit Diagnoses Date Provider Providers Copied on Encounter [facility], [address] [place] [address] [address], [place], [place], [id number], tel:[phone] [facility] No Information [address] Joan Saez. [address] , [address], [place], [address], [place]. tel:[phone] [facility], [address] [place] [address] [address], [place], [place], [id number], [place] tel:[phone] [facility] No Information [address] [facility] . [address] [facility], [address], [place], [place], [id number], [place]. tel:[phone] Referring Provider: Teofilo Mondragon[address], [place], [place], [facility]. tel:[phone] hawley Provider: Sara Franks [address], [place], [address]. tel:[phone] [facility], [address], [place], [place], [id number], [place] tel:[phone] [facility] No Information [address] , [address], [place], [address], [place]. tel:[phone] Family History Family Member Type Diagnosis Age At Onset No Information Payers Payer name Insurance type Covered green party ID Authoriza tion(s) Medicare [place] CI [id number] Social History Type Description Quantity Date Captured [...]
--- OUTSIDE RECORDS SUMMARY | 2024-10-09 11:38 | XMS_ITS | Clinical Summary ---
Author Organization [facility] Address [facility] [place] [address] Care Team Providers Care Cyber Intel Planner Name Role Phone Renu Pate Primary Care Provider [phone] Active Problems Problem Noted Date Diagnosed Date [...] this topic Insurance MEDICARE AET Care Teams Cyber Intel Planner Relationship Specialty Start Date End Date Renu Pate FNP PCP - General Nurse Practitioner Family 09/14/20
--- NOTE | 2024-10-09 12:13 | ED.ABDPAIN ---
HPI - Abdominal Pain General Chief Complaint: Abdominal Pain Stated Complaint: abdominal pain Time Seen by Provider: 10/09/24 11:11 Source: patient, family, RN notes reviewed and old records reviewed Mode of arrival: ambulatory Limitations: no limitations History of Present Illness HPI narrative: This is an 83 year old female who presents for evaluation of abdominal pain. She developed right upper abdominal pain at 730 am this morning. She is unable to describe her pain but she states it has been constant. She has not taken anything for pain. She reports associated nausea. She rates pain 8/10. She denies any urinary complaints. She denies chest pain or shortness of breath. MD elicited complaint: abdominal pain Related Data Home Medications ?Medication ?Instructions ?Recorded ?Confirmed ?Last Taken ?Type fluticasone propionate 50 1 spray intranasal DAILY PRN nasal 10/09/24 10/09/24 10/08/24 History mcg/actuation nasal congestion spray,suspension (Allergy Relief (fluticasone)) Allergies Allergy/AdvReac Type Severity Reaction Status Date / Time aspirin Allergy Severe Difficulty Verified 08/11/24 07:34 Breathing NSAIDS (Non-Steroidal Allergy Severe Difficulty Verified 08/11/24 07:34 Anti-Inflamma (NSAIDS Breathing (Non-Steroidal Anti-Inflammatory Drug)) Penicillins Allergy Intermediate Hives Verified 08/11/24 07:34 Review of Systems Cardiovascular: Cardiovascular: Denies chest pain and Denies radiating jaw, neck or arm pain Respiratory: Respiratory: Denies cough and Denies dyspnea Gastrointestinal: Gastrointestinal: Reports abdominal pain and Denies diarrhea Genitourinary: Genitourinary: Denies dysuria Musculoskeletal: Musculoskeletal: Reports back pain PMFSH Past Medical History Medical History Obstructive sleep apnea Cancer of left breast Status post mastectomy and chemoradiation. 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 Essential hypertension Gait instability Gout Hyperparathyroidism Osteoporosis Vitamin B 12 deficiency Vitamin D deficiency, unspecified Surgical History Surgical History History of section History of total mastectomy of left breast History of alvaro hole surgery Family History Family History Sibling Family history of malignant neoplasm of breast in first degree relative Patient's sister is Other Asthma Family history of cataracts Family history of malignant neoplasm of breast Family history of malignant neoplasm of male breast Hypertension Social History Social History Social History: Surrogate medical decision maker: Andria Chavez, daughter. Code status: Full code. Smoking status: Never smoker Second hand tobacco smoke exposure: No Alcohol intake: never Substance use: never Substance use type: does not use Do You Feel Safe in your Home?: Yes Lack of Transportation: No Lack of Food: Never True Current Housing: I Have Housing Concerned About Future Housing: No Difficulty Paying Gas/Electric Bills: No Difficulty Paying for Meds: No Currently Unemployed: No Education: High School Diploma/GED Difficulty w/ Childcare or Family Care: No Living arrangements: with family Additional living arrangements comments: Lives with daughter in:. Occupation/Education: retired Spiritual care concerns: No Exam Const: General: no acute distress and alert Nutritional Appearance: well nourished Orientation/consciousness: patient oriented x3 HENMT: Head: normal to inspection Eyes: EOM: EOMs intact bilaterally Chest: Chest palpation & inspection: normal inspection of the chest Resp: Effort & Inspection: normal respiratory effort Auscultation: clear to auscultation bilaterally Cardio: Rate: regular rate Rhythm: regular rhythm Heart sounds: no murmurs GI: GI Palp: Yes Soft to palpation, Yes Tenderness to palpation present (GI) (TTP), No Guarding due to palpation present (GI) and No Rigid due to palpation Auscultation: normal bowel sounds Back/Spine/Pelvis: Back: no CVA tenderness Skin: General skin exam: normal color Rashes: no rashes Wounds: no wounds Neuro: General: patient oriented x3 and moves all extremities Cranial nerves: Yes Nystagmus not present Speech: normal speech Gait exam (Neuro): Normal gait present Extrem: General: normal to inspection Psych: Mental Status: mental status grossly normal Affect: normal affect Attitude: cooperative Course Vital Signs Vital signs: Vital Signs Temperature 98.7 F 10/09/24 11:06 Pulse Rate 84 10/09/24 11:06 Respiratory Rate 18 10/09/24 11:06 Blood Pressure 142/71 H 10/09/24 11:06 Pulse Oximetry 100 10/09/24 11:06 Oxygen Delivery Room Air 10/09/24 11:06 Temperature 99.2 F 10/09/24 17:00 Pulse Rate 83 10/09/24 17:00 Respiratory Rate 18 10/09/24 17:00 Blood Pressure 179/83 H 10/09/24 17:00 Pulse Oximetry 99 10/09/24 17:00 Oxygen Delivery Room Air 10/09/24 11:06 MDM - Abdominal Pain MDM Narrative Medical decision making narrative: This is an 83 year old who presents with sudden onset abdominal pain. labs revealed elevated wbc 17K with lipase 1047. CT abdomen and pelvis was ordered and showed stranding at pancrease head consistent with pancreatitis. Patient was ordered IV fluids, zofran and pain medication. Patient has been stable so PICC line ordered for IV access. I discussed with patient and daughter. They understand plan to admit. Differential Diagnosis Differential diagnosis: Likely acute appendicitis, calculus of kidney, diverticulitis, gastroenteritis, pancreatitis and small bowel obstruction Medical Records Attestation: I reviewed the patient's medical records. Lab Data Attestation: I reviewed the patient's lab results. 10/09/24 12:54 10/09/24 12:54 Labs: Lab Results 10/09/24 10/09/24 Range/Units 12:16 12:54 WBC 17.1 H (4.5-10.0) K/mm3 RBC 4.44 (4.2-5.4) M/mm3 Hgb 13.9 (12.0-15.0) g/dL Hct 42.2 (37.0-47.0) % MCV 95.0 (80-100) fl MCH 31.3 (26-34) pg MCHC 32.9 (32-36) g/dl RDW 13.2 (11.5-14.5) % Plt Count 349 (150-375) k/mm3 MPV 9.4 (7.4-10.4) fl Immature Gran % (Auto) 0.5 (0-0.5) % Neut % (Auto) 80.2 H (45.5-73.1) % Lymph % (Auto) 13.3 L (18.3-44.2) % [place] % (Auto) 5.1 (2.6-8.5) % Eos % (Auto) 0.4 (0-4.4) % Baso % (Auto) 0.5 (0.2-1.2) % Lymph # (Auto) 2.28 (0.9-3.2) K/mm3 [place] # (Auto) 0.9 H (0.1-0.6) K/mm3 Eos # (Auto) 0.1 (0-0.3) K/mm3 Baso # (Auto) 0.1 (0.0-0.1) K/mm3 Abs Immat Gran (auto) 0.09 H (0.00-0.031) K/mm3 Absolute Neuts (auto) 13.7 H (1.3-6.7) K/mm3 Absolute Nucleated RBC 0.000 (0.0-0.012) K/mm3 Nucleated RBC % 0.0 (0.0-0.2) % Sodium 138 (137-145) mmol/L Potassium 4.1 (3.4-5.0) mmol/L Chloride 102 (98-107) mmol/L Carbon Dioxide 25 (22-30) mmol/L Anion Gap 11 (4-12) mmol/L BUN 26 H (7-17) mg/dL Creatinine 0.90 (0.7-1.0) mg/dL Estim Creat Clear Calc Not Reportable Estimated GFR 60 (59 - ) Glucose 130 H (65-110) mg/dL Calcium 11.5 H (8.4-10.2) mg/dL Total Bilirubin 0.8 (0.2-1.3) mg/dL AST 26 (14-36) U/L ALT 22 (6-35) U/L Alkaline Phosphatase 119 (38-126) U/L Troponin I 0.019 (0.000-0.034) ng/mL Total Protein 8.0 (6.3-8.2) g/dL Albumin 4.4 (3.5-5.1) g/dL Lipase 1047 H (23-300) U/L Urine Color Yellow (Yellow) Urine Appearance Clear (Clear) Urine pH 5.5 (5.0-9.0) Ur Specific [place] 1.015 (1.001-1.035) Urine Protein Negative (Negative) mg/dL Urine Glucose (UA) Negative (Negative) mg/dL Urine Ketones Negative (Negative) mg/dL Ur Blood (Man) Negative (Negative) Urine Nitrate Negative (Negative) Urine Bilirubin Negative (Negative) Urine Urobilinogen 0.2 (<2.0) mg/dL Add Ur Microanalysis Reviewed Leukocyte Esterase Rfl 2+ H (Negative) GUERO/UL Urine RBC 6-10 H (0-2) /hpf Urine WBC 11-20 H (0-3) /hpf Ur Squamous Epith Cells Occasional (Few) /hpf Urine Bacteria None seen /hpf Urine Casts 0-2 Imaging Data Radiologist's impression: ITS Impressions Abdomen/Pelvis CT 10/09/24 14:14 IMPRESSION: 1. Minimal fat stranding around the head of the pancreas. The pancreatitis cannot be excluded. Clinical correlation advised. 2. No evidence of appendicitis, diverticulitis or intestinal obstruction. 3. Hyperdense lesion in the left kidney upper pole unchanged from previous examination. Differential include mass versus hemorrhagic cyst 4. Stone in the right kidney lower pole. 5. Multiple hypodense lesions in the right kidney most likely hemorrhagic cysts. 6. Small splenule is seen adjacent to the spleen. ECG Data EKG #1: Attestation: I personally reviewed and interpreted this ECG as follows: ECG completion date: 10/02/24 ECG completion time: 11:41 Interpretation: LVH normal rate, sinus rhythm and left axis Discharge Plan Discharge Clinical Impression: Acute pancreatitis Qualifiers: Pancreatitis type: unspecified pancreatitis type Patient Disposition: Still a Patient Condition: Stable
--- NOTE | 2024-10-09 12:30 | PC.NURSE ---
Unable to gain IV access. JAZMIN Michel and MD Porras aware.
[2024-10-09 13:03] LABS: Add Urine Microscopic? YES; Appearance Urine Clear (Clear); Bacteria Urine None Seen /hpf; Bilirubin Urine Negative (Negative); Blood Urine Negative (Negative); Color Urine Yellow (Yellow); Glucose Urine UA Negative (Negative); Ketones Urine Negative (Negative); Leukocyte Esterase Ur 2+ LEU/UL (Negative); Need Manual Microscopic Reviewed; Nitrate Urine Negative (Negative); Non Pathogenic Casts 0-2; Protein Urine Negative (Negative); Specific Grav Ur 1.015 (1.001-1.035); Squamous Epithelial Cell Urine Occasional /hpf (Few); Urobilinogen Urine 0.2 mg/dL (<2.0); pH Urine 5.5 (5.0-9.0)
[2024-10-09 13:04] LABS: Basophils Absolute Auto 0.1 K/mm3 (0.0-0.1); Basophils Percent Auto 0.5 % (0.2-1.2); Eosinophils Absolute Auto 0.1 K/mm3 (0-0.3); Eosinophils Percent Auto 0.4 % (0-4.4); Hematocrit 42.2 % (37.0-47.0); Hemoglobin 13.9 g/dL (12.0-15.0); Immature Granulocyte Absolute 0.09 K/mm3 (0.00-0.031); Immature Granulocyte Percent A 0.5 % (0-0.5); Lymphocytes Absolute Auto 2.28 K/mm3 (0.9-3.2); Lymphocytes Percent Auto 13.3 % (18.3-44.2); Mean Corpuscular HGB Conc 32.9 g/dl (32-36); Mean Corpuscular Hemoglobin 31.3 pg (26-34); Mean Platelet Volume 9.4 fl (7.4-10.4); Monocytes Absolute Auto 0.9 K/mm3 (0.1-0.6); Monocytes Percent Auto 5.1 % (2.6-8.5); Neutrophils Absolute Auto 13.7 K/mm3 (1.3-6.7); Neutrophils Percent Auto 80.2 % (45.5-73.1); Platelet Count Result 349 k/mm3 (150-375); Red Blood Count 4.44 M/mm3 (4.2-5.4); Red Cell Distribution Width 13.2 % (11.5-14.5); White Blood Count 17.1 K/mm3 (4.5-10.0)
[2024-10-09 13:13] LABS: Alanine Aminotransferase 22 U/L (6-35); Albumin Level 4.4 g/dL (3.5-5.1); Alkaline Phosphatase 119 U/L (38-126); Anion Gap 11 mmol/L (4-12); Aspartate Amino Transferase 26 U/L (14-36); Bilirubin,Total 0.8 mg/dL (0.2-1.3); Blood Urea Nitrogen 26 mg/dL (7-17); Calcium 11.5 mg/dL (8.4-10.2); Carbon Dioxide 25 mmol/L (22-30); Chloride 102 mmol/L (98-107); Estimated Glomerular Filt Rate 60; Glucose 130 mg/dL (65-110); Lipase 1047 U/L (23-300); Potassium 4.1 mmol/L (3.4-5.0); Sodium 138 mmol/L (137-145)
[2024-10-09 13:25] LABS: Troponin I 0.019 ng/mL (0.000-0.034)
--- NOTE | 2024-10-09 13:51 | PC.NURSE ---
[facility] called by JAZMIN Michel for peripheral IV access.
[2024-10-09 14:30] VITALS: BP 138/88; PULSE 88; RESP 16; O2SAT 98
--- NOTE | 2024-10-09 15:11 | P.HP_ITS ---
H&P: HPI History of Present Illness Date/Time: 10/09/24 15:11 Chief Complaint: Abdominal pain Narrative: 83-year-old female presents the hospital with abdominal pain. Patient complains of severe abdominal pain with nausea she states that she has never had this pain before. She states that she is unable to eat due to this pain and nausea. Patient is unable to describe her symptoms however the pain is constant, 8/10. Patient states that due to the severity of pain she came to the emergency room. She has no other complaints at this time In the patient has leukocytosis of 17.1, BUN of 26, calcium of 11.5, lipase of 1047, UA with 2+ leukocyte esterase negative for nitrates, CT of the abdomen shows minimal fat stranding around the head of pancreas be pancreatitis cannot be excluded. Stable left kidney lesion, right kidney stone, and Small splenule is seen adjacent to the spleen. Patient received fluid bolus and LR at 200. Patient still extremely hypertensive she did state that she took her morning blood pressure medications. Review of Systems Review of Systems: 12 systems were reviewed and are negativ e except for as per HPI. [facility] Past Medical History Medical History Obstructive sleep apnea Cancer of left breast Status post mastectomy and chemoradiation. 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 Essential hypertension Gait instability Gout Hyperparathyroidism Osteoporosis Vitamin B 12 deficiency Vitamin D deficiency, unspecified Surgical History Surgical History History of section History of total mastectomy of left breast History of alvaro hole surgery Family History Family History Sibling Family history of malignant neoplasm of breast in first degree relative Patient's sister is Other Asthma Family history of cataracts Family history of malignant neoplasm of breast Family history of malignant neoplasm of male breast Hypertension Social History Social History Social History: Surrogate medical decision maker: Andria Chavez, daughter. Code status: Full code. Smoking status: Never smoker Second hand tobacco smoke exposure: No Alcohol intake: never Substance use: never Substance use type: does not use Do You Feel Safe in your Home?: Yes Lack of Transportation: No Lack of Food: Never True Current Housing: I Have Housing Concerned About Future Housing: No Difficulty Paying Gas/Electric Bills: No Difficulty Paying for Meds: No Currently Unemployed: No Education: High School Diploma/GED Difficulty w/ Childcare or Family Care: No Living arrangements: with family Additional living arrangements comments: Lives with daughter in:. Occupation/Education: retired Spiritual care concerns: No Meds Home Medications and Allergies Home Medications ?Medication ?Instructions ?Recorded ?Confirmed ?Type hydrochlorothiazide 12.5 mg tablet 6.25 mg (1/2 x 12.5 mg) PO DAILY 05/04/24 10/09/24 Rx #45 tabs rosuvastatin 10 mg tablet (Crestor) 10 mg PO QPM #90 tabs 05/28/24 10/09/24 Rx montelukast 10 mg tablet 10 mg PO QPM #90 tabs 06/02/24 10/09/24 Rx lisinopril 30 mg tablet 30 mg PO DAILY #30 tabs 09/03/24 10/09/24 Rx fluticasone propionate 50 1 spray intranasal DAILY PRN nasal 10/09/24 10/09/24 History mcg/actuation nasal congestion spray,suspension (Allergy Relief (fluticasone)) Allergies Allergy/AdvReac Type Severity Reaction Status Date / Time aspirin Allergy Severe Difficulty Verified 08/11/24 07:34 Breathing NSAIDS (Non-Steroidal Allergy Severe Difficulty Verified 08/11/24 07:34 Anti-Inflamma (NSAIDS Breathing (Non-Steroidal Anti-Inflammatory Drug)) Penicillins Allergy Intermediate Hives Verified 08/11/24 07:34 Vital Signs Vital Signs - 24 hr 10/09/24 11:06 10/09/24 11:20 10/09/24 14:30 Temperature 98.7 F Pulse Rate 84 86 88 Respiratory Rate 18 16 16 Blood Pressure 142/71 H 129/66 138/88 Pulse Oximetry 100 99 98 Oxygen Delivery Room Air Exam Narrative: General: well appearing, appears stated age. HEENT: normocephalic, atraumatic. Mucous membranes moist. EOMI, PERRLA, bilateral sclera anicteric, no conjunctival injection. Neck supple without JVD, lymphadenopathy, or bruit. Respiratory: clear to ascultation bilaterally. No rales/rhonic/wheezes. Cardiovascular: Regular rate and rhythm, normal S1-S2 upon ascultation. No murmurs, rubs, or clicks. PMI is nondisplaced, capillary refill less than 3 second. Abdomen: Soft, round, no pulsatile masses, nondistended and nontender. No rebound, no guarding. No CVA tenderness, no hepatosplenomegaly. Bowel sounds present to all four quadrants. No high pitch or tinkling sounds, resonant to percussion. Extremities: No cyanosis, clubbing, or edema present. Pulses are palpable 2/2. Active ROM to all four extremities. Neuro: Alert and orientated x 4. PERRLA. Cranial nerves 2-12 intact without focal deficit. Skin: Warm, dry, and intact, without rash, erythema, or lesion. Psych: pleasant, cooperative, normal speech, normal affect, no hallucinations, no dysarthia H&P: Results Labs Labs: Short CBC 10/09/24 Range/Units 12:54 WBC 17.1 H (4.5-10.0) K/mm3 Hgb 13.9 (12.0-15.0) g/dL Hct 42.2 (37.0-47.0) % Plt Count 349 (150-375) k/mm3 BMP 10/09/24 12:54 Sodium 138 Potassium 4.1 Chloride 102 Carbon Dioxide 25 BUN 26 H Creatinine 0.90 Glucose 130 H Calcium 11.5 H Cardiac Enzymes 10/09/24 Range/Units 12:54 Troponin I 0.019 (0.000-0.034) ng/mL Liver Function 10/09/24 Range/Units 12:54 Total Bilirubin 0.8 (0.2-1.3) mg/dL AST 26 (14-36) U/L ALT 22 (6-35) U/L Alkaline Phosphatase 119 (38-126) U/L Albumin 4.4 (3.5-5.1) g/dL Urine 10/09/24 Range/Units 12:16 Urine Color Yellow (Yellow) Urine Appearance Clear (Clear) Urine pH 5.5 (5.0-9.0) Ur Specific [place] 1.015 (1.001-1.035) Urine Protein Negative (Negative) mg/dL Urine Glucose (UA) Negative (Negative) mg/dL Assessment and Plan Assessment and plan (1) Pancreatitis: Code(s): K85.90 - Acute pancreatitis without necrosis or infection, unspecified Status: Acute Assessment and Plan: 1 L LR bolus followed by LR at 200 Repeat lipase in the morning Okay for ice chips and water, will advance diet once pain is under control IV morphine for pain control Order for midline due to unable to get IV access after 7 attempts IV Zofran for nausea (2) Leukocytosis: Code(s): D72.829 - Elevated white blood cell count, unspecified Status: Acute Assessment and Plan: Likely reactive due to acute inflammation pancreatitis noninfective Will defer antibiotics at this time UA does show leukocyte esterase however the patient is asymptomatic, will wait for culture and sensitivities (3) Essential hypertension: Code(s): I10 - Essential (primary) hypertension Status: Acute Assessment and Plan: Continue BP meds IV hydralazine if blood pressure is not controlled by oral medications or if the patient cannot tolerate oral medications (4) Hyperlipidemia, unspecified: Code(s): E78.5 - Hyperlipidemia, unspecified Status: Acute Assessment and Plan: Continue statin Quality VTE Prophylaxis VTE prophylaxis: mechanical ordered and pharmacologic ordered Hospitalist MIPS Advance Care Plan I have confirmed that the patient's Advanced Care Plan is present, code status is documented, or surrogate decision maker is listed in patient medical record.: Yes Medication Reconciliation I have utilized all available resources to obtain, update and review the patients current medications (includes all prescriptions, OTC, herbals, cannabis, and nutritional supplements).: Yes
--- NOTE | 2024-10-09 16:33 | PC.NURSE ---
[place] not at bedside yet for IV line placement. JAZMIN Michel and Md Porras aware. Unable to administer ordered IV meds at this time.
--- NOTE | 2024-10-09 16:38 | PC.NURSE ---
Report called to JUAQUIN Shultz. RN aware that pt. does not have IV access yet and that [place] has been called. PICC line and midline sent up with pt. JUAQUIN Shultz to return the one that is not used to central.
[2024-10-09 17:00] VITALS: BP 179/83; PULSE 83; RESP 18; TEMP 37.3; O2SAT 99
[2024-10-09 18:23] VITALS: BMI 30.2
--- NOTE | 2024-10-09 18:33 | ADMGEN ---
This patient, Meenakshi Chavez, was admitted to [facility] Surg Room 303-01. Patient/family oriented to hospital policies and general routines including ID bracelet, bed and alarms, visiting hours, pain management, procedures, bathroom and other care routines, personal items, smoking policy, room service/diet, and visiting hours. Information on how to activate the Rapid Response Team has been discussed. Patient/Family are encouraged to report perceived risks to care and to ask questions if they do not understand what they are told or what they should do.
[2024-10-09 21:56] VITALS: BP 188/76; PULSE 106; RESP 16; TEMP 37.2; O2SAT 95
[2024-10-09] MEDS: LACTATED RINGERS 1,000 ML 999 ML IV CONT (22:02)
[2024-10-09] MEDS: ONDANSETRON INJ 4 MG/2 ML VIAL IV PUSH (22:14)
[2024-10-09] MEDS: hydrALAZINE HCL 20 MG/ML VIAL 10 MG IV PUSH (22:15)
[2024-10-09] MEDS: MORPHINE SULFATE (*CRX) 2 MG/ML INJ IV PUSH (22:16)
[2024-10-09] MEDS: MONTELUKAST SODIUM 10 MG TABLET PO (22:18)
[2024-10-09] MEDS: ROSUVASTATIN 10 MG TABLET PO (22:18)
[2024-10-09] MEDS: LACTATED RINGERS 1,000 ML 200 ML IV CONT (23:43)
[2024-10-10] MEDS: LACTATED RINGERS 1,000 ML 200 ML IV CONT ×2 (05:30→13:01)
[2024-10-10 06:00] VITALS: BP 118/58; PULSE 107; RESP 18; TEMP 36.9; O2SAT 95
[2024-10-10 06:32] LABS: Basophils Absolute Auto 0.1 K/mm3 (0.0-0.1); Basophils Percent Auto 0.4 % (0.2-1.2); Eosinophils Percent Auto 0.1 % (0-4.4); Hematocrit 38.4 % (37.0-47.0); Hemoglobin 12.3 g/dL (12.0-15.0); Immature Granulocyte Absolute 0.15 K/mm3 (0.00-0.031); Immature Granulocyte Percent A 0.8 % (0-0.5); Lymphocytes Percent Auto 19.7 % (18.3-44.2); Mean Corpuscular Hemoglobin 31.1 pg (26-34); Mean Platelet Volume 9.6 fl (7.4-10.4); Monocytes Absolute Auto 1.3 K/mm3 (0.1-0.6); Neutrophils Absolute Auto 13.5 K/mm3 (1.3-6.7); Platelet Count Result 299 k/mm3 (150-375); Red Blood Count 3.96 M/mm3 (4.2-5.4); Red Cell Distribution Width 13.3 % (11.5-14.5); White Blood Count 18.8 K/mm3 (4.5-10.0)
[2024-10-10 06:49] LABS: Alanine Aminotransferase 20 U/L (6-35); Albumin Level 3.5 g/dL (3.5-5.1); Alkaline Phosphatase 82 U/L (38-126); Anion Gap 8 mmol/L (4-12); Aspartate Amino Transferase 28 U/L (14-36); Bilirubin,Total 0.8 mg/dL (0.2-1.3); Blood Urea Nitrogen 19 mg/dL (7-17); Calcium 10.9 mg/dL (8.4-10.2); Carbon Dioxide 24 mmol/L (22-30); Chloride 104 mmol/L (98-107); Estimated Glomerular Filt Rate > 60; Glucose 126 mg/dL (65-110); Lipase 968 U/L (23-300); Potassium 4.6 mmol/L (3.4-5.0); Sodium 136 mmol/L (137-145)
[2024-10-10] MEDS: ENOXAPARIN 40 MG/0.4 ML SYRINGE SUB-Q (09:44)
[2024-10-10] MEDS: lisinopriL 10 MG TABLET 30 MG PO (09:45)
[2024-10-10] MEDS: hydroCHLOROthiazide 6.25 MG TABLET PO (09:46)
--- NOTE | 2024-10-10 11:59 | P.PNIM_ITS ---
Progress Note: A&P Assessment and Plan (1) Pancreatitis: Code(s): K85.90 - Acute pancreatitis without necrosis or infection, unspecified Status: Acute Assessment and Plan: npo iv fluids can start clears as lipase drifting down npo from [place] for USGB continue to watch lipase hold HTCZ (2) Leukocytosis: Code(s): D72.829 - Elevated white blood cell count, unspecified Status: Acute Assessment and Plan: watch [facility] [place] reactive [id number] currently continue iv fluids UA does show leukocyte esterase await UC no urinary complaints (3) Essential hypertension: Code(s): I10 - Essential (primary) hypertension Status: Acute Assessment and Plan: Hold BP Stop htcz switch to norvasc (4) Hyperlipidemia, unspecified: Code(s): E78.5 - Hyperlipidemia, unspecified Status: Acute Assessment and Plan: Continue statin Subjective Date/time seen: 10/10/24 11:59 Interval history: 83-year-old female presents the hospital with abdominal pain. Patient complains of severe abdominal pain with nausea she states that she has never had this pain before. She states that she is unable to eat due to this pain and nausea. Patient is unable to describe her symptoms however the pain is constant, 8/10. Patient states that due to the severity of pain she came to the emergency room. She has no other complaints at this time In the patient has leukocytosis of 17.1, BUN of 26, calcium of 11.5, lipase of 1047, UA with 2+ leukocyte esterase negative for nitrates, CT of the abdomen shows minimal fat stranding around the head of pancreas be pancreatitis cannot be excluded. Stable left kidney lesion, right kidney stone, and Small splenule is seen adjacent to the spleen. Patient received fluid bolus and LR at 200. Pt admitted for pancreatitis no history of alcohol use Pt uses hctz for bp medication on hold as se is pancreatitis US GB ordered to check for GB stones Lipase drifting down Pt wanting to go home tomorrow if possible Review of Systems Review of Systems: Mild abdominal pains Exam Narrative: General: well appearing, appears stated age. Respiratory: clear to auscultation bilaterally Cardiovascular: Regular rate and rhythm, normal S1-S2 upon auscultation. No murmurs, rubs, or clicks. PMI is nondisplaced, capillary refill less than 3 second. Abdomen: soft some TTP over RUQ. Extremities: No cyanosis, clubbing, or edema present Psych: pleasant, cooperative, normal speech, normal affect, no hallucinations, no dysarthria Objective Data Vital Signs Vital Signs: Vital Signs - 24 hr 10/09/24 11:06 10/09/24 11:20 10/09/24 14:30 Temperature 37.1 C Pulse Rate 84 86 88 Respiratory Rate 18 16 16 Blood Pressure 142/71 H 129/66 138/88 Pulse Oximetry 100 99 98 Oxygen Delivery Room Air 10/09/24 17:00 10/09/24 18:49 10/09/24 20:00 Temperature 37.3 C Pulse Rate 83 Respiratory Rate 18 Blood Pressure 179/83 H Pulse Oximetry 99 Oxygen Delivery Room Air Room Air 10/09/24 21:56 10/10/24 06:00 Temperature 37.2 C 36.9 C Pulse Rate 106 H 107 H Respiratory Rate 16 18 Blood Pressure 188/76 H 118/58 L Pulse Oximetry 95 95 Oxygen Delivery Intake/Output Intake/Output: Intake & Output 10/07/24 10/08/24 10/09/24 10/11/24 23:59 23:59 23:59 00:59 Intake Total 956.7 Balance 956.7 Meds/Results Medications: Active Medications Generic Name Dose Route Start Last Admin Trade Name Freq PRN Reason Stop Dose Admin Enoxaparin Sodium 40 mg 10/10/24 09:00 10/10/24 09:44 Enoxaparin 40 Mg/0.4 Ml Syringe SUB-Q 40 mg DAILY [facility] Administration Hydralazine HCl 10 mg 10/09/24 21:54 10/09/24 22:15 Hydralazine Hcl 20 Mg/Ml Vial IV PUSH 10 mg Q8H PRN Administration Blood Pressure - High Hydrochlorothiazide 6.25 mg 10/10/24 09:35 10/10/24 09:46 Hydrochlorothiazide 6.25 Mg Tablet PO 6.25 mg QAM GIL[facility]ERT Administration Lactated Ringer's 1,000 mls @ 70 mls/hr 10/09/24 16:30 10/10/24 05:30 Lr - Lactated Ringers Iv IV CONT 200 mls/hr .[id number] GIL[facility]ERT Administration Lisinopril 30 mg 10/10/24 09:00 10/10/24 09:45 Lisinopril 10 Mg Tablet PO 30 mg DAILY [facility] Administration Montelukast Sodium 10 mg 10/09/24 19:00 10/09/24 22:18 Montelukast Sodium 10 Mg Tablet PO 10 mg QPM G[facility]ERT Administration Morphine Sulfate 2 mg 10/09/24 15:11 10/09/24 22:16 Morphine Sulfate (*Crx) 2 Mg/Ml Inj IV PUSH 2 mg Q2H PRN Administration Pain Rated 7-10 Ondansetron HCl 4 mg 10/09/24 15:11 10/09/24 22:14 Ondansetron Inj 4 Mg/2 Ml Vial IV PUSH 4 mg Q4H PRN Administration Nausea Rosuvastatin Calcium 10 mg 10/09/24 19:00 10/09/24 22:18 Rosuvastatin 10 Mg Tablet PO 10 mg QPM GILBERT Administration Radiology Results: ITS Impressions Abdomen/Pelvis CT 10/09/24 14:14 IMPRESSION: 1. Minimal fat stranding around the head of the pancreas. The pancreatitis cannot be excluded. Clinical correlation advised. 2. No evidence of appendicitis, diverticulitis or intestinal obstruction. 3. Hyperdense lesion in the left kidney upper pole unchanged from previous examination. Differential include mass versus hemorrhagic cyst 4. Stone in the right kidney lower pole. 5. Multiple hypodense lesions in the right kidney most likely hemorrhagic cysts. 6. Small splenule is seen adjacent to the spleen. Labs Labs: Laboratory Results - last 24 hr 10/09/24 10/09/24 10/10/24 12:16 12:54 05:54 WBC 17.1 H 18.8 H RBC 4.44 3.96 L Hgb 13.9 12.3 Hct 42.2 38.4 MCV 95.0 97.0 MCH 31.3 31.1 MCHC 32.9 32.0 RDW 13.2 13.3 Plt Count 349 299 MPV 9.4 9.6 Immature Gran % (Auto) 0.5 0.8 H Neut % (Auto) 80.2 H 72.0 Lymph % (Auto) 13.3 L 19.7 [place] % (Auto) 5.1 7.0 Eos % (Auto) 0.4 0.1 Baso % (Auto) 0.5 0.4 Lymph # (Auto) 2.28 3.70 H [place] # (Auto) 0.9 H 1.3 H Eos # (Auto) 0.1 0.0 Baso # (Auto) 0.1 0.1 Abs Immat Gran (auto) 0.09 H 0.15 H Absolute Neuts (auto) 13.7 H 13.5 H Absolute Nucleated RBC 0.000 0.000 Nucleated RBC % 0.0 0.0 Sodium 138 136 L Potassium 4.1 4.6 Chloride 102 104 Carbon Dioxide 25 24 Anion Gap 11 8 BUN 26 H 19 H Creatinine 0.90 0.77 Estim Creat Clear Calc Not Reportable Not Reportable Estimated GFR 60 > 60 Glucose 130 H 126 H Calcium 11.5 H 10.9 H Total Bilirubin 0.8 0.8 AST 26 28 ALT 22 20 Alkaline Phosphatase 119 82 Troponin I 0.019 Total Protein 8.0 6.0 L Albumin 4.4 3.5 Lipase 1047 H 968 H Urine Color Yellow Urine Appearance Clear Urine pH 5.5 Ur Specific [place] 1.015 Urine Protein Negative Urine Glucose (UA) Negative Urine Ketones Negative Ur Blood (Man) Negative Urine Nitrate Negative Urine Bilirubin Negative Urine Urobilinogen 0.2 Add Ur Microanalysis Reviewed Leukocyte Esterase Rfl 2+ H Urine RBC 6-10 H Urine WBC 11-20 H Ur Squamous Epith Cells Occasional Urine Bacteria None seen Urine Casts 0-2
[2024-10-10 13:47] VITALS: BP 139/56; PULSE 85; RESP 17; TEMP 36.7; O2SAT 97
[2024-10-10] MEDS: MONTELUKAST SODIUM 10 MG TABLET PO (17:09)
[2024-10-10] MEDS: ROSUVASTATIN 10 MG TABLET PO (17:09)
[2024-10-10] MEDS: ONDANSETRON INJ 4 MG/2 ML VIAL IV PUSH (20:11)
[2024-10-10 20:40] VITALS: BP 157/82; PULSE 92; RESP 18; TEMP 37; O2SAT 94
[2024-10-10] MEDS: PROCHLORPERAZINE EDISYLATE 10 MG/2 ML VIAL IV PUSH (22:51)
[2024-10-11 04:00] VITALS: BP 168/68; PULSE 93; RESP 16; TEMP 36.9; O2SAT 92
[2024-10-11] MEDS: LACTATED RINGERS 1,000 ML 70 ML IV CONT ×2 (04:29→23:30)
[2024-10-11 05:44] LABS: Hematocrit 34.2 % (37.0-47.0); Hemoglobin 11.3 g/dL (12.0-15.0); Mean Corpuscular Hemoglobin 31.2 pg (26-34); Mean Corpuscular Volume 94.5 fl (80-100); Mean Platelet Volume 9.6 fl (7.4-10.4); Platelet Count Result 254 k/mm3 (150-375); Red Blood Count 3.62 M/mm3 (4.2-5.4); Red Cell Distribution Width 13.3 % (11.5-14.5); White Blood Count 16.6 K/mm3 (4.5-10.0)
[2024-10-11 05:56] LABS: Anion Gap 3 mmol/L (4-12); Blood Urea Nitrogen 12 mg/dL (7-17); Calcium 10.5 mg/dL (8.4-10.2); Carbon Dioxide 28 mmol/L (22-30); Chloride 106 mmol/L (98-107); Estimated Glomerular Filt Rate > 60; Glucose 107 mg/dL (65-110); Lipase 1807 U/L (23-300); Potassium 3.9 mmol/L (3.4-5.0); Sodium 137 mmol/L (137-145)
--- NOTE | 2024-10-11 08:29 | PM.IMPN ---
Progress Note: A&P Assessment and Plan (1) Pancreatitis: Code(s): K85.90 - Acute pancreatitis without necrosis or infection, unspecified Status: Acute Assessment and Plan: Patient denies excessive alcohol use and no signs of cholecystitis/lithiasis Possibly related to patients recent prednisone course which she ended on / vs HCTZ vs other LFT WNL CT abdomen/pelvis 1. Minimal fat stranding around the head of the pancreas. The pancreatitis cannot be excluded. Clinical correlation advised. 2. No evidence of appendicitis, diverticulitis or intestinal obstruction. 3. Hyperdense lesion in the left kidney upper pole unchanged from previous examination. Differential include mass versus hemorrhagic cyst 4. Stone in the right kidney lower pole. 5. Multiple hypodense lesions in the right kidney most likely hemorrhagic cysts. 6. Small splenule is seen adjacent to the spleen. US GB: Unremarkable Diet: Can start clears as lipase drifting down npo from [place] for USGB HTCZ discontinued Monitor vital signs, I and O's, check stool output, neuro status and patient is a fall risk Monitor serum electrolytes and CBC Pain management GI consulted Given her Hx of breast cancer and mastectomy to only left breast, will check tumor markers and autoimmune If lipase remains elevated but patient remains asymptomatic, will discuss outpatient EUS vs MRCP. If patient become symptomatic, we can do additional testing while inpatient No indication for endoscopic intervention at this time. (2) Leukocytosis: Code(s): D72.829 - Elevated white blood cell count, unspecified Status: Acute Assessment and Plan: WBC elevated on admission, no signs of active infection Possibly inflammatory response Continue to monitor (3) Essential hypertension: Code(s): I10 - Essential (primary) hypertension Status: Acute Assessment and Plan: Chronic Given pancreatitis HCTZ discontinued, patient switched to amlodipine 5 mg daily Remains on lisinopril 30 mg daily Continue to monitor (4) Hyperlipidemia, unspecified: Code(s): E78.5 - Hyperlipidemia, unspecified Status: Acute Assessment and Plan: Continue statin Time Spent With Patient Time with patient: 25 - 35 minutes Subjective Date/time seen: 10/11/24 08:29 Interval history: 83 year old female with past medical history of hypertension, hyperparathyroidism, asthma, breast cancer s/p chemo and masectomy, BCC, and prediabetes presents to the hospital for abdominal pain. Patient is pleasant sitting up in her chair with family at bedside. She has no complaints denying chest pain, shortness of breath, palpitations, nausea/vomiting and abdominal pain. Her lipase has doubled since yesterday. She was placed on a clear diet yesterday and was reported to develop nausea before it was discontinued. Will attempt to resume clear diet today. Patient evaluated by GI today. Review of Systems Review of Systems: All systems reviewed & are unremarkable except as noted in HPI and below Exam Narrative: AF HR 95 RR 21 SpO2 96 BP 154/64 General: female in no acute respiratory distress who is nontoxic appearing, sitting up in chair HEENT: Normocephalic. Atraumatic. Extraocular movement intact. Sclera clear and anicteric. No facial asymmetry. Chest: Lungs are clear to auscultation bilaterally. No wheezes or crackles. CV: Heart was regular rate and rhythm. S1-S2. No murmurs, gallops, or rubs. Abd: Abdomen was soft. Nontender. Nondistended. Positive bowel sounds. Ext: No clubbing, cyanosis, or edema. Neuro: Patient is alert and oriented x4. Speech is clear. Objective Data Vital Signs Vital Signs: Vital Signs - 24 hr 10/10/24 13:47 10/10/24 20:00 10/10/24 20:40 Temperature 98.0 F 98.6 F Pulse Rate 85 92 Respiratory Rate 17 18 Blood Pressure 139/56 L 157/82 H Pulse Oximetry 97 94 Oxygen Delivery Room Air 10/11/24 04:00 Temperature 98.5 F Pulse Rate 93 Respiratory Rate 16 Blood Pressure 168/68 H Pulse Oximetry 92 Oxygen Delivery Intake/Output Intake/Output: Intake & Output 10/08/24 10/09/24 10/11/24 10/11/24 23:59 23:59 00:59 23:59 Intake Total 3316.7 223 Balance 3316.7 223 Meds/Results Medications: Active Medications Generic Name Dose Route Start Last Admin Trade Name Freq PRN Reason Stop Dose Admin Amlodipine Besylate 5 mg 10/11/24 09:00 Amlodipine Besylate 5 Mg Tablet PO DAILY [facility] Enoxaparin Sodium 40 mg 10/10/24 09:00 10/10/24 09:44 Enoxaparin 40 Mg/0.4 Ml Syringe SUB-Q 40 mg DAILY [facility] Administration Hydralazine HCl 10 mg 10/09/24 21:54 10/09/24 22:15 Hydralazine Hcl 20 Mg/Ml Vial IV PUSH 10 mg Q8H PRN Administration Blood Pressure - High Lactated Ringer's 1,000 mls @ 70 mls/hr 10/09/24 16:30 10/11/24 04:29 Lr - Lactated Ringers Iv IV CONT 70 mls/hr .[id number] [facility] Administration Lisinopril 30 mg 10/10/24 09:00 10/10/24 09:45 Lisinopril 10 Mg Tablet PO 30 mg DAILY [facility] Administration Montelukast Sodium 10 mg 10/09/24 19:00 10/10/24 17:09 Montelukast Sodium 10 Mg Tablet PO 10 mg QPM G[facility] Administration Morphine Sulfate 2 mg 10/09/24 15:11 10/09/24 22:16 Morphine Sulfate (*Crx) 2 Mg/Ml Inj IV PUSH 2 mg Q2H PRN Administration Pain Rated 7-10 Ondansetron HCl 4 mg 10/09/24 15:11 10/10/24 20:11 Ondansetron Inj 4 Mg/2 Ml Vial IV PUSH 4 mg Q4H PRN Administration Nausea Prochlorperazine Edisylate 10 mg 10/10/24 22:40 10/10/24 22:51 Prochlorperazine Edisylate 10 Mg/2 Ml Vial IV PUSH 10 mg Q6H PRN Administration Nausea And Vomiting Rosuvastatin Calcium 10 mg 10/09/24 19:00 10/10/24 17:09 Rosuvastatin 10 Mg Tablet PO 10 mg QPM GILBERT Administration Radiology Results: ITS Impressions Abdomen/Pelvis CT 10/09/24 14:14 IMPRESSION: 1. Minimal fat stranding around the head of the pancreas. The pancreatitis cannot be excluded. Clinical correlation advised. 2. No evidence of appendicitis, diverticulitis or intestinal obstruction. 3. Hyperdense lesion in the left kidney upper pole unchanged from previous examination. Differential include mass versus hemorrhagic cyst 4. Stone in the right kidney lower pole. 5. Multiple hypodense lesions in the right kidney most likely hemorrhagic cysts. 6. Small splenule is seen adjacent to the spleen. Labs Labs: Laboratory Results - last 24 hr 10/11/24 05:20 WBC 16.6 H RBC 3.62 L Hgb 11.3 L Hct 34.2 L MCV 94.5 MCH 31.2 MCHC 33.0 RDW 13.3 Plt Count 254 MPV 9.6 Sodium 137 Potassium 3.9 Chloride 106 Carbon Dioxide 28 Anion Gap 3 L BUN 12 D Creatinine 0.84 Estim Creat Clear Calc Not Reportable Estimated GFR > 60 Glucose 107 Calcium 10.5 H Lipase 1807 H Quality VTE Prophylaxis VTE prophylaxis: mechanical ordered and pharmacologic ordered
[2024-10-11] MEDS: lisinopriL 10 MG TABLET 30 MG PO (10:58)
[2024-10-11] MEDS: amLODIPine BESYLATE 5 MG TABLET PO (10:58)
[2024-10-11] MEDS: ENOXAPARIN 40 MG/0.4 ML SYRINGE SUB-Q (11:00)
--- NOTE | 2024-10-11 11:13 | P.CONGI_ITS ---
<Statement entered by Mack Arvizu MD - 10/11/24 18:40> I, Mack Arvizu MD, have provided a substantive portion of the care of this patient and discussed the patient with my Nurse Practitioner. I have reviewed any new relevant radiographic and laboratory results including medications. I agree with her documentation as noted below.?I personally performed the medical decision making and much of the history and exam for this encounter. briefly, here with nausea and mild upper abdominal pain, ct showed possible pancreatitis, elevated lipase. She is already doing better and tolerating liquid diet, plan is to advance and home if she feels better. Imaging no stone in bile duct. No alcohol use. Assessment and Plan Assessment and plan (1) Abdominal pain: Qualifiers: Abdominal location: upper abdomen, unspecified Qualified Code(s): R10.10 - Upper abdominal pain, unspecified <Nailaashok Bello APRN - Last Filed: 10/11/24 11:41> Code(s): R10.9 - Unspecified abdominal pain <Nailaashok Bello [employer] - Last Filed: 10/11/24 11:41> Status: Acute <Naila DChandni Bello, [employer] - Last Filed: 10/11/24 11:41> (2) Pancreatitis: Qualifiers: Acute pancreatitis complication: no infection or necrosis C hronicity: acute Pancreatitis type: idiopathic Qualified Code(s): K85.00 - Idiopathic acute pancreatitis without necrosis or infection <Naila Bello [employer] - Last Filed: 10/11/24 11:41> Code(s): K85.90 - Acute pancreatitis without necrosis or infection, unspecified <Naila DChandni Bello, [employer] - Last Filed: 10/11/24 11:41> Status: Acute <Naila DChandni Bello, [employer] - Last Filed: 10/11/24 11:41> (3) Elevated lipase: Code(s): R74.8 - Abnormal levels of other serum enzymes <Naila DChandni Bello [employer] - Last Filed: 10/11/24 11:41> Status: Acute <Naila DChandni Bello [employer] - Last Filed: 10/11/24 11:41> (4) Abnormal digestive system diagnostic imaging: Code(s): R93.3 - Abnormal findings on diagnostic imaging of other parts of digestive tract <Naila Bello APRN - Last Filed: 10/11/24 11:41> Status: Acute <Naila Bello APRN - Last Filed: 10/11/24 11:41> Assessment and Plan: 1. Abnormal imaging digestive/ pancreatitis /elevated lipase/ upper abdominal pain/nausea: Patient admits to dull upper abdominal pain that started around 0800 Friday morning that was accompanied with mild nausea. Patient presented to the emergency room on the and lipase was found to be elevated at [address] showed minimal fat stranding around the head of the pancreas, pancreatitis could not be excluded. Both abdominal pain and nausea have resolved since admission. prior to admission the patient denies any recent change in her prescriptions other than he was treated with a course of prednisone for asthma which she finished on October 03. Patient has been tolerating p.o. intake since admission. Lipase has fluctuated since admission 1047-->968-->1807. Clinical presentation at this time is not consistent with acute pancreatitis. BMP and LFTs normal. RUQ ultrasound today was normal and there were not findings concerning for biliary obstruction. Triglycerides were not checked presentation but would have likely been falsely low as she states she had not eaten anything today prior to presenting to the emergency room. last time triglycerides were checked was in February of 2024 and level is 247. * Will work up for other causes of elevated other than pancreatitis. Given her Hx of breast cancer and mastectomy to only left breast, will check tumor markers and autoimmune * If lipase remains elevated but patient remains asymptomatic, will discuss outpatient EUS vs MRCP. If patient become symptomatic, we can do additional testing while inpatient * No indication for endoscopic intervention at this time. 2. Leukocytosis: No signs of active infection, thought to be reactive. Unclear if elevation may be from recent prednisone course, but this should have normalized by now given that she stopped on the . * Primary care team to continue monitoring Thank you very much for allowing me to share in the care of this very nice patient. This report may have been done utilizing a voice recognition system. Attempts have been made to correct errors. However, there may be uncorrected grammatical, spelling, and recognition errors present. <Naila Bello APRN - Last Filed: 10/11/24 11:41> GI Consult Note Consult date/time: 10/11/24 11:13 <Naila Bello [employer] - Last Filed: 10/11/24 11:41> Reason for consult: Pancreatitis <Naila Bello [employer] - Last Filed: 10/11/24 11:41> HPI: This is a pleasant 83 female with a past medical surgical history of MARIS, breast cancer status post mastectomy and chemo and radiation, GERD, asthma, HTN, gout, hyperparathyroidism, osteoporosis, and . She presented to the ER room 10/09/2024 with complaints of RUQ abdominal pain. GI consulted for pancreatitis. Patient was seen with her daughter Andria at her bedside throughout the entire visit. She had an asthma flare about a week and a half prior to presentation and was on a prednisone taper, which she finished the previous Friday10/06/2024 but other than that the patient denies any recent change in medications or recent illness. Patient states that she started having abdominal pain around 0800 on Friday morning. The abdominal pain as a dull pain that was not severe, but enough to get her attention. She had a little bit of nausea the night before presentation, but no vomiting. She denied any dysphagia or odynophagia. She occasionally gets indigestion and takes Pepcid as needed. Her appetite has been good at home and she has not had any unintentional weight loss. Her bowel movements are regular, formed, and occur every morning. She denied any blood in the stool or black stools. She is allergic to all NSAIDs and penicillin. She does not take any blood thinners. She occasionally takes Tylenol as needed. She denied any alcohol or tobacco use. She denied any family history of GI cancer. ENDOSCOPY HISTORY: EGD: Had EGD more than 5 years ago, but less than 10 years ago. Reason unknown. COLONOSCOPY: Had colonoscopy more than 5 years ago, but less than 10 years ago (doctor that performed it unknown). Had polyps removed at one time that were noncancerous . LABS AND STOOL STUDIES: LABS 10/10/2024: Sodium 137, potassium 3.9, BUN 12, creatinine 0.84, GFR > 60 WBC 17, HGB 11, HCT 30 CV 95, platelets 254 Total bilirubin 0.8, AST 28, ALT 20, alkaline phosphatase 82, alb 2.5 calcium 10.5 Lipase 1047-->968-->1807 IMAGING: RUQ ultrasound 10/11/2024: FINDINGS: The visualized portions of the head, body, and tail of the pancreas are normal. The liver is normal without focal lesion. There is normal flow in main portal vein. The gallbladder is normal in size. No gallstones or gallbladder wall thickening. There is no sonographic Dodge's sign. The common duct is normal and measures 5 mm. IMPRESSION: 1. Normal right upper quadrant ultrasound. Note that ultrasound is less sensitive than CT for evaluating the pancreas. CT abd/pelvis w/contrast 10/09/2024: Findings: Minimal fat stranding around the head of the pancreas. The pancreatitis cannot be excluded. Clinical correlation advised. No evidence of appendicitis, diverticulitis or intestinal obstruction. Hyperdense lesion in the left kidney upper pole unchanged from previous examination. Differential include mass versus hemorrhagic cyst. Stone in the right kidney lower pole. Multiple hypodense lesions in the right kidney most likely hemorrhagic cysts. Small splenule is seen adjacent to the spleen. MRI abdomen 10/14/2023: IMPRESSION: 1. Multiple bilateral renal cysts which includes a 1.9 cm nonenhancing proteinaceous/hemorrhagic left renal cyst which corresponds to the lesion of concern from prior CT. CT abd/pelvis wo contrast 10/13/2023: IMPRESSION: 1. Kidney masses measuring up to 1.7 cm on the left, probably hemorrhagic cysts. Neoplasm cannot be excluded. Consider abdomen CT or MRI without and with contrast. 2. Left inguinal hernia containing fat. <Naila Bello APRN - Last Filed: 10/11/24 11:41> Review of Systems 2 Constitutional: Constitutional: Reports as per HPI <Naila Bello APRN - Last Filed: 10/11/24 11:41> ENT: Reports as per HPI <Naila Bello APRN - Last Filed: 10/11/24 11:41> Cardiovascular: Cardiovascular: Reports as per HPI, Denies chest pain and Denies dyspnea <Naila Bello APRN Last Filed: 10/11/24 11:41> Respiratory: Respiratory: Denies cough and Denies dyspnea <Naila Bello APRN - Last Filed: 10/11/24 11:41> Gastrointestinal: Gastrointestinal: Reports as per HPI <Naila Bello APRN - Last Filed: 10/11/24 11:41> Musculoskeletal: Musculoskeletal: Reports as per HPI <Naila Bello APRN - Last Filed: 10/11/24 11:41> Integumentary/Breasts: Skin/Breast: Reports as per HPI <Naila Bello APRN - Last Filed: 10/11/24 11:41> Psychiatric: Psychiatric: Reports as per HPI <Naila Bello APRN Last Filed: 10/11/24 11:41> Endocrine: Endocrine: Reports no additional endocrine complaints <Naila Bello APRN - Last Filed: 10/11/24 11:41> Hematologic/Lymphatic: Hematologic/Lymphatic: Reports no additional hematologic/lymphatic complaints <Naila Bello APRN Last Filed: 10/11/24 11:41> [facility] Past Medical History Medical History: Medical History Obstructive sleep apnea Cancer of left breast Status post mastectomy and chemoradiation. 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 Essential hypertension Gait instability Gout Hyperparathyroidism Osteoporosis Vitamin B 12 deficiency Vitamin D deficiency, unspecified <Naila Bello APRN Last Filed: 10/11/24 11:41> Surgical History Surgical History: Surgical History History of section History of total mastectomy of left breast History of alvaro hole surgery <Naila Bello APRN Last Filed: 10/11/24 11:41> Family History Family History: Family History Sibling Family history of malignant neoplasm of breast in first degree relative Patient's sister is Other Asthma Family history of cataracts Family history of malignant neoplasm of breast Family history of malignant neoplasm of male breast Hypertension <Naila Bello APRN - Last Filed: 10/11/24 11:41> Social History Social History: Social History Social History: Surrogate medical decision maker: Andria Chavez, daughter. Code status: Full code. Smoking status: Never smoker Second hand tobacco smoke exposure: No Alcohol intake: never Substance use: never Substance use type: does not use Do You Feel Safe in your Home?: Yes Lack of Transportation: No Lack of Food: Never True Current Housing: I Have Housing Concerned About Future Housing: No Difficulty Paying Gas/Electric Bills: No Difficulty Paying for Meds: No Currently Unemployed: No Education: High School Diploma/GED Difficulty w/ Childcare or Family Care: No Living arrangements: with family Additional living arrangements comments: Lives with daughter in:. Occupation/Education: retired Spiritual care concerns: No <Naila Bello APRN - Last Filed: 10/11/24 11:41> Meds Home Medications and Allergies Home medications: Home Medications ?Medication ?Instructions ?Recorded ?Confirmed ?Type hydrochlorothiazide 12.5 mg tablet 6.25 mg (1/2 x 12.5 mg) PO DAILY 05/04/24 10/09/24 Rx #45 tabs rosuvastatin 10 mg tablet (Crestor) 10 mg PO QPM #90 tabs 05/28/24 10/09/24 Rx montelukast 10 mg tablet 10 mg PO QPM #90 tabs 06/02/24 10/09/24 Rx lisinopril 30 mg tablet 30 mg PO DAILY #30 tabs 09/03/24 10/09/24 Rx fluticasone propionate 50 1 spray intranasal DAILY PRN nasal 10/09/24 10/09/24 History mcg/actuation nasal congestion spray,suspension (Allergy Relief (fluticasone)) <Naila Bello APRN - Last Filed: 10/11/24 11:41> Allergies/Adverse reactions: Allergies Allergy/AdvReac Type Severity Reaction Status Date / Time aspirin Allergy Severe Difficulty Verified 08/11/24 07:34 Breathing NSAIDS (Non-Steroidal Allergy Severe Difficulty Verified 08/11/24 07:34 Anti-Inflamma (NSAIDS Breathing (Non-Steroidal Anti-Inflammatory Drug)) Penicillins Allergy Intermediate Hives Verified 08/11/24 07:34 <Naila Bello APRN - Last Filed: 10/11/24 11:41> Vital Signs Vital Signs - 24 hr 10/10/24 13:47 10/10/24 20:00 10/10/24 20:40 Temperature 98.0 F 98.6 F Pulse Rate 85 92 Respiratory Rate 17 18 Blood Pressure 139/56 L 157/82 H Pulse Oximetry 97 94 Oxygen Delivery Room Air 10/11/24 04:00 Temperature 98.5 F Pulse Rate 93 Respiratory Rate 16 Blood Pressure 168/68 H Pulse Oximetry 92 Oxygen Delivery <Naila Bello APRN - Last Filed: 10/11/24 11:41> Exam 2 Const: General: cooperative, healthy appearing, comfortable, no acute distress and well developed <Naila Bello APRN - Last Filed: 10/11/24 11:41> Orientation/consciousness: oriented to person, oriented to place, oriented to time and patient oriented x3 <Naila Bello APRN - Last Filed: 10/11/24 11:41> HENMT: Head: normal to inspection, normocephalic and atraumatic <Naila Bello APRN - Last Filed: 10/11/24 11:41> Mouth: Yes Normal oral and palatal mucosa present and Yes moist mucous membranes <Naila Bello APRN - Last Filed: 10/11/24 11:41> Eyes: General: appearance normal, both eyes and all related structures < Naila Bello APRN - Last Filed: 10/11/24 11:41> Conjunctivae: conjunctivae normal <Naila Bello APRN - Last Filed: 10/11/24 11:41> Sclera: sclerae normal <Naila Bello APRN - Last Filed: 10/11/24 11:41> Pupils: Equal, round and reactive pupils present <Naila Bello APRN - Last Filed: 10/11/24 11:41> Neck: Neck: normal visual inspection <Naila GonzalezChandni LilianeBRANDON villa - Last Filed: 10/11/24 11:41> Chest: Chest palpation & inspection: normal inspection of the chest < Naila Mominallen [employer] Last Filed: 10/11/24 11:41> Resp: Effort & Inspection: normal respiratory effort and able to speak in complete sentences <Naila GonzalezChandni Lilianeallen [employer] - Last Filed: 10/11/24 11:41> Auscultation: clear to auscultation bilaterally <Naila GonzalezChandni Lilianeallen [employer] - Last Filed: 10/11/24 11:41> Cardio: Jugular venous distension: no JVD <Naila GonzalezChandni Lilianeallen [employer] - Last Filed: 10/11/24 11:41> Rate: regular rate <Naila GonzalezChandni Lilianeallen [employer] - Last Filed: 10/11/24 11:41> Rhythm: regular rhythm <Naila GonzalezChandni Lilianeallen [employer] - Last Filed: 10/11/24 11:41> Heart sounds: S1 normal heart sound present and S2 normal heart sound present <Naila GonzalezChandni Lilianeallen [employer] - Last Filed: 10/11/24 11:41> GI: Inspection: normal to inspection <Naila GonzalezChandni Lilianeallen [employer] - Last Filed: 10/11/24 11:41> GI Palp: Yes Soft to palpation and Yes No hepatosplenomegaly present <Naila GonzalezChandni Bello APRN - Last Filed: 10/11/24 11:41> Auscultation: normal bowel sounds <Naila GonzalezChandni Bello APRN - Last Filed: 10/11/24 11:41> Rectal Exam: deferred <Naila GonzalezChandni Bello APRN - Last Filed: 10/11/24 11:41> Skin: General skin exam: normal color and no rashes or lesions noted < Naila GonzalezChandni Bello APRN Last Filed: 10/11/24 11:41> Neuro: General: oriented to person, oriented to place, oriented to time and patient oriented x3 <Naila GonzalezChandni Bello APRN - Last Filed: 10/11/24 11:41> Cranial nerves: Yes Equal, round and reactive pupils present <Naila Bello APRN - Last Filed: 10/11/24 11:41> Speech: normal speech <Naila Bello APRN - Last Filed: 10/11/24 11:41> Extrem: General: normal to inspection and no clubbing, cyanosis or edema < Naila Bello APRN - Last Filed: 10/11/24 11:41> Psych: Appearance: grossly normal and well kempt <Naila Bello APRN - Last Filed: 10/11/24 11:41> Affect: normal affect <Naila Bello APRN - Last Filed: 10/11/24 11:41> Results Labs CBC & Chem 7: 10/11/24 05:20 10/11/24 05:20 <Naila Bello APRN - Last Filed: 10/11/24 11:41> Labs: Short CBC 10/11/24 Range/Units 05:20 WBC 16.6 H (4.5-10.0) K/mm3 Hgb 11.3 L (12.0-15.0) g/dL Hct 34.2 L (37.0-47.0) % Plt Count 254 (150-375) k/mm3 BMP 10/11/24 05:20 Sodium 137 Potassium 3.9 Chloride 106 Carbon Dioxide 28 BUN 12 D Creatinine 0.84 Glucose 107 Calcium 10.5 H <Naila Bello APRN - Last Filed: 10/11/24 11:41>
[2024-10-11 12:31] LABS: Amylase 327 U/L (30-110)
[2024-10-11 13:05] LABS: Carcinoembryonic Antigen 1.1 ng/mL (0.0-3.0)
[2024-10-11 13:34] VITALS: BP 154/64; PULSE 95; RESP 21; TEMP 35.8; O2SAT 96
[2024-10-11] MEDS: MONTELUKAST SODIUM 10 MG TABLET PO (17:39)
[2024-10-11] MEDS: ROSUVASTATIN 10 MG TABLET PO (17:39)
[2024-10-11 20:35] VITALS: BP 166/81; PULSE 88; RESP 18; TEMP 36.9; O2SAT 95
[2024-10-12 04:45] VITALS: BP 173/62; PULSE 93; RESP 16; TEMP 37.2; O2SAT 94
--- NOTE | 2024-10-12 08:17 | P.PNIM_ITS ---
Progress Note: A&P Assessment and Plan (1) Pancreatitis: Qualifiers: Chronicity: acute Pancreatitis type: idiopathic Acute pancreatitis complication: no infection or necrosis Qualified Code(s): K85.00 - Idiopathic acute pancreatitis without necrosis or infection Code(s): K85.90 - Acute pancreatitis without necrosis or infection, unspecified Status: Acute Assessment and Plan: Patient denies excessive alcohol use and no signs of cholecystitis/lithiasis Possibly related to patients recent prednisone course which she ended on / vs HCTZ vs other LFT WNL CT abdomen/pelvis 1. Minimal fat stranding around the head of the pancreas. The pancreatitis cannot be excluded. Clinical correlation advised. 2. No evidence of appendicitis, diverticulitis or intestinal obstruction. 3. Hyperdense lesion in the left kidney upper pole unchanged from previous examination. Differential include mass versus hemorrhagic cyst 4. Stone in the right kidney lower pole. 5. Multiple hypodense lesions in the right kidney most likely hemorrhagic cysts. 6. Small splenule is seen adjacent to the spleen. US GB: Unremarkable Diet: Can start clears as lipase drifting down npo from [place] for USGB HTCZ discontinued Monitor vital signs, I and O's, check stool output, neuro status and patient is a fall risk Monitor serum electrolytes and CBC Pain management GI consulted * Given her Hx of breast cancer and mastectomy to only left breast, will check tumor markers and autoimmune * If lipase remains elevated but patient remains asymptomatic, will discuss outpatient EUS vs MRCP. If patient become symptomatic, we can do additional testing while inpatient * No indication for endoscopic intervention at this time. (2) Leukocytosis: Code(s): D72.829 - Elevated white blood cell count, unspecified Status: Acute Assessment and Plan: WBC elevated on admission, no signs of active infection Possibly inflammatory response Continue to monitor (3) Essential hypertension: Code(s): I10 - Essential (primary) hypertension Status: Acute Assessment and Plan: Chronic Given pancreatitis HCTZ discontinued, patient switched to amlodipine 5 mg daily. Amlodipine increased 10 mg daily for poorly controlled blood pressure. Remains on lisinopril 30 mg daily Continue to monitor (4) Hyperlipidemia, unspecified: Code(s): E78.5 - Hyperlipidemia, unspecified Status: Acute Assessment and Plan: Continue statin Subjective Date/time seen: 10/12/24 08:17 Interval history: 83 year old female with past medical history of hypertension, hyperparathyroidism, asthma, breast cancer s/p chemo and masectomy, BCC, and prediabetes presents to the hospital for abdominal pain. Review of Systems Review of Systems: All systems reviewed & are unremarkable except as noted in HPI and below Exam Narrative: AF HR General: female in no acute respiratory distress who is nontoxic appearing, sitting up in chair HEENT: Normocephalic. Atraumatic. Extraocular movement intact. Sclera clear and anicteric. No facial asymmetry. Chest: Lungs are clear to auscultation bilaterally. No wheezes or crackles. CV: Heart was regular rate and rhythm. S1-S2. No murmurs, gallops, or rubs. Abd: Abdomen was soft. Nontender. Nondistended. Positive bowel sounds. Ext: No clubbing, cyanosis, or edema. Neuro: Patient is alert and oriented x4. Speech is clear. Objective Data Vital Signs Vital Signs: Vital Signs - 24 hr 10/11/24 13:34 10/11/24 20:00 10/11/24 20:35 Temperature 96.4 F L 98.5 F Pulse Rate 95 88 Respiratory Rate 21 H 18 Blood Pressure 154/64 H 166/81 H Pulse Oximetry 96 95 Oxygen Delivery Room Air 10/12/24 04:45 Temperature 99 F Pulse Rate 93 Respiratory Rate 16 Blood Pressure 173/62 H Pulse Oximetry 94 Oxygen Delivery Intake/Output Intake/Output: Intake & Output 10/09/24 10/11/24 10/11/24 10/12/24 23:59 00:59 23:59 23:59 Intake Total 3316.7 1223 300 Balance 3316.7 1223 300 Meds/Results Medications: Active Medications Generic Name Dose Route Start Last Admin Trade Name Freq PRN Reason Stop Dose Admin Amlodipine Besylate 10 mg 10/12/24 09:00 Amlodipine Besylate 10 Mg Tablet PO DAILY GILBERT Enoxaparin Sodium 40 mg 10/10/24 09:00 10/11/24 11:00 Enoxaparin 40 Mg/0.4 Ml Syringe SUB-Q 40 mg DAILY GILBERT Administration Hydralazine HCl 10 mg 10/09/24 21:54 10/09/24 22:15 Hydralazine Hcl 20 Mg/Ml Vial IV PUSH 10 mg Q8H PRN Administration Blood Pressure - High Lactated Ringer's 1,000 mls @ 70 mls/hr 10/09/24 16:30 10/11/24 23:30 Lr - Lactated Ringers Iv IV CONT 70 mls/hr .[id number] GILBERT Administration Lisinopril 30 mg 10/10/24 09:00 10/11/24 10:58 Lisinopril 10 Mg Tablet PO 30 mg DAILY GILBERT Administration Montelukast Sodium 10 mg 10/09/24 19:00 10/11/24 17:39 Montelukast Sodium 10 Mg Tablet PO 10 mg QPM GILBERT Administration Morphine Sulfate 2 mg 10/09/24 15:11 10/09/24 22:16 Morphine Sulfate (*Crx) 2 Mg/Ml Inj IV PUSH 2 mg Q2H PRN Administration Pain Rated 7-10 Ondansetron HCl 4 mg 10/09/24 15:11 10/10/24 20:11 Ondansetron Inj 4 Mg/2 Ml Vial IV PUSH 4 mg Q4H PRN Administration Nausea Prochlorperazine Edisylate 10 mg 10/10/24 22:40 10/10/24 22:51 Prochlorperazine Edisylate 10 Mg/2 Ml Vial IV PUSH 10 mg Q6H PRN Administration Nausea And Vomiting Rosuvastatin Calcium 10 mg 10/09/24 19:00 10/11/24 17:39 Rosuvastatin 10 Mg Tablet PO 10 mg QPM GILBERT Administration Radiology Results: ITS Impressions Abdomen/Pelvis CT 10/09/24 14:14 IMPRESSION: 1. Minimal fat stranding around the head of the pancreas. The pancreatitis cannot be excluded. Clinical correlation advised. 2. No evidence of appendicitis, diverticulitis or intestinal obstruction. 3. Hyperdense lesion in the left kidney upper pole unchanged from previous examination. Differential include mass versus hemorrhagic cyst 4. Stone in the right kidney lower pole. 5. Multiple hypodense lesions in the right kidney most likely hemorrhagic cysts. 6. Small splenule is seen adjacent to the spleen. Abdomen Ultrasound 10/11/24 11:08 IMPRESSION: 1. Normal right upper quadrant ultrasound. Note that ultrasound is less s ensitive than CT for evaluating the pancreas. Labs Labs: Laboratory Results - last 24 hr 10/11/24 12:16 Amylase 327 H Carcinoembryonic Ag 1.1 Quality VTE Prophylaxis VTE prophylaxis: mechanical ordered and pharmacologic ordered
[2024-10-12 08:28] LABS: Glucose Point of Care 99 mg/dl (65-105)
[2024-10-12] MEDS: amLODIPine BESYLATE 10 MG TABLET PO (08:36)
[2024-10-12] MEDS: lisinopriL 10 MG TABLET 30 MG PO (08:36)
[2024-10-12] MEDS: ENOXAPARIN 40 MG/0.4 ML SYRINGE SUB-Q (08:37)
[2024-10-12 08:47] LABS: Hematocrit 34.2 % (37.0-47.0); Hemoglobin 11.3 g/dL (12.0-15.0); Mean Corpuscular Hemoglobin 31.6 pg (26-34); Mean Corpuscular Volume 95.5 fl (80-100); Mean Platelet Volume 9.3 fl (7.4-10.4); Platelet Count Result 244 k/mm3 (150-375); Red Blood Count 3.58 M/mm3 (4.2-5.4); Red Cell Distribution Width 13.2 % (11.5-14.5); White Blood Count 15.3 K/mm3 (4.5-10.0)
[2024-10-12 09:05] LABS: Alanine Aminotransferase 16 U/L (6-35); Alkaline Phosphatase 78 U/L (38-126); Anion Gap 5 mmol/L (4-12); Aspartate Amino Transferase 23 U/L (14-36); Bilirubin,Total 0.8 mg/dL (0.2-1.3); Blood Urea Nitrogen 8 mg/dL (7-17); Calcium 10.2 mg/dL (8.4-10.2); Carbon Dioxide 26 mmol/L (22-30); Chloride 106 mmol/L (98-107); Estimated Glomerular Filt Rate > 60; Glucose 93 mg/dL (65-110); Lipase 157 U/L (23-300); Potassium 4.1 mmol/L (3.4-5.0); Sodium 137 mmol/L (137-145)
[2024-10-12 09:29] LABS: Influenza A QL RT-PCR Negative (Negative); Influenza B QL RT-PCR Negative (Negative); RSV RNA, RT-PCR Negative (Negative); SARS-CoV-2 RNA PCR Negative (Negative)
[2024-10-12 13:24] VITALS: BP 111/52; PULSE 102; RESP 18; TEMP 37; O2SAT 99
--- NOTE | 2024-10-12 13:46 | P.DS_ITS ---
DS: Admitting Diagnosis Discharge Date 10/12/2024 Admitting Diagnosis pancreatitis leukocytosis hypertension hyperlipidemia DS: Discharge Diagnosis Discharge Diagnosis (1) Pancreatitis: Qualifiers: Acute pancreatitis complication: no infection or necrosis Chronicity: acute Pancreatitis type: idiopathic Qualified Code(s): K85.00 - Idiopathic acute pancreatitis without necrosis or infection Code(s): K85.90 - Acute pancreatitis without necrosis or infection, unspecified Status: Acute (2) Leukocytosis: Code(s): D72.829 - Elevated white blood cell count, unspecified Status: Acute (3) Essential hypertension: Code(s): I10 - Essential (primary) hypertension Status: Acute (4) Hyperlipidemia, unspecified: Code(s): E78.5 - Hyperlipidemia, unspecified Status: Acute DS: Summary Hospital Course Reason for hospitalization: pancreatitis leukocytosis hypertension hyperlipidemia Hospital Course: 83 year old female with past medical history of hypertension, hyperparathyroidism, asthma, breast cancer s/p chemo and mastectomy, BCC, and prediabetes presents to the hospital for abdominal pain. CT abdomen/pelvis showed minimal fat stranding around the head of pancreas for which pancreatitis could not be ruled out. An ultrasound was obtained and there was no noted cholecystitis or cholelithiasis. Possible that patient pancreatitis was related to her recent prednisone course verses her hydrochlorothiazide as she denied any excessive alcohol use and the ultrasound was unremarkable. HCTZ was discontinued and patient started on amlodipine. Blood pressures remained stable. GI was consulted. Per GI given her history of breast cancer and mastectomy tumor markers and autoimmune test were performed. Per GI they will discuss outpatient EUS vs MRCP. At time of discharge patient was tolerating a low fat diet denying any abdominal pain or nausea/vomiting. Patient also denied any chest pain, palpitations, or shortness of breath. Call made to GI Dr. Al prior to discharge. Per Dr. Al patient ready for discharge as she denies pain and tolerated a diet. Patient discharged home with family in a stable condition. She has a follow-up with her primary care provider in 1 week and GI as scheduled. Status at Discharge Functional status at discharge: independent ambulation Time Spent with Patient Time attestation: Total time spent providing and/or coordinating discharge services: Time spent: Greater than 30 minutes Exam Narrative: AF HR 102 RR 18 SPo2 99 BP 111/52 General: female in no acute respiratory distress who is nontoxic appearing, sitting up in chair HEENT: Normocephalic. Atraumatic. Extraocular movement intact. Sclera clear and anicteric. No facial asymmetry. Chest: Lungs are clear to auscultation bilaterally. No wheezes or crackles. CV: Heart was regular rate and rhythm. S1-S2. No murmurs, gallops, or rubs. Abd: Abdomen was soft. Nontender. Nondistended. Positive bowel sounds. DS: Data Data Completed and Pending Completed studies during hospitalization: Abdomen US abdomen/pelvis CT Labs on day of discharge: Labs from last 24 hours 10/12/24 10/12/24 10/12/24 08:40 08:31 08:21 WBC 15.3 H RBC 3.58 L Hgb 11.3 L Hct 34.2 L MCV 95.5 MCH 31.6 MCHC 33.0 RDW 13.2 Plt Count 244 MPV 9.3 Sodium 137 Potassium 4.1 Chloride 106 Carbon Dioxide 26 Anion Gap 5 BUN 8 Creatinine 0.67 L Estim Creat Clear Calc Not Reportable Estimated GFR > 60 Glucose 93 POC Capillary Glucose 99 Calcium 10.2 Total Bilirubin 0.8 AST 23 ALT 16 Alkaline Phosphatase 78 Total Protein 6.0 L Albumin 3.0 L Lipase 157 Influenza A (RT-PCR) Negative Influenza B (RT-PCR) Negative RSV (RT-PCR) Negative SARS-CoV-2 RNA (RT-PCR) Negative Discharge Plan Discharge Attending physician on discharge: Xiang Guerra Consulting providers: Mack Arvizu Discharging Clinician: Marivel Guevara Anticipated Discharge Date/Time: 10/12/24 13:45 Patient Disposition: Home, Self-Care Activity: as tolerated Diet: as tolerated and low fat Discharge Instructions: Discharge disposition: Patient admitted to the hospital for pancreatitis Possibly related to patients hydrochlorothiazide vs recent prednisone dose Evaluated by GI during admission Pancreatitis has resolved since admission Continue low fat diet, attached is information on this diet Monitor blood pressures Discontinue hydrochlorothiazide Continue lisinopril 30 mg daily Started on amlodipine 10 mg daily Take caution while standing, rising, or moving Change positions slowly taking a break between each position change If you standing feel dizzy sit back down and take a break Encouraged to continue with yearly vaccinations Return to the emergency department if he developed sudden shortness of breath, chest pain, nausea, vomiting, upset stomach or intractable diarrhea Return to the emergency department if you develop fever greater than 101.5 Follow-up with the primary care physician within 1-2 weeks Thank you for [facility] for your healthcare needs Patient Instructions: Pancreatitis (DC), Low Fat Diet (DC), Hypertension (DC), Removal of a Central Line, PICC, or Midline Catheter (DC) Patient Language: Portuguese Stand Alone Forms: General Discharge Information Follow-up/Referrals: Santiago Mauricio MD [Primary Care Provider] - 1 Week Mack Arvizu MD [Physician] - Call for Appointment Discharge Medications: New amlodipine 10 mg Tablet 10 mg PO DAILY Qty: 30 0RF Continued fluticasone propionate [Allergy Relief (fluticasone)] 50 mcg/actuation spray,suspension 1 spray intranasal DAILY PRN (Reason: nasal congestion) Rx Instructions: administer into each nostril rosuvastatin [Crestor] 10 mg tablet 10 mg PO QPM Qty: 90 3RF montelukast 10 mg tablet 10 mg PO QPM Qty: 90 1RF Rx Instructions: Take 1 tablet by mouth once daily at bedtime lisinopril 30 mg tablet 30 mg PO DAILY Qty: 30 2RF Discontinued hydrochlorothiazide 12.5 mg tablet 6.25 mg PO DAILY Qty: 45 1RF Date of admission: 10/09/24 15:12 Primary Care Provider: Santiago Mauricio Admitting Provider: Javy Lomeli Attending physician on admission: Marivel Guevara Condition: Stable Hospitalist MIPS Heart Failure (Exclusion) Patient has history of Heart Transplant or Left Ventricular Assistive Device?: No IF YES, STOP HERE Heart Failure (Qualifier) Patient has current or prior documentation of LVEF less than or equal to 40%, or mod/servere depressed LVSF?: No IF NO, STOP HERE
--- NOTE | 2024-10-12 15:30 | WPDGIPROGNO ---
Progress Note: A&P Assessment and Plan (1) Pancreatitis: Qualifiers: Chronicity: acute Pancreatitis type: idiopathic Acute pancreatitis complication: no infection or necrosis Qualified Code(s): K85.00 - Idiopathic acute pancreatitis without necrosis or infection Code(s): K85.90 - Acute pancreatitis without necrosis or infection, unspecified Status: Acute Assessment and Plan: clinically better and no pain, tolerating diet going home she can follow-up in office in few weeks (2) Nausea: Code(s): R11.0 - Nausea Status: Acute Assessment and Plan: resolved (3) Abdominal pain: Qualifiers: Abdominal location: upper abdomen, unspecified Qualified Code(s): R10.10 - Upper abdominal pain, unspecified Code(s): R10.9 - Unspecified abdominal pain Status: Acute Subjective Date/time seen: 10/12/24 15:30 Interval history: she is comfortable, no more pain Review of Systems Review of Systems: All systems reviewed & are unremarkable except as noted in HPI and below Exam Const: General: comfortable and no acute distress HENMT: Face/Nose/Sinus: Normal nares present Eyes: General: appearance normal, both eyes and all related structures Neck: Neck: no JVD Resp: Auscultation: clear to auscultation bilaterally Cardio: Rate: regular rate Rhythm: regular rhythm GI: Inspection: non-distended GI Palp: Yes Soft to palpation and No Tenderness to palpation present (GI) Auscultation: normal bowel sounds Skin: General skin exam: normal color Neuro: Speech: normal speech Extrem: General: normal to inspection Psych: Mental Status: mental status grossly normal Objective Data Vital Signs Vital Signs: Vital Signs - 24 hr 10/11/24 20:00 10/11/24 20:35 10/12/24 04:45 Temperature 98.5 F 99 F Pulse Rate 88 93 Respiratory Rate 18 16 Blood Pressure 166/81 H 173/62 H Pulse Oximetry 95 94 Oxygen Delivery Room Air 10/12/24 13:24 Temperature 98.6 F Pulse Rate 102 H Respiratory Rate 18 Blood Pressure 111/52 L Pulse Oximetry 99 Oxygen Delivery Intake/Output Intake/Output: Intake & Output 10/09/24 10/11/24 10/11/24 10/12/24 23:59 00:59 23:59 23:59 Intake Total 3316.7 1223 780 Balance 3316.7 1223 780 Meds/Results Medications: Active Medications Generic Name Dose Route Start Last Admin Trade Name Freq PRN Reason Stop Dose Admin Amlodipine Besylate 10 mg 10/12/24 09:00 10/12/24 08:36 Amlodipine Besylate 10 Mg Tablet PO 10 mg DAILY GILBERT Administration Enoxaparin Sodium 40 mg 10/10/24 09:00 10/12/24 08:37 Enoxaparin 40 Mg/0.4 Ml Syringe SUB-Q 40 mg DAILY GILBERT Administration Hydralazine HCl 10 mg 10/09/24 21:54 10/09/24 22:15 Hydralazine Hcl 20 Mg/Ml Vial IV PUSH 10 mg Q8H PRN Administration Blood Pressure - High Lactated Ringer's 1,000 mls @ 70 mls/hr 10/09/24 16:30 10/11/24 23:30 Lr - Lactated Ringers Iv IV CONT 70 mls/hr .[id number] GILBERT Administration Lisinopril 30 mg 10/10/24 09:00 10/12/24 08:36 Lisinopril 10 Mg Tablet PO 30 mg DAILY GILBERT Administration Montelukast Sodium 10 mg 10/09/24 19:00 10/11/24 17:39 Montelukast Sodium 10 Mg Tablet PO 10 mg QPM GILBERT Administration Morphine Sulfate 2 mg 10/09/24 15:11 10/09/24 22:16 Morphine Sulfate (*Crx) 2 Mg/Ml Inj IV PUSH 2 mg Q2H PRN Administration Pain Rated 7-10 Ondansetron HCl 4 mg 10/09/24 15:11 10/10/24 20:11 Ondansetron Inj 4 Mg/2 Ml Vial IV PUSH 4 mg Q4H PRN Administration Nausea Prochlorperazine Edisylate 10 mg 10/10/24 22:40 10/10/24 22:51 Prochlorperazine Edisylate 10 Mg/2 Ml Vial IV PUSH 10 mg Q6H PRN Administration Nausea And Vomiting Rosuvastatin Calcium 10 mg 10/09/24 19:00 10/11/24 17:39 Rosuvastatin 10 Mg Tablet PO 10 mg QPM GILBERT Administration Radiology Results: ITS Impressions Abdomen/Pelvis CT 10/09/24 14:14 IMPRESSION: 1. Minimal fat stranding around the head of the pancreas. The pancreatitis cannot be excluded. Clinical correlation advised. 2. No evidence of appendicitis, diverticulitis or intestinal obstruction. 3. Hyperdense lesion in the left kidney upper pole unchanged from previous examination. Differential include mass versus hemorrhagic cyst 4. Stone in the right kidney lower pole. 5. Multiple hypodense lesions in the right kidney most likely hemorrhagic cysts. 6. Small splenule is seen adjacent to the spleen. Abdomen Ultrasound 10/11/24 11:08 IMPRESSION: 1. Normal right upper quadrant ultrasound. Note that ultrasound is less sensitive than CT for evaluating the pancreas. Labs Labs: Laboratory Results - last 24 hr 10/12/24 10/12/24 10/12/24 08:21 08:31 08:40 WBC 15.3 H RBC 3.58 L Hgb 11.3 L Hct 34.2 L MCV 95.5 MCH 31.6 MCHC 33.0 RDW 13.2 Plt Count 244 MPV 9.3 Sodium 137 Potassium 4.1 Chloride 106 Carbon Dioxide 26 Anion Gap 5 BUN 8 Creatinine 0.67 L Estim Creat Clear Calc Not Reportable Estimated GFR > 60 Glucose 93 POC Capillary Glucose 99 Calcium 10.2 Total Bilirubin 0.8 AST 23 ALT 16 Alkaline Phosphatase 78 Total Protein 6.0 L Albumin 3.0 L Lipase 157 Influenza A (RT-PCR) Negative Influenza B (RT-PCR) Negative RSV (RT-PCR) Negative SARS-CoV-2 RNA (RT-PCR) Negative
[2024-10-13 07:18] LABS: CA 19-9 19 U/mL (<34)
[2024-10-14 21:20] LABS: Immunoglobulin G, Serum 800 mg/dL (600-1540); Immunoglobulin G1 462 mg/dL (382-929); Immunoglobulin G2 233 mg/dL (241-700); Immunoglobulin G3 24 mg/dL (22-178); Immunoglobulin G4 27.9 mg/dL (4.0-86.0)
== END 2024-10-12 15:40 | disposition home or self-care (01) | DRG 440 ==
LOC: ANHED 11:36 → ANH3MEDSUR 15:50
PROVIDERS: Family Medicine; Nurse Practitioner Family; Admitting Provider Internal Medicine; Emergency Provider General Practice; PCP Family Medicine; Visit Provider Student in an Organized Health Care Education/Training Program
DX: K85.30 Drug induced acute pancreatitis without necrosis or infection (principal); T50.2X5A Adverse effect of carbonic-anhydrase inhibitors, benzothiadiazides and other diuretics, initial encounter; T38.0X5A Adverse effect of glucocorticoids and synthetic analogues, initial encounter; D72.829 Elevated white blood cell count, unspecified; E78.5 Hyperlipidemia, unspecified; I10 Essential (primary) hypertension; E21.3 Hyperparathyroidism, unspecified; J45.909 Unspecified asthma, uncomplicated; R73.03 Prediabetes; M81.0 Age-related osteoporosis without current pathological fracture; Z85.3 Personal history of malignant neoplasm of breast; Z85.828 Personal history of other malignant neoplasm of skin
CPT/HCPCS: 36415; 36569; 74176; 76705; 80048; 80053; 81001; 82150; 82378; 82784; 82787; 82948; 83690; 84484; 85025; 85027; 86301; 87086; 87637; 93005; 96374; 96375; 96376; 99285; A9270; C1751; J0360; J0780; J1650; J2270; J2405; J7120

== ENCOUNTER 2024-12-15 13:02 | Outpatient (CLI) | payer MEDICARE, SELFPAY ==
--- NOTE | ~2024-12-15 | DEXA_ITS ---
Bone Density Report Name: ROBERT LOVE Age: 84 Sex: Female Ethnicity: White Date of : 1940 Indication: postmenopausal; screening for osteoporosis; height loss; cancer; Referring Provider: STEVIE BLAKE Study: Bone densitometry was performed. Exam Date: December 15, 2024 Accession number: [id number] Bone Density: Region BMD T-score Z-score Classification AP Spine(L1-L4) 0.769 -2.5 0.3 Osteoporosis Femoral Neck (Left) 0.434 -3.7 -1.2 Osteoporosis Total Hip (Left) 0.465 -3.9 -1.6 Osteoporosis Femoral Neck (Right) 0.540 -2.8 -0.3 Osteoporosis Total Hip (Right) 0.572 -3.0 -0.7 Osteoporosis Total Hip Mean 0.519 -3.5 -1.2 Osteoporosis World Health Organization criteria for BMD impression classify patients as: Normal (T-score at or above -1.0), Osteopenia (T-score between -1.0 and -2.5), or Osteoporosis (T-score at or below -2.5). 10-year Fracture Risk: FRAX not reported because: Some T-score for Spine Total or Hip Total or Femoral Neck at or below -2.5 Clinical Information Provided by Patient: Has used the following medications: Vitamin D Has the following medical conditions: Cancer Patient maximum height was 62.0 Menopause Age: 55 Onset of menses at age 12 Number of children 1 Impression: The patient has osteoporosis, based on the Left Total Hip T-score. Discussion: INCREASED RISK OF FRACTURE. BONE DENSITY IS UNDESIRABLY LOW AT ONE OR MORE SKELETAL SITES, CONSISTENT WITH POSTMENOPAUSAL OSTEOPOROSIS. This patient's lowest T-score meets the World Health Organization's (WHO) criteria for osteoporosis at one or more sites (T-score -2.5 or below). In untreated patients, the risk of osteoporotic fracture increases approximately two-fold for each 1.0 SD decrease in T-score. Low bone density is not the only risk factor for fracture; also consider factors such as patient's age, frailty or poor health, risk of falling, risk of injury, previous osteoporotic fracture, family history of osteoporosis, cigarette smoking, low body weight, etc. Not everyone with low bone mineral density has osteoporosis; osteomalacia and other metabolic bone disorders should also be considered. Patients who have osteoporosis should be evaluated for specific diseases and conditions (secondary causes) that may cause or contribute to bone loss. The [place] Association of Clinical Endocrinologists (AACE) and National Osteoporosis Foundation (NOF) recommend pharmacologic intervention for all postmenopausal women whose T-score is in this range. The patient should follow a healthful lifestyle (good nutrition with adequate calcium and vitamin D, and appropriate weight-bearing exercise). Follow-Up: Consider a repeat BMD and Vertebral Fracture Assessment (VFA) exam in 2 years or sooner if medically necessary, to reassess this patient's status. Reported by: JAE on 12/15/2024 1:50:00 PM. Reviewed, dictated and finalized at location A.
--- OUTSIDE RECORDS SUMMARY | 2024-12-15 13:14 | XMS_ITS | Clinical Summary ---
Author Organization [facility] Address [address] [place] [address] Care Team Providers Care Baggage Security Checker Name Role Phone Santiago Mauricio MD Primary Care Provider [phone] [facility],non-owned Affiliates and Associated Physician Practices is amultiple site organization consisting of ambulatory clinics and hospital sitesin [place], [place], [place] and [place]. This disclosure is being madepursuant to the Care Everywhere program and may not contain all information available regarding this patient. Last updated 18.[facility] Loop Survey Allergies Active Allergy Reactions Criticality Noted Date Comments Aspirin Shortness of Breath High 08/18/2018 Nsaids Shortness of Breath High 08/18/2018 Penicillins Anaphylaxis High 08/18/2018 Medications * Be aware that medications may not be up to date on this document. Alwaysverify current medications with the patient. LORazepam (ATIVAN) 0.5 MG tablet Take 0.5 mg by mouth 2 times daily as needed for Anxiety Active montelukast (SINGULAIR) 10 MG tablet Take 10 mg by mouth at bedtime Active rosuvastatin (CRESTOR) 5 MG tablet Take 5 mg by mouth once daily Active levETIRAcetam (KEPPRA) 500 MG tablet Take 1 tablet by mouth 2 times daily 60 tablet 9 Active lisinopril (PRINIVIL; ZESTRIL) 10 MG tablet Take 1 tablet by mouth once daily 30 tablet 9 Active Additional Information Patient taking differently: 20 mgOral DAILY, Reported on 11/05/2018 allopurinol (ZYLOPRIM) 100 MG tablet Take 100 mg by mouth once daily Active acetaminophen (TYLENOL) 325 MG tablet Take 2 tablets by mouth every 4 hours as needed Maximum allowable Acetaminophen amount = 4 Grams (4000 mg) / 24 hours. 9 Active hydroCHLOROthi azide (HYDRODIURIL) 12.5 MG TABS Take by mouth once daily Active albuterol HFA (PROVENTIL;ROCIO TOLIN;PROAIR) 108 (90 Base) MCG/ACT inhaler INHALE 2 PUFFS BY MOUTH EVERY 4 TO 6 HOURS NEEDED 5 9 Active vitamin D, ergocalciferol , (DRISDOL) 1.25 MG (37754 UT) capsule Take 50,000 Units by mouth every 7 days 2 9 Active HYDROcodone-ac etaminophen (NORCO) 5-325 MG tablet hydrocodone 5 mg-acetaminophen 325 mg tablet TK 1 T PO Q 6 H PRF PAIN Active Active Problems Problem Noted Date Diagnosed Date SDH (subdural hematoma) 11/05/2018 SOB (shortness of breath) 08/21/2018 Subdural hematoma 08/17/2018 Immunizations Immunization Administration Dates Next Due INFLUENZA VACCINE 05/28/2019 Social History Tobacco Use Types Packs/Day Years Used Date Smoking Tobacco: Never Smokeless Tobacco: Never Tobacco Cessation:Counseling Given: No Alcohol Use Standard Drinks/Week Comments No 0 (1 standard drink = 0.6 oz pur e alcohol) Comments No Sex and Gender Information Value Date Recorded Sex Assigned at Not on file Legal Sex Female 6:27 PM LEATHER 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 Gender Identity Not on file Sexual Orientation Not on file Last Filed Vital Signs Vital Sign Reading Time Taken Comments Blood Pressure 145/85 06/11/2019 10:43 AM LEATHER TOGGLER Pulse 109 06/11/2019 10:43 AM LEATHER TOGGLER Temperature 36.8 C (98.3 F) 06/11/2019 10:43 AM LEATHER TOGGLER Respiratory Rate 20 06/11/2019 10:43 AM LEATHER TOGGLER Oxygen Saturation 97% 06/11/2019 10:43 AM LEATHER TOGGLER Inhaled Oxygen Concentration - - Weight 63 kg (139 lb) 06/11/2019 10:43 AM LEATHER TOGGLER Height 152.4 cm (5') 06/11/2019 10:43 AM LEATHER TOGGLER Body Mass Index 27.15 06/11/2019 10:43 AM LEATHER TOGGLER Plan of Treatment Health Maintenance Due Date [...] VACCINE (1 - 2023-2 5 season) 2024 DEPRESSION SCREENING 08/04/2024 INFLUENZA VACCINE (Season Ended) 2025 05/28/20 19 HEPATITIS B VACCINE Aged Out No longe r eligible based on patient's age to complete this topic HIB VACCINE Aged Out No longer eligi ble based on patient's age to complete this topic HPV VACCINE Aged Out No longer eligi ble based on patient's age to complete this topic MENINGOCOCCAL (Group B) VACC INE SHARED DECISION-MAKING Aged Out No longer eligibl e based on patient's age to complete this topic MENINGOCOCCAL GROUPS A/C/Y/W VACCINE Aged Out No longer eligible b ased on patient's age to complete this topic Insurance MEDICARE AETNA AETNA Advance Directives * Full Code (Latest Code Status on File) Date Activated Date Inactivated Comments 11/05/2018 10:54 PM 11/11/2018 2:51 PM * Full Code Date Activated Date Inactivated Comments 08/18/2018 10:21 AM 08/25/2018 5:15 PM Care Teams Baggage Security Checker Relationship Specialty Start Date End Date Santiago Mauricio MD [address] [place] [address] PCP - General Family Medicine 11/05/18
--- OUTSIDE RECORDS SUMMARY | 2024-12-15 13:14 | XMS_ITS | Encounter Summary ---
Author Organization [facility] Address [address] [place] [address] Care Team Providers Care Clinical Services Manager Name Role Phone Santiago Mauricio MD Primary Care Provider [phone] Encounter Details Date Type Department Care Team (Late st Contact Info) Description 03/16/2020 Lab Requisition [facility] [address] [place] [place] [address] Tracey Monsalve, [address] [facility] [address] [place] [address] Social History Tobacco Use Types Packs/Day Years Used Date Smoking Tobacco: Never Smokeless Tobacco: Never Alcohol Use Standard Drinks/Week Comments No 0 (1 standard drink = 0.6 oz pur e alcohol) Comments No Sex and Gender Information Value Date Recorded Sex Assigned at Not on file Legal Sex Female 6:27 PM CIRCUIT RECORDER Gender Identity Not on file Sexual Orientation Not on file documented as of this encounter Functional Status * Is person deaf or have serious hearing difficulty? Answer Date of Assessment Author No 11/11/2018 12:21 PM Berna Patel RN * Is person blind or have serious difficulty seeing? Answer Date of Assessment Author No 11/11/2018 12:21 PM Berna Patel RN * Does person have serious difficulty walking/climbing stairs? Answer Date of Assessment Author No 11/11/2018 12:21 PM Berna Patel RN * Does person have difficulty dressing/bathing? Answer Date of Assessment Author No 11/11/2018 12:21 PM CDT Berna Nova RN * Does person have difficulty doing errands alone? Answer Date of Assessment Author No 11/11/2018 12:21 PM LUCILLET Berna Nova RN documented as of this encounter Mental Status * Does person have difficulty concentrating/remembering/making decisions? Answer Entry Date Author No 11/11/2018 12:21 PM LUCILLET Berna Nova RN documented in this encounter Plan of Treatment Not on file documented as of this encounter Procedures Procedure Name Priority Date/Time Associated Diagnosis Comments DERMATOPATHOLOGY Routine 03/15/2020 12:0 0 AM CDT documented in this encounter Results * DERMATOPATHOLOGY (03/15/2020 12:00 AM CDT) Case Report Dermatopathology Report Case: [id number] Authorizing Provider: Tracey Monsalve DO Collected: 03/15/2020 12:00 AM Ordering Location: [facility] Received: 03/16/2020 09:13 AM [...] characteristic determined by the Dermatopathology Laboratory at [facility], directed by Dr. Robyn Faye. These tests need not be, and therefore are not, approved by the [place] Food and Drug Administration. The tests are used for clinical purposes. Billing Codes Specimen Charges Stain Charges 92741 1 0 3:42 PM CDT DERMATOPATHOLOGY LABORATORY Embedded Images 0 3:42 PM CDT DERMATOPATHOLOGY LABORATORY Pathology/Cytolog y TISSUE SPECIMEN FROM SKIN / Unknown 03/15/2020 03/16/2020 9:13 AM CDT us Tracey Monsalve DO LAB - PATHOLOGY/CYTOLOGY ORDERABLES Final Result DERMATOPATHOLOGY LABORATORY [facility] - Department of Dermatology Patient Scheduler Center/[address] [phone] documented in this encounter Visit Diagnoses Not on filedocumented in this encounter Care Teams Clinical Services Manager Relationship Specialty Start Date End Date Santiago Mauricio MD [address] [place] [address] PCP - General Family Medicine 11/05/18 documented as of this encounter
--- OUTSIDE RECORDS SUMMARY | 2024-12-15 13:14 | XMS_ITS ---
Author Name Auto Generated, Auto Generated Organization [facility] Address [address] [place] [address] Phone [phone] Care Team Providers Care Information Technology Coordinator Name Role Phone Greg Hughes Unavailable [phone] Functional Status No Results Mental Status No Results Allergies and Intolerances Name Onset Date Reaction Severity Penicillins (Allergy) FriOct 18 15:44:00 EDT aspirin (Allergy) FriOct 18 15:44:00 EDT 2023 NSAIDS (Non-Steroidal Anti-I nflammatory Drug) (Allergy) FriOct 18 15:44:00 EDT 2023 Medications Medication Directions Start Date End Date lisinopriL 10 mg tablet 1 tab TABLET Ora l 1 Time Daily Indication: HTN FriOct 27 22:20:00 EDT 2023Oct 31 01:00:00 EDT 2023 hydroCHLOROthiazide 12.5 mg tablet 12.5 mg TABLET Oral 1 Time Daily Indication: HTN FriOct 26 16:00:00 EDT 2023Oct 26 16:46:00 EDT 2023 hydroCHLOROthiazide 12.5 mg tablet 0.5 tab TABLET Oral 1 Time Daily Indication: HTN Order to restart at 6.25 mg daily FriOct 26 16:46:00 EDT 2023Oct 31 01:00:00 EDT 2023 meclizine 12.5 mg tablet 1 tab TABLET Or al PRN 1 Time Daily Indication: Dizziness PRN Dizziness FriOct 25 10:25:00 EDT 2023Oct 31 01:00:00 EDT 2023 famotidine 20 mg tablet 1 tab TABLET Ora l 2 Times Daily Indication: GERD FriOct 25 10:26:00 EDT 2023Oct 31 01:00:00 EDT 2023 montelukast 10 mg tablet 1 tab TABLET Or al 1 Time Daily Indication: Allergies Allergies FriOct 25 10:27:00 EDT 2023Oct 31 01:00:00 EDT 2023 rosuvastatin 10 mg tablet 1 tab TABLET O ral 1 Time Daily Indication: HLD FriOct 25 10:28:00 EDT 2023Oct 31 01:00:00 EDT 2023 lisinopriL 10 mg tablet 1 tab TABLET Ora l 2 Times Daily Indication: HTN FriOct 25 10:50:00 EDT 2023Oct 27 22:21:00 EDT 2023 Miralax 17 gram oral powder packet 1 pack POWDER IN PACKET (EA) Oral PRN 1 Time Daily Indication: Constipation FriOct 20 11:51:00 EDT 2023Oct 31 01:00:00 EDT 2023 Milk of Magnesia 400 mg/5 mL oral suspension 30 ml SUSPENSION, ORAL (FINAL DOSE FORM) Oral PRN 1 Time Daily Indication: Constipation FriOct 20 15:42:00 EDT 2023Oct 31 01:00:00 EDT 2023 TubersoL 5 tub. unit/0.1 mL intradermal injection solution 0.1 ml VIAL (ML) Intradermal 1 Time Weekly for 2 Weeks Indication: R/O TB 1st injection on admission, then one week after. Read between 48 and 72 hours FriOct 19 13:30:00 EDT 2023Oct 31 01:00:00 EDT 2023 TubersoL 5 tub. unit/0.1 mL intradermal injection solution Read Results VIAL (ML) Other 1 Time Weekly for 2 Weeks Indication: R/O TB Read results between 48-72 hours after 1st and 2nd (1 week apart). If positive do chest x-ray. FriOct 21 01:00:00 EDT 2023Oct 31 01:00:00 EDT 2023 cefdinir 300 mg capsule 1 capsule CAPSUL E Oral 2 Times Daily for 5 Days Indication: UTI FriOct 18 15:40:00 EDT 2023Oct 23 15:39:00 EDT 2023 mecobalamin (vitamin B12) 1, 000 mcg chewable tablet 1 tablet TABLET,CHEWABLE Oral 1 Time Daily Indication: Supplement FriOct 18 15:50:00 EDT 2023Oct 31 01:00:00 EDT 2023 fluticasone 113 mcg-salmeter oL 14 mcg/actuation breath activated powdr 1 puff AEROSOL POWDER, BREATH ACTIVATED (EA) Inhalation 2 Times Daily Indication: Asthma Rinse and spit after FriOct 18 16:00:00 EDT 2023Oct 31 01:00:00 EDT 2023 albuterol sulfate HFA 90 mcg/actuation aerosol inhaler 1-2 puffs HFA AEROSOL WITH ADAPTER (GRAM) Inhalation PRN Every 4 Hours Indication: SOB or wheezing FriOct 18 16:00:00 EDT 2023Oct 31 01:00:00 EDT 2023 lisinopriL 10 mg tablet 1 tablet TABLET Oral 1 Time Daily Indication: HTN FriOct 18 16:00:00 EDT 2023Oct 25 10:49:00 EDT 2023 Problems Active Concerns * Personal history of malignant neoplasm of breast* Code: * Start Date: FriOct 18 00:00:00 EDT 2023 * End Date: * Text: * Personal history of other malignant neoplasm of skin* Code: * Start Date: FriOct 18 00:00:00 EDT 2023 * End Date: * Text: * Acquired absence of left breast and nipple* Code: * Start Date: FriOct 18 00:00:00 EDT 2023 * End Date: * Text: * Personal history of antineoplastic chemotherapy* Code: * Start Date: FriOct 18 00:00:00 EDT 2023 * End Date: * Text: * Gastro-esophageal reflux disease without esophagitis* Code: * Start Date: FriOct 18 00:00:00 EDT 2023 * End Date: * Text: * Obstructive sleep apnea (adult) (pediatric)* Code: * Start Date: FriOct 18 00:00:00 EDT 2023 * End Date: * Text: * Age-related osteoporosis without current pathological fracture* Code: * Start Date: FriOct 18 00:00:00 EDT 2023 * End Date: * Text: * Cellulitis of left upper limb* Code: * Start Date: FriOct 18 00:00:00 EDT 2023 * End Date: * Text: * Hyperparathyroidism, unspecified* Code: * Start Date: FriOct 18 00:00:00 EDT 2023 * End Date: * Text: * Essential (primary) hypertension* Code: * Start Date: FriOct 18 00:00:00 EDT 2023 * End Date: * Text: * Unspecified asthma, uncomplicated* Code: * Start Date: FriOct 18 00:00:00 EDT 2023 * End Date: * Text: * Urinary tract infection, site not specified* Code: * Start Date: FriOct 18 00:00:00 EDT 2023 * End Date: * Text: * Unspecified fall, subsequent encounter* Code: * Start Date: FriOct 18 00:00:00 EDT 2023 * End Date: * Text: * Personal history of other diseases of the circulatory system* Code: * Start Date: FriOct 18 00:00:00 EDT 2023 * End Date: * Text: * Hyperlipidemia, unspecified* Code: * Start Date: FriOct 18 00:00:00 EDT 2023 * End Date: * Text: * Lymphedema, not elsewhere classified* Code: * Start Date: FriOct 18 00:00:00 EDT 2023 * End Date: * Text: * Postmastectomy lymphedema syndrome* Code: * Start Date: FriOct 18 00:00:00 EDT 2023 * End Date: * Text: * Bilateral primary osteoarthritis of hip* Code: * Start Date: FriOct 18 00:00:00 EDT 2023 * End Date: * Text: * Unspecified right bundle-branch block* Code: * Start Date: FriOct 18 00:00:00 EDT 2023 * End Date: * Text: * Left anterior fascicular block* Code: * Start Date: FriOct 18 00:00:00 EDT 2023 * End Date: * Text: * Cyst of kidney, acquired* Code: * Start Date: FriOct 18 00:00:00 EDT 2023 * End Date: * Text: * Unilateral inguinal hernia, without obstruction or gangrene, not specified as recurrent* Code: * Start Date: FriOct 18 00:00:00 EDT 2023 * End Date: * Text: * Personal history of (healed) traumatic fracture* Code: * Start Date: FriOct 18 00:00:00 EDT 2023 * End Date: * Text: * Presence of other bone and tendon implants* Code: * Start Date: FriOct 18 00:00:00 EDT 2023 * End Date: * Text: Reason for Referral Past Medical History
--- OUTSIDE RECORDS SUMMARY | 2024-12-15 13:14 | XMS_ITS | Encounter Summary ---
Author Organization [facility] Address [address] [place] [address] Care Team Providers Care Photographic Equipment Technician Name Role Phone Santiago Mauricio MD Primary Care Provider [phone] Encounter Details Date Type Department Care Team (Late st Contact Info) Description 07/20/2019 Lab Requisition [facility] [address] [facility], [place] [id number] Tracey Monsalve, [address] [facility] 3 [place] [address] Social History Tobacco Use Types Packs/Day Years Used Date Smoking Tobacco: Never Smokeless Tobacco: Never Alcohol Use Standard Drinks/Week Comments No 0 (1 standard drink = 0.6 oz pur e alcohol) Comments No Sex and Gender Information Value Date Recorded Sex Assigned at Not on file Legal Sex Female 6:27 PM ICE PLATFORM SUPERVISOR Gender Identity Not on file Sexual Orientation [...] Patel RN * Does person have difficulty doing errands alone? Answer Date of Assessment Author No 11/11/2018 12:21 PM Berna Patel RN documented as of this encounter Mental Status * Does person have difficulty concentrating/remembering/making decisions? Answer Entry Date Author No 11/11/2018 12:21 PM Berna Patel RN documented in this encounter Plan of Treatment Not on file documented as of this encounter Procedures Procedure Name Priority Date/Time Associated Diagnosis Comments DERMATOPATHOLOGY Routine 07/19/2019 12:0 0 AM ICE PLATFORM SUPERVISOR documented in this encounter Results * DERMATOPATHOLOGY (07/19/2019 12:00 AM ICE PLATFORM SUPERVISOR) Case Report Dermatopathology Report Case: [id number] Authorizing Provider: Tracey Monsalve DO Collected: 07/19/2019 12:00 AM Ordering Location: [facility]erm[facility] Lab Received: 07/20/2019 12:39 PM Pathologist: Gisela Hernandez MD Specimen: Skin, left FA 9 4:46 PM [facility] DERMATOPATHOLOGY LABORATORY Final Diagnosis Specimen A. SKIN, left FA: BASAL CELL CARCINOMA, SUPERFICIAL MULTIFOCAL (C44.619) 9 4:46 PM [facility] DERMATOPATHOLOGY LABORATORY Clinical History R/O BCC. 9 4:46 PM [facility] DERMATOPATHOLOGY LABORATORY Gross Description Specimen A: Received is one formalin filled container labeled with the patient's name and designated left FA. The specimen consists of a shave measuring [id number]. Jar 0. 9 4:46 PM [facility] DERMATOPATHOLOGY LABORATORY Microscopic Description Specimen A. SKIN, left FA: Attached to the undersurface of the epidermis, there are small aggregates of basaloid cells with a high nuclear to cytoplasmic ratio and peripheral palisading. 9 4:46 PM [facility] [...] purposes. Billing Codes Specimen Charges Stain Charges 21491 1 9 4:46 PM ICE PLATFORM SUPERVISOR DERMATOPATHOLOGY LABORATORY Embedded Images 9 4:46 PM ICE PLATFORM SUPERVISOR DERMATOPATHOLOGY LABORATORY Pathology/Cytolog y TISSUE SPECIMEN FROM SKIN / Unknown 07/19/2019 07/20/2019 12:39 PM ICE PLATFORM SUPERVISOR Tracey Monsalve DO LAB - PATHOLOGY/CYTOLOGY ORDERABLES Final Result DERMATOPATHOLOGY LABORATORY [facility] - Department of Dermatology [address] [place] [address] [address] [phone] documented in this encounter Visit Diagnoses Not on filedocumented in this encounter Care Teams Photographic Equipment Technician Relationship Specialty Start Date End Date Santiago Mauricio MD [address] [place] [address] PCP - General Family Medicine 11/05/18 documented as of this encounter
--- OUTSIDE RECORDS SUMMARY | 2024-12-15 13:14 | XMS_ITS | Encounter Summary ---
Author Organization [facility] Address [address] [place] [address] Care Team Providers Care Camera Assembler Name Role Phone Santiago Mauricio MD Primary Care Provider [phone] Encounter Details Date Type Department Care Team (Late st Contact Info) Description 12/31/2023 Lab Requisition [facility] - [facility] Lab [address] [facility], [place] [address] Vickie Oden MD [address] [facility] [address] [place] [address] Social History Tobacco Use Types Packs/Day Years Used Date Smoking Tobacco: Never Smokeless Tobacco: Never Alcohol Use Standard Drinks/Week Comments No 0 (1 standard drink = 0.6 oz pur e alcohol) Comments No Sex and Gender Information Value Date Recorded Sex Assigned at Not on file Legal Sex Female 6:27 PM STRATEGY LEAD Gender Identity Not on file Sexual Orientation [...] Nova RN * Does person have difficulty dressing/bathing? Answer Date of Assessment Author No 11/11/2018 12:21 PM CDT Berna Nova RN * Does person have difficulty doing errands alone? Answer Date of Assessment Author No 11/11/2018 12:21 PM CDT Berna Nova RN documented as of this encounter Mental Status * Does person have difficulty concentrating/remembering/making decisions? Answer Entry Date Author No 11/11/2018 12:21 PM CDT Berna Nova RN documented in this encounter Plan of Treatment Not on file documented as of this encounter Procedures Procedure Name Priority Date/Time Associated Diagnosis Comments DERMATOPATHOLOGY Routine 12/31/2023 3:50 PM CDT documented in this encounter Results * DERMATOPATHOLOGY (12/31/2023 3:50 PM CDT) Case Report Dermatopathology Report Case: [id number] Authorizing Provider: Vickie Oden MD Collected: 12/31/2023 03:50 PM Ordering Location: [facility] - Received: 01/01/2024 12:51 PM DermPath Lab Pathologist: Aidan Faye MD Specimen: Skin, right rastafari 1:40 PM CDT DERMATOPATHOLOGY LABORATORY Final Diagnosis Specimen A. 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 SCC vs. ISK 4 1:40 PM CDT DERMATOPATHOLOGY LABORATORY Gross Description Specimen A: Received is one formalin filled container labeled with the patient's name and designated right rastafari. The specimen consists of a shave biopsy measuring 6x6x2 mm. Jar 0. 4 1:40 PM CDT DERMATOPATHOLOGY LABORATORY Microscopic Description Specimen A. SKIN, right rastafari: The epidermis is acanthotic and shows full thickness disorderly maturation of keratinocytes, mitoses at different levels, and dyskeratotic cells. There is overlying parakeratosis and hyperkeratosis. 4 1:40 PM CDT DERMATOPATHOLOGY LABORATORY Disclaimer An external and internal positive and negative controls are appropriate for the histochemical, immunohistochemical and immunofluorescence stain(s) in this case (if any), except where stated explicitly. The performance characteristics of the stain(s) cited in this report were developed and its performance characteristic determined by the Dermatopathology Laboratory at [facility], directed by Dr. Robyn Faye. These tests need not be, and therefore are not, approved by the [place] Food and Drug Administration. The tests are used for clinical purposes. Billing Codes Specimen Charges Stain Charges 87936 1 4 1:40 PM CDT DERMATOPATHOLOGY LABORATORY Embedded Images 4 1:40 PM CDT DERMATOPATHOLOGY LABORATORY Pathology/Cytolo gy TISSUE SPECIMEN FROM SKIN / Unknown 12/31/2023 3:50 PM CDT 01/01/2024 12:51 PM CDT Vickie Oden MD LAB - PATHOLOGY/CYTOLOGY OR DERABLES Final Result DERMATOPATHOLOGY LABORATORY [facility] - Department of Dermatology [facility] Medicine [address] [place] [address], [address] [phone] documented in this encounter Visit Diagnoses Not on filedocumented in this encounter Care Teams Camera Assembler Relationship Specialty Start Date End Date Santiago Mauricio MD [address] [place] [address] PCP - General Family Medicine 11/05/18 documented as of this encounter
--- OUTSIDE RECORDS SUMMARY | 2024-12-15 13:14 | XMS_ITS | Referral Summary ---
Author Organization [facility] Address [address] [place] [address] Phone Care Team Providers Care Winch Runner Name Role Phone Kate Kuo NP Unavailable Santiago Mauricio MD Primary Care Provider Allergies [...] 09/03/2021 Assessment & Plan (09/03/2021 6:07 PM ACADEMIC ADMINISTRATOR): Bilateral ear irrigations done using water and hydrogen peroxide Large amount of wax removed from left ear, mod from right. Patient tolerate procedure without difficulty Encouraged her to use Debrox ear wax softener 6-10 gtt.on cotton pledge once a month. Also to cover ears from hair spray when styling hair. Hypertension, essential 08/27/2021 Assessment & Plan (10/08/2021 4:29 PM ACADEMIC ADMINISTRATOR): Hypertension stable at this time. Note continue to watch diet for high salt foods, no adding salt to foods. And avoiding salty drinks. Weigh weekly looking for a increase of weight 3-5 pounds. Look for neck vein distension or edema in lower legs. Continue with medications as ordered. Assessment & Plan (09/03/2021 6:08 PM ACADEMIC ADMINISTRATOR): Continue with meds as directed Watch salt in diet, avoid salty foods. Exercise as tolerated. Check blood pressure at home. Assessment & Plan (08/27/2021 1:28 PM ACADEMIC ADMINISTRATOR): Continue with Lisinopril 10 mg for HTN and HCTZ 12.5 for HTN Check blood pressure at home. At least 3 times a week. Watch salt in diet, and excessive salty foods. Mixed hyperlipidemia 08/27/2021 Assessment & Plan (08/27/2021 1:29 PM ACADEMIC ADMINISTRATOR): Continue with Crestor 10mg one daily. Watch diet for excessive fatty foods, Exercise as tolerated. Note to watch carbs in diet. Anxiety 08/27/2021 Assessment & Plan (10/08/2021 4:31 PM ACADEMIC ADMINISTRATOR): Continue with medication as directed. Keep busy. Get adequate sleep. Exercise on a daily basis. Assessment & Plan (09/03/2021 6:09 PM ACADEMIC ADMINISTRATOR): Continue with meds as ordered. Work on reducing stress and anxiety. Continue with exercise, relaxation exercises. Assessment & Plan (08/27/2021 1:25 PM ACADEMIC ADMINISTRATOR): Continue with Ativan 0.5mg po for anxiety. Keep busy, Monitor what causes anxiety to increase Check on quality of slleep. Episode of dizziness 08/27/2021 Assessment & Plan (10/08/2021 4:33 PM ACADEMIC ADMINISTRATOR): Continue to work on balance. Watch for safety measures with walking and ambulating around the house. Use cane or walker if you are feeling out of balance for prevention of falling. Assessment & Plan (09/03/2021 6:12 PM ACADEMIC ADMINISTRATOR): Continue to monitor dizziness, time, place, activity, how long it lasted, possible cause. Antivert 12.5mg one in evening for 7 days. Continue with balance and strength exercises. If dizziness gets worse, or falling, or can't move extremities, seek medical help. Call in 7 days with up date. Assessment & Plan (08/27/2021 1:24 PM ACADEMIC ADMINISTRATOR): Keep diary of when dizziness occurs, and any associations with or without activity. Make sure she is drinking adequate fluid. See if associated with no food. Monitor BP at home and check pulsel Lymphedema of left arm 08/04/2019 Assessment & Plan (10/08/2021 4:26 PM ACADEMIC ADMINISTRATOR): Note continues to wear the compression sleeve on the left arm which has helped a lot. Arm size is almost equal to the right. Has good pulses in arm' Good sensation and strength. Continue with arm exercises and working on grasp strength. Assessment & Plan (08/27/2021 1:33 PM ACADEMIC ADMINISTRATOR): No problems with left arm. Continues to wear arm compression sleeve. Also has pump at home for this problem. Note no problems at this time. Arm has no swelling at this time. Pulses in arm are good at this time. Personal history of breast cancer 04/14/2018 Cancer Staging:Clinical stage from 10/11/1996:Stage IIB(cT2, cN0, cM0, G3, ER: Negative, KS: Negative, HER2: Negative) - Signed by Emmanuel [...] AM CDT Pulse 96 09/27/2022 10:58 AM ACADEMIC ADMINISTRATOR Temperature 34.5 C (94.1 F) 09/27/2022 10:58 AM ACADEMIC ADMINISTRATOR Respiratory Rate 18 09/27/2022 10:58 AM ACADEMIC ADMINISTRATOR Oxygen Saturation 97% 09/27/2022 10:58 AM ACADEMIC ADMINISTRATOR Inhaled Oxygen Concentration - - Weight 61.7 kg (136 lb) 04/04/2023 8:14 AM CDT Height 147.3 cm (4' 9.99 ) 04/04/2023 8:14 AM CD T Body Mass Index 28.43 04/04/2023 8:14 AM CDT Plan of Treatment Not on file [facility] MEDICARE [facility] PPO Care Teams Winch Runner Relationship Specialty Start Date End Date Santiago Mauricio MD [address] [facility] [address] [place] [address] PCP - General Family Medicine 05/14/22 Kate Kuo NP [address] [place] [address] Nurse Practitioner Medical Oncology 05/15/21
--- OUTSIDE RECORDS SUMMARY | 2024-12-15 13:14 | XMS_ITS ---
Author Name Auto Generated, Auto Generated Organization [facility] Address [address] [place] [address] Phone [phone] Care Team Providers Care Sulfur Chloride Operator Name Role Phone Greg Hughes Unavailable [phone] Functional Status No Results Mental Status No [...]
--- OUTSIDE RECORDS SUMMARY | 2024-12-15 13:14 | XMS_ITS | Clinical Summary ---
Author Organization [facility] Address [address] [place] [address] Care Team Providers Care Fastener Technologist Name Role Phone Renu Pate Primary Care Provider [phone] Active Problems Problem Noted Date Diagnosed Date Lymphedema of both lower extremities 10/05/2020 Immunizations Immunization Administration Dates Next Due PFIZER COVID-19 (ORIGINAL [...] Done Comments DTaP, Tdap and Td Vaccines ( 1 - Tdap) 1959 Annual Medicare Wellness Visit 10/25/2003 RSV Immunization or 60+ Years (1 - 1-dose 75+ series) 2013 Pneumococcal Vaccine: 50+ Years (2 of 2 - PPSV23) 02/23/2017 02/24/2016 Zoster Vaccines (2 of 3) 05/08/2017 017, 09/09/2008 COVID-19 Vaccine ( - 2023-2 5 season) 2024 10/25/2020, 10/04/2020 Meningococcal B Vaccine Aged Out No l onger eligible based on patient's age to complete this topic Meningococcal Vaccine Aged Out No obi carmen eligible based on patient's age to complete this topic RSV Immunizations Under 20 Months Aged Out No longer eligible b ased on patient's age to complete this topic Insurance MEDICARE [employer] Care Teams Fastener Technologist Relationship Specialty Start Date End Date Renu Pate FNP PCP - General Nurse Practitioner Family 09/14/20
--- OUTSIDE RECORDS SUMMARY | 2024-12-15 13:14 | XMS_ITS | Continuity of Care Document ---
Author Organization [facility] Address [address] [place] [address] [address] [place] [address] Phone Care Team Providers Care Liquor Rectifier Name Role Phone Se Franco Unavailable Unavailable Procedures Procedure Date Eye Exam & Treatment No Script Refraction Vision Svcs Frames Purchases BF Plastic Sphcyl [place] To +/-4d .12-2d Tax - Medical Eye Exam & Treatment Refraction Advance Directives Directive Yes / No Effective Date File Name No Information Encounters Encounter Description Practice Location Reason(s) For Visit Diagnoses Date Provider Providers Copied on Encounter [facility], [address] [place] [address] [address], [place], [place], [id number], tel:[phone] [facility] No Information [address]. [address], [place], [address], [place]. tel:[phone] [facility], [address] [place] [address] [address], [place], [place], [id number], [place] tel:[phone] [facility] No Information [address] [facility] . [address] [facility], [address], [place], [place], [id number], [place]. tel:[phone] Referring Provider: Teofilo Mondragon[address], [place], [place], [facility]. tel:[phone] hawley Provider: Sara Franks [address], [place], [address]. tel:[phone] [facility], [address], [place], [place], [id number], [place] tel:[phone] [facility] No Information [address], [place], [address], [place]. tel:[phone] Family History Family Member Type Diagnosis Age At Onset No Information Payers Payer name Insurance type Covered democrat ID Authoriza tion(s) [place] [id number] Social History Type Description Quantity Date Captured [...]
--- OUTSIDE RECORDS SUMMARY | 2024-12-15 13:14 | XMS_ITS | Clinical Summary ---
Author Organization [facility] Address [address] [place] [address] Phone Care Team Providers Care City Auditor Name Role Phone Kate Kuo NP Unavailable [...] 09/03/2021 Assessment & Plan (09/03/2021 6:07 PM COLD STRIP ROLLER): Bilateral ear irrigations done using water and hydrogen peroxide Large amount of wax removed from left ear, mod from right. Patient tolerate procedure without difficulty Encouraged her to use Debrox ear wax softener 6-10 gtt.on cotton pledge once a month. Also to cover ears from hair spray when styling hair. Hypertension, essential 08/27/2021 Assessment & Plan (10/08/2021 4:29 PM COLD STRIP ROLLER): Hypertension stable at this time. Note continue to watch diet for high salt foods, no adding salt to foods. And avoiding salty drinks. Weigh weekly looking for a increase of weight 3-5 pounds. Look for neck vein distension or edema in lower legs. Continue with medications as ordered. Assessment & Plan (09/03/2021 6:08 PM COLD STRIP ROLLER): Continue with meds as directed Watch salt in diet, avoid salty foods. Exercise as tolerated. Check blood pressure at home. Assessment & Plan (08/27/2021 1:28 PM COLD STRIP ROLLER): Continue with Lisinopril 10 mg for HTN and HCTZ 12.5 for HTN Check blood pressure at home. At least 3 times a week. Watch salt in diet, and excessive salty foods. Mixed hyperlipidemia 08/27/2021 Assessment & Plan (08/27/2021 1:29 PM COLD STRIP ROLLER): Continue with Crestor 10mg one daily. Watch diet for excessive fatty foods, Exercise as tolerated. Note to watch carbs in diet. Anxiety 08/27/2021 Assessment & Plan (10/08/2021 4:31 PM COLD STRIP ROLLER): Continue with medication as directed. Keep busy. Get adequate sleep. Exercise on a daily basis. Assessment & Plan (09/03/2021 6:09 PM COLD STRIP ROLLER): Continue with meds as ordered. Work on reducing stress and anxiety. Continue with exercise, relaxation exercises. Assessment & Plan (08/27/2021 1:25 PM COLD STRIP ROLLER): Continue with Ativan 0.5mg po for anxiety. Keep busy, Monitor what causes anxiety to increase Check on quality of slleep. Episode of dizziness 08/27/2021 Assessment & Plan (10/08/2021 4:33 PM COLD STRIP ROLLER): Continue to work on balance. Watch for safety measures with walking and ambulating around the house. Use cane or walker if you are feeling out of balance for prevention of falling. Assessment & Plan (09/03/2021 6:12 PM COLD STRIP ROLLER): Continue to monitor dizziness, time, place, activity, how long it lasted, possible cause. Antivert 12.5mg one in evening for 7 days. Continue with balance and strength exercises. If dizziness gets worse, or falling, or can't move extremities, seek medical help. Call in 7 days with up date. Assessment & Plan (08/27/2021 1:24 PM COLD STRIP ROLLER): Keep diary of when dizziness occurs, and any associations with or without activity. Make sure she is drinking adequate fluid. See if associated with no food. Monitor BP at home and check pulsel Lymphedema of left arm 08/04/2019 Assessment & Plan (10/08/2021 4:26 PM COLD STRIP ROLLER): Note continues to wear the compression sleeve on the left arm which has helped a lot. Arm size is almost equal to the right. Has good pulses in arm' Good sensation and strength. Continue with arm exercises and working on grasp strength. Assessment & Plan (08/27/2021 1:33 PM COLD STRIP ROLLER): No problems with left arm. Continues to [...] AM CDT Pulse 96 09/27/2022 10:58 AM COLD STRIP ROLLER Temperature 34.5 C (94.1 F) 09/27/2022 10:58 AM COLD STRIP ROLLER Respiratory Rate 18 09/27/2022 10:58 AM COLD STRIP ROLLER Oxygen Saturation 97% 09/27/2022 10:58 AM COLD STRIP ROLLER Inhaled Oxygen Concentration - - Weight 61.7 kg (136 lb) 04/04/2023 8:14 AM CDT Height 147.3 cm (4' 9.99 ) 04/04/2023 8:14 AM CD T Body Mass Index 28.43 04/04/2023 8:14 AM CDT Plan of Treatment Health Maintenance Due Date Last Done Comments DTaP/Tdap/Td Vaccine (1 - Tdap) 1951 Hepatitis B Screening 1958 Pneumococcal vaccine 65+ (2 of 2 - PPSV23) 04/15/2017 04/15/2016 Zoster Vaccine (2 of 3) 05/08/2017 03/13/2017, 03/13 Well Visit 65+ 04/02/2022 04/02/2021 Depression Screening 10/02/2022 10/02/2021, 08/27/2021, 04/02/2021, Additional history exists Fall Risk Assessment 10/02/2022 10/02/2021, 08/27/2021, 04/02/2021, Additional history exists Covid-19 Vaccine (2023- 5 season) 2024 06/08/2021, 10/25/2020, 10/04/2020 Influenza Vaccine (Season Ended) 2025 06/02/2021, 05/18/2019, 06/01/2018, Additional history exists Insurance MEDICARE A[employer]NA [facility] MEDICARE AETNA SENIOR SUPPLEMENT MEDICARE AETNA COVENTRY PPO Care Teams City Auditor Relationship Specialty Start Date End Date Santiago Mauricio MD [address] [place] [address] PCP - General Family Medicine 05/14/22 Kate Kuo NP [address] [place] [address] Nurse Practitioner Medical Oncology 05/15/21
== END 2024-12-15 13:03 | disposition home or self-care (01) ==
LOC: ANHIMG 13:04
PROVIDERS: PCP Family Medicine; Visit Provider Physician Assistant
DX: Z78.0 Asymptomatic menopausal state (principal); M81.0 Age-related osteoporosis without current pathological fracture
CPT/HCPCS: 77080

== ENCOUNTER 2025-02-03 09:37 | Outpatient (CLI) | payer MEDICARE, SELFPAY ==
--- NOTE | ~2025-02-03 | XR_ITS ---
CHEST RADIOGRAPH, PA AND LATERAL CLINICAL HISTORY: COUGH WHEEZING x1 DAY HX ASTHMA . COMPARISON: 03/29/2024 TECHNIQUE: PA and lateral views of the chest. FINDINGS S shaped curvature of the thoracolumbar spine with distortion of the cardiomediastinal silhouette, un changed from prior. The remainder of the cardiomediastinal silhouette is otherwise unremarkable. The lungs are clear. IMPRESSION: No focal infiltrate or effusion. Reviewed, dictated and finalized at location A.
--- OUTSIDE RECORDS SUMMARY | 2025-02-03 09:46 | XMS_ITS | Clinical Summary ---
Author Organization [facility] Address [address] [place] [address] Phone Care Team Providers Care Sewage Screen Operator Name Role Phone Kate Kuo NP Unavailable [phone] Santiago Mauricio MD Primary Care Provider Allergies [...] 09/03/2021 Assessment & Plan (09/03/2021 6:07 PM CASH SURRENDER CALCULATOR): Bilateral ear irrigations done using water and hydrogen peroxide Large amount of wax removed from left ear, mod from right. Patient tolerate procedure without difficulty Encouraged her to use Debrox ear wax softener 6-10 gtt.on cotton pledge once a month. Also to cover ears from hair spray when styling hair. Hypertension, essential 08/27/2021 Assessment & Plan (10/08/2021 4:29 PM CASH SURRENDER CALCULATOR): Hypertension stable at this time. Note continue to watch diet for high salt foods, no adding salt to foods. And avoiding salty drinks. Weigh weekly looking for a increase of weight 3-5 pounds. Look for neck vein distension or edema in lower legs. Continue with medications as ordered. Assessment & Plan (09/03/2021 6:08 PM CASH SURRENDER CALCULATOR): Continue with meds as directed Watch salt in diet, avoid salty foods. Exercise as tolerated. Check blood pressure at home. Assessment & Plan (08/27/2021 1:28 PM CASH SURRENDER CALCULATOR): Continue with Lisinopril 10 mg for HTN and HCTZ 12.5 for HTN Check blood pressure at home. At least 3 times a week. Watch salt in diet, and excessive salty foods. Mixed hyperlipidemia 08/27/2021 Assessment & Plan (08/27/2021 1:29 PM CASH SURRENDER CALCULATOR): Continue with Crestor 10mg one daily. Watch diet for excessive fatty foods, Exercise as tolerated. Note to watch carbs in diet. Anxiety 08/27/2021 Assessment & Plan (10/08/2021 4:31 PM CASH SURRENDER CALCULATOR): Continue with medication as directed. Keep busy. Get adequate sleep. Exercise on a daily basis. Assessment & Plan (09/03/2021 6:09 PM CASH SURRENDER CALCULATOR): Continue with meds as ordered. Work on reducing stress and anxiety. Continue with exercise, relaxation exercises. Assessment & Plan (08/27/2021 1:25 PM CASH SURRENDER CALCULATOR): Continue with Ativan 0.5mg po for anxiety. Keep busy, Monitor what causes anxiety to increase Check on quality of slleep. Episode of dizziness 08/27/2021 Assessment & Plan (10/08/2021 4:33 PM CASH SURRENDER CALCULATOR): Continue to work on balance. Watch for safety measures with walking and ambulating around the house. Use cane or walker if you are feeling out of balance for prevention of falling. Assessment & Plan (09/03/2021 6:12 PM CASH SURRENDER CALCULATOR): Continue to monitor dizziness, time, place, activity, how long it lasted, possible cause. Antivert 12.5mg one in evening for 7 days. Continue with balance and strength exercises. If dizziness gets worse, or falling, or can't move extremities, seek medical help. Call in 7 days with up date. Assessment & Plan (08/27/2021 1:24 PM CASH SURRENDER CALCULATOR): Keep diary of when dizziness occurs, and any associations with or without activity. Make sure she is drinking adequate fluid. See if associated with no food. Monitor BP at home and check pulsel Lymphedema of left arm 08/04/2019 Assessment & Plan (10/08/2021 4:26 PM CASH SURRENDER CALCULATOR): Note continues to wear the compression sleeve on the left arm which has helped a lot. Arm size is almost equal to the right. Has good pulses in arm' Good sensation and strength. Continue with arm exercises and working on grasp strength. Assessment & Plan (08/27/2021 1:33 PM CASH SURRENDER CALCULATOR): No problems with left arm. Continues to wear arm compression sleeve. Also has pump at home for this problem. Note no problems at this time. Arm has no swelling at this time. Pulses in arm are good at this time. Personal history of breast cancer 04/14/2018 Cancer Staging:Clinical stage from 10/11/1996:Stage IIB(cT2, cN0, cM0, G3, ER: Negative, NM: Negative, HER2: Negative) - Signed by Emmanuel [...] AM CDT Pulse 96 09/27/2022 10:58 AM CASH SURRENDER CALCULATOR Temperature 34.5 C (94.1 F) 09/27/2022 10:58 AM CASH SURRENDER CALCULATOR Respiratory Rate 18 09/27/2022 10:58 AM CASH SURRENDER CALCULATOR Oxygen Saturation 97% 09/27/2022 10:58 AM CASH SURRENDER CALCULATOR Inhaled Oxygen Concentration - - Weight 61.7 kg (136 lb) 04/04/2023 8:14 AM CDT Height 147.3 cm (4' 9.99) 04/04/2023 8:14 AM CD T Body Mass [...] 05/18/2019, 06/01/2018, Additional history exists [facility] MED[facility] AETNA SENIOR SUPPLEMENT MEDICARE AETNA COVENTRY PPO Care Teams Sewage Screen Operator Relationship Specialty Start Date End Date Santiago Mauricio MD [address] [place] [address] PCP - General Family Medicine 05/14/22 Kate Kuo NP [address] [place] [address] Nurse Practitioner Medical Oncology 05/15/21
--- OUTSIDE RECORDS SUMMARY | 2025-02-03 09:46 | XMS_ITS ---
Author Name Auto Generated, Auto Generated Organization [facility] Address [address] [place] [address] Phone [phone] Care Team Providers Care Senior Sales Operations Analyst Name Role Phone Greg Hughes Unavailable [phone] Functional Status No Results Mental Status No [...]
--- OUTSIDE RECORDS SUMMARY | 2025-02-03 09:46 | XMS_ITS | Clinical Summary ---
Author Organization [facility] Address [address] [place] [address] Care Team Providers Care Crystallizer Operator Name Role Phone Santiago Mauricio MD Primary Care Provider [phone] Source Comments [facility],non-owned Affiliates and Associated Physician Practices is amultiple site organization consisting of ambulatory clinics and hospital sitesin [place], [place], [place] and [place]. This disclosure is being madepursuant to the Care Everywhere program and may not contain all information available regarding this patient. Last updated 18.[facility] [employer] Allergies Active Allergy Reactions Criticality Noted Date [...] vitamin D, ergocalciferol , (DRISDOL) 1.25 MG (43110 UT) capsule Take 50,000 Units by mouth [...] on file Legal Sex Female 6:27 PM PLANT GUARD Gender Identity Not on file Sexual Orientation Not on file Last Filed Vital Signs Vital Sign Reading Time Taken Comments Blood Pressure 145/85 06/11/2019 10:43 AM PLANT GUARD Pulse 109 06/11/2019 10:43 AM PLANT GUARD Temperature 36.8 C (98.3 F) 06/11/2019 10:43 AM PLANT GUARD Respiratory Rate 20 06/11/2019 10:43 AM PLANT GUARD Oxygen Saturation 97% 06/11/2019 10:43 AM PLANT GUARD Inhaled Oxygen Concentration - - Weight 63 kg (139 lb) 06/11/2019 10:43 AM PLANT GUARD Height 152.4 cm (5') 06/11/2019 10:43 AM PLANT GUARD Body Mass Index 27.15 06/11/2019 10:43 AM PLANT GUARD Plan of Treatment Health Maintenance Due Date [...] 10:21 AM 08/25/2018 5:15 PM Care Teams Crystallizer Operator Relationship Specialty Start Date End Date Santiago Mauricio MD [address] [place] [address] PCP - General Family Medicine 11/05/18
--- OUTSIDE RECORDS SUMMARY | 2025-02-03 09:46 | XMS_ITS | Clinical Summary ---
Author Organization [facility] Address [address] [place] [address] Care Team Providers Care Animal Nutrition Teacher Name Role Phone Renu Pate Primary Care Provider [phone] Active Problems Problem Noted Date Diagnosed Date [...] this topic Insurance MEDICARE AETNA Care Teams Animal Nutrition Teacher Relationship Specialty Start Date End Date Renu Pate FNP PCP - General Nurse Practitioner Family 09/14/20
--- OUTSIDE RECORDS SUMMARY | 2025-02-03 09:46 | XMS_ITS | Encounter Summary ---
Author Organization [facility] Address [address] [place] [address] Care Team Providers Care Federal Java Developer Name Role Phone Santiago Mauriico MD Primary Care Provider [phone] Encounter Details Date Type Department Care Team (Late st Contact Info) Description 07/20/2019 Lab Requisition [facility] [address] [facility] [place] [id number] Tracey Monsalve, [address] [facility] [address] [place] [address] Social History Tobacco Use Types Packs/Day Years Used Date Smoking Tobacco: Never Smokeless Tobacco: Never Alcohol Use Standard Drinks/Week Comments No 0 (1 standard drink = 0.6 oz pur e alcohol) Comments No Sex and Gender Information Value Date Recorded Sex Assigned at Not on file Legal Sex Female 6:27 PM PCAT INSTRUCTOR Gender Identity Not on file Sexual Orientation [...] Comments DERMATOPATHOLOGY Routine 07/19/2019 12:0 0 AM PCAT INSTRUCTOR documented in this encounter Results * DERMATOPATHOLOGY (07/19/2019 12:00 AM PCAT INSTRUCTOR) Case Report Dermatopathology Report Case: [id number] Authorizing Provider: Tracey Monsalve DO Collected: 07/19/2019 12:00 AM Ordering Location: [facility] Lab Received: 07/20/2019 12:39 PM Pathologist: Gisela Hernandez MD Specimen: Skin, left FA 9 4:[address] [facility] DERMATOPATHOLOGY LABORATORY Final Diagnosis Specimen A. SKIN, left FA: BASAL CELL CARCINOMA, SUPERFICIAL MULTIFOCAL (C44.619) 9 4:[address] [facility] DERMATOPATHOLOGY LABORATORY at [address] [facility] Clinical History R/O BCC. 9 4:[address] [facility] DERMATOPATHOLOGY LABORATORY Gross Description Specimen A: Received is one formalin filled container labeled with the patient's name and designated left FA. The specimen consists of a shave measuring [id number]. Jar 0. 9 4:[address] [facility] DERMATOPATHOLOGY LABORATORY Microscopic Description Specimen A. SKIN, left FA: Attached to the undersurface of the epidermis, there are small aggregates of basaloid cells with a high nuclear to cytoplasmic ratio and peripheral palisading. 9 4:[address] [facility] DERMATOPATHOLOGY LABORATORY Disclaimer An external and internal positive and negative controls are appropriate for the histochemical, immunohistochemical and immunofluorescence stain(s) in this case (if any), except where stated explicitly. The performance characteristics of the stain(s) cited in this report were developed and its performance characteristic determined by the Dermatopathology Laboratory at [facility], directed by Dr. Robyn Faye. These tests need not be, and therefore are not, approved by the [place] Food and Drug Administration. The tests are used for clinical purposes. Billing Codes Specimen Charges Stain Charges 06507 1 9 4:46 PM PCAT INSTRUCTOR DERMATOPATHOLOGY LABORATORY Embedded Images 9 4:46 PM PCAT INSTRUCTOR DERMATOPATHOLOGY LABORATORY Pathology/Cytolog y TISSUE SPECIMEN FROM SKIN / Unknown 07/19/2019 07/20/2019 12:39 PM PCAT INSTRUCTOR Tracey Monsalve DO LAB - PATHOLOGY/CYTOLOGY ORDERABLES Final Result DERMATOPATHOLOGY LABORATORY [facility] - Department of Dermatology [address] [place] [address] [address] [phone] documented in this encounter Visit Diagnoses Not on filedocumented in this encounter Care Teams Federal Java Developer Relationship Specialty Start Date End Date Santiago Mauricio MD [address] [place] [address] PCP - General Family Medicine 11/05/18 documented as of this encounter
--- OUTSIDE RECORDS SUMMARY | 2025-02-03 09:46 | XMS_ITS | Continuity of Care Document ---
Author Organization [facility] Address [address] [place] [address] [address] [place] [address] Phone Care Team Providers Care Summer Babysitter Name Role Phone Se Franco Unavailable Unavailable Procedures Procedure Date Eye Exam & Treatment No Script Refraction Vision Svcs Frames Purchases BF Plastic Sphcyl Spalding To +/-4d .12-2d Tax - Medical Eye Exam & Treatment Refraction Advance Directives Directive Yes / No Effective Date File Name No Information Encounters Encounter Description Practice Location Reason(s) For Visit Diagnoses Date Provider Providers Copied on Encounter [facility], [address] [place] [address] [address], [place], [place], [id number], tel:[phone] [facility] No Information [address] , [address], [place], [address], [place]. tel:[phone] [facility], [address] [place] [address] [address], [place], [place], [id number], [place] tel:[phone] [facility] No Information [address] [facility] . [address], [address], [place], [place], [id number], [place]. tel:[phone] Referring Provider: Teofilo Mondragon1 [facility] [address], [place], [place], [facility]. tel:[phone] hawley Provider: Sara Franks [address], [place], [address]. tel:[phone] [facility], [address], [place], [place], [id number], [place] tel:[phone] [facility] No Information [address] , [address], [place], [address], [place]. tel:[phone] Family History Family Member Type Diagnosis Age At Onset No Information Payers Payer name Insurance type Covered republican ID Authoriza tion(s) [id number] Social History Type Description Quantity Date Captured [...]
--- OUTSIDE RECORDS SUMMARY | 2025-02-03 09:46 | XMS_ITS | Referral Summary ---
Author Organization [facility] Address [address] [place] [address] Phone Care Team Providers Care Stave Block Roller Name Role Phone Kate Kuo NP Unavailable [phone] Santiago Mauricio MD Primary Care Provider Allergies [...] 09/03/2021 Assessment & Plan (09/03/2021 6:07 PM SCOUT): Bilateral ear irrigations done using water and hydrogen peroxide Large amount of wax removed from left ear, mod from right. Patient tolerate procedure without difficulty Encouraged her to use Debrox ear wax softener 6-10 gtt.on cotton pledge once a month. Also to cover ears from hair spray when styling hair. Hypertension, essential 08/27/2021 Assessment & Plan (10/08/2021 4:29 PM SCOUT): Hypertension stable at this time. Note continue to watch diet for high salt foods, no adding salt to foods. And avoiding salty drinks. Weigh weekly looking for a increase of weight 3-5 pounds. Look for neck vein distension or edema in lower legs. Continue with medications as ordered. Assessment & Plan (09/03/2021 6:08 PM SCOUT): Continue with meds as directed Watch salt in diet, avoid salty foods. Exercise as tolerated. Check blood pressure at home. Assessment & Plan (08/27/2021 1:28 PM SCOUT): Continue with Lisinopril 10 mg for HTN and HCTZ 12.5 for HTN Check blood pressure at home. At least 3 times a week. Watch salt in diet, and excessive salty foods. Mixed hyperlipidemia 08/27/2021 Assessment & Plan (08/27/2021 1:29 PM SCOUT): Continue with Crestor 10mg one daily. Watch diet for excessive fatty foods, Exercise as tolerated. Note to watch carbs in diet. Anxiety 08/27/2021 Assessment & Plan (10/08/2021 4:31 PM SCOUT): Continue with medication as directed. Keep busy. Get adequate sleep. Exercise on a daily basis. Assessment & Plan (09/03/2021 6:09 PM SCOUT): Continue with meds as ordered. Work on reducing stress and anxiety. Continue with exercise, relaxation exercises. Assessment & Plan (08/27/2021 1:25 PM SCOUT): Continue with Ativan 0.5mg po for anxiety. Keep busy, Monitor what causes anxiety to increase Check on quality of slleep. Episode of dizziness 08/27/2021 Assessment & Plan (10/08/2021 4:33 PM SCOUT): Continue to work on balance. Watch for safety measures with walking and ambulating around the house. Use cane or walker if you are feeling out of balance for prevention of falling. Assessment & Plan (09/03/2021 6:12 PM SCOUT): Continue to monitor dizziness, time, place, activity, how long it lasted, possible cause. Antivert 12.5mg one in evening for 7 days. Continue with balance and strength exercises. If dizziness gets worse, or falling, or can't move extremities, seek medical help. Call in 7 days with up date. Assessment & Plan (08/27/2021 1:24 PM SCOUT): Keep diary of when dizziness occurs, and any associations with or without activity. Make sure she is drinking adequate fluid. See if associated with no food. Monitor BP at home and check pulsel Lymphedema of left arm 08/04/2019 Assessment & Plan (10/08/2021 4:26 PM SCOUT): Note continues to wear the compression sleeve on the left arm which has helped a lot. Arm size is almost equal to the right. Has good pulses in arm' Good sensation and strength. Continue with arm exercises and working on grasp strength. Assessment & Plan (08/27/2021 1:33 PM SCOUT): No problems with left arm. Continues to wear arm compression sleeve. Also has pump at home for this problem. Note no problems at this time. Arm has no swelling at this time. Pulses in arm are good at this time. Personal history of breast cancer 04/14/2018 Cancer Staging:Clinical stage from 10/11/1996:Stage IIB(cT2, cN0, cM0, G3, ER: Negative, ID: Negative, HER2: Negative) - Signed by Emmanuel [...] AM CDT Pulse 96 09/27/2022 10:58 AM SCOUT Temperature 34.5 C (94.1 F) 09/27/2022 10:58 AM SCOUT Respiratory Rate 18 09/27/2022 10:58 AM SCOUT Oxygen Saturation 97% 09/27/2022 10:58 AM SCOUT Inhaled Oxygen Concentration - - Weight 61.7 kg (136 lb) 04/04/2023 8:14 AM CDT Height 147.3 cm (4' 9.99) 04/04/2023 8:14 AM CD T Body Mass Index 28.43 04/04/2023 8:14 AM CDT Plan of Treatment Not on [place] [address] [facility] [place] [address] MEDICARE [facility] PPO Care Teams Stave Block Roller Relationship Specialty Start Date End Date Santiago Mauricio MD [address] [facility] [address] [place] [address] PCP - General Family Medicine 05/14/22 Kate Kuo NP [address] [place] [address] Nurse Practitioner Medical Oncology 05/15/21
--- OUTSIDE RECORDS SUMMARY | 2025-02-03 09:46 | XMS_ITS | Encounter Summary ---
Author Organization [facility] Address [address] [place] [address] Care Team Providers Care Slot Machine Repairer Name Role Phone Santiago Mauricio MD Primary Care Provider [phone] Encounter Details Date Type Department Care Team (Late st Contact Info) Description 03/16/2020 Lab Requisition [facility] [address] [facility] [place] [address] Tracey Monsalve, [address] [facility] [address] [place] [address] Social History Tobacco Use Types Packs/Day Years Used Date Smoking Tobacco: Never Smokeless Tobacco: Never Alcohol Use Standard Drinks/Week Comments No 0 (1 standard drink = 0.6 oz pur e alcohol) Comments No Sex and Gender Information Value Date Recorded Sex Assigned at Not on file Legal Sex Female 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 Robyn Faye. These tests need not be, and therefore are not, approved by the [place] Food and Drug Administration. The tests are used for clinical purposes. Billing Codes Specimen Charges Stain Charges 20492 1 0 3:42 PM CDT DERMATOPATHOLOGY LABORATORY Embedded Images 0 3:42 PM CDT DERMATOPATHOLOGY LABORATORY Pathology/Cytolog y TISSUE SPECIMEN FROM SKIN / Unknown 03/15/2020 03/16/2020 9:13 AM CDT us Tracey Monsalve DO LAB - PATHOLOGY/CYTOLOGY ORDERABLES Final Result DERMATOPATHOLOGY LABORATORY [facility] - Department of Dermatology [facility] Covering [facility]/[address] [phone] documented in this encounter Visit Diagnoses Not on filedocumented in this encounter Care Teams Slot Machine Repairer Relationship Specialty Start Date End Date Santiago Mauricio MD [address] [place] [address] PCP - General Family Medicine 11/05/18 documented as of this encounter
--- OUTSIDE RECORDS SUMMARY | 2025-02-03 09:46 | XMS_ITS ---
Author Name Auto Generated, Auto Generated Organization [facility] Address [address] [place] [address] Phone [phone] Care Team Providers Care Stripping Shovel Operator Name Role Phone Greg Hughes Unavailable [phone] Functional Status No Results Mental Status No [...]
--- OUTSIDE RECORDS SUMMARY | 2025-02-03 09:46 | XMS_ITS | Encounter Summary ---
Author Organization [facility] Address [address] [address] Care Team Providers Care Lead Systems Analyst Name Role Phone Santiago Mauricio MD Primary Care Provider [phone] Encounter Details Date Type Department Care Team (Late st Contact Info) Description 12/31/2023 Lab Requisition [facility] - D[facility] Lab [address] [facility] [place] [address] Vickie Oden MD [address] [facility] [address] [place] [address] Social History Tobacco Use Types Packs/Day Years Used Date Smoking Tobacco: Never Smokeless Tobacco: Never Alcohol Use Standard Drinks/Week Comments No 0 (1 standard drink = 0.6 oz pur e alcohol) Comments No Sex and Gender Information Value Date Recorded Sex Assigned at Not on file Legal Sex Female 6:27 PM DIRECTOR OF LABOR AND DELIVERY Gender Identity Not on file Sexual Orientation [...] PM CDT) Case Report Dermatopathology Report Case: [id number] Authorizing Provider: Vickie Oden MD Collected: 12/31/2023 03:50 PM Ordering Location: [facility] - Received: 01/01/2024 12:51 PM DermPath Lab Pathologist: Aidan Faye MD Specimen: Skin, right worship 4 1:40 PM CDT DERMATOPATHOLOGY LABORATORY Final Diagnosis Specimen A. 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 SCC vs. ISK 4 1:40 PM CDT DERMATOPATHOLOGY LABORATORY Gross Description Specimen A: Received is one formalin filled container labeled with the patient's name and designated right worship. The specimen consists of a shave biopsy measuring 6x6x2 mm. Jar 0. 4 1:40 PM CDT DERMATOPATHOLOGY LABORATORY Microscopic Description Specimen A. SKIN, right worship: The epidermis is acanthotic and shows full [...] characteristic determined by the Dermatopathology Laboratory at [facility], directed by Dr. Robyn Faye. These tests need not be, and therefore are not, approved by the [place] Food and Drug Administration. The tests are used for clinical purposes. Billing Codes Specimen Charges Stain Charges 35074 1 4 1:40 PM CDT DERMATOPATHOLOGY LABORATORY Embedded Images 4 1:40 PM CDT DERMATOPATHOLOGY LABORATORY Pathology/Cytolo gy TISSUE SPECIMEN FROM SKIN / Unknown 12/31/2023 3:50 PM CDT 01/01/2024 12:51 PM CDT Vickie Oden MD LAB - PATHOLOGY/CYTOLOGY OR DERABLES Final Result DERMATOPATHOLOGY LABORATORY [facility] - Department of Dermatology [facility] Medicine [address] [place] [address], [address] [phone] documented in this encounter Visit Diagnoses Not on filedocumented in this encounter Care Teams Lead Systems Analyst Relationship Specialty Start Date End Date Santiago Mauricio MD [address] [place] [address] PCP - General Family Medicine 11/05/18 documented as of this encounter
== END 2025-02-03 09:38 | disposition home or self-care (01) ==
PROVIDERS: PCP Family Medicine; Visit Provider Nurse Practitioner Family
DX: R05.9 Cough, unspecified (principal); R06.2 Wheezing
CPT/HCPCS: 71046